=== PATIENT | female | born 1980 | race Caucasian/White ===

== ENCOUNTER 2020-07-15 08:33 | Outpatient (REF) | payer OTHER, SELFPAY ==
[2020-07-15 08:54] LABS: COVID-19 Test Negative (Negative)
== END 2020-07-15 08:34 | disposition home or self-care (01) ==
LOC: HO.LAB 08:33
PROVIDERS: PCP Internal Medicine; Visit Provider Internal Medicine
DX: Z20.828 Contact with and (suspected) exposure to other viral communicable diseases (principal)
CPT/HCPCS: 87635

== ENCOUNTER 2020-08-02 07:24 | Outpatient (REF) | payer OTHER, SELFPAY ==
[2020-08-02 08:54] LABS: Alanine Aminotransferase 13 U/L (0-31); Albumin Level 3.9 g/dL (3.5-5.0); Alkaline Phosphatase 64 U/L (39-117); Anion Gap 10 (12-20); Aspartate Amino Transferase 14 U/L (5-31); Bilirubin Total < 0.2 mg/dL (0.0-1.0); Blood Urea Nitrogen 11 mg/dL (9-16); Carbon Dioxide 24 mmol/L (22-29); Chloride 108 mmol/L (96-108); Cholesterol 146 mg/dL; Estimated Glomerular Filt Rate > 60; Glucose Fasting 109 mg/dL (60-99); HDL Cholesterol 57 mg/dL; LDL Cholesterol Calculated 76 mg/dl; Potassium 4.1 mmol/l (3.3-5.1); Sodium 138 mmol/L (135-145); Total Protein 6.9 g/dL (6.5-8.0); Triglycerides 65 mg/dL
== END 2020-08-02 07:25 | disposition home or self-care (01) ==
LOC: HO.LAB 07:24
PROVIDERS: Visit Provider Internal Medicine
DX: E66.01 Morbid (severe) obesity due to excess calories (principal)
CPT/HCPCS: 80053; 80061

== ENCOUNTER → 2021-01-13 07:50 | Outpatient (BNVA) | payer OTHER, SELFPAY | PROVIDERS: PCP Internal Medicine; Visit Provider Advanced Practice Midwife ==

== ENCOUNTER 2021-01-18 11:05 | Outpatient (REF) | payer OTHER, SELFPAY | END 2021-01-18 11:06 | disposition home or self-care (01) | LOC: HO.LAB 11:05 | PROVIDERS: Visit Provider Nurse Practitioner Family | DX: N39.0 Urinary tract infection, site not specified (principal) | CPT/HCPCS: 87086 ==

== ENCOUNTER 2021-04-01 07:51 | Outpatient (REF) | payer OTHER, SELFPAY ==
[2021-04-01 08:59] LABS: MANUAL DIFF FLAG NO
[2021-04-01 09:09] LABS: Basophils Percent Auto 0.7 % (0-2); Eosinophils Absolute Auto 0.1 X10*3/uL (0.0-0.4); Eosinophils Percent Auto 1.8 % (0-4); Hematocrit 40.9 % (37-47); Hemoglobin 13.6 g/dl (12.0-16.0); Imm Gran Abs Auto 0.03 X10*3/uL (0.00-0.03); Imm Gran Pct Auto 0.6 % (0.0-0.4); Lymphocytes Absolute Auto 1.4 X10*3/uL (1.2-4.9); Lymphocytes Percent Auto 25.7 % (20-40); Mean Corpuscular HGB Conc 33.3 g/dl (31.0-35.0); Mean Corpuscular Hemoglobin 27.5 pg (27.0-33.0); Mean Corpuscular Volume 82.6 fL (80-98); Mean Platelet Volume 9.3 fL (9.4-12.3); Monocytes Absolute Auto 0.5 X10*3/uL (0.1-1.2); Monocytes Percent Auto 9.4 % (2-11); Neutrophils Absolute Auto 3.4 X10*3/uL (2.0-8.3); Neutrophils Percent Auto 61.8 % (45-73); Platelet Count 398 X10*3/uL (160-400); Red Blood Count 4.95 X10*6/uL (4.20-5.50); Red Cell Distribution Width 14.1 % (11.0-16.0); White Blood Count 5.5 X10*3/uL (4.8-10.8)
[2021-04-01 09:27] LABS: Alanine Aminotransferase 20 U/L (0-31); Albumin Level 4.1 g/dL (3.5-5.0); Alkaline Phosphatase 74 U/L (39-117); Anion Gap 14 (12-20); Aspartate Amino Transferase 23 U/L (5-31); Bilirubin Total 0.4 mg/dL (0.0-1.0); Blood Urea Nitrogen 11 mg/dL (9-16); Calcium 9.1 mg/dL (8.4-10.2); Carbon Dioxide 24 mmol/L (22-29); Chloride 107 mmol/L (96-108); Cholesterol 151 mg/dL; Estimated Glomerular Filt Rate > 60; Glucose Fasting 103 mg/dL (60-99); HDL Cholesterol 52 mg/dL; LDL Cholesterol Calculated 85 mg/dl; Potassium 4.6 mmol/L (3.3-5.1); Sodium 140 mmol/L (135-145); Total Protein 7.3 g/dL (6.5-8.0); Triglycerides 71 mg/dL
[2021-04-01 10:11] LABS: Thyroid Stimulating Hormone 0.35 uIU/mL (0.32-4.0)
[2021-04-08 17:16] LABS: Vitamin D 25-OH, D2 <4 ng/mL; Vitamin D 25-OH, D3 13 ng/mL; Vitamin D 25-OH, Total 13 ng/mL (30-100)
== END 2021-04-01 07:52 | disposition home or self-care (01) ==
LOC: HO.LAB 07:51
PROVIDERS: PCP Internal Medicine; Visit Provider Internal Medicine
DX: E55.9 Vitamin D deficiency, unspecified (principal); L65.9 Nonscarring hair loss, unspecified; E78.5 Hyperlipidemia, unspecified; D64.9 Anemia, unspecified
CPT/HCPCS: 36415; 80053; 80061; 82306; 84443; 85025

== ENCOUNTER 2021-06-14 08:18 | Outpatient (REF) | payer OTHER, SELFPAY ==
--- NOTE | ~2021-06-14 | MM_ITS ---
EXAMINATION: MM SCREENING DIGITAL BREAST TOMOSYNTHESIS, BILATERAL CLINICAL INFORMATION: Screening. Asymptomatic. The lifetime risk of breast cancer based on the Tyrer-Cuzick Model is 8.3%. COMPARISON: Mammography: June 08, 2020 and studies dating back to March 30, 2014 TECHNIQUE: Digital breast tomosynthesis is performed in both the craniocaudal and mediolateral oblique views along with computer-aided detection (CAD). Synthesized 2D images are generated from the tomosynthesis. FINDINGS: The breasts are heterogeneously dense, which may obscure small masses (ACR BI-RADS breast composition Category c). There are no significant masses, abnormal calcifications, or other abnormalities. MM/MM tomosynthesis screening BI IMPRESSION: There are no significant changes from prior study. ASSESSMENT: BI-RADS 1: Negative RECOMMENDATION: Routine annual mammography screening. This patient's information was entered into a reminder system with a target due date for their next mammogram.
== END 2021-06-14 08:19 | disposition home or self-care (01) ==
LOC: HO.MAMMO 08:18
PROVIDERS: PCP Internal Medicine; Visit Provider Internal Medicine
DX: Z12.31 Encounter for screening mammogram for malignant neoplasm of breast (principal)
CPT/HCPCS: 77063; 77067

== ENCOUNTER 2021-06-16 11:30 | Outpatient (REF) | payer OTHER, SELFPAY | END 2021-06-16 11:31 | disposition home or self-care (01) | LOC: HO.LNP 11:30 | PROVIDERS: Visit Provider Hospitalist | DX: R30.0 Dysuria (principal) | CPT/HCPCS: 87086; 87088; 87186 ==

== ENCOUNTER → 2021-12-12 15:36 | Outpatient (REF) | payer OTHER, SELFPAY ==
--- NOTE | 2021-12-12 15:40 | ECG_ITS ---
Test Reason : DIZZINESS Blood Pressure : / mmHG Vent. Rate : 054 BPM Atrial Rate : 054 BPM P-R Int : 112 ms QRS Dur : 082 ms QT Int : 412 ms P-R-T Axes : -20 -01 028 degrees QTc Int : 390 ms Sinus bradycardia with sinus arrhythmia Otherwise normal ECG No previous ECGs available Referred By: Kenny Arteaga Electronically Signed By:JULIO C BALDWIN
[2021-12-12 16:30] LABS: Basophils Absolute Auto 0.1 X10*3/uL (0.0-0.2); Hemoglobin 13.5 g/dl (12.0-16.0); PLT CLUMP 1; SCAN SMEAR FLAG 1
[2021-12-12 16:32] LABS: Basophils Percent Auto 0.7 % (0-2); Eosinophils Absolute Auto 0.1 X10*3/uL (0.0-0.4); Eosinophils Percent Auto 1.9 % (0-4); Imm Gran Abs Auto 0.04 X10*3/uL (0.00-0.03); Imm Gran Pct Auto 0.6 % (0.0-0.4); MANUAL DIFF FLAG SCAN; Mean Corpuscular HGB Conc 32.9 g/dl (31.0-35.0); Mean Corpuscular Hemoglobin 27.2 pg (27.0-33.0); Mean Corpuscular Volume 82.7 fL (80.0-98.0); Mean Platelet Volume 10.9 fL (9.4-12.3); Monocytes Absolute Auto 0.6 X10*3/uL (0.1-1.2); Monocytes Percent Auto 8.6 % (2-11); Neutrophils Absolute Auto 4.2 x10*3/uL (2.0-8.3); Neutrophils Percent Auto 59.2 % (45-73); Red Blood Count 4.96 X10*6/uL (4.20-5.50); Red Cell Distribution Width 14.1 % (11.0-16.0)
[2021-12-12 16:43] LABS: Appearance Urine CLEAR; Color Urine STRAW; Glucose Urine UA NEG (NEG); Leukocyte Esterase Urine NEG (NEG); Nitrite Urine NEG (NEG); Specific Gravity - Urine <= 1.005 (1.005-1.025); Urine Blood NEG (NEG); Urine Ketones NEG (NEG); Urine Protein NEG (NEG-TRACE)
[2021-12-12 16:54] LABS: Alanine Aminotransferase 77 U/L (0-31); Alkaline Phosphatase 67 U/L (39-117); Anion Gap 13 (12-20); Aspartate Amino Transferase 27 U/L (5-31); Bilirubin Total 0.2 mg/dL (0.0-1.0); Blood Urea Nitrogen 11 mg/dL (9-16); Calcium 8.8 mg/dL (8.4-10.2); Carbon Dioxide 25 mmol/L (22-29); Chloride 106 mmol/L (96-108); Estimated Glomerular Filt Rate > 60; Glucose Random 85 mg/dL (60-115); Potassium 4.1 mmol/L (3.3-5.1); Sodium 140 mmol/L (135-145); Total Protein 7.3 g/dL (6.5-8.0)
[2021-12-12 16:58] LABS: Platelet Count 262 X10*3/uL (160-400); SLIDE REVIEW VERIFIED; White Blood Count 6.7 X10*3/uL (4.8-10.8)
== END ==
LOC: HO.CARD 15:36
PROVIDERS: PCP Internal Medicine; Visit Provider Nurse Practitioner Family
DX: R42 Dizziness and giddiness (principal); R51.9 Headache, unspecified; I10 Essential (primary) hypertension
CPT/HCPCS: 36415; 80053; 81003; 85025; 93005

== ENCOUNTER 2021-12-22 15:26 | Outpatient (REF) | payer OTHER, SELFPAY ==
--- NOTE | ~2021-12-22 | MR_ITS ---
EXAMINATION: MR BRAIN WITHOUT CONTRAST CLINICAL INFORMATION: Headaches. COMPARISON: None. TECHNIQUE: Multiplanar, multisequence imaging of the brain was performed without contrast. FINDINGS: There are trace bilateral hemispheric subdural collections and probable dural thickening without midline shift. Trace subdural fluid also along the tentorial leaflets. There is either dural thickening versus trace subdural collections along the dorsal clivus and around the cerebellar hemispheres in the posterior fossa, without mass effect. The ventricles are small in size. There is no sagging appearance of the brainstem. The cerebellar tonsils are normal in position. Although incompletely visualized, there is suspected engorgement of the epidural venous plexus at the C1-C2 level. No diffusion abnormalities are identified to suggest an acute infarct. No brain parenchymal signal abnormality is noted. The brainstem and cerebellum are otherwise normal. The gradient refocused acquisition is normal. The craniovertebral junction, marrow signal, and midline structures are normal. The major intracranial flow voids at the level of the igiugig of [place] are preserved. The dural venous sinus flow voids are maintained. There are small retention cysts in the maxillary sinuses. The mastoid air cells are well aerated. MR/MR head/brain wo con IMPRESSION: Trace subdural collections and suspected dural thickening along the cerebral convexities with involvement of the tentorial leaflets and also visible around the cerebellar hemispheres in the posterior fossa. Additional findings along the dorsal clivus in the prepontine cistern. Potential engorgement of the epidural venous plexus in the upper cervical spine. Although there is no sagging of the brainstem or inferior cerebellar tonsillar ectopia, findings may signify idiopathic intracranial hypotension. Query for any history of positional headaches.
== END 2021-12-22 15:27 | disposition home or self-care (01) ==
LOC: HO.MRI 15:26
PROVIDERS: Visit Provider Nurse Practitioner Family
DX: R51.9 Headache, unspecified (principal)
CPT/HCPCS: 70551

== ENCOUNTER → 2022-01-05 08:41 | Outpatient (BNVA) | payer OTHER, SELFPAY | PROVIDERS: PCP Internal Medicine; Visit Provider Nurse Practitioner Family | DX: Z13.89 Encounter for screening for other disorder (principal) ==

== ENCOUNTER 2022-01-24 07:57 | Outpatient (RCR) | payer OTHER, SELFPAY ==
[2022-01-24 08:11] VITALS: BP 135/82; PULSE 71
--- NOTE | 2022-01-24 09:01 | MHC.PT.EP ---
[facility] [place] Office [place] Office [place] Office [address] [phone] F: [phone] F: [phone] F: [phone] F: [phone] Physical Therapy Plan of Care Date of Evaluation: Date of Surgery: NA Diagnosis: Dizziness and giddiness Assessment: Zenia is a 41 year old female who is referred to PT for giddiness and dizziness . She reports of having sudden onset of CHU, dizziness, ear pain, ringing and ears feeling blocked about 1.5 months. Her symptoms have resolved for most part. She currently only has occasional dizziness and ringing in her ear. On PT examination she presented with intact smooth pursuit, saccades, DVA, visual tracking, head thrust, static and dynamic balance. She is negative for VBI and BPPV in ball pikes and B roll test. She has returned to PLOF with ADLS and work activities. She currently has no symptoms of vestibular dysfunction. No PT indicated at this time. Frequency and Duration: The patient will be seen Short Term Goals: Care Home Goals: Treatment Plan: Modalities to reduce pain, spasms and effusion. Manual therapy to restore motion and function. Therapeutic exercise to improve strength and flexibility. Neuromuscular re-education for posture and balance. Therapeutic activities to return to functional activities of daily living. Electronically signed by: Cyndy Carbajal PT DPT Please sign and return to therapist. Thank you for your referral.
--- NOTE | 2022-03-01 14:46 | MHC.PT.DC ---
[facility] [place] [facility] [place] Office [place] Office [address] [facility] [phone] F: [phone] F: [phone] F: [phone] F: [phone] Physical Therapy Discharge Report Diagnosis: Dizziness and giddiness Date of Surgery: NA Date of Evaluation: 01/24/22 Date of Discharge: 03/01/22 Treatments to Date: 1 Cancellations to Date: 0 No Shows to Date: 0 Discharge Status: Discharge Summary: Zenia had no symptoms of vertigo. She is therefore being d/c from PT. Electronically signed by: Cyndy Carbajal PT DPT Please sign and return to therapist. Thank you for your referral.
== END 2022-03-01 14:47 | disposition home or self-care (01) ==
LOC: HO.PT 07:57
PROVIDERS: PCP Internal Medicine; Visit Provider Nurse Practitioner Family
DX: R42 Dizziness and giddiness (principal)
CPT/HCPCS: 97112; 97161

== ENCOUNTER 2022-04-11 14:42 | Outpatient (REF) | payer OTHER, SELFPAY ==
[2022-04-14 10:51] LABS: HPV mRNA E6/E7 rflx Not Detected (Not Detected)
== END 2022-04-11 14:43 | disposition home or self-care (01) ==
LOC: HO.LAB 14:42
PROVIDERS: Visit Provider Advanced Practice Midwife
DX: Z01.419 Encounter for gynecological examination (general) (routine) without abnormal findings (principal); R10.2 Pelvic and perineal pain; E66.01 Morbid (severe) obesity due to excess calories; Z11.51 Encounter for screening for human papillomavirus (HPV)
CPT/HCPCS: 87624; 88142

== ENCOUNTER 2022-05-29 13:54 | Outpatient (REF) | payer OTHER, SELFPAY ==
--- NOTE | ~2022-05-29 | US_ITS ---
EXAMINATION: US PELVIS CLINICAL INFORMATION: Morbid obesity due to excess calories COMPARISON: 11/10/2019 TECHNIQUE: Ultrasound of the pelvis is performed using both transabdominal and transvaginal transducers along with Doppler. Transvaginal imaging is performed due to inadequate visualization transabdominally. FINDINGS: Uterus: The uterus is anteverted and measures 9.6 x 4.3 x 5.7 cm. New 2.2 cm right fundal uterine myoma. Unchanged 1.3 cm myoma in the posterior aspect of the lower uterine segment. Previously seen myoma no longer seen. The double wall endometrial thickness is 0.9 mm. Adnexa: Both ovaries are visualized. There is normal color flow to the adnexa. There is no pelvic ascites or fluid collection. Right ovary measures 2.6 x 1.9 x 1.7 cm. No adnexal mass Left ovary was only seen transabdominally and measures 2.0 x 1.3 x 1.0 cm. No adnexal mass. US/US pelvic and transvaginal IMPRESSION: No adnexal mass. Unchanged small lower uterine segment myoma. New 2.2 cm right fundal leiomyoma.
== END 2022-05-29 13:55 | disposition home or self-care (01) ==
LOC: HO.US 13:54
PROVIDERS: Visit Provider Advanced Practice Midwife
DX: R10.2 Pelvic and perineal pain (principal); E66.01 Morbid (severe) obesity due to excess calories
CPT/HCPCS: 76830; 76856

== ENCOUNTER 2022-06-16 07:47 | Outpatient (REF) | payer OTHER, SELFPAY ==
--- NOTE | ~2022-06-16 | MM_ITS ---
EXAMINATION: MM SCREENING DIGITAL BREAST TOMOSYNTHESIS, BILATERAL CLINICAL INFORMATION: Screening. Asymptomatic. The lifetime risk of breast cancer based on the Tyrer-Cuzick Model is 11%. COMPARISON: Mammography: 06/14/2021, 06/08/2020, 06/03/2019 TECHNIQUE: Digital breast tomosynthesis is performed in both the craniocaudal and mediolateral oblique views along with computer-aided detection (CAD). Synthesized 2D images are generated from the tomosynthesis. Additional bilateral CC and left MLO views are provided. FINDINGS: There are scattered areas of fibroglandular density (ACR BI-RADS breast composition Category b). There are no significant masses, abnormal calcifications, or other abnormalities. Parenchymal pattern is similar to prior studies. There is no developing density or architectural abnormality. There are some fine calcifications posterior outer left breast likely vascular and stable from prior exams. The axilla and skin contours are unremarkable. No significant changes. MM/MM tomosynthesis screening BI IMPRESSION: No mammographic evidence of malignancy. ASSESSMENT: BI-RADS 2: Benign RECOMMENDATION: Routine annual mammography screening. This patient's information was entered into a reminder system with a target due date for their next mammogram.
== END 2022-06-16 07:48 | disposition home or self-care (01) ==
LOC: HO.MAMMO 07:47
PROVIDERS: PCP Internal Medicine; Visit Provider Internal Medicine
DX: Z12.31 Encounter for screening mammogram for malignant neoplasm of breast (principal)
CPT/HCPCS: 77063; 77067

== ENCOUNTER 2022-06-22 07:07 | Outpatient (REF) | payer OTHER, SELFPAY ==
[2022-06-22 08:21] LABS: Alanine Aminotransferase 19 U/L (0-31); Alkaline Phosphatase 74 U/L (39-117); Anion Gap 13 (12-20); Aspartate Amino Transferase 17 U/L (5-31); Bilirubin Total 0.6 mg/dL (0.0-1.0); Blood Urea Nitrogen 14 mg/dL (9-16); Carbon Dioxide 24 mmol/L (22-29); Chloride 107 mmol/L (96-108); Cholesterol 155 mg/dL; Estimated Glomerular Filt Rate > 60; Glucose Fasting 106 mg/dL (60-99); HDL Cholesterol 54 mg/dL; LDL Cholesterol Calculated 87 mg/dl; Potassium 4.4 mmol/L (3.3-5.1); Sodium 140 mmol/L (135-145); Total Protein 7.1 g/dL (6.5-8.0); Triglycerides 72 mg/dL
[2022-06-22 08:42] LABS: Thyroid Stimulating Hormone 0.66 uIU/mL (0.32-4.0)
== END 2022-06-22 07:08 | disposition home or self-care (01) ==
LOC: HO.LAB 07:07
PROVIDERS: PCP Internal Medicine; Visit Provider Internal Medicine
DX: Z00.00 Encounter for general adult medical examination without abnormal findings (principal); E55.9 Vitamin D deficiency, unspecified; E66.01 Morbid (severe) obesity due to excess calories
CPT/HCPCS: 36415; 80053; 80061; 82306; 84443

== ENCOUNTER 2022-08-02 16:13 | Outpatient (REF) | payer OTHER, SELFPAY ==
--- NOTE | ~2022-08-02 | MR_ITS ---
EXAMINATION: MR BRAIN WITHOUT AND WITH CONTRAST CLINICAL INFORMATION: Headache. COMPARISON: Brain MRI 12/22/2021. TECHNIQUE: Multiplanar MR imaging of the brain was performed without and with contrast. A total of 10 mL Gadavist was utilized for this examination. FINDINGS: Postcontrast images reveal no abnormal intracranial mass or enhancement. There is no intracranial mass effect or midline shift. Lateral and third ventricles are normal. No hydrocephalus. Midline structures including the cervicomedullary junction are normal. No acute bone marrow signal changes. There is no acute territorial infarct. No pathological magnetic susceptibility artifact. Intracranial vascular flow voids are maintained. There is no mastoid or middle ear effusion. A few small retention cysts are visualized within the maxillary sinuses. Otherwise no active paranasal sinus disease. Globes and orbits are symmetric. MR/MR head/brain wo/w con IMPRESSION: Normal brain MRI.
== END 2022-08-02 16:14 | disposition home or self-care (01) ==
LOC: HO.MRI 16:13
PROVIDERS: Visit Provider Nurse Practitioner Family
DX: R90.89 Other abnormal findings on diagnostic imaging of central nervous system (principal); R51.0 Headache with orthostatic component, not elsewhere classified
CPT/HCPCS: 70553; A9585

== ENCOUNTER → 2022-10-10 07:56 | Outpatient (BNVA) | payer OTHER, SELFPAY | PROVIDERS: PCP Internal Medicine; Visit Provider Nurse Practitioner Family | DX: Z13.89 Encounter for screening for other disorder (principal) ==

== ENCOUNTER → 2023-02-06 08:23 | Outpatient (BNVA) | payer OTHER, SELFPAY | PROVIDERS: PCP Internal Medicine; Visit Provider Nurse Practitioner Family ==

== ENCOUNTER 2023-05-14 07:19 | Outpatient (AMB) | payer OTHER, SELFPAY ==
[2023-05-14 07:22] VITALS: BP 128/72; PULSE 62; O2SAT 98; BMI 51.2
--- NOTE | 2023-05-14 07:22 | MHC.PC.OV ---
Vital Signs 05/14/23 07:22 Height 5 ft Weight 262 lb BMI 51.2 BP 128/72 Blood Pressure Location Lt brachial Position Sitting Pulse 62 Pulse Source Pulse Oximeter Pulse Oximetry (%) 98 Oxygen Delivery Method Room Air Intake Visit Reasons: annual exam Photoradio Operator Required: No Accompanied by: Self / Same As Patient Allergies gabapentin Allergy (Intermediate, Verified 05/14/23 07:40) pruritus magnesium Allergy (Intermediate, Verified 05/14/23 07:40) rash environmental allergies Allergy (Unknown, Verified 05/14/23 07:40) Unknown metformin Adverse Reaction (Intermediate, Verified 05/14/23 07:40) diarrhea Medication List - Last Reconciled 05/14/23 by Fay Cisneros MD [id number]-mxwoxsptwqifl-izuj 50-325-40 mg 1 - 2 caps PO Q4-6H PRN 30 days levocetirizine (Xyzal) 5 mg PO DAILY Tobacco use date assessed: 05/14/23 Dental Screening Dental Screen Date: 05/14/23 Did you have a dental visit in the last 12 months?: Yes Did you have a dental problem in the last 6 months where you did not have access to dental care?: No Was dental information given to patient?: Patient has dentist HPI HPI Comments History of Present Illness Details This is a 43-year-old female with morbid obesity that comes for her physical exam. She has a BMI of 51.2 and will be referred to weight management. No chest pain. No shortness of breath. Last mammogram was June 2022. Last Pap smear was 2021. Is willing to do Cologuard. Complains of voice hoarseness that has been present for over a month. Also has left heel pain that bothers her for few months. [facility] Medical History (Updated 05/14/23 @ 07:53 by Fay Cisneros MD) Acne Extreme obesity Hair loss Hypovitaminosis D Missed period Morbid obesity Surgical History History of section History of laparoscopic cholecystectomy History of right breast biopsy History of surgery History of tubal ligation Family History (Updated 05/14/23 @ 07:46 by Fay Cisneros MD) Father Hypertension Stroke Mother Hypertension Sister No problems noted. Son No problems noted. Daughter No problems noted. Maternal Aunt Colon cancer, Onset Age: 60 Social History Housing: Apartment Alcohol intake: never Patient Tobacco Use Status: Never used Tobacco e-Cigarette/Vaping Use: Never Used Second Hand Smoke Exposure: No service: No Current occupational status: employed Current occupational exposures/hazards: No Cognitive needs: No Hearing needs: No Vision needs: No Female Reproductive History Menstrual Age of Menarche: 9 Questionnaire PHQ-9 Over the last 2 weeks, how often have you been bothered by any of the following problems? 1. Little interest or pleasure in doing things: not at all 2. Feeling down, depressed, or hopeless: not at all 3. Trouble falling or staying asleep, or sleeping too much: not at all 4. Feeling tired or having little energy: not at all 5. Poor appetite or overeating: not at all 6. Feeling bad about yourself - or that you are a failure or have let yourself or your family down: not at all 7. Trouble concentrating on things, such as reading the newspaper or watching television: not at all 8. Moving or speaking so slowly that other people could have noticed. Or the opposite - being so fidgety or restless that you have been moving around a lot more than usual: not at all 9. Thoughts that you would be better off or of hurting yourself in some way: not at all Total score: 0 Depression Screening Interpretation: Negative 88868 - PHQ-9 Billing: Yes Source: Developed by Drs. German Bell, Trena Mccoy, Elia Zimmerman and colleagues, with an educational haseeb from [employer]. Thrive Questionnaire Date Thrive assessed: 05/14/23 I am a: Patient What is your living situation today?: I have a steady place to live Within the past 12 months, did the food you bought not last and you didn't have the money to get more?: Never true Within the past 12 months, did you worry whether your food would run out before you got money to buy more?: Never true Do you have trouble paying for medicines?: No Do you have trouble getting transportation to medical appointments?: No Do you have trouble paying your heating and electricity bill?: No Do you have trouble taking care of your child, family member or friend?: No Do you have trouble with day-to-day activities such as bathing, preparing meals, shopping, managing finances, etc.?: No Are you currently unemployed and looking for a job?: No Are you interested in more education?: No Currently or been in a relationship where the following occur: no concerns reported AUDIT C Alcohol Use Questionnaire (AUDIT-C) 1. How often do you have a drink containing alcohol?: Never Total Score: 0 Score Reviewed/Action Taken: No GUZMAN-7 AMB Questionnaire GUZMAN-7 Date GUZMAN - 7 assessed: 05/14/23 Feeling nervous, anxious, or on edge: 0 = Not at all Not being able to stop or control worryin = Not at all Worrying too much about different things: 0 = Not at all Trouble relaxin = Not at all Being so restless that it is hard to sit still: 0 = Not at all Becoming easily annoyed or irritable: 0 = Not at all Feeling afraid as if something awful might happen: 0 = Not at all Total GUZMAN-7 score (0-4 normal; 5-9 mild; 10-14 moderate; 15-21 severe): 0 Source: Developed by Drs. German Bell, Trena Mccoy, Elia Zimmerman and colleagues, with an educational haseeb from [employer]. GUZMAN-7 Assessment Billing GUZMAN-7 Assessment Tool: GUZMAN-7 Assessment 41737 Review of Systems Const All systems reviewed & are unremarkable except as noted in HPI and below Eyes Reports no additional complaints, Denies change in vision and Denies other visual disturbances Card Denies chest pain at rest, Denies chest pain with activity, Denies edema, Denies irregular heart rhythm, Denies claudication, Denies dyspnea, Denies dyspnea on exertion, Denies orthopnea, Denies paroxysmal nocturnal dyspnea and Denies slow heart rate Resp Denies cough, Denies dyspnea and Denies dyspnea on exertion GI Denies abdominal pain, Denies change in bowel habits, Denies excessive flatus, Denies nausea and Denies vomiting Denies urinary incontinence, Denies urinary hesitancy and Denies urinary urgency Musc Denies abnormal gait, Denies atrophy, Denies deformity and Denies limited range of motion Skin/Breast Denies bleeding lesions, Denies changing lesions and Denies rash Neuro Denies abnormal gait and Denies lack of coordination Physical exam (Primary Care) Vital Signs: Last Vital Signs Pulse 62 05/14/23 07:22 BP 128/72 05/14/23 07:22 Pulse Ox 98 05/14/23 07:22 Oxygen Delivery Method Room Air 05/14/23 07:22 BMI result Body Mass Index 51.2 Tobacco/Smoking Status: Tobacco use Status Tobacco use date assessed 05/14/23 05/14/23 07:27 Patient Tobacco Use Status Never used Tobacco 05/14/23 07:27 e-Cigarette/Vaping Use Never Used 05/14/23 07:27 PHQ-9: PHQ-9 Score PHQ-9: Total score 0 05/14/23 07:27 Depression Screening Interpretation: Negative Thrive Assessment: Date of Thrive Assessment Date Thrive assessed 05/14/23 05/14/23 07:27 Currently or been in a relationship where the following occur: no concerns reported Const Orientation/consciousness: patient oriented x3 HENMT Head: Yes normal to inspection, Yes normocephalic and Yes atraumatic Ears: external ears normal General nose exam: Normal external nose present and No nasal discharge present Face and sinus: Yes sinuses nontender Mouth: lip normal Eyes General: appearance normal, both eyes and all related structures Eyelids: Yes eyelids normal Conjunctivae: conjunctivae normal Neck Neck: Yes normal visual inspection and Yes supple Resp Effort & Inspection: normal respiratory effort Auscultation: clear to auscultation bilaterally Cardio Jugular venous distension: no JVD Rate: regular rate Rhythm: regular rhythm Heart sounds: S1 normal heart sound present and S2 normal heart sound present GI Inspection: Yes normal to inspection Palpation (GI): Soft to palpation and nontender Auscultation: normal bowel sounds Skin General skin exam: no rashes or lesions noted Neuro General: patient oriented x3 and no focal motor deficits Extrem General: Yes full ROM Psych Appearance: grossly normal Assessment and Plan Assessment & Plan (1) Physical exam: Code(s): Z00.00 - Encounter for general adult medical examination without abnormal findings Plan: Repeat in a year (2) Morbid obesity: Comment: bmi=50.0, 04/11/22 Code(s): E66.01 - Morbid (severe) obesity due to excess calories Plan: Referred to weight management. BMI goal is less than 30. Orders: Orders Comprehensive [place]. Panel Fast Today Z00.00 - Encounter for general adult medical examination without abnormal findings Lipid Panel Today Z00.00 - Encounter for general adult medical examination without abnormal findings Thyroid Stimulating Hormone Today E66.01 - Morbid (severe) obesity due to excess calories Vitamin D 25-OH Total Today E55.9 - Vitamin D deficiency, unspecified, Z00.00 - Encounter for general adult medical examination without abnormal findings Complete Blood Count Auto Diff Today E66.01 - Morbid (severe) obesity due to excess calories XR foot LT 2V Today M79.672 - Pain in left foot Referrals Cologuard Test Z12.11 - Encounter for screening for malignant neoplasm of colon, Z12.12 - Encounter for screening for malignant neoplasm of rectum Ear/Nose/Throat Referral R49.0 - Dysphonia Medical Weight Management Referral E66.01 - Morbid (severe) obesity due to excess calories Coding Level of Care Code Est Pt Prev Care 40-64y(75908) Diagnoses Physical exam Z00.00 Morbid obesity E66.01 Additional Codes GUZMAN-7 Assessment Billing - GUZMAN-7 Assessment Tool: GUZMAN-7 Assessment 13294 ([id number]) Time Spent (min) 35
== END 2023-05-14 07:56 | disposition home or self-care (01) ==
PROVIDERS: PCP Internal Medicine; Visit Provider Internal Medicine
DX: Z00.00 Encounter for general adult medical examination without abnormal findings (principal); E66.01 Morbid (severe) obesity due to excess calories; Z68.43 Body mass index [BMI] 50.0-59.9, adult
CPT/HCPCS: 99396

== ENCOUNTER 2023-06-19 08:03 | Outpatient (REF) | payer OTHER, SELFPAY | END 2023-06-19 08:04 | disposition home or self-care (01) | LOC: HO.MAMMO 08:03 | PROVIDERS: PCP Internal Medicine; Visit Provider Internal Medicine | DX: Z12.31 Encounter for screening mammogram for malignant neoplasm of breast (principal) | CPT/HCPCS: 77063; 77067 ==

== ENCOUNTER → 2023-06-19 08:15 | Outpatient (BNV) | payer OTHER, SELFPAY | PROVIDERS: PCP Internal Medicine; Visit Provider Radiology Diagnostic Radiology | DX: Z12.31 Encounter for screening mammogram for malignant neoplasm of breast (principal) | CPT/HCPCS: 77063; 77067 ==

== ENCOUNTER 2023-08-10 09:33 | Outpatient (AMB) | payer MEDICAID, SELFPAY ==
--- NOTE | 2023-08-10 09:36 | A.OFFVIS_ITS ---
Intake Vital Signs 08/10/23 09:38 Height 5 ft Weight 263 lb BMI 51.4 Intake Visit Reasons: 6m follow up headache/ Confirmed Intake Note: Patient presents for 6 month follow up headache. Patient states I'm feeling good, headaches are more controlled Allergies gabapentin Allergy (Intermediate, Verified 08/10/23 09:39) pruritus magnesium Allergy (Intermediate, Verified 08/10/23 09:39) rash environmental allergies Allergy (Unknown, Verified 08/10/23 09:39) Unknown metformin Adverse Reaction (Intermediate, Verified 08/10/23 09:39) diarrhea Medication List - Last Reconciled 08/10/23 by Raquel Fernández, LEXIS [id number]-skiccesgfzvwq-uahe 50-325-40 mg 1 - 2 caps PO Q4-6H PRN 30 days levocetirizine (Xyzal) 5 mg PO DAILY HPI HPI Comments History of Present Illness Details 43-yr-old presents for f/u visit. Pt denies any significant interval medical changes. Pt reports in Jul, she had 1 day w/ strong positional headache upon standing. She took her Fioricet which did help. Otherwise may have an occasional headache more moderate headache. [facility] Medical History Acne Extreme obesity Hair loss Hypovitaminosis D Missed period Morbid obesity Surgical History History of surgery History of right breast biopsy History of tubal ligation History of section History of laparoscopic cholecystectomy Family History Father Hypertension Stroke Mother Hypertension Sister No problems noted. Son No problems noted. Daughter No problems noted. Maternal Aunt Colon cancer, Onset Age: 60 Social History Housing: Apartment Alcohol intake: never Patient Tobacco Use Status: Never used Tobacco e-Cigarette/Vaping Use: Never Used Second Hand Smoke Exposure: No service: No Current occupational status: employed Current occupational exposures/hazards: No Cognitive needs: No Hearing needs: No Vision needs: No Female Reproductive History Menstrual Age of Menarche: 9 Review of Systems Const All systems reviewed & are unremarkable except as noted in HPI and below Physical Exam Vital Signs: BMI result Body Mass Index 51.4 Const General: cooperative and no acute distress Orientation/consciousness: patient oriented x3 HEENT Head: Yes normocephalic Resp Effort & Inspection: normal respiratory effort and able to speak in complete sentences Neuro General: patient oriented x3, gait normal and CN's II-XI intact bilaterally Cognition (Neuro): normal cognition Motor exam (neuro): 5/5 motor strength present throughout Psych Appearance: grossly normal Mental Status: mental status grossly normal Speech and movement: Normal speech and movement present Affect: normal affect Attitude: cooperative Thought process: Normal thought process present Thought content: Normal thought content present Insight: Good insight present (Psych) Judgement: Good judgement present (Psych) Assessment & Plan Assessment & Plan (1) Positional headache: Code(s): R51.0 - Headache with orthostatic component, not elsewhere classified (2) Abnormal brain MRI: Comment: 12/22/21: Trace subdural collections and suspected dural thickening along the cerebral convexities with involvement of the tentorial leaflets and also visible around the cerebellar hemispheres in the posterior fossa. Additional findings along the dorsal clivus in the prepontine cistern. Potential engorgement of the epidural venous plexus in the upper cervical spine. f/u brain MRI 08/2022- normal. Code(s): R90.89 - Other abnormal findings on diagnostic imaging of central nervous system Plan Continue prn Fioricet or Tylenol, caffeine 200mg prn. Continue Liquid IV, and rest prn positional headache symptoms. Future considerations: CT myelogram, LP blood patch. ? f/u in 6 months or sooner prn new/worsening s/s. Medications: Refilled [id number]-ectwcwhhrappg-ryec 50-325-40 mg max 6 tabs per day 1 - 2 caps PO Q4-6H 30 days PRN 24 caps 2RF positinal headahe Coding Level of Care Code Est Pt Level 4 (14921) Diagnoses Positional headache R51.0 Abnormal brain MRI R90.89
[2023-08-10 09:38] VITALS: BMI 51.4
== END 2023-08-10 09:57 | disposition home or self-care (01) ==
PROVIDERS: Visit Provider Nurse Practitioner Family
DX: R51.0 Headache with orthostatic component, not elsewhere classified (principal); R90.89 Other abnormal findings on diagnostic imaging of central nervous system
CPT/HCPCS: 99214

== ENCOUNTER → 2023-08-10 09:33 | Outpatient (BNVA) | payer MEDICAID, SELFPAY | PROVIDERS: Visit Provider Nurse Practitioner Family | DX: R51.0 Headache with orthostatic component, not elsewhere classified (principal); R90.89 Other abnormal findings on diagnostic imaging of central nervous system | CPT/HCPCS: 99212 ==

== ENCOUNTER 2023-08-28 08:57 | Outpatient (AMB) | payer OTHER, SELFPAY ==
--- NOTE | 2023-08-28 09:25 | A.OFFVIS_ITS ---
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 Language: Sami Information Interpreted: non-clinical & clinical Internal Medicine Doctor: Internal Medicine Doctor Present Allergies gabapentin Allergy (Intermediate, Verified 08/28/23 09:29) pruritus magnesium Allergy (Intermediate, Verified 08/28/23 09:29) rash environmental allergies Allergy (Unknown, Verified 08/28/23 09:29) Unknown metformin Adverse Reaction (Intermediate, Verified 08/28/23 09:29) diarrhea Medication List - Last Reconciled 08/28/23 by Sabrina Motley CNM wurxyqzive-bnlrpfdcgmyue-qtcp 50-325-40 mg 1 - 2 caps PO Q4-6H PRN 30 days levocetirizine (Xyzal) 5 mg PO DAILY Is last menstrual period known: Yes Last menstrual period: 08/13/23 HPI 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 She never feels the pains on her left side she thinks they are related to ovulation and menstrual changes. Her pain was investigated last year with a pelvic ultrasound and small fibroids were seen but that was all. She has been seen by her primary care provider and says she has had fasting blood work and she also had colon cancer screening that she did at home but she has not gotten the results yet. She says she was referred to bariatric surgery and she watched the video and then she called the number but nobody has ever called her back and she has reached out more than once and she is wondering if it is just not the right time. 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 She thinks she was misunderstood and she does not remember ever having an abn ormal Pap smear and she has no worries at all about infection or discharge or anything else either [facility] Medical History Hypovitaminosis D Morbid obesity Missed period Hair loss Extreme obesity Acne Surgical History History of surgery History of right breast biopsy History of tubal ligation History of section History of laparoscopic cholecystectomy Family History Father Hypertension Stroke Mother Hypertension Sister No problems noted. Son No problems noted. Daughter No problems noted. Maternal Aunt Colon cancer, Onset Age: 60 Housing: Apartment Alcohol intake: never Patient Tobacco Use Status: Never used Tobacco e-Cigarette/Vaping Use: Never Used Second Hand Smoke Exposure: No service: No Current occupational status: employed Current occupational exposures/hazards: No Cognitive needs: No Hearing needs: No Vision needs: No Female Reproductive History Menstrual Age of Menarche: 9 Date of last menstrual period: 08/13/23 control method: permanent sterilization Permanent Sterilization: BTL Total pregnancies: 2 Full term: 2 Number of Living Children: 2 Date of last pap smear: 04/12/22 (neg pap and hpv; also negative Pap and negative HPV 2018.) History of abnormal pap smear: Yes (patient stated I couldnt find evidence in medical record) Date of Mammogram: 06/19/23 Physical Exam Vital Signs: Last Vital Signs BP 120/74 08/28/23 09:27 BMI result Body Mass Index 51.0 Const General: healthy appearing, comfortable, no acute distress, well developed and alert Nutritional Appearance: average body habitus and obese Orientation/consciousness: patient oriented x3 Limitations: no limitations HEENT Head: Yes normocephalic Neck Neck: Yes normal visual inspection Chest Chest palpation & inspection: normal inspection of the chest Breast/axilla inspection: normal inspection of the breasts and normal inspection of the axillae Breast/axilla palpation: normal palpation of the breasts and normal palpation of the axillae Resp Effort & Inspection: normal respiratory effort GI Inspection: Yes normal to inspection, No Abdominal wall edema and No distended Palpation (GI): Soft to palpation and nontender Other: External exam completely within normal limits vagina pink moist with very clear almost fertile mucus cervix parous pink clear mobile nontender uterus difficult to feel completely but mobile nontender fair tone with Kegel no adnexal tenderness. General: Yes bladder normal to palpation External Female Exam: normal external appearance and normal appearance of the urethra Speculum Exam - Vagina: normal appearance of the vagina, normal palpation and normal vaginal discharge Speculum Exam - Cervix: normal appearance of the cervix, normal palpation and nontender Bimanual exam- vagina & uterus: normal bimanual exam, normal palpation, uterine size normal, bladder normal to palpation, consistency normal, normal palpation, uterine mobility normal, uterine shape normal, No Cervical tenderness present, non-tender and no cervical motion tenderness Bimanual Exam- Adnexa, other: normal adnexae, no masses, normal and No adnexal tenderness Neuro General: patient oriented x3 Assessment & Plan Assessment & Plan (1) Fibroid uterus: Comment: See ultrasound for details. largest is 2.2 cm. Code(s): D25.9 - Leiomyoma of uterus, unspecified (2) Cervical cancer screening: Comment: 04/11/22 pap= neg w neg hpv. Code(s): Z12.4 - Encounter for screening for malignant neoplasm of cervix (3) Well woman exam with routine gynecological exam: Code(s): Z01.419 - Encounter for gynecological examination (general) (routine) without abnormal findings (4) Pelvic pain: Comment: Episodic right-sided, possibly cyclic, usually the week or so before her period. Code(s): R10.2 - Pelvic and perineal pain (5) Obesity, morbid, BMI 50 or higher: Code(s): E66.01 - Morbid (severe) obesity due to excess calories Plan -----Discussed in this visit the following: healthy balanced diet, regular and consistent exercise, getting recommended health screens, doing the best she can for her particular health concerns, kegel exercises, pap smear screening and followup recommendations, mammography screening and SBE, normal changes in cycles in her life stage--- .Discussed in general terms the challenges of obesity and challenges for her health and efforts she is engaging in to manage this including dietary changes water intake attention to sleep inclusion of a regular exercise have it and dealing with the may need stressors of life that can contribute to obesity in general. Encouraged her to continue in all have her best efforts Suggested that she walk over to the bariatric surgery office and see what happened with her follow-up. Will see her annually . she gets her annual mammograms. Reviewed that most likely the cyclic pain that she is experiencing is related to ovulation or the post ovulatory changes that happen. Coding Level of Care Code Est Pt Prev Care 40-64y(28977) Diagnoses Fibroid uterus D25.9 Cervical cancer screening Z12.4 Well woman exam with routine gynecological exam Z01.419 Pelvic pain R10.2 Obesity, morbid, BMI 50 or higher E66.01
[2023-08-28 09:27] VITALS: BP 120/74; BMI 51.0
== END 2023-08-28 10:18 | disposition home or self-care (01) ==
PROVIDERS: PCP Internal Medicine; Visit Provider Advanced Practice Midwife
DX: Z01.419 Encounter for gynecological examination (general) (routine) without abnormal findings (principal); D25.9 Leiomyoma of uterus, unspecified; R10.2 Pelvic and perineal pain; E66.01 Morbid (severe) obesity due to excess calories
CPT/HCPCS: 99396

== ENCOUNTER → 2023-08-28 08:57 | Outpatient (BNVA) | payer SELFPAY | PROVIDERS: Visit Provider Advanced Practice Midwife ==

== ENCOUNTER 2024-01-28 08:52 | Outpatient (AMB) | payer OTHER, SELFPAY ==
--- NOTE | 2024-01-28 09:15 | AM.OFFVISNUR ---
Intake Visit Reasons: TB test Allergies gabapentin Allergy (Intermediate, Verified 09/11/24 08:40) pruritus magnesium Allergy (Intermediate, Verified 09/11/24 08:40) IV route caused rash, can tolerate PO environmental allergies Allergy (Unknown, Verified 09/11/24 08:40) Unknown metformin Adverse Reaction (Intermediate, Verified 09/11/24 08:40) diarrhea Office Meds tuberculin PPD 5 tub. 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
== END 2024-01-28 09:15 | disposition home or self-care (01) ==
PROVIDERS: PCP Internal Medicine; Visit Provider Internal Medicine
DX: Z11.1 Encounter for screening for respiratory tuberculosis (principal)
CPT/HCPCS: 86580

== ENCOUNTER 2024-02-11 10:56 | Outpatient (AMB) | payer OTHER, SELFPAY ==
--- NOTE | 2024-02-11 10:58 | MHC.OFFVIS ---
Vital Signs 02/11/24 10:59 Height 5 ft Weight 264 lb BMI 51.6 BP 140/90 H Blood Pressure Location Rt brachial Position Sitting Pulse 65 Pulse Source Pulse Oximeter Pulse Oximetry (%) 98 Oxygen Delivery Method Room Air Intake Visit Reasons: 6 mo f/u -Headaches-CONF Intake Note: Patient presents for 6 month follow up headaches. Patient still having headaches no changes Allergies gabapentin Allergy (Intermediate, Verified 02/11/24 11:03) pruritus magnesium Allergy (Intermediate, Verified 02/11/24 11:03) rash environmental allergies Allergy (Unknown, Verified 02/11/24 11:03) Unknown metformin Adverse Reaction (Intermediate, Verified 02/11/24 11:03) diarrhea Medication List - Last Reconciled 02/11/24 by LEXIS Emery fxrfcpxyfg-xsvlwkuygjszf-irwa 50-325-40 mg 1 tab PO Q4H PRN 30 days levocetirizine (Xyzal) 5 mg PO DAILY HPI Comments Details: 43-yr-old female presents for f/u visit. Pt denies any significant interval medical changes. Pt reports she is doing well overall. She has an occasional mild-mod headache, worse when standing. Has had rare severe positional headache. Liquid IV helped. Takes caffeine. Fioricet helps but needs a refill. Baseline headache characteristics: Severe positional headache: pressure headache in the mid-forehead a/w progressive lighthedheadedness, dizziness, nausea, photophobia. Exacerbated by standing. Tension headache- Pressure in the eyes and frontal and temporal regions a/w mild photophobia. [facility] Medical History Hypovitaminosis D Morbid obesity Missed period Hair loss Extreme obesity Acne Surgical History History of surgery History of right breast biopsy History of tubal ligation History of section History of laparoscopic cholecystectomy Family History Father Hypertension Stroke Mother Hypertension Sister No problems noted. Son No problems noted. Daughter No problems noted. Maternal Aunt Colon cancer, Onset Age: 60 Social History Housing: Apartment Alcohol intake: never Patient Tobacco Use Status: Never used Tobacco e-Cigarette/Vaping Use: Never Used Second Hand Smoke Exposure: No service: No Current occupational status: employed Current occupational exposures/hazards: No Cognitive needs: No Hearing needs: No Vision needs: No Female Reproductive History Menstrual Age of Menarche: 9 Physical Exam Vital Signs: Last Vital Signs Pulse 65 02/11/24 10:59 BP 140/90 H 02/11/24 10:59 Pulse Ox 98 02/11/24 10:59 Oxygen Delivery Method Room Air 02/11/24 10:59 BMI result Body Mass Index 51.6 Const General: cooperative and no acute distress Orientation/consciousness: patient oriented x3 Resp Effort & Inspection: normal respiratory effort and able to speak in complete sentences Neuro General: patient oriented x3 Cranial nerves: Yes CN's II-XII intact bilaterally Cognition (Neuro): normal cognition Psych Appearance: grossly normal Mental Status: mental status grossly normal Speech and movement: Normal speech and movement present Affect: normal affect Attitude: cooperative Assessment & Plan Assessment & Plan (1) Positional headache: Code(s): R51.0 - Headache with orthostatic component, not elsewhere classified Category: Medical (2) TTH (tension-type headache): Code(s): G44.209 - Tension-type headache, unspecified, not intractable Category: Medical (3) Abnormal brain MRI: Comment: 12/22/21: Trace subdural collections and suspected dural thickening along the cerebral convexities with involvement of the tentorial leaflets and also visible around the cerebellar hemispheres in the posterior fossa. Additional findings along the dorsal clivus in the prepontine cistern. Potential engorgement of the epidural venous plexus in the upper cervical spine. f/u brain MRI 08/2022- normal. Code(s): R90.89 - Other abnormal findings on diagnostic imaging of central nervous system Category: Medical Plan Continue prn Fioricet or Tylenol, caffeine 200mg prn. Start Riboflavin 400mg qam Start Mag Ox 400mg qhs- pt states Mag allergy is hives only to IV Mag, but tolertaes oral Mag well. Continue Liquid IV, and rest prn positional headache symptoms. Future considerations: CT myelogram, LP blood patch. ? f/u in 6 months or sooner prn new/worsening s/s. Medications: New riboflavin (vitamin B2) 400 mg PO DAILY 30 days 30 tabs 6RF magnesium oxide may hold for loose stools 400 mg PO BEDTIME 30 days 30 tabs 6RF Refilled mxdnvuqige-eblrhpxyqfpfx-xaqi 50-325-40 mg max 2 tabs per day or 4 tabs per week 1 tab PO Q4H 30 days PRN 20 tabs 3RF headache Coding Level of Care Code Est Pt Level 4 (14714) Diagnoses Positional headache R51.0 TTH (tension-type headache) G44.209 Abnormal brain MRI R90.89
[2024-02-11 10:59] VITALS: BP 140/90; PULSE 65; O2SAT 98; BMI 51.6
== END 2024-02-11 11:40 | disposition home or self-care (01) ==
PROVIDERS: PCP Internal Medicine; Visit Provider Nurse Practitioner Family
DX: R51.0 Headache with orthostatic component, not elsewhere classified (principal); G44.209 Tension-type headache, unspecified, not intractable; R90.89 Other abnormal findings on diagnostic imaging of central nervous system
CPT/HCPCS: 99214

== ENCOUNTER → 2024-02-11 10:56 | Outpatient (BNVA) | payer OTHER, SELFPAY | PROVIDERS: PCP Internal Medicine; Visit Provider Nurse Practitioner Family | DX: R51.0 Headache with orthostatic component, not elsewhere classified (principal); G44.209 Tension-type headache, unspecified, not intractable; R90.89 Other abnormal findings on diagnostic imaging of central nervous system | CPT/HCPCS: 99212 ==

== ENCOUNTER 2024-05-09 07:51 | Outpatient (REF) | payer OTHER, SELFPAY ==
--- NOTE | ~2024-05-09 | XR_ITS ---
EXAMINATION: XR FOOT, LEFT CLINICAL INFORMATION: Medial proximal left foot pain. COMPARISON: None available. TECHNIQUE: AP, lateral, and oblique views of the left foot. FINDINGS: No fracture, dislocation, or suspicious focal bony abnormality. There is normal alignment and mineralization. No significant degenerative changes or arthropathy. Moderate sized dorsal and plantar calcaneal spurs. Normal soft tissues. XR/XR foot LT 2V IMPRESSION: No acute bony or soft tissue abnormalities. Electronically signed by: Jaime Munguia MD 07/04/2024 04:30 PM EDT
[2024-05-09 08:06] LABS: MANUAL DIFF FLAG NO
[2024-05-09 08:41] LABS: Basophils Percent Auto 0.8 % (0-2); Eosinophils Absolute Auto 0.1 X10*3/uL (0.0-0.4); Eosinophils Percent Auto 2.1 % (0-4); Hematocrit 38.2 % (37.0-47.0); Imm Gran Abs Auto 0.02 X10*3/uL (0.00-0.03); Imm Gran Pct Auto 0.4 % (0.0-0.4); Lymphocytes Absolute Auto 1.4 X10*3/uL (1.2-4.9); Lymphocytes Percent Auto 28.4 % (20-40); Mean Corpuscular Hemoglobin 27.4 pg (27.0-33.0); Mean Corpuscular Volume 80.4 fL (80.0-98.0); Mean Platelet Volume 9.3 fL (9.4-12.3); Monocytes Absolute Auto 0.4 X10*3/uL (0.1-1.2); Monocytes Percent Auto 8.4 % (2-11); Neutrophils Absolute Auto 2.9 x10*3/uL (2.0-8.3); Neutrophils Percent Auto 59.9 % (45-73); Platelet Count 356 X10*3/uL (160-400); Red Blood Count 4.75 X10*6/uL (4.20-5.50); Red Cell Distribution Width 13.8 % (11.0-16.0); White Blood Count 4.8 X10*3/uL (4.8-10.8)
[2024-05-09 09:24] LABS: Alanine Aminotransferase 15 U/L (0-31); Albumin Level 3.9 g/dL (3.5-5.0); Alkaline Phosphatase 78 U/L (39-117); Anion Gap 11 (12-20); Aspartate Amino Transferase 15 U/L (5-31); Bilirubin Total 0.4 mg/dL (0.0-1.0); Blood Urea Nitrogen 13 mg/dL (9-16); Carbon Dioxide 27 mmol/L (22-29); Chloride 106 mmol/L (96-108); Cholesterol 158 mg/dL (<200); Estimated Glomerular Filt Rate > 60; Glucose Fasting 123 mg/dL (60-99); HDL Cholesterol 54 mg/dL (>40); LDL Cholesterol Calculated 84 mg/dL (<100); Potassium 4.5 mmol/L (3.3-5.1); Sodium 139 mmol/L (135-145); Total Protein 7.4 g/dL (6.5-8.0); Triglycerides 103 mg/dL (<150)
[2024-05-09 09:25] LABS: Thyroid Stimulating Hormone 0.76 uIU/mL (0.32-4.0); Vitamin D 25-OH Total 19.7 ng/mL (>30)
== END 2024-05-09 07:52 | disposition home or self-care (01) ==
LOC: HO.XRAY 07:51
PROVIDERS: PCP Internal Medicine; Visit Provider Internal Medicine
DX: Z00.00 Encounter for general adult medical examination without abnormal findings (principal); E66.01 Morbid (severe) obesity due to excess calories; E55.9 Vitamin D deficiency, unspecified; M79.672 Pain in left foot
CPT/HCPCS: 36415; 73620; 80053; 80061; 82306; 84443; 85025

== ENCOUNTER → 2024-05-09 08:06 | Outpatient (BNV) | payer OTHER, SELFPAY | PROVIDERS: PCP Internal Medicine; Visit Provider Radiology Diagnostic Radiology | DX: M79.672 Pain in left foot (principal) | CPT/HCPCS: 73620 ==

== ENCOUNTER → 2024-05-13 14:19 | Outpatient (BNVA) | payer OTHER, SELFPAY | PROVIDERS: PCP Internal Medicine; Visit Provider Surgery ==

== ENCOUNTER 2024-05-19 07:27 | Outpatient (AMB) | payer OTHER, SELFPAY ==
--- NOTE | 2024-05-19 07:45 | MHC.PC.OV ---
Vital Signs 05/19/24 07:46 Height 5 ft Weight 262 lb BMI 51.2 BP 132/86 Blood Pressure Location Lt brachial Position Sitting Intake Visit Reasons: PE-NEEDS PHQ9 Intake Note: Patient here for a physical exam Director Financial Services Required: No Accompanied by: Self / Same As Patient Allergies gabapentin Allergy (Intermediate, Verified 05/19/24 07:52) pruritus magnesium Allergy (Intermediate, Verified 05/19/24 07:52) rash environmental allergies Allergy (Unknown, Verified 05/19/24 07:52) Unknown metformin Adverse Reaction (Intermediate, Verified 05/19/24 07:52) diarrhea Medication List - Last Reconciled 05/19/24 by Fay Cisneros MD [id number] 50-325-40 mg 1 tab PO Q4H PRN 30 days levocetirizine (Xyzal) 5 mg PO DAILY magnesium oxide 400 mg PO BEDTIME 30 days omeprazole 20 mg PO DAILY riboflavin (vitamin B2) 400 mg PO DAILY 30 days Tobacco use date assessed: 05/19/24 Dental Screening Dental Screen Date: 05/19/24 Did you have a dental visit in the last 12 months?: Yes Did you have a dental problem in the last 6 months where you did not have access to dental care?: No Was dental information given to patient?: Patient has dentist HPI HPI Comments History of Present Illness Details This is a 44-year-old female that comes for her physical exam. She is morbidly obese with a BMI of 51.2 and already has her weight management appointment. Mammogram done last year was normal and already has an appointment for this year. Cologuard done 2022 was normal. And next Cologuard should be 2025. Pap smear done 2021 was normal. She complains of polyuria and has elevated A1c of over 6.5% doing diagnosis of diabetes mellitus and I will start her on Actos due to side effects with metformin in the past. Urinalysis rule out UTI today. [facility] Medical History (Updated 05/19/24 @ 08:15 by Fay Cisneros MD) Hypovitaminosis D Morbid obesity Missed period Hair loss Extreme obesity Acne Surgical History History of surgery History of right breast biopsy History of tubal ligation History of section History of laparoscopic cholecystectomy Family History Father Hypertension Stroke Mother Hypertension Sister No problems noted. Son No problems noted. Daughter No problems noted. Maternal Aunt Colon cancer, Onset Age: 60 Social History Housing: Apartment Alcohol intake: never Patient Tobacco Use Status: Never used Tobacco e-Cigarette/Vaping Use: Never Used Second Hand Smoke Exposure: No service: No Current occupational status: employed Current occupational exposures/hazards: No Cognitive needs: No Hearing needs: No Vision needs: No Female Reproductive History Menstrual Age of Menarche: 9 Questionnaire PHQ-9 Over the last 2 weeks, how often have you been bothered by any of the following problems? 1. Little interest or pleasure in doing things: not at all 2. Feeling down, depressed, or hopeless: not at all 3. Trouble falling or staying asleep, or sleeping too much: not at all 4. Feeling tired or having little energy: not at all 5. Poor appetite or overeating: not at all 6. Feeling bad about yourself - or that you are a failure or have let yourself or your family down: not at all 7. Trouble concentrating on things, such as reading the newspaper or watching television: not at all 8. Moving or speaking so slowly that other people could have noticed. Or the opposite - being so fidgety or restless that you have been moving around a lot more than usual: not at all 9. Thoughts that you would be better off or of hurting yourself in some way: not at all Total score: 0 Depression Screening Interpretation: Negative Depression Screening Done: Yes 52874 - PHQ-9 Billing: Yes Source: Developed by Drs. German Bell, Trena Mccoy, Elia Zimmerman and colleagues, with an educational haseeb from [employer]. Thrive Questionnaire Date Thrive assessed: 05/19/24 I am a: Patient What is your living situation today?: I have a steady place to live Within the past 12 months, did the food you bought not last and you didn't have the money to get more?: Never true Within the past 12 months, did you worry whether your food would run out before you got money to buy more?: Never true Do you have trouble paying for medicines?: No Do you have trouble getting transportation to medical appointments?: No Do you have trouble paying your heating and electricity bill?: No Do you have trouble taking care of your child, family member or friend?: No Do you have trouble with day-to-day activities such as bathing, preparing meals, shopping, managing finances, etc.?: No Are you currently unemployed and looking for a job?: No Are you interested in more education?: No Please select the resources that you would like help with: None Currently or been in a relationship where the following occur: No concerns reported THRIVE Score: 0 AUDIT C Alcohol Use Questionnaire (AUDIT-C) 1. How often do you have a drink containing alcohol?: Never Total Score: 0 Score Reviewed/Action Taken: No GUZMAN-7 AMB Questionnaire GUZMAN-7 Date GUZMAN - 7 assessed: 05/19/24 Feeling nervous, anxious, or on edge: 0 = Not at all Not being able to stop or control worryin = Not at all Worrying too much about different things: 0 = Not at all Trouble relaxin = Not at all Being so restless that it is hard to sit still: 0 = Not at all Becoming easily annoyed or irritable: 0 = Not at all Feeling afraid as if something awful might happen: 0 = Not at all Total GUZMAN-7 score (0-4 normal; 5-9 mild; 10-14 moderate; 15-21 severe): 0 Source: Developed by Drs. German Bell, Trena Mccoy, Elia Zimmerman and colleagues, with an educational haseeb from [employer]. GUZMAN-7 Assessment Billing GUZMAN-7 Assessment Tool: GUZMAN-7 Assessment 71198 Review of Systems Const All systems reviewed & are unremarkable except as noted in HPI and below Card Denies chest pain at rest, Denies chest pain with activity, Denies edema, Denies irregular heart rhythm, Denies claudication, Denies dyspnea, Denies dyspnea on exertion, Denies orthopnea, Denies paroxysmal nocturnal dyspnea and Denies slow heart rate Resp Denies cough, Denies dyspnea and Denies dyspnea on exertion GI Denies abdominal pain, Denies change in bowel habits, Denies excessive flatus, Denies nausea and Denies vomiting Denies urinary incontinence, Denies urinary hesitancy and Denies urinary urgency Musc Denies abnormal gait, Denies atrophy, Denies deformity and Denies limited range of motion Skin/Breast Denies bleeding lesions, Denies changing lesions and Denies rash Neuro Denies abnormal gait, Denies behavioral changes and Denies lack of coordination Psych Denies behavioral changes Physical exam (Primary Care) Vital Signs: Last Vital Signs BP 132/86 05/19/24 07:46 BMI result Body Mass Index 51.2 BMI Assessment/Plan discussion: High BMI High, discussed plan: lifestyle, weight reduction, dietary and physical activity Tobacco/Smoking Status: Tobacco use Status Tobacco use date assessed 05/19/24 05/19/24 07:51 Patient Tobacco Use Status Never used Tobacco 05/19/24 07:51 e-Cigarette/Vaping Use Never Used 05/19/24 07:51 PHQ-9: PHQ-9 Score PHQ-9: Total score 0 05/19/24 08:11 Depression Screening Interpretation: Negative Thrive Assessment: Date of Thrive Assessment Date Thrive assessed 05/19/24 05/19/24 07:51 Currently or been in a relationship where the following occur: No concerns reported [facility] Head: Yes normal to inspection, Yes normocephalic and Yes atraumatic Ears: external ears normal Eyes General: appearance normal, both eyes and all related structures Eyelids: Yes eyelids normal Conjunctivae: conjunctivae normal Neck Neck: Yes normal visual inspection and Yes supple Resp Effort & Inspection: normal respiratory effort Auscultation: clear to auscultation bilaterally Cardio Jugular venous distension: no JVD Rate: regular rate Rhythm: regular rhythm Heart sounds: S1 normal heart sound present and S2 normal heart sound present GI Inspection: Yes normal to inspection Palpation (GI): Soft to palpation and nontender Auscultation: normal bowel sounds Skin General skin exam: no rashes or lesions noted Neuro General: no focal motor deficits Extrem General: Yes full ROM Psych Appearance: grossly normal Results AMB Hemoglobin A1c AMB Hemoglobin A1c 6.9 % Last Edit by FERN Francisco on 05/19/24 08:01 AMB Urinalysis, Automated UA Leukoctes 0 Feroz/uL Last Edit by FERN Francisco on 05/19/24 08:12 UA Nitrite Negative Last Edit by FERN Francisco on 05/19/24 08:12 UA Urobilinogen 0.2 mg/dL Last Edit by Kiko Fraser, RMA on 05/19/24 08:12 UA Protein 0 mg/dL Last Edit by Kiko Fraser, RMA on 05/19/24 08:12 UA pH 6.0 Last Edit by Kiko Fraser, RMA on 05/19/24 08:12 UA Blood 0 William/uL Last Edit by Kiko Fraser, RMA on 05/19/24 08:12 UA Specific [place] 1.015 Last Edit by Kiko Fraser, RMA on 05/19/24 08:12 UA Ketone Positive Last Edit by Kiko Fraser, RMA on 05/19/24 08:12 UA Bilirubin 0 mg/dL Last Edit by Kiko Fraser, RMA on 05/19/24 08:12 UA Glucose 0 mg/dL Last Edit by Kiko Fraser, A on 05/19/24 08:12 Results Reviewed Results Reviewed: Laboratory Last Values Hgb A1c (Clinic) 6.9 % (4.0-6.0) H 05/19/24 07:54 Urine pH (Auto) 6.0 05/19/24 08:10 Specific [place] (Auto) 1.015 05/19/24 08:10 Urine Protein (Auto) 0 mg/dL 05/19/24 08:10 Glucose (UA)(Auto) 0 mg/dL 05/19/24 08:10 Urine Ketones (Auto) Positive 05/19/24 08:10 Urine Blood (Auto) 0 William/uL 05/19/24 08:10 Urine Nitrite (Auto) Negative 05/19/24 08:10 Urine Bilirubin (Auto) 0 mg/dL 05/19/24 08:10 Urine Urobilinogen (Auto) 0.2 mg/dL 05/19/24 08:10 Leukocyte Esterase (Auto) 0 Feroz/uL 05/19/24 08:10 Assessment and Plan Assessment & Plan (1) Physical exam: Code(s): Z00.00 - Encounter for general adult medical examination without abnormal findings Plan: Repeat in a year. (2) Diabetes mellitus: Code(s): E11.9 - Type 2 diabetes mellitus without complications Qualifiers: Diabetes mellitus complication status: without complication Diabetes mellitus terminal block assembler insulin use: without skilled nursing use Diabetes mellitus type: type 2 Qualified Code(s): E11.9 - Type 2 diabetes mellitus without complications Plan: Start Actos. A1c goal is equal or less than 7%. (3) Obesity, morbid, BMI 50 or higher: Code(s): E66.01 - Morbid (severe) obesity due to excess calories Plan: Follow-up with pain management. (4) Dysuria: Code(s): R30.0 - Dysuria Plan: Urinalysis rule out infection. Orders: Orders Vitamin D 25-OH Total 4 Months E55.9 - Vitamin D deficiency, unspecified AMB Hemoglobin A1c Today R73.01 - Impaired fasting glucose Comprehensive [place]. Panel Fast 4 Months E11.9 - Type 2 diabetes mellitus without complications Microalbumin, Random (w Creat) 4 Months E11.9 - Type 2 diabetes mellitus without complications Lipid Panel 4 Months E78.5 - Hyperlipidemia, unspecified AMB Urinalysis Automated Today R30.0 - Dysuria Medications: New cholecalciferol (vitamin D3) 25 mcg PO DAILY 90 caps 2RF 90 days pioglitazone 15 mg PO DAILY 90 tabs 1RF 90 days E11.9 - Type 2 diabetes mellitus without complications blood-glucose meter (FreeStyle Lite Meter kit) As directed 1 ea 0RF E11.9 - Type 2 diabetes mellitus without complications blood sugar diagnostic (FreeStyle Lite Strips) Use 1 test strip once a day 50 ea 11RF E11.9 - Type 2 diabetes mellitus without complications lancets (FreeStyle Lancets) Use 1 lancet once a day 100 ea 3RF E11.9 - Type 2 diabetes mellitus without complications Coding Level of Care Code Est Pt Level 3 (85529) Est Pt Prev Care 40-64y(76541) Diagnoses Physical exam Z00.00 Type 2 diabetes mellitus without complication, without long-term current use of insulin E11.9 Diabetes mellitus complication status: without complication Diabetes mellitus terminal block assembler insulin use: without skilled nursing use Diabetes mellitus type: type 2 Obesity, morbid, BMI 50 or higher E66.01 Dysuria R30.0 Additional Codes GUZMAN-7 Assessment Billing - GUZMAN-7 Assessment Tool: GUZMAN-7 Assessment 22494 ([id number]) Time Spent (min) 32
[2024-05-19 07:46] VITALS: BP 132/86; BMI 51.2
== END 2024-05-19 08:12 | disposition home or self-care (01) ==
PROVIDERS: PCP Internal Medicine; Visit Provider Internal Medicine
DX: Z00.00 Encounter for general adult medical examination without abnormal findings (principal); E11.9 Type 2 diabetes mellitus without complications; E66.01 Morbid (severe) obesity due to excess calories; Z68.43 Body mass index [BMI] 50.0-59.9, adult; R30.0 Dysuria; R73.01 Impaired fasting glucose
CPT/HCPCS: 81003; 83036; 99213; 99396

== ENCOUNTER 2024-06-23 08:09 | Outpatient (AMB) | payer OTHER, SELFPAY ==
--- OUTSIDE RECORDS SUMMARY | 2024-06-23 08:10 | XMS_ITS | Continuity of Care Document ---
Author Organization [facility] Address [address] [place] [address]- Care Team Providers Care Biblical Studies Professor Name Role Phone Casper Cisneros MD, Fay Cabral Primary Care Physician Encounter [facility] [place] ACCT R [id number] Date(s): 06/27/23 - 07/27/23 [facility] [address] [place] [id number] Attending Physician: AdmGeovanna chamorro Admitting Physician: Admtr, Geovanna Referring Physician: Admtr, Ar8 Allergies, Adverse Reactions, Alerts No Known Allergies Immunizations Given and Recorded Vaccine Date Status Refusal Reason influenza virus vaccine, inactivated 12/28/15 Give n tetanus/diphtheria/pertussis, acel(Tdap) 05/27/14 Given Medications gabapentin 100 mg oral capsule 100 mg, 1, capsule, By Mouth, 3 times a day, Days 1-3 1 TID Days 4-6 2 TID Instructions in Eritrean., # 90 capsule, Refills 0, Tot. Refills 0, Maintenance, 12/28/15 13:36:35, Route to Pharmacy Electronically, [id number], [facility]... Start Date: 12/28/15 Status: Ordered gabapentin 300 mg oral capsule 300 mg, 1, capsule, By Mouth, 3 times a day, # 270 capsule, Refills 0, Tot. Refills 0, Maintenance,12/28/15 13:36:51, Route to Pharmacy Electronically, [id number], [facility] Start Date: 12/28/15 Status: Ordered naproxen 500 mg oral tablet 1 tablet = 500 mg, By Mouth, Daily, # 60 tablet, 2 Refills, Maintenance, 12/28/15 13:33:07, Tablet Start Date: 12/28/15 Status: Ordered Problem List Condition Confirmation Course Effective Dates Status H ealth Status Informant Pancreatitis, acute 1 Confirmed Active Breast lump on right side at 11 o'clock position: BiRADS 4 2 Confirmed 03/30/14 Active Benign breast lumps Confirmed Active Prediabetes Confirmed Active Urinary frequency Confirmed Active Radiculopathy of arm Confirmed Active Obesity Confirmed Active Plantar fasciitis of left foot Confirmed Active 1From presumed gal stones 2via mammography March 2014- recommended biopsy Social History Social History Type Response Smoking Status Never smoker entered on: 10/23/14 Sex Patient Care team information Care Team Personnel Name: Casper Cisneros MD , Fay Cabral Position: Reference Physician Member Role: PCP Address: Address: [address] [place] [address]- Care Team Related Persons Name: COURTNEY EDMOND Address: home [address] [address] Name: CASANDRA MCKAY
--- OUTSIDE RECORDS SUMMARY | 2024-06-23 08:10 | XMS_ITS | Continuity of Care Document ---
Author Organization [facility] Address [address] [place] [address]- Care Team Providers Care Ornamental Ironworker Helper Name Role Phone Casper Cisneros MD, Fay Cabral Primary Care Physician [phone] Encounter [facility] Date(s): 11/04/23 - 12/04/23 [facility] [address] [place] [address]- Attending Physician: Geovanna Colón Admitting Physician: AdmGeovanna chamorro Referring Physician: AdmtrGeovanna Allergies, Adverse Reactions, Alerts No Known Allergies Immunizations Given and Recorded Vaccine Date Status Refusal Reason influenza virus vaccine, inactivated 12/28/15 Give n tetanus/diphtheria/pertussis, acel(Tdap) 05/27/14 Given Medications gabapentin 100 mg oral capsule 100 mg, 1, capsule, By Mouth, 3 times a day, Days 1-3 1 TID Days 4-6 2 TID Instructions in Macedonian., # 90 capsule, Refills 0, Tot. Refills 0, Maintenance, 12/28/15 13:36:35, Route to Pharmacy Electronically, [id number], Wal... Start Date: 12/28/15 Status: Ordered gabapentin 300 mg oral capsule 300 mg, 1, capsule, By Mouth, 3 times a day, # 270 capsule, Refills 0, Tot. Refills 0, Maintenance,12/28/15 13:36:51, Route to Pharmacy Electronically, [id number], [facility] [id number] Start Date: 12/28/15 Status: Ordered naproxen 500 [...] Plantar fasciitis of left foot Confirmed Active Severe obesity Confirmed Active 1From presumed gal stones 2via mammography March 2014- recommended biopsy Social History Social History Type Response Smoking Status Never smoker entered on: 10/23/14 Sex Patient Care team information Care Team Personnel Name: Casper Cisneros MD , Fay Cabral Position: Reference Physician Member Role: PCP Address: Address: [address] [place] [address]- Care Team Related Persons Name: COURTNEY EDMOND Address: home [address] [address] Name: CASANDRA MCKAY
--- OUTSIDE RECORDS SUMMARY | 2024-06-23 08:10 | XMS_ITS | Continuity of Care Document ---
Author Organization [facility] Address [address] [place] [address]- Care Team Providers Care Hot Roller Name Role Phone Casper Cisneros MD, Fay Cabral Primary Care Physician Encounter [facility] Date(s): 05/09/24 - 06/08/24 [facility] [address] [place] [address] Attending Physician: Geovanna Colón Admitting Physician: AdmGeovanna [...] TID Days 4-6 2 TID Instructions in Cuban., # 90 capsule, Refills 0, Tot. Refills 0, Maintenance, 12/28/15 13:36:35, Route to Pharmacy Electronically, [id number], Wal... Start Date: 12/28/15 Status: Ordered gabapentin 300 mg oral capsule 300 mg, 1, capsule, By Mouth, 3 times a day, # 270 capsule, Refills 0, Tot. Refills 0, Maintenance,12/28/15 13:36:51, Route to Pharmacy Electronically, [id number], [facility] [id number] Start Date: 12/28/15 Status: Ordered naproxen 500 [...] Physician Member Role: PCP Address: Address: [address] [place] [address]- Care Team Related Persons Name: COURTNEY EDMOND Address: home [address] [address] Name: CASANDRA MCKAY
--- OUTSIDE RECORDS SUMMARY | 2024-06-23 08:10 | XMS_ITS | Continuity of Care Document ---
Author Organization [facility] Address [address] [place] [address]- Care Team Providers Care Leather Polisher Name Role Phone Casper Cisneros MD, Fay Cabral Primary Care Physician Encounter [facility] [place] Date(s): 06/27/23 - 11/04/23 [facility] [address] [place] [address]- Discharge Disposition: A-D/C Home Attending Physician: Noble Carpenter MD Admitting Physician: Noble Carpenter MD Referring Physician: Irais Allan Allergies, Adverse Reactions, Alerts No Known Allergies Immunizations Given and Recorded Vaccine Date Status Refusal Reason influenza virus vaccine, inactivated 12/28/15 Give n tetanus/diphtheria/pertussis, acel(Tdap) 05/27/14 Given Medications gabapentin 100 mg oral capsule 100 mg, 1, capsule, By Mouth, 3 times a day, Days 1-3 1 TID Days 4-6 2 TID Instructions in Ukrainian., # 90 capsule, Refills 0, Tot. Refills 0, Maintenance, 12/28/15 13:36:35, Route to Pharmacy Electronically, [id number], Wal... Start Date: 12/28/15 Status: Ordered gabapentin 300 mg oral capsule 300 mg, 1, capsule, By Mouth, 3 times a day, # 270 capsule, Refills 0, Tot. Refills 0, Maintenance,12/28/15 13:36:51, Route to Pharmacy Electronically, [id number], [facility] [address] Start Date: 12/28/15 Status: Ordered naproxen 500 [...] Physician Member Role: PCP Address: Address: [address] [place] [address]- Care Team Related Persons Name: COURTNEY EDMOND Address: home [address] [place] [address] Name: CASANDRA MCKAY
--- OUTSIDE RECORDS SUMMARY | 2024-06-23 08:10 | XMS_ITS | Continuity of Care Document ---
Author Organization [facility] Address [address] [place] [address]- Care Team Providers Care Design Maintenance Engineer Name Role Phone Casper Cisneros MD, Fay Cabral Primary Care Physician [phone] Encounter [facility] [place] Date(s): 11/04/23 - 01/08/24 [facility] [address] [place] [address]- Discharge Disposition: A-D/C Home Attending Physician: Ankur Levin MD Admitting Physician: Ankur Levin MD Referring Physician: Fay Chan MD Allergies, Adverse Reactions, Alerts No Known Allergies Immunizations Given and Recorded Vaccine Date Status Refusal Reason influenza virus vaccine, inactivated 12/28/15 Give n tetanus/diphtheria/pertussis, acel(Tdap) 05/27/14 Given Medications gabapentin 100 mg oral capsule 100 mg, 1, capsule, By Mouth, 3 times a day, Days 1-3 1 TID Days 4-6 2 TID Instructions in Marshallese., # 90 capsule, Refills 0, Tot. Refills 0, Maintenance, 12/28/15 13:36:35, Route to Pharmacy Electronically, [id number], Wal... Start Date: 12/28/15 Status: Ordered gabapentin 300 mg oral capsule 300 mg, 1, capsule, By Mouth, 3 times a day, # 270 capsule, Refills 0, Tot. Refills 0, Maintenance,12/28/15 13:36:51, Route to Pharmacy Electronically, [id number], [facility] [id number] Start Date: 12/28/15 Status: Ordered naproxen 500 [...] stones 2via mammography March 2014- recommended biopsy Vital Signs Most recent to oldest [Reference Range]: 1 Height 154.0 cm (11/08/23 1:37 PM) Weight 118.1 kg (11/08/23 1:37 PM) Oxygen Saturation [94-100 %] 98 % (11/08/23 1:37 PM) Pulse Rate [55-90 bpm] 73 bpm (11/08/23 1:37 PM) Body Mass Index [18.5-24.99 kg/m2] 49.8 kg/m2 *>HHI* (11/08/23 1:37 PM) Blood Pressure [90-138/55-84 mm Hg] 134/ 66mm Hg (11/08/23 1:37 PM) Temperature [96.8-100.4 DegF] 97.9 DegF (11/08/23 1:37 PM) Mode of Delivery (Oxygen) Room air (11/08/23 1:37 PM) Blood pressure sites Arm, right (11/08/23 1:37 PM) Temperature Route Oral (11/08/23 1:37 PM) Dry Weight 118.1 kg (11/08/23 1:37 PM) Weight Obtained Via Standing scale (11/08/23 1:37 PM) Dry Weight Obtained Via Standing scale (11/08/23 1:37 PM) Social History Social History Type Response Smoking Status Never smoker entered on: 10/23/14 Sex Patient Care team information Care Team Personnel Name: Fay Chan MD Position: Reference Physician Member Role: PCP Address: Address: [address] [place], [place] [address] Name: Ollie MULLEN, Ankur Cabral Position: S Physician - Oncology Med Service: Hematology & Oncology Member Role: Admitting Physician Address: Address: [address] [place] [address] [place] [address]- Care Team Related Persons Name: COURTNEY EDMOND Address: home [address] [place] [id number] Name: CASANDRA MCKAY
--- NOTE | 2024-06-23 13:12 | MHC.OFFVISWM ---
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* Burring Machine Operator Required: Yes Burring Machine Operator Services: Burring Machine Operator Present Burring Machine Operator Name: Outside company Information Interpreted: clinical only Allergies gabapentin Allergy (Intermediate, Verified 06/23/24 13:13) pruritus magnesium Allergy (Intermediate, Verified 06/23/24 13:13) rash environmental allergies Allergy (Unknown, Verified 06/23/24 13:13) Unknown metformin Adverse Reaction (Intermediate, Verified 06/23/24 13:13) diarrhea Medication List - Last Reconciled 06/23/24 by Sohail Bliss MD blood sugar diagnostic (FreeStyle Lite Strips) Use 1 test strip once a day blood-glucose meter (FreeStyle Lite Meter kit) As directed [id number] 50-325-40 mg 1 tab PO Q4H PRN 30 days cholecalciferol (vitamin D3) 25 mcg PO DAILY 90 days lancets (FreeStyle Lancets) Use 1 lancet once a day levocetirizine (Xyzal) 5 mg PO DAILY magnesium oxide 400 mg PO BEDTIME 30 days omeprazole 20 mg PO DAILY pioglitazone 15 mg PO DAILY 90 days riboflavin (vitamin B2) 400 mg PO DAILY 30 days HPI HPI 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*: Details: Start time: 1pm, End time: 1.53pm ?I spent 48 minutes speaking with the patient on the phone plus an additional 5 minutes reviewing and updating records for a total of 53 minutes HPI Comments Details: Previous weight loss efforts: Protein shakes, self diets Wakes up: 7am, Sleeps: 10pm Breakfast: 8am (cheese, eggs, pancake) Lunch: 12pm (rice, salad, chicken) Dinner: 5pm (as lunch) Snacks: 10am (pork skin, fruits), 3-4pm (same) Exercise: Has home treadmill Fluids: Coffee 1 cup/day (black), tea: none, soda: none, juice: none, ETOH: none PFSH Medical History (Updated 06/23/24 @ 13:17 by Sohail Bliss MD) GERD (gastroesophageal reflux disease) Migraines Hypovitaminosis D Morbid obesity Missed period Hair loss Extreme obesity Acne Surgical History History of surgery History of right breast biopsy History of tubal ligation History of section History of laparoscopic cholecystectomy Family History Father Hypertension Stroke Mother Hypertension Sister No problems noted. Son No problems noted. Daughter No problems noted. Maternal Aunt Colon cancer, Onset Age: 60 Social History Housing: Apartment Alcohol intake: never Patient Tobacco Use Status: Never used Tobacco e-Cigarette/Vaping Use: Never Used Second Hand Smoke Exposure: No service: No Current occupational status: employed Current occupational exposures/hazards: No Cognitive needs: No Hearing needs: No Vision needs: No Female Reproductive History Menstrual Age of Menarche: 9 Telehealth Telehealth Telehealth Platform: Telephone Location of provider rendering services: practice address Location of patient: address on file Patient Identification confirmed using: Name, : Yes Telehealth method: voice only Patient verbally consented to treatment: Yes Patient verbally consented to billing insurance company: Yes Patient informed of any privacy concerns related to visit: Yes Minutes spent on Phone/Video with Pt.: 53 Assessment & Plan Assessment & Plan (1) Morbid obesity: Comment: bmi=50.0, 04/11/22 Code(s): E66.01 - Morbid (severe) obesity due to excess calories Category: Medical Plan: 1.? Plan for lap sleeve gastrectomy. If diaphragmatic or ventral hernias are present at time of surgery, these will be repaired laparoscopically as well. Risks and complications include possible conversion to an open procedure, anastomotic leak, bleeding requiring transfusion, small bowel obstruction, , DVT and pulmonary embolism, cardiac, or pulmonary complications, as superintendent marine oil terminal complications such as anastomotic ulcer, insufficient weight loss and vitamin deficiencies. I emphasized the importance of close follow-up, adherence to instructions and good communication. 2. You will receive a link of our software shanice to generate an individualized nutritional and exercise plan specific for you. Please send me a screenshot of the plans you will generate Meal to include lean meat (beef, fish, pork, turkey, chicken), or croatian yogurt, or egg whites, or beans with a salad with olive oil and fruits (berries, pears, apples, kiwi). Avoid salt, breads, potatoes, rice, pasta, desserts. ?3. If you choose shakes, each shake would be drunk slowly, like coffee in a period of 2 hours. ?4. If you choose bars, cut each bar in 4 pieces and eat each piece in 30min ?to make each bar last 2 hours. ?5. I emphasized the importance of measuring accurately the food portion and measure it when serving the food in plate ?6. The meal portions include a specific number of forks of meat and salad. You always eat the meat portion but you can replace up to half of salad/vegetables portion with rice, potatoes or pasta, or a fruit ?if you like. The less you do it the better weight loss will be. ?7. One full-size fork is what it can be scooped on the fork without falling aside and not what can be bit with the fork. Use regular forks like those you find in a typical restaurant. ?8.? Please send me weight measurements as soon as possible and then once a week. Always include your diet and exercise plan. 9. The best choice would be to use the treadmill you have at home. You can use the shanice to create an exercise plan ?10.?It is important of avoiding and for at least 18 months postoperatively and has been discussed at the infosession. ?11. Goal is to lose at least 1.5-2lbs per week ?12. Goal to lose 10% of your weight before surgery, which is about 25lbs. Ultimate weight goal: 233lbs before surgery 13. Please follow the diet plan exactly without any change. If you don't like something about the plan or you feel hungry you need to communicate with me so I can help you revise the plan. You should not change the plan yourself. 14. To be scheduled for EGD due to history of GERD. The possibility of biopsies was discussed. Patient needs to avoid use of NSAIDs and aspirin for 1 week prior to EGD. Risks of perforation and bleeding was discussed with the patient. This will be an outpatient procedure with IV sedation. Orders: Orders Insulin Today E11.9 - Type 2 diabetes mellitus without complications, E66.01 - Morbid (severe) obesity due to excess calories, K21.9 - Gastro-esophageal reflux disease without esophagitis Zinc Today E11.9 - Type 2 diabetes mellitus without complications, E66.01 - Morbid (severe) obesity due to excess calories, K21.9 - Gastro-esophageal reflux disease without esophagitis C Reactive Protein Today E11.9 - Type 2 diabetes mellitus without complications, E66.01 - Morbid (severe) obesity due to excess calories, K21.9 - Gastro-esophageal reflux disease without esophagitis Vitamin B1 Today E11.9 - Type 2 diabetes mellitus without complications, E66.01 - Morbid (severe) obesity due to excess calories, K21.9 - Gastro-esophageal reflux disease without esophagitis Vitamin A Today E11.9 - Type 2 diabetes mellitus without complications, E66.01 - Morbid (severe) obesity due to excess calories, K21.9 - Gastro-esophageal reflux disease without esophagitis FL upper GI w air Today E11.9 - Type 2 diabetes mellitus without complications, E66.01 - Morbid (severe) obesity due to excess calories, K21.9 - Gastro-esophageal reflux disease without esophagitis Hemoglobin A1c Today E11.9 - Type 2 diabetes mellitus without complications, E66.01 - Morbid (severe) obesity due to excess calories, K21.9 - Gastro-esophageal reflux disease without esophagitis H Pylori Breath Test Today E11.9 - Type 2 diabetes mellitus without complications, E66.01 - Morbid (severe) obesity due to excess calories, K21.9 - Gastro-esophageal reflux disease without esophagitis Complete Blood Count Auto Diff Today E11.9 - Type 2 diabetes mellitus without complications, E66.01 - Morbid (severe) obesity due to excess calories, K21.9 - Gastro-esophageal reflux disease without esophagitis Lipid Panel Today E11.9 - Type 2 diabetes mellitus without complications, E66.01 - Morbid (severe) obesity due to excess calories, K21.9 - Gastro-esophageal reflux disease without esophagitis IRON PROFILE Today E11.9 - Type 2 diabetes mellitus without complications, E66.01 - Morbid (severe) obesity due to excess calories, K21.9 - Gastro-esophageal reflux disease without esophagitis Comprehensive Met. Panel Today E11.9 - Type 2 diabetes mellitus without complications, E66.01 - Morbid (severe) obesity due to excess calories, K21.9 - Gastro-esophageal reflux disease without esophagitis Vitamin B12 and Folate Today E11.9 - Type 2 diabetes mellitus without complications, E66.01 - Morbid (severe) obesity due to excess calories, K21.9 - Gastro-esophageal reflux disease without esophagitis TSH reflex Free T4 Today E11.9 - Type 2 diabetes mellitus without complications, E66.01 - Morbid (severe) obesity due to excess calories, K21.9 - Gastro-esophageal reflux disease without esophagitis Ferritin Today E11.9 - Type 2 diabetes mellitus without complications, E66.01 - Morbid (severe) obesity due to excess calories, K21.9 - Gastro-esophageal reflux disease without esophagitis Vitamin D 25-OH Total Today E11.9 - Type 2 diabetes mellitus without complications, E66.01 - Morbid (severe) obesity due to excess calories, K21.9 - Gastro-esophageal reflux disease without esophagitis US abdomen comp w elastography Today E11.9 - Type 2 diabetes mellitus without complications, E66.01 - Morbid (severe) obesity due to excess calories, K21.9 - Gastro-esophageal reflux disease without esophagitis XR chest 2V Today E11.9 - Type 2 diabetes mellitus without complications, E66.01 - Morbid (severe) obesity due to excess calories, K21.9 - Gastro-esophageal reflux disease without esophagitis ECG 12 lead EKG Today E11.9 - Type 2 diabetes mellitus without complications, E66.01 - Morbid (severe) obesity due to excess calories, K21.9 - Gastro-esophageal reflux disease without esophagitis Referrals Behavioral Health Referral E11.9 - Type 2 diabetes mellitus without complications, E66.01 - Morbid (severe) obesity due to excess calories, K21.9 - Gastro-esophageal reflux disease without esophagitis Nutrition/Dietitian Referral E11.9 - Type 2 diabetes mellitus without complications, E66.01 - Morbid (severe) obesity due to excess calories, K21.9 - Gastro-esophageal reflux disease without esophagitis
[2024-06-23 13:31] VITALS: BMI 50.1
== END 2024-06-23 13:54 | disposition home or self-care (01) ==
LOC: HO.HBS 08:09
PROVIDERS: PCP Internal Medicine; Visit Provider Surgery
DX: E66.01 Morbid (severe) obesity due to excess calories (principal)
CPT/HCPCS: 99204

== ENCOUNTER → 2024-06-23 08:09 | Outpatient (BNVA) | payer OTHER, SELFPAY | PROVIDERS: PCP Internal Medicine; Visit Provider Surgery ==

== ENCOUNTER 2024-06-24 07:56 | Outpatient (REF) | payer OTHER, SELFPAY ==
--- NOTE | ~2024-06-24 | MM_ITS ---
EXAMINATION: MM SCREENING DIGITAL BREAST TOMOSYNTHESIS, BILATERAL CLINICAL INFORMATION: Screening. Asymptomatic. COMPARISON: Mammography: Comparison is made with available priors TECHNIQUE: Digital breast mammography with tomosynthesis is performed in both the craniocaudal and mediolateral oblique views along with computer-aided detection (CAD). FINDINGS: The breasts are heterogeneously dense, which may obscure small masses (ACR BI-RADS breast composition Category c). Bilateral focal asymmetries are stable for more than two years. There are no significant masses, abnormal calcifications, or other abnormalities. MM/MM tomosynthesis screening BI IMPRESSION: No mammographic evidence of malignancy. ASSESSMENT: BI-RADS BI-RADS 2 - Benign Findings RECOMMENDATION: Routine annual mammography screening. 1 year F/U This examination should not preclude the clinical evaluation of a suspicious palpable abnormality. This patient's information was entered into a reminder system with a target due date for their next mammogram. Electronically signed by: Chiqui Hammonds DO 07/04/2024 12:35 PM EDT
== END 2024-06-24 07:57 | disposition home or self-care (01) ==
LOC: HO.MAMMO 07:56
PROVIDERS: PCP Internal Medicine; Visit Provider Internal Medicine
DX: Z12.31 Encounter for screening mammogram for malignant neoplasm of breast (principal)
CPT/HCPCS: 77063; 77067

== ENCOUNTER → 2024-06-24 08:00 | Outpatient (BNV) | payer OTHER, SELFPAY | PROVIDERS: PCP Internal Medicine; Visit Provider Internal Medicine | DX: Z12.31 Encounter for screening mammogram for malignant neoplasm of breast (principal) | CPT/HCPCS: 77063; 77067 ==

== ENCOUNTER 2024-07-25 07:16 | Outpatient (REF) | payer OTHER, SELFPAY ==
[2024-07-25 07:51] LABS: MANUAL DIFF FLAG NO
[2024-07-25 07:54] LABS: Basophils Percent Auto 0.7 % (0-2); Eosinophils Absolute Auto 0.1 X10*3/uL (0.0-0.4); Eosinophils Percent Auto 1.7 % (0-4); Hematocrit 36.9 % (37.0-47.0); Hemoglobin 12.3 g/dl (12.0-16.0); Imm Gran Abs Auto 0.01 X10*3/uL (0.00-0.03); Imm Gran Pct Auto 0.2 % (0.0-0.4); Lymphocytes Percent Auto 23.7 % (20-40); Mean Corpuscular HGB Conc 33.3 g/dl (31.0-35.0); Mean Corpuscular Hemoglobin 26.7 pg (27.0-33.0); Mean Platelet Volume 9.3 fL (9.4-12.3); Monocytes Absolute Auto 0.4 X10*3/uL (0.1-1.2); Monocytes Percent Auto 8.4 % (2-11); Neutrophils Absolute Auto 2.7 x10*3/uL (2.0-8.3); Neutrophils Percent Auto 65.3 % (45-73); Platelet Count 305 X10*3/uL (160-400); Red Blood Count 4.61 X10*6/uL (4.20-5.50); Red Cell Distribution Width 14.8 % (11.0-16.0); White Blood Count 4.2 X10*3/uL (4.8-10.8)
[2024-07-25 08:09] LABS: Estimated Average Glucose 117 mg/dL; Hemoglobin A1C 125.1512 umol/L; Hemoglobin A1c % 5.7 % (<6.0); Total Hemoglobin (HGBA1C) 3196.8889 umol/L
[2024-07-25 08:32] LABS: Alanine Aminotransferase 19 U/L (0-31); Albumin Level 3.8 g/dL (3.5-5.0); Alkaline Phosphatase 58 U/L (39-117); Anion Gap 9 (12-20); Aspartate Amino Transferase 21 U/L (5-31); Bilirubin Total 0.3 mg/dL (0.0-1.0); Blood Urea Nitrogen 15 mg/dL (9-16); C Reactive Protein 0.22 mg/dL (< or = 0.50); Carbon Dioxide 26 mmol/L (22-29); Chloride 109 mmol/L (96-108); Cholesterol 137 mg/dL (<200); Estimated Glomerular Filt Rate > 60; Glucose Random 107 mg/dL (60-115); HDL Cholesterol 52 mg/dL (>40); Iron 43 mcg/dL (30-160); LDL Cholesterol Calculated 73 mg/dL (<100); Percent Iron Saturation 13 % (15-50); Potassium 4.2 mmol/L (3.3-5.1); Sodium 140 mmol/L (135-145); Total Iron Binding Capacity 337 mcg/dL (228-428); Total Protein 6.8 g/dL (6.5-8.0); Triglycerides 64 mg/dL (<150); Unsaturated Iron Binding 294 ug/dL
--- NOTE | 2024-07-25 08:43 | ECG_ITS ---
Test Reason : morbid obesity Blood Pressure : / mmHG Vent. Rate : 051 BPM Atrial Rate : 051 BPM P-R Int : 134 ms QRS Dur : 082 ms QT Int : 444 ms P-R-T Axes : 037 002 028 degrees QTc Int : 409 ms Sinus bradycardia Otherwise normal ECG When compared with ECG of 12-DEC-2021 16:01, No significant change was found Referred By: Sohail Bliss Electronically Signed By:Johny Locke
[2024-07-25 08:48] LABS: Ferritin 23 ng/mL (10-250); Insulin 7 uU/mL (2-29); TSH reflex Free T4 0.72 uIU/mL (0.32-4.0); Vitamin D 25-OH Total 26.5 ng/mL (>30)
[2024-07-25 09:00] LABS: Folate 7.3 ng/mL (> or = 4.0); Vitamin B12 367 pg/mL (200-900)
[2024-07-29 17:33] LABS: Zinc 83 mcg/dL (60-130)
[2024-07-30 16:29] LABS: Vitamin B1 7 nmol/L (8-30)
[2024-08-03 17:19] LABS: Vitamin A 42 mcg/dL (38-98)
== END 2024-07-25 07:17 | disposition home or self-care (01) ==
LOC: HO.US 07:16
PROVIDERS: PCP Internal Medicine; Visit Provider Surgery
DX: E66.01 Morbid (severe) obesity due to excess calories (principal); K21.9 Gastro-esophageal reflux disease without esophagitis; E11.9 Type 2 diabetes mellitus without complications
CPT/HCPCS: 36415; 76700; 76981; 80053; 80061; 82306; 82607; 82728; 82746; 83036; 83525; 83540; 84425; 84443; 84590; 84630; 85025; 86140; 93005

== ENCOUNTER → 2024-07-25 08:43 | Outpatient (BNV) | payer OTHER, SELFPAY | PROVIDERS: PCP Internal Medicine; Visit Provider Internal Medicine Cardiovascular Disease | DX: R00.1 Bradycardia, unspecified (principal) | CPT/HCPCS: 93010 ==

== ENCOUNTER 2024-07-30 09:15 | Day surgery (SDC) | payer OTHER, SELFPAY ==
[2024-07-28 14:03] VITALS: BMI 50.1
--- NOTE | 2024-07-29 09:25 | HO.ANESPROP2 ---
Documented by User: Shruthi Elliott NP 07/29/24 09:25 HPI - Anesthesia Eval Consult details Narrative: 44yo F for Upper Endoscopy PMFSH Active Problems Active Problems: All Active Problems Vitamin B12 deficiency (Acute) Vitamin D deficiency (Acute) Dysuria (Acute) Diabetes mellitus (Acute) MGUS (monoclonal gammopathy of unknown significance) (Acute) TTH (tension-type headache) (Acute) Obesity, morbid, BMI 50 or higher (Acute) Left foot pain (Acute) Voice hoarseness (Acute) Itching (Acute) Abnormal brain MRI (Acute) Fibroid uterus (Acute) Physical exam (Acute) Cervical cancer screening (Acute) Well woman exam with routine gynecological exam (Acute) Pelvic pain (Acute) Positional headache (Acute) Bradycardia (Acute) Vertigo (Acute) Dizziness (Acute) Persistent headaches (Acute) Neck pain (Acute) Headache (Acute) Dysuria (Acute) Rhinitis (Acute) UTI (urinary tract infection) (Acute) Encounter for annual routine gynecological examination (Acute) GERD (gastroesophageal reflux disease) (Acute) Migraines (Acute) Hypovitaminosis D (Acute) Morbid obesity (Acute) Missed period (Acute) Hair loss (Acute) Acne (Acute) Past Medical History Medical History Environmental allergies GERD (gastroesophageal reflux disease) Migraines Hypovitaminosis D Morbid obesity Missed period Hair loss Extreme obesity Acne Family History Family History Father Hypertension Stroke Mother Hypertension Sister No problems noted. Son No problems noted. Daughter No problems noted. Maternal Aunt Colon cancer, Onset Age: 60 Surgical History Surgical History History of surgery History of right breast biopsy History of tubal ligation History of section History of laparoscopic cholecystectomy Social History Social History Housing: Apartment Are you a primary emergency care attendant to a significant other at home: No Do you presently have visiting nurse or other home services: No Alcohol intake: never Patient Tobacco Use Status: Never used Tobacco e-Cigarette/Vaping Use: Never Used Second Hand Smoke Exposure: No Use of substances other than those prescribed or required for medical reasons: No Have you been hit, kicked, punched, or otherwise hurt by someone within the past year? If so, by whom?: No Are you DNR?: No Advance Directives: No Advance Directives Information Provided: Yes Recently lost weight without trying: No Nutrition Risks: No Nutritional Risk Patient : No (Hx of TL) service: No Current occupational status: employed Current occupational exposures/hazards: No Cognitive needs: No Hearing needs: No Vision needs: No Meds Allergies Allergy/AdvReac Type Severity Reaction Status Date / Time gabapentin Allergy Intermediate pruritus Verified 06/23/24 13:13 magnesium Allergy Intermediate rash Verified 06/23/24 13:13 environmental allergies Allergy Unknown Unknown Verified 06/23/24 13:13 metformin AdvReac Intermediate diarrhea Verified 06/23/24 13:13 Home Medications ?Medication ?Instructions ?Recorded ?Confirmed ?Last Taken ?Type levocetirizine 5 mg tablet (Xyzal) 5 mg PO DAILY 02/06/23 06/23/24 Unknown History omeprazole 20 mg capsule,delayed 20 mg PO DAILY 05/13/24 06/23/24 Unknown History release Exam Height,Weight and Vital Signs: Height 5 ft Weight 116.346 kg Assessment and Plan Assessment Anesthesia Assessment: Chart Reviewed Documented by User: Karis Bryant MD 07/30/24 11:10 [facility] Past Medical History Medical History Environmental allergies GERD (gastroesophageal reflux disease) Migraines Hypovitaminosis D Morbid obesity Missed period Hair loss Extreme obesity Acne Family History Family History Father Hypertension Stroke Mother Hypertension Sister No problems noted. Son No problems noted. Daughter No problems noted. Maternal Aunt Colon cancer, Onset Age: 60 Surgical History Surgical History History of surgery History of right breast biopsy History of tubal ligation History of section History of laparoscopic cholecystectomy History of Problems with Anesthesia: No Social History Social History Housing: Apartment Are you a primary emergency care attendant to a significant other at home: No Do you presently have visiting nurse or other home services: No Alcohol intake: never Patient Tobacco Use Status: Never used Tobacco e-Cigarette/Vaping Use: Never Used Second Hand Smoke Exposure: No Use of substances other than those prescribed or required for medical reasons: No Have you been hit, kicked, punched, or otherwise hurt by someone within the past year? If so, by whom?: No Are you DNR?: No Advance Directives: No Advance Directives Information Provided: Yes Recently lost weight without trying: No Nutrition Risks: No Nutritional Risk Patient : No (Hx of TL) service: No Current occupational status: employed Current occupational exposures/hazards: No Cognitive needs: No Hearing needs: No Vision needs: No Meds Allergies Allergy/AdvReac Type Severity Reaction Status Date / Time gabapentin Allergy Intermediate pruritus Verified 06/23/24 13:13 magnesium Allergy Intermediate rash Verified 06/23/24 13:13 environmental allergies Allergy Unknown Unknown Verified 06/23/24 13:13 metformin AdvReac Intermediate diarrhea Verified 06/23/24 13:13 Home Medications ?Medication ?Instructions ?Recorded ?Confirmed ?Last Taken ?Type levocetirizine 5 mg tablet (Xyzal) 5 mg PO DAILY 02/06/23 06/23/24 Unknown History omeprazole 20 mg capsule,delayed 20 mg PO DAILY 05/13/24 06/23/24 Unknown History release Exam Airway Mallampati Class: II TM Dist: >3cm Neck ROM: Full Loose/Missing/Broken Teeth: No Heart: RRR Lungs: CTA Assessment and Plan Assessment Anesthesia Assessment: Anesthesia Plan Discussed Final Anesthetic Review History of Problems with Anesthesia: No NPO: Yes ASA Class: III Final Preanesthetic Review: Meds/Allgs Chart Reviewed, Consent Obtained/Reviewed and Anes Risks/Benef Reviewed Patient Risk: Intermediate Procedure Risk: Intermediate Anesthetic Plan Anesthetic Plan: MAC: Disposition: Standard PACU
--- OUTSIDE RECORDS SUMMARY | 2024-07-30 09:18 | XMS_ITS | Continuity of Care Document ---
Author Organization [facility] Address [address] [place] [id number]- Care Team Providers Care Beam Warper Name Role Phone Casper Cisneros MD, Fay Cabral Primary Care Physician Encounter [facility] [place] Date(s): 06/06/24 - 07/06/24 [facility] [address] [place] [id number]- [place] Allergies, Adverse Reactions, Alerts No Known Allergies Immunizations Given and Recorded Vaccine Date Status Refusal Reason influenza virus vaccine, inactivated 12/28/15 Give n tetanus/diphtheria/pertussis, acel(Tdap) 05/27/14 Given Medications gabapentin 100 mg oral capsule 100 mg, 1, capsule, By Mouth, 3 times a day, Days 1-3 1 TID Days 4-6 2 TID Instructions in [place]ese., # 90 capsule, Refills 0, Tot. Refills 0, Maintenance, 12/28/15 13:36:35, Route to Pharmacy Electronically, [id number], [facility] Start Date: 12/28/15 Status: Ordered gabapentin 300 mg oral capsule 300 mg, 1, capsule, By Mouth, 3 times a day, # 270 capsule, Refills 0, Tot. Refills 0, Maintenance,12/28/15 13:36:51, Route to Pharmacy Electronically, [id number], [id number] Start Date: 12/28/15 Status: Ordered naproxen 500 [...] Address: Address: [address] [place] [address]- Care Team Related Persons Name: COURTNEY EDMOND Address: home [address] [address] Name: CASANDRA MCKAY
--- OUTSIDE RECORDS SUMMARY | 2024-07-30 09:18 | XMS_ITS | Continuity of Care Document ---
Author Organization [facility] Address [address] [place] [address]- Care Team Providers Care Slot Machine Floor Person Name Role Phone Casper Cisneros MD, Fay Cabral Primary Care Physician [phone] [id number] Date(s): 05/09/24 - 07/12/24 [facility] [address] [place] [address]- Discharge Disposition: A-D/C Home Attending Physician: Ankur [...] TID Days 4-6 2 TID Instructions in Serbian., # 90 capsule, Refills 0, Tot. Refills 0, Maintenance, 12/28/15 13:36:35, Route to Pharmacy Electronically, [id number], [facility]... Start Date: 12/28/15 Status: Ordered gabapentin 300 mg oral capsule 300 mg, 1, capsule, By Mouth, 3 times a day, # 270 capsule, Refills 0, Tot. Refills 0, Maintenance,12/28/15 13:36:51, Route to Pharmacy Electronically, [id number], [facility] [id number] Start Date: 12/28/15 Status: Ordered naproxen 500 [...] oldest [Reference Range]: 1 Height 154.0 cm (05/12/24 9:07 AM) Weight 116.9 kg (05/12/24 9:07 AM) Oxygen Saturation [94-100 %] 98 % (05/12/24 9:07 AM) Pulse Rate [55-90 bpm] 70 bpm (05/12/24 9:07 AM) Body Mass Index [18.5-24.99 kg/m2] 49.29 kg/m2 *>HHI* (05/12/24 9:07 AM) Blood Pressure [90-138/55-84 mm Hg] 124/ 65mm Hg (05/12/24 9:07 AM) Temperature [96.8-100.4 DegF] 98.2 DegF (05/12/24 9:07 AM) Mode of Delivery (Oxygen) Room air (05/12/24 9:07 AM) Blood pressure sites Arm, left (05/12/24 9:07 AM) Temperature Route Oral (05/12/24 9:07 AM) Dry Weight 116.9 kg (05/12/24 9:07 AM) Weight Obtained Via Standing scale (05/12/24 9:07 AM) Dry Weight Obtained Via Standing scale (05/12/24 9:07 AM) Social History Social History Type Response Smoking Status Never smoker entered on: 10/23/14 Sex Patient Care team information Care Team Personnel Name: Fay Chan MD Position: Reference Physician Member Role: PCP Address: Address: [address] [place], [place] [address] Name: Ollie MULLEN, Ankur Cabral Position: S Physician - Oncology Med Service: Hematology & Oncology Member Role: Admitting Physician Address: Address: [address] [place] [address] [place] [address]- Care Team Related Persons Name: COURTNEY EDMOND Address: home [address] [place] [id number] Name: CASANDRA MCKAY
[2024-07-30 09:37] VITALS: BMI 47.6
[2024-07-30 09:40] VITALS: BP 141/80; PULSE 67; RESP 12; TEMP 36.4; O2SAT 97
[2024-07-30] MEDS: Lactated Ringers 1,000 ML 100 ML IVCONT (09:42)
[2024-07-30 09:51] LABS: Glucose, Whole Blood 93 mg/dL (60-115)
--- NOTE | 2024-07-30 11:04 | P.HPSUR_ITS ---
Pre-Procedural Eval Section A - 24 Hr Update-Section A only Date of Service: 07/30/24 The patient is an INPATIENT: No The patient has been examined within 24 hours of the surgical procedure. The History & Physical has been completed within 30 days and I have reviewed it.: Yes Section B - Complete if H&P > 30 days Chief Complaint: Morbid (severe) obesity due to excess calories Details of Present Illness: GERD Relevant Family History (Specify if Yes): No Relevant Social History: None Present Medications: None Medical History: No relevant PMH History of Previous Operations: No relevant previous surgery Allergies: Allergies Allergy/AdvReac Type Severity Reaction Status Date / Time gabapentin Allergy Intermediate pruritus Verified 06/23/24 13:13 magnesium Allergy Intermediate rash Verified 06/23/24 13:13 environmental allergies Allergy Unknown Unknown Verified 06/23/24 13:13 metformin AdvReac Intermediate diarrhea Verified 06/23/24 13:13 Review of Systems Sugical H&P ROS: Negative: Constitution, Cardiovascular, Respiratory, Neurological, Psychiatric, Hem-Onc, Allergic/Immunologic, Gastrointestinal, Genitourinary, Musculoskeletal, Integumentary, Endocrine and Eyes/Ears/N ose/Throat Exam Surgical H&P Exam: Normal: HEENT, Normal: Heart, Normal: Lungs, Normal: Extremities, Normal: Abdomen, Normal: Skin and Normal: Neurological Plan Diagnosis/Plan: Unchanged (EGD to assess etiology of GERD. Risks of bleeding and perforation were discussed with the patient and she is in agreement with the plan.) I have reviewed the history and physical and performed a pertinent physical examination on my patient. No changes have occurred unless specified. Time Spent With Patient Time: Total time managing care of this patient today ____ minutes.
--- NOTE | 2024-07-30 11:08 | P.BOP_ITS ---
Brief Operative Note Date of Service: 07/30/24 Pre-op diagnosis: GERD Post-op diagnosis: same (small diaphragmatic hernia repair) Procedure: PROCEDURE DATE: 07/30/2024 PREOPERATIVE DIAGNOSIS: GERD POSTOPERATIVE DIAGNOSIS: ?Same as above. 1) small hiatal hernia, 2) gastric polyps PROCEDURE: Drthujib-lrekxt-pcwdfpzrwepv with biopsies Surgeon: ?Jj Bliss M.D.. Ph.D. Software Engineering Analyst: None ? Anesthesia: IV sedation Estimated blood loss: ?Minimal FINDINGS AND PROCEDURE: ? OPERATIVE INDICATIONS: ?The patient is a 44 year old female known to me who is interested in bariatric surgery. The patient has GERD. Based on this information I recommended an upper endoscopy to evaluate the patient's symptoms. Risks and complications of the surgery were discussed with the patient in advance particularly the possibility of perforation or bleeding that may require surgical intervention. The patient understood the risks and was in agreement with the plan. ? PROCEDURE: After informed consent was obtained by the patient, the patient was ?transferred to the Operating Room and was placed in the supine position.? After successful induction of IV sedation, a mouth block was inserted and the patient was placed in the left lateral decubitus position. An upper endoscopy was performed next, the oropharynx and esophagus appeared within the normal limits. There was a small 2cm hiatal hernia. The z-line was smooth. Two biopsies were obtained from the distal esophagus 2-3 cm proximal to the GE junction and two additional biopsies from the GE junction. The stomach was entered and it appeared to be of normal size. There was no gastritis. There was no stricture or ulcer. A biopsy was obtained from the gastric fundus and antrum. At the gastric fundus there was a small benign-appearing polyp that was biopsied. No significant bleeding was noted from any of the biopsy sites. Retroflexion of the scope confirmed the presence of a small diaphragmatic hernia. The scope was then advanced into the duodenum which appeared to be normal as well. At that point the duodenum ?and the stomach were decompressed and the scope was withdrawn from the patient's mouth. The patient extubated and was transferred in stable condition to the Recovery Room for further care. I was present and performed all steps of the procedure. There were no residents to assist with this case. Jj Bliss M.D., Ph.D. Surgeon: Sohail Bliss MD Anesthesia: MAC Was an Software Engineering Analyst used for this Procedure?: No Estimated blood loss (mL): 10 IV fluids (mL): 400 Urine output (mL): 0 (No [facility] to record output) Pathology: other (1) antrum x1, 2) fundus x1, 3) GE junction x2, 4) distal esophagus x2) Condition: stable Disposition: PACU
[2024-07-30 11:35] VITALS: BP 97/53; PULSE 63; RESP 18; TEMP 36.5; O2SAT 100
[2024-07-30 11:50] VITALS: BP 114/69; PULSE 56; RESP 18; TEMP 36.5; O2SAT 98
[2024-07-30 11:55] VITALS: BP 116/65; PULSE 54; RESP 16; TEMP 36.4; O2SAT 98
== END 2024-07-30 12:21 | disposition home or self-care (01) ==
PROVIDERS: PCP Internal Medicine; Visit Provider Surgery
PROC: 0DJ08ZZ Inspection of Upper Intestinal Tract, Via Natural or Artificial Opening Endoscopic (ICD-10-PCS; CPT 43235; principal; 2024-07-30 10:20)
DX: K21.9 Gastro-esophageal reflux disease without esophagitis (principal); E66.01 Morbid (severe) obesity due to excess calories; Z68.43 Body mass index [BMI] 50.0-59.9, adult; K44.9 Diaphragmatic hernia without obstruction or gangrene; K31.7 Polyp of stomach and duodenum; Z79.899 Other long term (current) drug therapy; Z88.8 Allergy status to other drugs, medicaments and biological substances; Z98.890 Other specified postprocedural states
CPT/HCPCS: 43239; 82947; 88305; 88313; 88342; J2003; J2704

== ENCOUNTER → 2024-07-30 09:15 | Outpatient (BNV) | payer OTHER, SELFPAY | PROVIDERS: PCP Internal Medicine; Visit Provider Surgery | DX: K44.9 Diaphragmatic hernia without obstruction or gangrene (principal) | CPT/HCPCS: 43239 ==

== ENCOUNTER 2024-08-21 08:39 | Outpatient (REF) | payer OTHER, SELFPAY | END 2024-08-21 08:40 | disposition home or self-care (01) | LOC: HO.XRAY 08:39 | PROVIDERS: PCP Internal Medicine; Visit Provider Surgery | DX: E66.01 Morbid (severe) obesity due to excess calories (principal); K21.9 Gastro-esophageal reflux disease without esophagitis; E11.9 Type 2 diabetes mellitus without complications | CPT/HCPCS: 71046 ==

== ENCOUNTER → 2024-08-22 13:59 | Outpatient (AMB) | payer OTHER, SELFPAY ==
--- NOTE | 2024-08-22 14:15 | MHC.WMTHER ---
Intake Intake Visit Reasons: OV BH Intake Allergies gabapentin Allergy (Intermediate, Verified 06/23/24 13:13) pruritus magnesium Allergy (Intermediate, Verified 06/23/24 13:13) rash environmental allergies Allergy (Unknown, Verified 06/23/24 13:13) Unknown metformin Adverse Reaction (Intermediate, Verified 06/23/24 13:13) diarrhea PFSH Medical History Environmental allergies GERD (gastroesophageal reflux disease) Migraines Hypovitaminosis D Morbid obesity Missed period Hair loss Extreme obesity Acne Surgical History History of surgery History of right breast biopsy History of tubal ligation History of section History of laparoscopic cholecystectomy Family History Father Hypertension Stroke Mother Hypertension Sister No problems noted. Son No problems noted. Daughter No problems noted. Maternal Aunt Colon cancer, Onset Age: 60 Social History Housing: Apartment Are you a primary career development engineer to a significant other at home: No Do you presently have visiting nurse or other home services: No Alcohol intake: never Patient Tobacco Use Status: Never used Tobacco e-Cigarette/Vaping Use: Never Used Second Hand Smoke Exposure: No service: No Current occupational status: employed Current occupational exposures/hazards: No Cognitive needs: No Hearing needs: No Vision needs: No Female Reproductive History Menstrual Age of Menarche: 9 Behavioral Health Assessment Weight Management Therapy Therapy Notes Details PT is a 44 years old female, who presents for initial visit to complete BH assessment as part of surgical weight loss program. Presenting Concerns Referral Source WMP Provider. Reason for referral Completion of behavioral health assessment as part of process for weight-loss surgery. Precipitating Event Obesity. Living Situation Current Living Situation Rent At risk of losing current housing? No Satisfied with current living situation? Yes Comments PT lives with her . Food/Weight/Diet Expectations of change Initial goal to lose 10% of her weight before surgery, which is about 25lbs. Ultimate weight goal: 233lbs before surgery Patient wants to become a healthier person, not been in need to use insulin or check her sugar anymore and be more active. PT is implementing the following: Current meal plan:2 shakes, 2 bars and 1 meal (7F/7F). Exercise plan: 4-5 days at week. Uses the treadmill 2 ties at day. History/Relationship with food Example of meals before starting the program: Breakfast: Lunch: Dinner: Snacks: Drinks/Liquids: History/Relationship with weight In the last 10 years, the patient's Lowest weight was and highest Social History Family history and relationship Pt is . She has 2 adult children and 2 grandkids. 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 Community support Orthodox community Cultural/Ethnic information PT born and raised in [place]. Legal Involvement and History Current or historical involvement with the legal system? None reported Education Highest grade completed Masters degree Currently enrolled in educational program? No Interested in further educational program? 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 No Medical and Physical Health Summary Additional Medical History not covered in history None reported Sexual History concerns None reported Physical exam in the last year? Yes Pain Screening Current pain? No Pain in the last few months? No Medications Is the patient compliant with medications? Yes Does the patient have Knapp Guardian in place? Not applicable Does the patient use complimentary health approaches? No Trauma/Abuse History History of trauma? Yes Questionnaires PHQ-9 Over the last 2 weeks, how often have you been bothered by any of the following problems? 1. Little interest or pleasure in doing things: several days 2. Feeling down, depressed, or hopeless: several days 3. Trouble falling or staying asleep, or sleeping too much: several days 4. Feeling tired or having little energy: several days 5. Poor appetite or overeating: several days 6. Feeling bad about yourself - or that you are a failure or have let yourself or your family down: not at all 7. Trouble concentrating on things, such as reading the newspaper or watching television: not at all 8. Moving or speaking so slowly that other people could have noticed. Or the opposite - being so fidgety or restless that you have been moving around a lot more than usual: not at all 9. Thoughts that you would be better off or of hurting yourself in some way: not at all Total score: 5 Depression Screening Interpretation: Positive (From new PT pack scanned on 06/23/2024) Depression Screening Done: Yes Source: Developed by Drs. German Bell, Trena Mccoy, Elia Zimmerman and colleagues, with an educational haseeb from [employer]. Binge Eating Scale Group 1 A. I don't feel self-conscious about my wt. or body size when I'm with others. B. I feel concerned about how I look to others, but it normally does not make me fell disappointed with myself C. I do get self-conscious about my appearance and wt. which makes me feel disappointed in myself. D. I feel very self-conscious about my wt. and frequently I feel intense shame and disgust for myself. I try to avoid social contacts because of my self-consciousness. Response Group 1: B Group 2 A. I don't have any difficulty eating slowly in the proper manner. B. Although I seem to gobble down foods, I don't end up feeling stuffed because of eating to much. C. At times, I tend to eat quickly and then, I feel uncomfortably full afterwards. D. I have the habit of bolting down my food, without really chewing it. When this happens I usually feel uncomfortably stuffed because I've eaten to much. Response Group 2: C Group 3 A. I feel capable to control my eating urges when I want to. B. I feel like I have failed to control my eating more than the average person. C. I feel utterly helpless when it comes to feeling in control of my eating urges. D. Because I feel so helpless about controlling my eating I have become very desperate about trying to get control. Response Group 3: C Group 4 A. I don't have the habit of eating when I'm bored. B. I sometimes eat when I'm bored, but often I'm able to get busy and get my mind off food. C. I have a regular habit of eating when I'm bored, but occasionally, I can use some other activity to get my mind off eating. D. I have a strong habit of eating when I'm bored. Nothing seems to help me breath the habit. Response Group 4: C Group 5 A. I'm usually physically hungry when I eat something. B. Occasionally, I eat something on impulse even though I really am not hungry. C. I have the regular habit of eating foods, that I might not really enjoy, to satisfy a hungry feeling even though physically, I don't need the food. D. Although I'm not physically hungry, I get a hungry feeling in my mouth that only seems to be satisfied when I eat a food, like sandwich, that fills my mouth. Sometimes, when I eat the food to satisfy my mouth hunger, I then spit the food out so I won't gain weight. Response Group 5: B Group 6 A. I don't feel any guilt or self-hate after I overeat. B. After I overeat, occasionally I feel guilt or self-hate. C. Almost all the time I experience strong guilt or self-hate after I overeat. Response Group 6: A Group 7 A. I don't lose total control of my eating when dieting even after periods when I overeat. B. Sometimes when I eat a forbidden food on a diet, I feel like I blew it and eat even more. C. Frequently, I have the habit of saying to myself, I've blown it now, why not go all the way, when I overeat on a diet. When that happens I eat more. D. I have a regular habit of starting a strict diets for myself but I break the diets by going on an eating binge. My life seems to be either a feast or famine. Response Group 7: B Group 8 A. I rarely eat so much food that I feel uncomfortably stuffed afterwards. B. Usually about once a month, I each such a quantity of food, I end up feeling very stuffed. C. I have regular periods during the month when I eat large amounts of food, either at mealtime or at snacks. D. I eat so much food that I regularly feel quite uncomfortable after eating and sometimes a bit nauseous. Response Group 8: C Group 9 A. My level of calorie intake does not go up very high or go down very low on a regular basis. B. Sometimes after I overeat, I will try to reduce my caloric intake to almost nothing to compensate for the excess calories I've eaten. C. I have a regular habit of overeating during the night. It seems that my routine is not to be hungry in the morning but overeat in the evening. D. In my adult years, I have had week-long periods where I practically starve myself. This follows periods when I overeat. It seems I live a life of either feast or famine. Response Group 9: C Group 10 A. I usually am able to stop eating when I want to. I know when enough is enough. B. Every so often, I experience a compulsion to eat which I can't seem to control. C. Frequently, I experience strong urges to eat which I seem unable to control, but at other times I can control my eating urges. D. I feel incapable of controlling urges to eat. I have a fear of not being able to stop eating voluntarily. Response Group 10: C Group 11 A. I don't have any problem stopping eating when I feel full. B. I usually can stop eating when I feel full but occasionally overeat leaving me feeling uncomfortably stuffed. C. I have a problem stopping eating once I start and usually I feel uncomfortably stuffed after I eat a meal. D. Because I have a problem not being able to stop eating when I want, I sometimes have to induce vomiting to relieve my stuffed feeling. Response Group 11: A Group 14 A. I don't think much about trying to control unwanted eating urges. B. At least some of the time, I feel my thoughts are pre-occupied with trying to control my eating urges. C. I feel that frequently I spend much time thinking about how much I ate or about trying not to eat anymore. D. It seems to me that most of my waking hours are pre-occupied by thoughts about eating or not eating. I feel like I'm constantly struggling not to eat. Response Group 14: A Group 15 A. I don't think about food a great deal. B. I have strong craving for food but they last only for brief periods of time. C. I have days when I can't seem to think about anything else but food. D. Most of my days seem to be pre-occupied with thoughts about food. I feel like I live to eat. Response Group 15: B Group 16 A. I usually know whether or not I'm physically hungry. I take the right portion of food to satisfy me. B. Occasionally, I feel uncertain about knowing whether or not I'm physically hungry. A these times it's hard to know how much food I should take to satisfy me. C. Even though I might know how many calories I should eat, I don't have any idea what is a normal amount of food for me. Response Group 16: A Binge Eating Score: 16 (Missed Item #12) Score less than 17 Minimal Risk Score between 18-26 Moderate Risk Score between 27-46 High Risk Assessment & Plan Assessment & Plan (1) Adjustment disorder: Code(s): F43.20 - Adjustment disorder, unspecified Qualifiers: Adjustment disorder type: unspecified type Qualified Code(s): F43.20 - Adjustment disorder, unspecified Plan Assessment was not finished today. PT will return in 2-3 weeks to finish. PHQ-9 will be administered again and BES reviewed at next visit. Next shanice: 09/12/2024 Coding Level of Care Code New Pt Tele Psy Diag Claudia ([id number]) Patient Type New Diagnoses Adjustment disorder, unspecified type F43.20 Adjustment disorder type: unspecified type Time Spent (min) 50
== END ==
PROVIDERS: PCP Internal Medicine; Visit Provider Counselor Mental Health
DX: F43.20 Adjustment disorder, unspecified (principal)
CPT/HCPCS: 90791

== ENCOUNTER → 2024-08-22 13:59 | Outpatient (BNVA) | payer OTHER, SELFPAY | PROVIDERS: PCP Internal Medicine; Visit Provider Counselor Mental Health ==

== ENCOUNTER 2024-08-27 15:15 | Outpatient (AMB) | payer MEDICAID, SELFPAY ==
--- NOTE | 2024-08-27 15:19 | MHC.OFFVIS ---
Vital Signs 08/27/24 15:22 Height 5 ft Weight 238 lb BMI 46.5 BP 110/70 Blood Pressure Location Rt brachial Position Sitting Pulse 65 Pulse Source Pulse Oximeter Pulse Oximetry (%) 96 Oxygen Delivery Method Room Air Intake Visit Reasons: 6 Month F/U Radio Communication Coordinator Required: Yes Radio Communication Coordinator Language: Residency Coordinator Services: Radio Communication Coordinator Offered & Declined [place] [place] [facility] [place] Radio Communication Coordinator services refused) Accompanied by: Self / Same As Patient Allergies gabapentin Allergy (Intermediate, Verified 06/23/24 13:13) pruritus magnesium Allergy (Intermediate, Verified 06/23/24 13:13) rash environmental allergies Allergy (Unknown, Verified 06/23/24 13:13) Unknown metformin Adverse Reaction (Intermediate, Verified 06/23/24 13:13) diarrhea Medication List - Last Reconciled 08/27/24 by LEXIS Emery blood sugar diagnostic (FreeStyle Lite Strips) Use 1 test strip once a day blood-glucose meter (FreeStyle Lite Meter kit) As directed kotliisegv-djclmoaipqsfm-tiia 50-325-40 mg 1 tab PO Q4H PRN 30 days cholecalciferol (vitamin D3) 125 mcg PO DAILY lancets (FreeStyle Lancets) Use 1 lancet once a day levocetirizine (Xyzal) 5 mg PO DAILY magnesium oxide 400 mg PO BEDTIME 30 days mecobalamin (vitamin B12) 1,000 mcg sublingual DAILY omeprazole 20 mg PO DAILY 90 days pioglitazone 15 mg PO DAILY 90 days riboflavin (vitamin B2) 400 mg PO DAILY 30 days thiamine HCl (vitamin B1) 100 mg PO DAILY HPI Comments Details: 43-yr-old female presents for f/u visit. Pt denies any significant interval medical changes, w/ exception of she is now working with weight management, in hopes of having gastric sleeve surgery. Pt reports she is doing well overall. She has not had any bothersome headaches since her last visit here 6 months ago Denies any interval positional headache. Now trying to drink water frequently. Not taking Liquid IV regularly, in the past it was helped. Takes caffeine. Compliant w/ B2 and Mag, which are helpful. Has not needed to use Fioricet sine the last visit here.. Baseline headache characteristics: Severe positional headache: pressure headache in the mid-forehead a/w progressive lighthedheadedness, dizziness, nausea, photophobia. Exacerbated by standing. Tension headache- Pressure in the eyes and frontal and temporal regions a/w mild photophobia. Previous work-up: 08/02/2022: MR/MR head/brain wo/w con IMPRESSION: Normal brain MRI. Brain MRI wo (12/22/21): IMPRESSION: Trace subdural collections and suspected dural thickening along the cerebral convexities with involvement of the tentorial leaflets and also visible around the cerebellar hemispheres in the posterior fossa. Additional findings along the dorsal clivus in the prepontine cistern. Potential engorgement of the epidural venous plexus in the upper cervical spine. Although there is no sagging of the brainstem or inferior cerebellar tonsillar ectopia, findings may signify idiopathic intracranial hypotension. Query for any history of positional headaches. [facility] Medical History Environmental allergies GERD (gastroesophageal reflux disease) Migraines Hypovitaminosis D Morbid obesity Missed period Hair loss Extreme obesity Acne Surgical History History of surgery History of right breast biopsy History of tubal ligation History of section History of laparoscopic cholecystectomy Family History Father Hypertension Stroke Mother Hypertension Sister No problems noted. Son No problems noted. Daughter No problems noted. Maternal Aunt Colon cancer, Onset Age: 60 Social History Housing: Apartment Are you a primary direct care specialist to a significant other at home: No Do you presently have visiting nurse or other home services: No Alcohol intake: never Patient Tobacco Use Status: Never used Tobacco e-Cigarette/Vaping Use: Never Used Second Hand Smoke Exposure: No service: No Current occupational status: employed Current occupational exposures/hazards: No Cognitive needs: No Hearing needs: No Vision needs: No Female Reproductive History Menstrual Age of Menarche: 9 Physical Exam Vital Signs: Last Vital Signs Pulse 65 08/27/24 15:22 BP 110/70 08/27/24 15:22 Pulse Ox 96 08/27/24 15:22 Oxygen Delivery Method Room Air 08/27/24 15:22 BMI result Body Mass Index 46.5 Const General: cooperative and no acute distress Orientation/consciousness: patient oriented x3 Resp Effort & Inspection: normal respiratory effort and able to speak in complete sentences Neuro General: patient oriented x3 Cranial nerves: Yes CN's II-XII intact bilaterally Cognition (Neuro): normal cognition Psych Appearance: grossly normal Mental Status: mental status grossly normal Speech and movement: Normal speech and movement present Affect: normal affect Attitude: cooperative Assessment & Plan Assessment & Plan (1) Positional headache: Code(s): R51.0 - Headache with orthostatic component, not elsewhere classified Category: Medical (2) TTH (tension-type headache): Code(s): G44.209 - Tension-type headache, unspecified, not intractable Category: Medical (3) Abnormal brain MRI: Comment: 12/22/21: Trace subdural collections and suspected dural thickening along the cerebral convexities with involvement of the tentorial leaflets and also visible around the cerebellar hemispheres in the posterior fossa. Additional findings along the dorsal clivus in the prepontine cistern. Potential engorgement of the epidural venous plexus in the upper cervical spine. f/u brain MRI 08/2022- normal. Code(s): R90.89 - Other abnormal findings on diagnostic imaging of central nervous system Category: Medical Plan Continue Riboflavin 400mg qam Continue Mag Ox 400mg qhs- pt states Mag allergy is hives only to IV Mag, but tolerates oral Mag well. Continue increased fluids. Continue prn Fioricet 1 tab q 4 hrs prn or Tylenol 650-1000mg q 4-6hrs w/ caffeine 200mg prn. Continue Liquid IV and rest prn positional headache symptoms. Future considerations: CT myelogram, LP blood patch. ? f/u in 12 months or sooner prn new/worsening s/s. Medications: Changed From fvwthmovck-ukauzhjfocxjy-dxvn 50-325-40 mg max 2 tabs per day or 4 tabs per week 1 tab PO Q4H 30 days PRN 20 tabs 3RF headache To iputrqmzzg-kkpumgprnftnu-pxly 50-325-40 mg max 4 tabs per day or 8 tabs per week 1 tab PO Q4H 30 days PRN 20 tabs 3RF positional headache Refilled magnesium oxide may hold for loose stools 400 mg PO BEDTIME 30 days 30 tabs 11RF mcayawmewn-muxattyumaann-egnx 50-325-40 mg max 2 tabs per day or 4 tabs per week 1 tab PO Q4H 30 days PRN 20 tabs 3RF headache riboflavin (vitamin B2) 400 mg PO DAILY 30 days 30 tabs 11RF Coding Level of Care Code Est Pt Level 4 (62405) Diagnoses Positional headache R51.0 TTH (tension-type headache) G44.209 Abnormal brain MRI R90.89
[2024-08-27 15:22] VITALS: BP 110/70; PULSE 65; O2SAT 96; BMI 46.5
== END 2024-08-27 16:06 | disposition home or self-care (01) ==
PROVIDERS: PCP Internal Medicine; Visit Provider Nurse Practitioner Family
DX: R51.0 Headache with orthostatic component, not elsewhere classified (principal); G44.209 Tension-type headache, unspecified, not intractable; R90.89 Other abnormal findings on diagnostic imaging of central nervous system
CPT/HCPCS: 99214

== ENCOUNTER → 2024-08-27 15:15 | Outpatient (BNVA) | payer MEDICAID, SELFPAY | PROVIDERS: PCP Internal Medicine; Visit Provider Nurse Practitioner Family | DX: G44.209 Tension-type headache, unspecified, not intractable (principal); R51.0 Headache with orthostatic component, not elsewhere classified; R90.89 Other abnormal findings on diagnostic imaging of central nervous system | CPT/HCPCS: 99212 ==

== ENCOUNTER → 2024-09-03 13:13 | Outpatient (AMB) | payer OTHER, SELFPAY ==
--- NOTE | 2024-09-03 13:10 | A.OFFWM_ITS ---
Intake Intake Visit Reasons: (TV) BH F/U Allergies gabapentin Allergy (Intermediate, Verified 06/23/24 13:13) pruritus magnesium Allergy (Intermediate, Verified 06/23/24 13:13) rash environmental allergies Allergy (Unknown, Verified 06/23/24 13:13) Unknown metformin Adverse Reaction (Intermediate, Verified 06/23/24 13:13) diarrhea PFSH Medical History Environmental allergies GERD (gastroesophageal reflux disease) Migraines Hypovitaminosis D Morbid obesity Missed period Hair loss Extreme obesity Acne Surgical History History of surgery History of right breast biopsy History of tubal ligation History of section History of laparoscopic cholecystectomy Family History Father Hypertension Stroke Mother Hypertension Sister No problems noted. Son No problems noted. Daughter No problems noted. Maternal Aunt Colon cancer, Onset Age: 60 Social History Housing: Apartment Are you a primary healthcare corporate account director to a significant other at home: No Do you presently have visiting nurse or other home services: No Alcohol intake: never Patient Tobacco Use Status: Never used Tobacco e-Cigarette/Vaping Use: Never Used Second Hand Smoke Exposure: No service: No Current occupational status: employed Current occupational exposures/hazards: No Cognitive needs: No Hearing needs: No Vision needs: No Female Reproductive History Menstrual Age of Menarche: 9 Behavioral Health Assessment Weight Management Therapy Therapy Notes Details PT is a 44 years old female, who presents for initial visit to complete BH assessment as part of surgical weight loss program. PT is not currently in counseling, but has been in the past due to trauma within family. PT denied any history of formal mental health diagnosis and or past hospitalization/crisis for behavioral health. Also, denies any history or recent safety concerns around SI/SA and/or self-harm/other-harm, also there is no history of substance use reported. Although, the patient reported history and challenges with stress eating, her scores from BES suggest low risk for binge eating behavior. PHQ- scores also showed no active symptoms/concerns with depression. On the other hand, mental status exam is within normal limits, suggesting person's functioning is not impaired. At this time patient is cleared from the behavioral health standpoint but will continue meeting with this provider to manage concerns around history of stress eating, habit building and receiving the right support for a successful weight- loss. Presenting Concerns Referral Source P Provider. Reason for referral Completion of behavioral health assessment as part of process for weight-loss surgery. Precipitating Event Obesity. Living Situation Current Living Situation Rent At risk of losing current housing? No Satisfied with current living situation? Yes Comments PT lives with her . Food/Weight/Diet Expectations of change Initial goal to lose 10% of her weight before surgery, which is about 25lbs. Ultimate weight goal: 233lbs before surgery Patient wants to become a healthier person, not been in need to use insulin or check her sugar anymore and be more active. Initial weight: 256 lb 8 oz Most recent weight: 233Lbs PT is implementing the following: Current meal plan: 2 shakes, 2 bars and 1 meal (7F/7F). Exercise plan: 4-5 days at week. Uses the treadmill 2 ties at day. History/Relationship with food PT reports she has a strong emotional relationship with food, she tends to eat more when have stressful days and have skipped meals. When gets upset or feels sad, wants to eat to cheep her mood. Example of meals before starting the program: Breakfast: bread , eggs, Lunch: leftovers from dinner (rice, beans, meat) Dinner: style home made meals. Snacks: chips, Doritos, cheese's, ice cream for dinner. Drinks/Liquids: Coffee (1 cup in the morning), water (4-6 8oz bottles at [facility]) History/Relationship with weight PT reports she was very skinny and at a healthy weight until became a mom 24 years ago. Before 's she was around 140Lbs. In the last 10 years, the patient's Lowest weight was 240Lbs and highest 270Lbs. 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 Binge Eating Do you frequently eat large amounts of food in short periods of time, not feeling physically hungry? No Do you feel out of control when you eat a large amount of food in a short period of time? No Do you eat large amounts of food rapidly and typically alone? No Night Eating Do you wake up at least once during the night to eat? No If you wake up in the night, do you find that it is necessary to eat something in order to fall back asleep? No Do you have little or no appetite in the morning and feel very hungry in the evening, often overeating between dinner and when you go to bed? Yes Social History Family history and relationship Pt is 9 years ago. She has 2 adult children and 2 grandkids. She has 1 sisters, parents alive, they're but live . PT reports she has good family relationships. Parental/Familial union contract representative obligations None Developmental history and status None Social support , children, mother and sister. Community support Confucianism community Methodist/Spirituality Anglican. Attends adventist 3 days at [facility], and is very active in adventist activities. Cultural/Ethnic information PT born and raised in [place]. Moved to [place] in 2012. Legal Involvement and History Current or historical involvement with the legal system? None reported Education Highest grade completed Bachelors degree. 1 year of a master. Preferred learning style Visual Currently enrolled in educational program? Yes (4th year of biblical studies. ) Interested in further educational program? 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 ) Wants help to find employment? No Meaningful activities Reading, listen to music, [place] based activities, adventist events, travel. Financial Situation Describe current financial situation Comfortable and Occasional struggle Financial assistance? None Service Service? No Mental Health and Addiction Treatment Current/Past substance abuse? No Comments Alcohol: None Cigarettes/Tobacco: None Cannabis/Edibles: None Current/Past addictive behavior concerns? No Psychiatric history PT attended therapy in childhood, and later around 2013 due to family and traumatic events for couple months. She's not aware of any diagnosis given. PT denies ever been in crisis or inpatient for mental health. There is no history and/or current concern about SI/SA and self-harm or other harm. Medical and Physical Health Summary Additional Medical History not covered in history None reported Sexual History concerns None reported Physical exam in the last year? Yes Pain Screening Current pain? No Pain in the last few months? No Medications Is the patient compliant with medications? Yes Does the patient have Knapp Guardian in place? Not applicable Does the patient use complimentary health approaches? No Trauma/Abuse History History of trauma? Yes Questionnaires PHQ-9 Over the last 2 weeks, how often have you been bothered by any of the following problems? 1. Little interest or pleasure in doing things: not at all 2. Feeling down, depressed, or hopeless: not at all 3. Trouble falling or staying asleep, or sleeping too much: not at all 4. Feeling tired or having little energy: several days 5. Poor appetite or overeating: several days (variable. ) 6. Feeling bad about yourself - or that you are a failure or have let yourself or your family down: not at all 7. Trouble concentrating on things, such as reading the newspaper or watching television: not at all 8. Moving or speaking so slowly that other people could have noticed. Or the opposite - being so fidgety or restless that you have been moving around a lot more than usual: not at all 9. Thoughts that you would be better off or of hurting yourself in some way: not at all Total score: 2 Depression Screening Interpretation: Negative Depression Screening Done: Yes 09902 - PHQ-9 Billing: Yes Source: Developed by Drs. German Bell, Trena Mccoy, Elia Zimmerman and colleagues, with an educational haseeb from [email or web address]. Binge Eating Scale Group 1 A. I don't feel self-conscious about my wt. or body size when I'm with others. B. I feel concerned about how I look to others, but it normally does not make me fell disappointed with myself C. I do get self-conscious about my appearance and wt. which makes me feel disappointed in myself. D. I feel very self-conscious about my wt. and frequently I feel intense shame and disgust for myself. I try to avoid social contacts because of my self- consciousness. Response Group 1: B Group 2 A. I don't have any difficulty eating slowly in the proper manner. B. Although I seem to gobble down foods, I don't end up feeling stuffed because of eating to much. C. At times, I tend to eat quickly and then, I feel uncomfortably full afterwards. D. I have the habit of bolting down my food, without really chewing it. When this happens I usually feel uncomfortably stuffed because I've eaten to much. Response Group 2: C Group 3 A. I feel capable to control my eating urges when I want to. B. I feel like I have failed to control my eating more than the average person. C. I feel utterly helpless when it comes to feeling in control of my eating urges. D. Because I feel so helpless about controlling my eating I have become very desperate about trying to get control. Response Group 3: C Group 4 A. I don't have the habit of eating when I'm bored. B. I sometimes eat when I'm bored, but often I'm able to get busy and get my mind off food. C. I have a regular habit of eating when I'm bored, but occasionally, I can use some other activity to get my mind off eating. D. I have a strong habit of eating when I'm bored. Nothing seems to help me breath the habit. Response Group 4: C Group 5 A. I'm usually physically hungry when I eat something. B. Occasionally, I eat something on impulse even though I really am not hungry. C. I have the regular habit of eating foods, that I might not really enjoy, to satisfy a hungry feeling even though physically, I don't need the food. D. Although I'm not physically hungry, I get a hungry feeling in my mouth that only seems to be satisfied when I eat a food, like sandwich, that fills my mouth. Sometimes, when I eat the food to satisfy my mouth hunger, I then spit the food out so I won't gain weight. Response Group 5: B Group 6 A. I don't feel any guilt or self-hate after I overeat. B. After I overeat, occasionally I feel guilt or self-hate. C. Almost all the time I experience strong guilt or self-hate after I overeat. Response Group 6: A Group 7 A. I don't lose total control of my eating when dieting even after periods when I overeat. B. Sometimes when I eat a forbidden food on a diet, I feel like I blew it and eat even more. C. Frequently, I have the habit of saying to myself, I've blown it now, why not go all the way, when I overeat on a diet. When that happens I eat more. D. I have a regular habit of starting a strict diets for myself but I break the diets by going on an eating binge. My life seems to be either a feast or famine. Response Group 7: B Group 8 A. I rarely eat so much food that I feel uncomfortably stuffed afterwards. B. Usually about once a month, I each such a quantity of food, I end up feeling very stuffed. C. I have regular periods during the month when I eat large amounts of food, either at mealtime or at snacks. D. I eat so much food that I regularly feel quite uncomfortable after eating and sometimes a bit nauseous. Response Group 8: C Group 9 A. My level of calorie intake does not go up very high or go down very low on a regular basis. B. Sometimes after I overeat, I will try to reduce my caloric intake to almost nothing to compensate for the excess calories I've eaten. C. I have a regular habit of overeating during the night. It seems that my routine is not to be hungry in the morning but overeat in the evening. D. In my adult years, I have had week-long periods where I practically starve myself. This follows periods when I overeat. It seems I live a life of either feast or famine. Response Group 9: C Group 10 A. I usually am able to stop eating when I want to. I know when enough is enoug h. B. Every so often, I experience a compulsion to eat which I can't seem to control. C. Frequently, I experience strong urges to eat which I seem unable to control, but at other times I can control my eating urges. D. I feel incapable of controlling urges to eat. I have a fear of not being able to stop eating voluntarily. Response Group 10: C Group 11 A. I don't have any problem stopping eating when I feel full. B. I usually can stop eating when I feel full but occasionally overeat leaving me feeling uncomfortably stuffed. C. I have a problem stopping eating once I start and usually I feel unc omfortably stuffed after I eat a meal. D. Because I have a problem not being able to stop eating when I want, I sometimes have to induce vomiting to relieve my stuffed feeling. Response Group 11: A Group 12 A. I seem to eat just as much when I'm with others, Family social gatherings as when I'm by myself. B. Sometimes, when I'm with other persons, I don't eat as much as I want to eat because I'm self-conscious about my eating. C. Frequently, I eat only a small amount of food when others are present, because I'm very embarrassed about my eating. D. I feel so ashamed about overeating that I pick times to overeat when I know no one will see me. I feel like a closet eater. Response Group 12: A Group 13 A. I eat three meals a day with only an occasional between meal snack. B. I eat 3 meals a day, but I also normally snack between meals. C. When I am snacking heavily, I get in the habit of skipping regular meals. D. There are regular periods when I seem to be continually eating, with no planned meals. Response Group 13: B Group 14 A. I don't think much about trying to control unwanted eating urges. B. At least some of the time, I feel my thoughts are pre-occupied with trying to control my eating urges. C. I feel that frequently I spend much time thinking about how much I ate or about trying not to eat anymore. D. It seems to me that most of my waking hours are pre-occupied by thoughts about eating or not eating. I feel like I'm constantly struggling not to eat. Response Group 14: A Group 15 A. I don't think about food a great deal. B. I have strong craving for food but they last only for brief periods of time. C. I have days when I can't seem to think about anything else but food. D. Most of my days seem to be pre-occupied with thoughts about food. I feel like I live to eat. Response Group 15: B Group 16 A. I usually know whether or not I'm physically hungry. I take the right portion of food to satisfy me. B. Occasionally, I feel uncertain about knowing whether or not I'm physically hungry. A these times it's hard to know how much food I should take to satisfy me. C. Even though I might know how many calories I should eat, I don't have any idea what is a normal amount of food for me. Response Group 16: A Binge Eating Score: 17 (Missed Item #12) Score less than 17 Minimal Risk Score between 18-26 Moderate Risk Score between 27-46 High Risk Assessment & Plan Assessment & Plan (1) Adjustment disorder: Code(s): F43.20 - Adjustment disorder, unspecified Plan PT has been cleared from BH standpoint. She will continue meeting with this provider for support pre and post op. Next louie: 2-4 wks. Telehealth Telehealth Telehealth Platform: [employer] Location of provider rendering services: other Location of patient: address on file Patient Identification confirmed using: Name, : Yes Telehealth method: video Patient verbally consented to treatment: Yes Patient verbally consented to billing insurance company: Yes Patient informed of any privacy concerns related to visit: Yes Minutes spent on Phone/Video with Pt.: 60 Coding Level of Care Code Established Pt Tele Psytx >53 mins ([id number]) Patient Type Established Diagnoses Adjustment disorder F43.20 Additional Codes PHQ-9 - 54605 - PHQ-9 Billing: Yes ([id number]) Time Spent (min) 60
--- OUTSIDE RECORDS SUMMARY | 2024-09-09 19:24 | XMS_ITS | Data Portability ---
Author Organization [place] - [facility], Allergy Address [address] [place] [phone] Care Team Providers Care Extension Associate Name Role Phone MARY CRAVEN Primary Care Provider Assessment Encounter Date Assessment Date Assessment LastModified by Organization Details LastModified Time 03/17/2024 03/17/2024 44-year-old kate tello presents for re-evaluation. Her hoarseness improved with use of omeprazole. She may continue using this. I have recommended referral to gastroenterology for further evaluation and treatment. She should also continue with her extrusion manager as this is likely exacerbating symptoms. May follow-up here as needed. [email or web address] Not available 03/17/2024 14:17:36 Plan of Treatment Reminders Order Date Submit Date Provider Last Modified By Organization Details Last Modified Time Details Appointments None recorde d. Lab None recorde d. Referral gastroe nterolo gist referra l - Referra l for reflux. Thank you. 2023 024 [email or web address] 2 [facility] Gastroenterology Scheduling Department, [address] [place] [address], [id number], 4 12:19:05 Procedures None recorde d. Surgeries None recorde d. Imaging None recorde d. Medication Orders None recorde d. Patient TargetsNo targets recorded. Patient InstructionsNo instructions recorded. 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 Thank you. Referring Physician: Sandi Sidhu, Otolaryngology, Encounter Date: 03/17/2024 Problems Name Problem SNOMED Code Status Onset Date Resolution Date Notes Provider Name and Address Organization Details Recorded Time Gastroesop hageal reflux disease without esophagiti s 663945364 Active 2023 SANDI SIDHU PA-C [address] [place],[address], [place], [phone] , [facility] - [facility] [place] 4 13:57:35 Allergic rhinitis 29736807 Active 2023 SANDI SIDHU PA-C [address] [facility] [place],[address], [place], [address] , [facility] - [facility] [place] 4 13:57:51 Dysphagia 21894970 Active 2023 SANDI SIDHU PA-C [address], [place], [phone] , [facility] - [facility] [place] 4 13:58:06 Hoarse 12698679 Active 2023 BARBARA SARGENT MD [address] [facility],[address], [place], [phone] , [facility] - [facility] [place] 4 14:17:42 Dysphonia 58028429 Active 2023 Hoarsenes s; Note: Date Diagnosed : 11/21/2023 12:28 PM (R49.0) Not Available Pending sale to [facility] 4 03:25:13 Allergic rhinitis caused by pollen 27641817 Active 2023 Allergic rhinitis due to pollen; Note: Date Diagnosed : 11/21/2023 12:28 PM (J30.1) Not Available Pending sale to [facility] 4 03:25:13 Problem Notes None recorded. Medical Equipment None Reported. Allergies Allergen ID Allergen Name Allergen Category Reaction Reaction Severity Criticality Documentation Date Start Date Code Code System Note Provider Name and Address Organization Details Recorded Time 697801 Product containin g magnesium and/or magnesium compound (product) medicatio n hives Not available Not available 05/02/2024 91255 5005 SNOMED React ion: Hives ; Not Available Pending sale to [facility] 4 00:23:57 170685 metformin medicatio n diarrhea Not available Not available 05/02/2024 6809 RxNorm React ion: Diarr hea; Not Available [facility] 00:24:01 Medications Name Sig Start Date Stop Date Status Note LastModified by Organization Details LastModified Time omeprazole 20 mg capsule,de layed release TAKE 1 CAPSULE EVERY MORNING ONE HOUR BEFORE MEALS NEED INS 2023 active Not Available Not Available Not Avai lable Xyzal 5 mg tablet active Medication ID: [id number] Bra nd Name: Xyzal Send Method: E-Prescrib ed Subs Allowed: subs OK Medicat ionGeneric Name: Xyzal Not Available Not Available Not Available butalbital 50 mg-acetami nophen 300 mg capsule active Medication ID: [id number] Bra nd Name: butalbital -acetamino phen Send Method: E-Prescrib ed Subs Allowed: subs OK Medicat ionGeneric Name: butalbital -acetamino phen Not Available Not Available Not Available Vitals Date Recorded Body height Body mass index (BMI) Body weight Provider Name and Address Organization Details Last Updated DateTime 03/17/2024 152.4 cm 50.6 kg/m2 809952.42 g Sarita Mo [place] - [facility] 03/17/2024 13:03:46 Social History None recorded. Functional Status None recorded. Mental Status None recorded. Family History Nothing Reported. Medical History No medical history recorded. Gynecological HistoryNo gynecological history recorded. Obstetrics History GPAL:G 0 P 0 0 0 0 Past Encounters Encounter ID Performer Location Encounter Start Date Encounter Closed Date Diagnosis/Indication Diagnosis SNOMED-CT Code Diagnosis ICD10 Code [id number] BARBARA SARGENT MD [facility] [address] [address] 03/17/2024 12:18:22 03/17/2024 13:37:11 Gastroesophageal reflux disease without esophagitis 858443125 K21.9 Allergic rhinitis 237897 04 J30.9 Hoarse 86096628 R49.0 Health Concerns Section Related Observation LastModified by Organization Detai ls LastModified Time None Recorded Concern Status LastModified by Organization Details LastModified Time None Recorded Advance Directives Directive None Recorded Payers Encounter Date Sequence Insurance Name Policy Number Policy Greene Covered Member ID Greene Member ID Guarantor Name 03/17/2024 1 [employer] - HEALTH NET PLAN (MEDICAID HMO) SOCO Beckman [id number] Zenia Beckman Notes Date Note Type Note Provider Name and Address Organization Details Recorded Time 03/17/2024 text/html 44-year-old female presents for reevaluation. Previously evaluated for hoarseness and thought to have GERD and postnasal drip from seasonal allergy. She sees an extrusion manager and takes Flonase and Xyzal daily. Omeprazole was added to her daily regimen and she feels her hoarseness has improved. Plans to see her extrusion manager in March. BARBARA JAMES MD [address] [place] [address], [phone], [facility] - [facility] 03/17/2024 14:17:57 OBGyn Episode No OBEpisode recorded.
== END ==
PROVIDERS: PCP Internal Medicine; Visit Provider Counselor Mental Health
DX: F43.20 Adjustment disorder, unspecified (principal)
CPT/HCPCS: 90837

== ENCOUNTER → 2024-09-03 13:13 | Outpatient (BNVA) | payer OTHER, SELFPAY | PROVIDERS: PCP Internal Medicine; Visit Provider Counselor Mental Health ==

== ENCOUNTER 2024-09-05 16:06 | Outpatient (AMB) | payer OTHER, SELFPAY ==
--- NOTE | 2024-09-09 14:48 | MHC.OFFVISWM ---
VS Expanded 09/09/24 14:49 Height 5 ft Weight 233 lb 6 oz BMI 45.6 Body Fat % 61.3 Body Fat Mass 143.1 Fat Free Mass 90.4 Visceral Fat Rating 27 Body Water % 26.5 Body Water Mass 61.9 Basal Metabolic Rate/Score 1,248 Intake Visit Reasons: TV Pre Op LSG Patient Transporter Required: Yes Patient Transporter Services: Patient Transporter Present Information Interpreted: clinical only Allergies gabapentin Allergy (Intermediate, Verified 09/09/24 14:54) pruritus magnesium Allergy (Intermediate, Verified 09/09/24 14:54) IV route caused rash, can tolerate PO environmental allergies Allergy (Unknown, Verified 09/09/24 14:54) Unknown metformin Adverse Reaction (Intermediate, Verified 09/09/24 14:54) diarrhea Medication List - Last Reconciled 09/09/24 by Sohail Bliss MD blood sugar diagnostic (FreeStyle Lite Strips) Use 1 test strip once a day blood-glucose meter (FreeStyle Lite Meter kit) As directed acsxghdadj-pgbbqytunraxz-ctel 50-325-40 mg 1 tab PO Q4H PRN 30 days cholecalciferol (vitamin D3) 125 mcg PO DAILY lancets (FreeStyle Lancets) Use 1 lancet once a day levocetirizine (Xyzal) 5 mg PO DAILY magnesium oxide 400 mg PO BEDTIME 30 days mecobalamin (vitamin B12) 1,000 mcg sublingual DAILY omeprazole 20 mg PO DAILY 90 days ondansetron 4 mg PO Q12H pantoprazole 40 mg PO DAILY pioglitazone 15 mg PO DAILY 90 days polyethylene glycol 3350 17 grams PO DAILY riboflavin (vitamin B2) 400 mg PO DAILY 30 days sucralfate 10 mL PO BID thiamine HCl (vitamin B1) 100 mg PO DAILY HPI HPI TV Pre Op LSG: Details: Start time: 3.30pm, End time: 4pm I spent 25 minutes speaking with the patient on the phone plus an additional 5 minutes reviewing and updating records for a total of 30 minutes HPI Comments Details: Overall weight loss: 23.2lbs or 9% TBWL Is doing 2 Celebrate Rebuild protein shakes with 1.5 scoops each in 8oz almond milk, 2 Celebrate protein bars and one meal (8 forks of protein and 8 forks of salad or vegetables) Exercise: treadmill x4/week for 1 hours per workout PFSH Medical History (Updated 08/04/24 @ 17:49 by Sohail Bliss MD) Environmental allergies GERD (gastroesophageal reflux disease) Migraines Hypovitaminosis D Morbid obesity Missed period Hair loss Extreme obesity Acne Surgical History (Updated 09/09/24 @ 10:44 by Isabella Amaro RN) History of esophagogastroduodenoscopy (EGD) (07/30/24) History of surgery History of right breast biopsy History of tubal ligation History of section History of laparoscopic cholecystectomy Family History Father Hypertension Stroke Mother Hypertension Sister No problems noted. Son No problems noted. Daughter No problems noted. Maternal Aunt Colon cancer, Onset Age: 60 Social History Housing: Apartment Are you a primary ambulatory care to a significant other at home: No Do you presently have visiting nurse or other home services: No Alcohol intake: never Patient Tobacco Use Status: Never used Tobacco e-Cigarette/Vaping Use: Never Used Second Hand Smoke Exposure: No Use of substances other than those prescribed or required for medical reasons: No Have you been hit, kicked, punched, or otherwise hurt by someone within the past year? If so, by whom?: No Are you DNR?: No Advance Directives: No () Advance Directives Information Provided: No Advance Directives on File: No Recently lost weight without trying: No Nutrition Risks: No Nutritional Risk Patient : No FDLMP: 08/21/2024 : No Poor oral hygiene: No service: No Current occupational status: employed Current occupational exposures/hazards: No Cognitive needs: No Hearing needs: No Vision needs: No Female Reproductive History Menstrual Age of Menarche: 9 Telehealth Telehealth Telehealth Platform: Telephone Location of provider rendering services: practice address Location of patient: address on file Patient Identification confirmed using: Name, : Yes Telehealth method: voice only Patient verbally consented to treatment: Yes Patient verbally consented to billing insurance company: Yes Patient informed of any privacy concerns related to visit: Yes Minutes spent on Phone/Video with Pt.: 30 Assessment & Plan Assessment & Plan (1) Morbid obesity: Comment: bmi=50.0, 04/11/22 Code(s): E66.01 - Morbid (severe) obesity due to excess calories Category: Medical Plan: 1. Plan for lap sleeve gastrectomy including upper GI endoscopy. All tests has been completed and reviewed and the patient is cleared for the surgery. If diaphragmatic or ventral hernias are present at time of surgery, these will be repaired laparoscopically as well. Risks and complications were discussed in detail including possible conversion to an open procedure, anastomotic leak, bleeding requiring transfusion, small bowel obstruction, , DVT and pulmonary embolism, cardiac, or pulmonary complications, as residential complications such as anastomotic ulcer, insufficient weight loss and vitamin deficiencies. I emphasized the importance of close follow-up, adherence to instructions and good communication. So far she has proven to be an excellent communicator and very compliant with all our directions accomplishing a great weight loss. I believe that she is an excellent candidate and she is ready. 2. Preop prescriptions were provided and explained the purpose of each one. Need to be purchased preop. Start Pantoprazole now as you get it from the pharmacy, 1 pill per day. Sucralfate and Zofran are for after surgery as needed. 3. Bowel prep: please do 7 packets of Miralax mixing each one with a an 8oz glass of water, crystal light, gatorade zero, or propel TWO DAYS before surgery and the same amount on THE DAY before surgery. The Miralax you begin with one packet at a time in 8oz water or crystal light, gatorade zero, or propel as early in the day as you can and you do them back to back until you finish them. Continue the protein shakes during the bowel prep. 4. Needs to purchase 1oz medicine cups . 5. Needs to purchase Children's liquid Tylenol for postop pain control. 6. Stop the Actos (Pioglitazone) on Sunday09/08/24. Continue all other medications until the day before surgery. Avoid aspirin, motrin, Advil, Aleve, Ibuprofen, Naproxyn. Tylenol is OK. 7. You need to purchase the Celebrate REBUILD protein shakes and Celebrate multivitamins from the hospital's gift shop. 8. Will do basic preop blood work-up TOMORROW 09/06/24 fasting for 12 hours and is scheduled to see the Anesthesiologist prior to the day of surgery. 9. Importance of adherence to postop folllow-up and recommendations was underscored and she understands that. 10. Stop food and bars as of tomorrow 09/06/24 and continue with 3 Celebrate REBUILD shakes (ONE scoop EACH in 8oz almond milk) at 9am-10am, 11am-1pm and 2pm-4pm and TWO more Celebrate REBUILD protein shake with TWO scoops in 8oz of almond milk at 5pm-7pm and 8pm-10pm 11. No soups, broths or V8 12. The patient's medical history has been reviewed and they are considered low risk for post op DVT and therefore DVT prophylaxis is not considered necessary. Travel after surgery was reviewed. The patient has not disclosed any travel plans during the first 30 days after surgery and they have been advised that within the first 30 days after surgery any bus, plane, train or car travel over 2 hours in duration is contraindicated due to the possibility of developing blood clots from immobility. Any travel, needs to include periods of ambulation of 10 minutes in duration every 2 hours. Patient was instructed to discuss any plans for travel during this period with their bariatric surgeon. 13. Please take at the day of surgery the following medications: NONE 14. Absolutely no smoking or vaping, or marijuana until the surgery and for at least the first 4 weeks. Only nicotine patches are allowed. 15. Stop any control pills and don't use them for one month after surgery 16. Send me weight measurements Sunday09/09/24 and and then on the day of surgery before you go to the hospital. 17. Avoid any steroids by mouth for any reason. Let me know if someone prescribes them to you 18. These instructions supersede anything else you read in the handbook, anything you watched in videos or classes or you were told by any other provider. If there is any conflict, you follow the above instructions and nothing else.
[2024-09-09 14:49] VITALS: BMI 45.6
== END 2024-09-09 14:58 | disposition home or self-care (01) ==
LOC: HO.HBS 16:06
PROVIDERS: PCP Internal Medicine; Visit Provider Surgery
DX: E66.01 Morbid (severe) obesity due to excess calories (principal)
CPT/HCPCS: 99214

== ENCOUNTER → 2024-09-05 16:06 | Outpatient (BNVA) | payer OTHER, SELFPAY | PROVIDERS: PCP Internal Medicine; Visit Provider Surgery ==

== ENCOUNTER 2024-09-06 07:57 | Outpatient (REF) | payer OTHER, SELFPAY ==
[2024-09-06 08:57] LABS: MANUAL DIFF FLAG NO
[2024-09-06 10:22] LABS: Basophils Percent Auto 0.5 % (0-2); Eosinophils Absolute Auto 0.1 X10*3/uL (0.0-0.4); Eosinophils Percent Auto 1.5 % (0-4); Hematocrit 36.7 % (37.0-47.0); Hemoglobin 12.2 g/dl (12.0-16.0); Imm Gran Abs Auto 0.01 X10*3/uL (0.00-0.03); Imm Gran Pct Auto 0.2 % (0.0-0.4); Lymphocytes Absolute Auto 1.1 X10*3/uL (1.2-4.9); Lymphocytes Percent Auto 27.1 % (20-40); Mean Corpuscular HGB Conc 33.2 g/dl (31.0-35.0); Mean Corpuscular Hemoglobin 26.5 pg (27.0-33.0); Mean Corpuscular Volume 79.8 fL (80.0-98.0); Mean Platelet Volume 9.9 fL (9.4-12.3); Monocytes Absolute Auto 0.4 X10*3/uL (0.1-1.2); Neutrophils Absolute Auto 2.5 x10*3/uL (2.0-8.3); Neutrophils Percent Auto 60.7 % (45-73); Platelet Count 342 X10*3/uL (160-400); Red Cell Distribution Width 15.2 % (11.0-16.0); White Blood Count 4.1 X10*3/uL (4.8-10.8)
[2024-09-06 10:27] LABS: Estimated Average Glucose 114 mg/dL; Hemoglobin A1C 118.8847 umol/L; Hemoglobin A1c % 5.6 % (<6.0); Total Hemoglobin (HGBA1C) 3137.8979 umol/L
[2024-09-06 10:29] LABS: Partial Thromboplastin Time 34.1 SEC (26.0-36.8)
[2024-09-06 11:02] LABS: Alanine Aminotransferase 10 U/L (0-31); Albumin Level 3.9 g/dL (3.5-5.0); Alkaline Phosphatase 47 U/L (39-117); Anion Gap 12 (12-20); Aspartate Amino Transferase 19 U/L (5-31); Bilirubin Total 0.4 mg/dL (0.0-1.0); Blood Urea Nitrogen 13 mg/dL (9-16); C Reactive Protein 0.23 mg/dL (< or = 0.50); Carbon Dioxide 24 mmol/L (22-29); Chloride 109 mmol/L (96-108); Cholesterol 134 mg/dL (<200); Estimated Glomerular Filt Rate > 60; Glucose Random 82 mg/dL (60-115); HDL Cholesterol 59 mg/dL (>40); LDL Cholesterol Calculated 65 mg/dL (<100); Potassium 4.5 mmol/L (3.3-5.1); Sodium 140 mmol/L (135-145); Triglycerides 50 mg/dL (<150)
[2024-09-06 11:17] LABS: Insulin 4 uU/mL (2-29); TSH reflex Free T4 0.57 uIU/mL (0.32-4.0)
== END 2024-09-06 07:58 | disposition home or self-care (01) ==
LOC: HO.LAB 07:57
PROVIDERS: PCP Internal Medicine; Visit Provider Surgery
DX: E66.01 Morbid (severe) obesity due to excess calories (principal)
CPT/HCPCS: 36415; 80053; 80061; 83036; 83525; 84443; 85025; 85610; 85730; 86140; 86850; 86900; 86901

== ENCOUNTER → 2024-09-08 09:16 | Outpatient (BNVA) | payer OTHER, SELFPAY | PROVIDERS: PCP Internal Medicine; Visit Provider Physician Assistant Surgical ==

== ENCOUNTER 2024-09-11 08:40 | Inpatient (IN) | payer OTHER, SELFPAY ==
[2024-09-09 11:17] VITALS: BMI 44.5
[2024-09-11] VITALS (15 sets, daily range): BP systolic 115–153; BP diastolic 60–77; PULSE 53–66; RESP 12–20; TEMP 36.1–37.1; O2SAT 93–100; BMI 46.5
--- OUTSIDE RECORDS SUMMARY | 2024-09-11 08:55 | XMS_ITS | Data Portability ---
Author Organization [place] - [facility], Allergy Address [address] [place] [phone] Care Team Providers Care Feed Blender Name Role Phone MARY CRAVEN Primary Care Provider [phone] Assessment Encounter Date Assessment Date Assessment LastModified by Organization Details LastModified Time 03/17/2024 03/17/2024 44-year-old kate tello presents for re-evaluation. Her hoarseness improved with use of omeprazole. She may continue using this. I have recommended referral to gastroenterology for further evaluation and treatment. She should also continue with her agent as this is likely exacerbating symptoms. May follow-up here as needed. [email or web address] Not available 03/17/2024 14:17:36 Plan of Treatment Reminders Order Date Submit Date Provider Last Modified By Organization Details Last Modified Time Details Appointments None recorde d. Lab None recorde d. Referral gastroe nterolo gist referra l - Referra l for reflux. Thank you. 2023 024 [id number] 2 [facility] Gastroenterology Scheduling Department, [address] [place] [address], [address], 4 12:19:05 Procedures None recorde d. Surgeries None recorde d. Imaging None recorde d. Medication Orders None recorde d. Patient TargetsNo targets recorded. Patient InstructionsNo instructions recorded. 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 Thank you. Referring Physician: Sandi Sidhu, Otolaryngology, Encounter Date: 03/17/2024 Problems Name Problem SNOMED Code Status Onset Date Resolution Date Notes Provider Name and Address Organization Details Recorded Time Gastroesop hageal reflux disease without esophagiti s 163001732 Active 2023 SANDI SIDHU PA-C [address] [place],[address], [place], [address] , [facility] - [facility] [place] 4 13:57:35 Allergic rhinitis 55340836 Active 2023 SANDI SIDHU PA-C [address] [facility] [place],[address], [place], [address] , [facility] - [facility] [place] 4 13:57:51 Dysphagia 91707038 Active 2023 SANDI SIDHU PA-C [address] [facility] [address], [place], [address] , [facility] - [facility] [place] 4 13:58:06 Hoarse 57997352 Active 2023 BARBARA SARGENT MD [address] [facility],[address], [place], [address] , [facility] - [facility] [place] 4 14:17:42 Dysphonia 06724329 Active 2023 Hoarsenes s; Note: Date Diagnosed : 11/21/2023 12:28 PM (R49.0) Not Available [facility] 4 03:25:13 Allergic rhinitis caused by pollen 28314524 Active 2023 Allergic rhinitis due to pollen; Note: Date Diagnosed : 11/21/2023 12:28 PM (J30.1) Not Available [facility] 4 03:25:13 Problem Notes None recorded. Medical Equipment None Reported. Allergies Allergen ID Allergen Name Allergen Category Reaction Reaction Severity Criticality Documentation Date Start Date Code Code System Note Provider Name and Address Organization Details Recorded Time 945466 Product containin g magnesium and/or magnesium compound (product) medicatio n hives Not available Not available 05/02/2024 53484 5005 SNOMED React ion: Hives ; Not Available [facility] 4 00:23:57 864328 metformin medicatio n diarrhea Not available Not available 05/02/2024 6809 RxNorm React ion: Diarr hea; Not Available [facility] 00:24:01 Medications Name Sig Start Date Stop Date Status Note LastModified by Organization Details LastModified Time omeprazole 20 mg capsule,de layed release TAKE 1 CAPSULE EVERY MORNING ONE HOUR BEFORE MEALS NEED INS 2023 active Not Available Not Available Not Avai lable Xyzal 5 mg tablet active Medication ID: [id number] Bra nd Name: Xyzal Send Method: E-Prescrib ed Subs Allowed: subs OK Medicat ionGeneric Name: Xyzal Not Available Not Available Not Available butalbital 50 mg-acetami nophen 300 mg capsule active Medication ID: [id number] Bra nd Name: butalbital -acetamino phen Send Method: E-Prescrib ed Subs Allowed: subs OK Medicat ionGeneric Name: butalbital -acetamino phen Not Available Not Available Not Available Vitals Date Recorded Body height Body mass index (BMI) Body weight Provider Name and Address Organization Details Last Updated DateTime 03/17/2024 152.4 cm 50.6 kg/m2 529802.42 g Sarita Mo [place] - [facility] 03/17/2024 13:03:46 Social History None recorded. Functional Status None recorded. Mental Status None recorded. Family History Nothing Reported. Medical History No medical history recorded. Gynecological HistoryNo gynecological history recorded. Obstetrics History GPAL:G 0 P 0 0 0 0 Past Encounters Encounter ID Performer Location Encounter Start Date Encounter Closed Date Diagnosis/Indication Diagnosis SNOMED-CT Code Diagnosis ICD10 Code [id number] BARBARA SARGENT MD [facility] [address] [address] 03/17/2024 12:18:22 03/17/2024 13:37:11 Gastroesophageal reflux disease without esophagitis 913956103 K21.9 Allergic rhinitis 891610 04 J30.9 Hoarse 59145854 R49.0 Health Concerns Section Related Observation LastModified by Organization Detai ls LastModified Time None Recorded Concern Status LastModified by Organization Details LastModified Time None Recorded Advance Directives Directive None Recorded Payers Encounter Date Sequence Insurance Name Policy Number Policy Greene Covered Member ID Greene Member ID Guarantor Name 03/17/2024 1 [employer] - HEALTH NET PLAN (MEDICAID HMO) SOCO Beckman [id number] Zenia Beckman Notes Date Note Type Note Provider Name and Address Organization Details Recorded Time 03/17/2024 text/html 44-year-old female presents for reevaluation. Previously evaluated for hoarseness and thought to have GERD and postnasal drip from seasonal allergy. She sees an agent and takes Flonase and Xyzal daily. Omeprazole was added to her daily regimen and she feels her hoarseness has improved. Plans to see her agent in March. BARBARA JAMES MD [address] [place] [address], [phone], [facility] - [facility] 03/17/2024 14:17:57 OBGyn Episode No OBEpisode recorded.
[2024-09-11] MEDS: Lactated Ringers 1,000 ML 999 ML IV (09:00)
[2024-09-11] MEDS: Aprepitant 32 MG/4.4 ML VIAL IVPUSH (09:08)
--- NOTE | 2024-09-11 10:04 | P.CONAN_ITS ---
Documented by User: Srhuthi Elliott NP 09/09/24 13:17 HPI - Anesthesia Eval Consult details Narrative: 44yo F for Gastrectomy Sleeve- EGD, possible diaphragmatic hernia, possible ventral hernia, possible open PMFSH Active Problems Active Problems: All Active Problems Vitamin B1 deficiency (Acute) Vitamin B12 deficiency (Acute) Vitamin D deficiency (Acute) Dysuria (Acute) Diabetes mellitus (Acute) MGUS (monoclonal gammopathy of unknown significance) (Acute) TTH (tension-type headache) (Acute) Obesity, morbid, BMI 50 or higher (Acute) Left foot pain (Acute) Voice hoarseness (Acute) Itching (Acute) Abnormal brain MRI (Acute) Fibroid uterus (Acute) Physical exam (Acute) Cervical cancer screening (Acute) Well woman exam with routine gynecological exam (Acute) Pelvic pain (Acute) Positional headache (Acute) Bradycardia (Acute) Vertigo (Acute) Dizziness (Acute) Persistent headaches (Acute) Neck pain (Acute) Headache (Acute) Dysuria (Acute) Rhinitis (Acute) UTI (urinary tract infection) (Acute) Encounter for annual routine gynecological examination (Acute) GERD (gastroesophageal reflux disease) (Acute) Migraines (Acute) Hypovitaminosis D (Acute) Morbid obesity (Acute) Missed period (Acute) Hair loss (Acute) Acne (Acute) Past Medical History Medical History Diabetes Environmental allergies GERD (gastroesophageal reflux disease) Migraines Hypovitaminosis D Morbid obesity Missed period Hair loss Extreme obesity Acne Family History Family History Father Hypertension Stroke Mother Hypertension Sister No problems noted. Son No problems noted. Daughter No problems noted. Maternal Aunt Colon cancer, Onset Age: 60 Surgical History Surgical History History of esophagogastroduodenoscopy (EGD) (07/30/24) History of surgery History of right breast biopsy History of tubal ligation History of section History of laparoscopic cholecystectomy History of Problems with Anesthesia: No Social History Social History Housing: Apartment Are you a primary progressive care unit registered nurse to a significant other at home: No Do you presently have visiting nurse or other home services: No Alcohol intake: never Patient Tobacco Use Status: Never used Tobacco e-Cigarette/Vaping Use: Never Used Second Hand Smoke Exposure: No Use of substances other than those prescribed or required for medical reasons: No Have you been hit, kicked, punched, or otherwise hurt by someone within the past year? If so, by whom?: No Are you DNR?: No Advance Directives: No Advance Directives Information Provided: Yes Advance Directives on File: No Recently lost weight without trying: No Nutrition Risks: No Nutritional Risk Patient : No FDLMP: 08/21/2024 : No Poor oral hygiene: No service: No Current occupational status: employed Current occupational exposures/hazards: No Cognitive needs: No Hearing needs: No Vision needs: No Meds Allergies Allergy/AdvReac Type Severity Reaction Status Date / Time gabapentin Allergy Intermediate pruritus Verified 09/11/24 08:40 magnesium Allergy Intermediate IV route Verified 09/11/24 08:40 caused rash, can tolerate PO environmental allergies Allergy Unknown Unknown Verified 09/11/24 08:40 metformin AdvReac Intermediate diarrhea Verified 09/11/24 08:40 Home Medications ?Medication ?Instructions ?Recorded ?Confirmed ?Last Taken ?Type levocetirizine 5 mg tablet (Xyzal) 5 mg PO DAILY 02/06/23 09/09/24 Unknown History Exam Height,Weight and Vital Signs: Height 5 ft Weight 103.419 kg Pertinent Lab Results Pertinent Lab Results: Laboratory Tests 09/06/24 08:50 Blood Type A Positive Antibody Screen NEGATIVE Laboratory Tests 09/06/24 08:55 WBC 4.1 L Hgb 12.2 Plt Count 342 Sodium 140 Potassium 4.5 Chloride 109 H Carbon Dioxide 24 BUN 13 Creatinine 0.68 Narrative Narrative: EKG 07/2024 Vent. Rate : 051 BPM Atrial Rate : 051 BPM P-R Int : 134 ms QRS Dur : 082 ms QT Int : 444 ms P-R-T Axes : 037 002 028 degrees QTc Int : 409 ms Sinus bradycardia Otherwise normal ECG When compared with ECG of 12-DEC-2021 16:01, No significant change was found Assessment and Plan Assessment Anesthesia Assessment: Chart Reviewed Final Anesthetic Review History of Problems with Anesthesia: No Documented by User: Love Osullivan DO 09/11/24 10:06 [facility] Past Medical History Medical History Diabetes Environmental allergies GERD (gastroesophageal reflux disease) Migraines Hypovitaminosis D Morbid obesity Missed period Hair loss Extreme obesity Acne Family History Family History Father Hypertension Stroke Mother Hypertension Sister No problems noted. Son No problems noted. Daughter No problems noted. Maternal Aunt Colon cancer, Onset Age: 60 Family history of problems with anesthesia: No Surgical History Surgical History History of esophagogastroduodenoscopy (EGD) (07/30/24) History of surgery History of right breast biopsy History of tubal ligation History of section History of laparoscopic cholecystectomy History of Problems with Anesthesia: No Social History Social History Housing: Apartment Are you a primary progressive care unit registered nurse to a significant other at home: No Do you presently have visiting nurse or other home services: No Alcohol intake: never Patient Tobacco Use Status: Never used Tobacco e-Cigarette/Vaping Use: Never Used Second Hand Smoke Exposure: No Use of substances other than those prescribed or required for medical reasons: No Have you been hit, kicked, punched, or otherwise hurt by someone within the past year? If so, by whom?: No Are you DNR?: No Advance Directives: No Advance Directives Information Provided: Yes Advance Directives on File: No Recently lost weight without trying: No Nutrition Risks: No Nutritional Risk Patient : No FDLMP: 08/21/2024 : No Poor oral hygiene: No service: No Current occupational status: employed Current occupational exposures/hazards: No Cognitive needs: No Hearing needs: No Vision needs: No Meds Allergies Allergy/AdvReac Type Severity Reaction Status Date / Time gabapentin Allergy Intermediate pruritus Verified 09/11/24 08:40 magnesium Allergy Intermediate IV route Verified 09/11/24 08:40 caused rash, can tolerate PO environmental allergies Allergy Unknown Unknown Verified 09/11/24 08:40 metformin AdvReac Intermediate diarrhea Verified 09/11/24 08:40 Home Medications ?Medication ?Instructions ?Recorded ?Confirmed ?Last Taken ?Type levocetirizine 5 mg tablet (Xyzal) 5 mg PO DAILY 02/06/23 09/09/24 Unknown History Exam Exam Date and Time: 09/11/24 1004 Height,Weight and Vital Signs: Height 5 ft Weight 103.419 kg Vital Signs Temperature 97.0 F 09/11/24 08:30 Pulse Rate 66 09/11/24 08:30 Respiratory Rate 18 09/11/24 08:30 Blood Pressure 115/67 09/11/24 08:30 Pulse Oximetry 99 09/11/24 08:30 Oxygen Delivery Method Room Air 09/11/24 08:30 Temperature 97.0 F 09/11/24 08:30 Pulse Rate 66 09/11/24 08:30 Respiratory Rate 18 09/11/24 08:30 Blood Pressure 115/67 09/11/24 08:30 Pulse Oximetry 99 09/11/24 08:30 Oxygen Delivery Method Room Air 09/11/24 08:30 Airway Mallampati Class: I TM Dist: >3cm Neck ROM: Full Loose/Missing/Broken Teeth: No (patient denies any loose or broken teeth) Heart: S1S2 Lungs: CTAB Assessment and Plan Assessment Anesthesia Assessment: Anesthesia Plan Discussed and Chart Reviewed Final Anesthetic Review Family History of Problems with Anesthesia: No History of Problems with Anesthesia: No NPO: Yes ASA Class: III Final Preanesthetic Review: No Changes in Pt Med Stat, Meds/Allgs Chart Reviewed, Consent Obtained/Reviewed and Anes Risks/Benef Reviewed Patient Risk: Intermediate Procedure Risk: Intermediate Anesthetic Plan Anesthetic Plan: GA and Agree w/ Assess. and Plan Disposition: Standard PACU
--- NOTE | 2024-09-11 10:11 | PHA.MEDREC ---
Pharmacy Consult ? Medication Reconciliation Pharmacy has REVIEWED the medication reconciliation COMPLETED by nursing.
--- NOTE | 2024-09-11 10:20 | MHC.SHP ---
Pre-Procedural Eval Section A - 24 Hr Update-Section A only Date of Service: 09/11/24 The patient is an INPATIENT: Yes The patient has been examined within 24 hours of the surgical procedure. The History & Physical has been completed within 30 days and I have reviewed it.: Yes Section B - Complete if H&P > 30 days Chief Complaint: Morbid obesity Relevant Family History (Specify if Yes): No Relevant Social History: None Present Medications: None Medical History: No relevant PMH History of Previous Operations: No relevant previous surgery Allergies: Allergies Allergy/AdvReac Type Severity Reaction Status Date / Time gabapentin Allergy Intermediate pruritus Verified 09/11/24 08:40 magnesium Allergy Intermediate IV route Verified 09/11/24 08:40 caused rash, can tolerate PO environmental allergies Allergy Unknown Unknown Verified 09/11/24 08:40 metformin AdvReac Intermediate diarrhea Verified 09/11/24 08:40 Review of Systems Sugical H&P ROS: Negative: Constitution, Cardiovascular, Respiratory, Neurological, Psychiatric, Hem-Onc, Allergic/Immunologic, Gastrointestinal, Genitourinary, Musculoskeletal, Integumentary, Endocrine and Eyes/Ears/Nose/Throat Exam Surgical H&P Exam: Normal: HEENT, Normal: Heart, Normal: Lungs, Normal: Extremities, Normal: Abdomen, Normal: Skin and Normal: Neurological Plan Diagnosis/Plan: Unchanged I have reviewed the history and physical and performed a pertinent physical examination on my patient. No changes have occurred unless specified. Time Spent With Patient Time: Total time managing care of this patient today ____ minutes.
--- NOTE | 2024-09-11 10:28 | P.BOP_ITS ---
Brief Operative Note Date of Service: 09/11/24 Pre-op diagnosis: Morbid obesity, non-insulin dependent diabetes, GERD, migraines Post-op diagnosis: same Procedure: INITIAL PATIENT BMI ON PRESENTATION AT OUR OFFICE: 50.1 kg/m2 LAST BMI BEFORE SURGERY: 45.6 kg/m2 COMORBIDITIES: Non-insulin dependent diabetes, GERD, migraines ?The patient presented to the Weight Management Program with significant obesity that was negatively impacting the patient's comorbidities as listed above.? The program is a phased program with a special focus on preoperative medical weight management to promote substantial weight loss and prepare the patients for the second phase of the program: bariatric surgery. The patient participated in an intensive weekly lifestyle ?intervention and exercise program during which the patient ?has lost between the initial office visit and the last preoperative visit 23.2lbs, or 9% of initial actual body weight. It was deemed appropriate for the patient to now have bariatric surgery. In light of the current Covid-19 pandemic and the well documented strong association of obesity and increased risk of worse outcomes if infected with Covid-19 (REFERENCES: https://pubmed.ncbi.nlm.nih.gov/82623259/ ,? https://pubmed.ncbi.nlm.nih.gov/90779981/ ), any delay in undergoing bariatric surgery may lead to the patient's worsening health condition and increased?risk of more severe Covid-19 disease if infected. In addition a recent?study from [facility] published in [facility] on 09/26/2021 ([email or web address]) found that, among patients with obesity, substantial weight loss achieved with surgery was associated with improved outcomes of COVID-19 infection. The findings suggest that obesity can be a modifiable risk factor for the severity of COVID-19 infection. In addition, the patient met the BMI-criteria for bariatric surgery based on the BMI on initial presentation. The patient should not be penalized for achieving such weight loss because ?it is not sustainable long-term without surgical intervention and it was achieved in preparation for bariatric surgery ?under my direction and based on my published research ([email or web address]).[email or web address] and? https://www.soard.org/article/D9359-0627(72)62430-X/pdf ) ?that a 10% preoperative weight loss improves long-term weight loss after surgery and reduces perioperative complications.? Insurance carriers such as [facility] have endorsed my recommendations ?and have included in their policies criteria to include a 10% preoperative weight loss requirement. PROCEDURE: Esophago-gastroscopy, laparoscopic lysis of adhesions, laparoscopic sleeve gastrectomy and laparoscopic gastropexy INDICATIONS: This is a 44 year-old female who was electively scheduled for laparoscopic, possibly open sleeve gastrectomy. The risks and complications of the procedure were discussed with the patient in advance, particularly the possibility of ; pulmonary embolism; staple line leak; bleeding; GERD; cardiac, pulmonary, or renal complications; as well as long-term problems such as insufficient weight loss, vitamin deficiency, strictures, or ulcers. The patient understood all the risks, and was in agreement to proceed with surgery. DESCRIPTION OF PROCEDURE: After informed consent was obtained from the patient, the patient was given preoperative antibiotics, and was transferred to the operating room. After successful induction of general anesthesia, pneumatic compression devices were placed on both lower extremities. An upper endoscopy was performed next. The oropharynx and esophagus appeared to be within normal limits. There was no diaphragmatic hernia present. Then after all fluid and air were suctioned and the stomach was fully decompressed, the scope was withdrawn and secured in the mid esophagus. The patient was then prepped and draped in the usual sterile manner, and abdominal access was established at the right upper quadrant with the Anita technique. A 12 mm blunt port was inserted, and the abdomen was insufflated with CO2 to a pressure of 15 mmHg. Under direct visualization, additional ports were placed, specifically two 5 mm Versi-step ports to the left upper quadrant, and a 5 mm Versi-Step port to the right upper quadrant. 1% lidocaine plain was used to infiltrate all port sites as well as all fascia defects. There were adhesions in the abdomen from previous laparoscopic cholecystectomy involving the omentum and the right lateral abdominal wall. Those were lysed completely with the ultrasonic device. Following that, the patient was placed in a steep reverse Trendelenburg position. An additional 5 mm port was placed to the right flank for the Mediflex retractor that was used to retract the left lobe of the liver. The gastro-esophageal fat pad was opened with the ultrasonic device (Thunderbeat, Olympus) and the anterior esophagus and hiatus were exposed. The angle of His was opened with the ultrasonic device the fundus of the stomach from any diaphragmatic and splenic attachments. I then opened the gastrocolic ligament between the transverse colon and the greater curvature of the stomach with the ultrasonic device to enter the lesser sac and facilitate the ligation of the short gastric vessels. I started at a mid-point along the greater curvature and using the Thunderbeat, all short gastric vessels were divided all the way to the angle of His until the left gil was completely dissected at its entirety. I then divided the gastro-colic ligament distally to a distance of about 3-4 cm proximal to the pylorus. The stomach was then divided transversely with one Endo TOMI-45 purple and four TOMI-60 articulating purple loads using the ECOtalityIA stapler and loads. Every effort was made that the gastric sleeve had a tubular shape and an even caliber throughout. Once the sleeve resection was completed, the staple line of the gastric sleeve was reinforced with Hemoclips. The resected stomach was retrieved without difficulty from the Anita port. A gastropexy was then performed in order to prevent postoperative GERD and partial gastric volvulus. Several interrupted 2.0 Surgidac sutures were placed between the sleeve's staple line and the previously divided greater omentum and gastro-colic ligament using the Endo-Stitch device. ?An upper endoscopy was performed. There was no narrowing at the GE junction. The scope was easily advanced all the way to the pylorus which was clearly visualized. There was no narrowing anywhere and the sleeve's caliber was even throughout. The sleeve's staple line was inspected and there was no evidence of ischemia, bleeding or dehiscence. At that point the gastroscope was withdrawn from the patient?s mouth while we were decompressing the bowel and the stomach from any remaining air. I looked into the lesser sac to see how the sleeve was situating and it was situating well. There was no bleeding from the staple line, spleen, or short gastric vessels. The Mediflex retractor was removed, and the undersurface of the liver was inspected and there was no bleeding. The patient was placed in supine position. I closed the fascial defect of the 12 mm port site with a figure of eight #1 Polysorb suture. Then 30cc Ropivacaine plain with 10 mg of Dexamethasone were used to infiltrate the fascial closure as well as all skin incisions. A total of 5ml Zynrelef was applied in the Anita wound. At this point, the abdomen was deflated, all ports were removed under direct vision, and no bleeding was noted from any of the port sites. The skin incisions were irrigated with saline and were closed with 4-0 absorbable monofilament sutures. Steri-Strips and OpSites were used to cover all incisions. The patient was extubated and was transferred in stable condition to the recovery room for further care. I was present and performed all khoury parts of the procedure. Ms. Coughlin was the anesthetic assistant. There were no residents to assist with this case. Jj Bliss MD, PhD, FACS Surgeon: Sohail Bliss MD Anesthesia: GETA, local and other (TAP block) Was an Test Driller used for this Procedure?: No Test Driller: Darling Coughlin Estimated blood loss (mL): 10 IV fluids (mL): 2,500 Urine output (mL): 0 (No [place] to record output) Pathology: other (1) Stomach, 2) gastroesophageal fat pad) Condition: stable Disposition: PACU
--- NOTE | 2024-09-11 10:32 | PM.PNGS ---
Subjective Subjective Date of Service: 09/12/24 Interval history: Feels well. Mild incisional pain. She is tolerating phase 1 bariatric diet Physical Exam Vital Signs: Vital Signs: Last Vital Signs Temp 97.0 F 09/11/24 08:30 Pulse 66 09/11/24 08:30 Resp 18 09/11/24 08:30 BP 115/67 09/11/24 08:30 Pulse Ox 99 09/11/24 08:30 O2 Del Method Room Air 09/11/24 08:30 BMI result Body Mass Index 44.5 GI: Inspection: Yes normal to inspection, Yes incision (clean, dry and intact) and Yes obesity Palpation (GI): Soft to palpation Extrem: Right lower extremity: normal to inspection (no calf tenderness) Left lower extremity: normal to inspection (no calf tenderness) Objective Data Active Medications Haloperidol Lactate (Haloperidol Lactate 5 Mg/Ml Vial) 1 mg IVPUSH ONCE PRN PRN Reason: intractable nausea Stop: 09/11/24 16:07 Hydromorphone HCl (Hydromorphone Hcl 0.5 Mg/0.5 Ml Syringe) 0.5 mg IVPUSH Q5M PRN PRN Reason: Pain, Moderate to Severe (Pain Scale 4-10) Stop: 09/11/24 16:07 Lactated Ringer's (Lr) 1,000 mls @ 100 mls/hr IVCONT .Q10H [facility] Lactated Ringer's (Lr) 1,000 mls @ 999 mls/hr IV .Q1H1M [facility] Stop: 09/11/24 10:45 Last Admin: 09/11/24 09:00 Dose: 999 mls/hr Documented By: PACO Naloxone HCl (Naloxone Hcl 0.4 Mg/Ml Vial) 0.04 mg IVPUSH Q5M PRN PRN Reason: Excessive sedation or RR < 8 Labs 09/12/24 05:46 09/12/24 05:45 Procedures Date of Service Date of Service: 09/12/24 Progress Note: A&P Assessment and plan (1) Morbid obesity: Status: Acute Assessment and Plan: s/p laparoscopic sleeve gastrectomy, lysis of adhesions and gastropexy Doing well Will check am labs and if OK the patient will be discharged home (2) GERD (gastroesophageal reflux disease): Status: Acute (3) Non-insulin dependent type 2 diabetes mellitus: Status: Acute (4) Migraines: Status: Acute (5) Intra-abdominal adhesions: Status: Acute (6) S/P laparoscopic sleeve gastrectomy: Status: Acute Time Spent With Patient Time: Total time managing care of this patient today ____ minutes. Quality Stroke Does the patient have a stroke diagnosis?: No VTE Prior VTE?: No VTE Risk Level:: Surgical - moderate VTE Device Contraindication: N/A - Device Ordered VTE Drug Contraindication: Treatment Not Indicated
[2024-09-11] MEDS: Lactated Ringers 1,000 ML 100 ML IVCONT ×2 (10:51→16:46)
[2024-09-11] MEDS: HYDROmorphone HCl 0.5 MG/0.5 ML SYRINGE IVPUSH ×2 (13:22→13:47)
--- NOTE | 2024-09-11 13:24 | P.DS_ITS ---
DS: Providers Provider Date of Service: 09/12/24 Date of admission: 09/11/24 08:40 Primary care physician: Fay Cisneros MD DS: Diagnosis Discharge Diagnosis (1) Morbid obesity: Status: Acute (2) GERD (gastroesophageal reflux disease): Status: Acute (3) Non-insulin dependent type 2 diabetes mellitus: Status: Acute (4) Migraines: Status: Acute DS: Summary Hospital Course Hospital Course: ADMITTING DIAGNOSIS: morbid obesity,?NIDDM, vitamin deficiencies, MGUS, headaches, vertigo, GERD ? DISCHARGE DIAGNOSIS: same, s/p laparoscopic sleeve gastrectomy and gastropexy ? PAST SURGICAL HISTORY:? History of surgery History of right breast biopsy History of tubal ligation History of section History of laparoscopic cholecystectomy ? PROCEDURE: upper endoscopy, laparoscopic sleeve gastrectomy and gastropexy ? DISCHARGE SUMMARY: ? History of Present Illness: ? The patient is a? 44? year-old woman with a BMI of? 44.5? kg/m2 and associated co-morbidities as described above. The patient had extensive work-up, lost? 28.5? ? lbs preoperatively and was electively scheduled for laparoscopic, possible open sleeve gastrectomy and gastropexy. Risks and complications of the surgery were discussed with the patient in advance, particularly the possibility of , pulmonary embolism, anastomotic leak, bleeding, bowel injury, GERD, cardiac, renal or pulmonary complications. The patient understood all the risks and was in agreement with the surgical plan. ? Hospital Course: ? The patient underwent an uneventful laparoscopic sleeve gastrectomy with gastropexy on the day of admission. Postoperatively, the patient was transferred to the surgical floor. The patient received IV Acetaminophen and IV dilaudid for pain control. Patient was started on bariatric phase 1 diet POD #0. On postoperative day one, the patient was feeling well without nausea, vomiting, fevers, or tachycardia. The patient had some mild incisional pain and the abdomen was soft.? ? On the morning of postoperative day one, the patient was continued on 1 ounce of water or ice every half hour. During the day, the patient did fairly well, having some incisional pain, but able to ambulate adequately and to tolerate liquids well. ? Since the patient is doing well, we decided that the patient was ready to be discharged. The patient was given instructions to follow-up with me next week and to call my office for any fever over 101, persistent abdominal pain, nausea, vomiting, GERD, symptoms of DVT such as calf tenderness, or leg swelling, or pulmonary embolism such as chest pain or shortness of breath.? The patient was also instructed to drink 40-60 ounces of liquids per day using the 1-ounce cups. The patient had been given prescriptions for Tylenol for pain, Zofran prn for nausea, and pantoprazole and carafate previously. The patient was encouraged to ambulate and use the incentive spirometer. The patient was allowed to shower, but no baths, and encouraged to stay active at home. All of these instructions were given to the patient personally. All questions were answered and the patient understood all instructions, the instructions were also given to the patient in print. Time Attestation Discharge Coordination Time (in mins): 30 Quality: Safe Use of Opioids Does Pt have an Active Cancer Diagnosis on the Problem List?: No Quality: Stroke Does the patient have a stroke diagnosis?: No Physical Exam Vital Signs: Vital Signs: Last Vital Signs Temp 98 F 09/11/24 13:12 Pulse 62 09/11/24 13:17 Resp 18 09/11/24 13:17 BP 122/61 09/11/24 13:17 Pulse Ox 100 09/11/24 13:17 O2 Del Method Nasal Cannula wit h Capnography, Kevin turi Mask 09/11/24 13:17 O2 Flow Rate 2 09/11/24 13:17 BMI result Body Mass Index 44.5 DS: Data Data Completed and Pending Pending studies at discharge: Pending at discharge 09/11/24 12:32 Surgical [PTH] Routine Discharge Plan Discharge Anticipated Discharge Date/Time: 09/12/24 10:00 Patient Disposition: Home, Self-Care Discharge Diagnosis: morbid obesity s/p laparoscopic sleeve gastrectomy with gastropexy Referrals: Fay Chan MD [Primary Care Provider] - 1 Week Discharge Medications: Continued pantoprazole 40 mg tablet,delayed release (DR/EC) 40 mg PO DAILY Qty: 90 0RF sucralfate 100 mg/mL suspension 10 ml PO BID Qty: 600 2RF ondansetron 4 mg tablet,disintegrating 4 mg PO Q12H Qty: 20 0RF Rx Instructions: Only take one every 12 hours as needed if you have nausea (DME) blood-glucose meter [FreeStyle Lite Meter] Kit See Rx Instructions .Route Qty: 1 0RF Rx Instructions: As directed (DME) FreeStyle Lite Strips Strip See Rx Instructions .Route Qty: 50 11RF Rx Instructions: Use 1 test strip once a day (DME) lancets [FreeStyle Lancets] 28 gauge misc See Rx Instructions .Route Qty: 100 3RF Rx Instructions: Use 1 lancet once a day levocetirizine [Xyzal] 5 mg tablet 5 mg PO DAILY Discontinued cholecalciferol (vitamin D3) 125 mcg (5,000 unit) capsule 125 mcg PO DAILY Qty: 90 0RF mecobalamin (vitamin B12) 1,000 mcg tablet,disintegrating 1,000 mcg sublingual DAILY Qty: 90 0RF Rx Instructions: place tablet under tongue and allow to dissolve for at least30 secs before swallowing thiamine HCl (vitamin B1) 100 mg tablet 100 mg PO DAILY Qty: 90 0RF omeprazole 20 mg capsule,delayed release(DR/EC) 20 mg PO DAILY 90 Days Qty: 90 1RF polyethylene glycol 3350 17 gram/dose powder 17 g PO DAILY Qty: 238 0RF Rx Instructions: please do 7 packets of Miralax mixing each one with a an 8oz glass of water, crystal light, gatorade zero, or propel TWO DAYS before surgery and the same amount on THE DAY before surgery. pioglitazone 15 mg tablet 15 mg PO DAILY 90 Days Qty: 90 1RF magnesium oxide 400 mg (241.3 mg magnesium) tablet 400 mg PO BEDTIME 30 Days Qty: 30 11RF Rx Instructions: may hold for loose stools riboflavin (vitamin B2) 400 mg tablet 400 mg PO DAILY 30 Days Qty: 30 11RF mmagjefkid-osvqpehospfci-dvyx 50-325-40 mg tablet 1 tab PO Q4H PRN (Reason: positional headache) 30 Days Qty: 20 3RF Rx Instructions: max 4 tabs per day or 8 tabs per week Discharge Orders: Discharge Order (Routine); Ordered 09/12/24 Ordered By: Sohail Bliss Activity on Discharge: No heavy lifting Stand Alone Forms: Patient Portal Discharge page Print Language: Polish Care Plan Goals: weight loss Health Concerns: morbid obesity Plan of Treatment: No tub baths, sex or returning to work until discussed at first post op appointment. No alcohol, tobacco or illegal drug use. Continue to use incentive spirometer hourly while awake. Walk in home for 5- 10 minutes every 2 hours during the first week. Wear abdominal binder with activity. Follow all meal plan instructions from your bariatric surgeon. Review bariatric handbook and call with any questions. Discharge Instructions 1. Please call your doctor or come back to the emergency room should any new symptoms arise. 2. Activity: abstain from alcohol,? limited stair climbing, no bending, no driving, no exercise, no illicit substances, no lifting, no sex, no tub bath, no work. 4. Diet: follow your bariatric surgeons recommendations for advancing diet. 5. Dressing Change/Wound Care: Your incisions are covered with waterproof dressings. You can shower with these and pat dry. Do not rub over dressings or incisions. If the area is tender, you may apply an ice pack for short intervals (no more than 20 minutes on, followed by at least 20 minutes off). Do not apply heat. Do not use creams, lotions, or topical antibiotics unless instructed to do so by your surgeon. 6. Call your doctor if: - Your temperature exceeds 101.5 F - You experience excessive pain or swelling - You have an unexpected reaction to medication - You have excessive bleeding - You experience continued vomiting/nausea - Your incision begins to separate - Your incision shows signs of infection such as increased redness, swelling, excessive pain, heat, or drainage (light blood or clear fluid is normal) General instructions: No lifting greater than 10 lbs for the next 6 weeks[address] within 24 hours of taking narcotic pain medications. If you do not move your bowels in the next 2 days, please take milk of magnesia over the counter. Please follow the post op diet and do not advance your diet until you are seen in the office in about 2 weeks. Please walk around your home every hour or two to prevent blood clots from forming in your legs. You do not need to wake from sleeping to walk. Please sleep in a bed or couch to prevent kinking at the hips and knees. Please take your incentive spirometer (your lung quarantine inspector) home with you and use it for the next few days to prevent pneumonias. You may shower, no hot tubs, baths or swimming pools. Please call the office with any questions or concerns such as increasing abdominal pain, fever, chills, shortness of breath, chest pain, leg pain or swelling, or redness or drainage from your incisions. Please make sure you are consuming 40-60 ounces of total fluids per day. Avoid all carbonation. Do not hesitate to contact the office with any questions at . The patient's medical history has been reviewed and they are considered low risk for post op DVT and therefore DVT prophylaxis is not considered necessary. Travel after surgery was reviewed. The patient has not disclosed any travel plans during the first 30 days after surgery and they have been advised that within the first 30 days after surgery any bus, plane, train or car travel over 2 hours in duration is contraindicated due to the possibility of developing blood clots from immobility. Any travel, needs to include periods of ambulation of 10 minutes in duration every 2 hours.? The patient was instructed to discuss any plans for travel during this period with their bariatric surgeon. Assessment: s/p laparoscopic sleeve gastrectomy with gastropexy Discharge Date/Time: 09/12/24 09:04
[2024-09-11 14:21] LABS: Hematocrit 36.1 % (37.0-47.0); Hemoglobin 12.3 g/dl (12.0-16.0)
[2024-09-11 14:34] LABS: Anion Gap 15 (12-20); Blood Urea Nitrogen 10 mg/dL (9-16); Calcium 8.7 mg/dL (8.4-10.2); Carbon Dioxide 19 mmol/L (22-29); Chloride 109 mmol/L (96-108); Creatinine Clr Calc Pharmacy 104.4; Estimated Glomerular Filt Rate > 60; Glucose Random 153 mg/dL (60-115); Sodium 139 mmol/L (135-145)
[2024-09-11 15:13] LABS: Glucose, Whole Blood 148 mg/dL (60-115)
[2024-09-11 16:36] LABS: Glucose, Whole Blood 146 mg/dL (60-115)
[2024-09-11] MEDS: 0.9 % Sodium Chloride Flush 3 ML SYRINGE IVFLUSH ×2 (16:47→20:18)
[2024-09-11] MEDS: Acetaminophen 1,000 MG/100 ML PIGGYBACK 16.7 MG IV ×2 (16:48→22:39)
[2024-09-11] MEDS: ceFAZolin Sodium/Dextrose,Iso 2 GM/50 ML PIGGYBACK IV (17:02)
[2024-09-11 18:10] LABS: Glucose, Whole Blood 163 mg/dL (60-115)
--- NOTE | 2024-09-11 18:27 | PC.NURSE ---
patient refusing sliding scale insulin, POC 163 @1800 requiring 2 units per SS, WALLCAE Johnson notified
[2024-09-11] MEDS: Famotidine/PF 20 MG/2 ML VIAL IVPUSH (20:19)
[2024-09-12] VITALS: BP 146/73; PULSE 62; RESP 16; TEMP 36.8; O2SAT 96
[2024-09-12 00:43] LABS: Glucose, Whole Blood 148 mg/dL (60-115)
[2024-09-12] MEDS: Lactated Ringers 1,000 ML 100 ML IVCONT (03:15)
[2024-09-12 03:47] VITALS: BP 158/79; PULSE 62; RESP 16; TEMP 36.8; O2SAT 97
[2024-09-12] MEDS: Acetaminophen 1,000 MG/100 ML PIGGYBACK 16.7 MG IV (05:05)
[2024-09-12 05:47] LABS: Glucose, Whole Blood 115 mg/dL (60-115)
[2024-09-12 06:00] LABS: MANUAL DIFF FLAG NO
[2024-09-12 06:18] LABS: Basophils Percent Auto 0.1 % (0-2); Hematocrit 36.1 % (37.0-47.0); Hemoglobin 12.3 g/dl (12.0-16.0); Imm Gran Abs Auto 0.07 X10*3/uL (0.00-0.03); Imm Gran Pct Auto 0.8 % (0.0-0.4); Lymphocytes Absolute Auto 0.6 X10*3/uL (1.2-4.9); Lymphocytes Percent Auto 6.5 % (20-40); Mean Corpuscular HGB Conc 34.1 g/dl (31.0-35.0); Mean Corpuscular Hemoglobin 26.8 pg (27.0-33.0); Mean Corpuscular Volume 78.6 fL (80.0-98.0); Mean Platelet Volume 9.8 fL (9.4-12.3); Monocytes Absolute Auto 0.4 X10*3/uL (0.1-1.2); Monocytes Percent Auto 4.6 % (2-11); Neutrophils Absolute Auto 7.8 x10*3/uL (2.0-8.3); Platelet Count 356 X10*3/uL (160-400); Red Blood Count 4.59 X10*6/uL (4.20-5.50); Red Cell Distribution Width 15.2 % (11.0-16.0); White Blood Count 8.9 X10*3/uL (4.8-10.8)
[2024-09-12 06:22] LABS: Anion Gap 13 (12-20); Blood Urea Nitrogen 8 mg/dL (9-16); Calcium 8.6 mg/dL (8.4-10.2); Carbon Dioxide 18 mmol/L (22-29); Chloride 109 mmol/L (96-108); Creatinine Clr Calc Pharmacy 105.7; Estimated Glomerular Filt Rate > 60; Glucose Random 121 mg/dL (60-115); Potassium 4.1 mmol/L (3.3-5.1); Sodium 136 mmol/L (135-145)
[2024-09-12 07:40] VITALS: BP 138/67; PULSE 64; RESP 16; TEMP 36.8; O2SAT 99
[2024-09-12] MEDS: Famotidine/PF 20 MG/2 ML VIAL IVPUSH (07:43)
[2024-09-12 07:48] LABS: Glucose, Whole Blood 104 mg/dL (60-115)
--- NOTE | 2024-09-12 08:51 | MHC.CM.PN ---
pt dcd prior to being seen by cm pt camilo self care
== END 2024-09-12 09:04 | disposition home or self-care (01) | DRG 403 ==
LOC: HO.SSSA 13:22 → HO.S3 15:14
PROVIDERS: Physician Assistant Surgical; Admitting Provider Surgery; PCP Internal Medicine; Visit Provider Surgery
PROC: 0DB64Z3 Excision of Stomach, Percutaneous Endoscopic Approach, Vertical (ICD-10-PCS; CPT 43845; principal; 2024-09-11 10:20)
DX: E66.01 Morbid (severe) obesity due to excess calories (principal); E11.9 Type 2 diabetes mellitus without complications; K21.9 Gastro-esophageal reflux disease without esophagitis; G43.909 Migraine, unspecified, not intractable, without status migrainosus; Z68.42 Body mass index [BMI] 45.0-49.9, adult; Z79.899 Other long term (current) drug therapy
CPT/HCPCS: 36415; 80048; 82947; 85014; 85018; 85025; 86850; 86900; 86901; 88304; 88305; 88307; 88342; A4649; C9088; C9145; J0131; J0690; J1100; J1171; J2003; J2250; J2405; J2704; J2795; J3010; J7120

== ENCOUNTER → 2024-09-11 08:40 | Outpatient (BNV) | payer OTHER, SELFPAY | PROVIDERS: Admitting Provider Surgery; PCP Internal Medicine; Visit Provider Surgery | DX: E66.01 Morbid (severe) obesity due to excess calories (principal); Z68.42 Body mass index [BMI] 45.0-49.9, adult; K66.0 Peritoneal adhesions (postprocedural) (postinfection); Z98.84 Bariatric surgery status | CPT/HCPCS: 43659; 43775; 99024 ==

== ENCOUNTER 2024-09-17 12:25 | Outpatient (AMB) | payer OTHER, SELFPAY ==
--- NOTE | 2024-09-17 12:10 | A.OFFWM_ITS ---
Intake Intake Visit Reasons: VIDEO BH F/U Allergies gabapentin Allergy (Intermediate, Verified 09/11/24 08:40) pruritus magnesium Allergy (Intermediate, Verified 09/11/24 08:40) IV route caused rash, can tolerate PO environmental allergies Allergy (Unknown, Verified 09/11/24 08:40) Unknown metformin Adverse Reaction (Intermediate, Verified 09/11/24 08:40) diarrhea PFSH Medical History (Updated 09/14/24 @ 00:02 by Victor Hugo Jones) Obesity, morbid, BMI 50 or higher Physical exam Cervical cancer screening Well woman exam with routine gynecological exam Non-insulin dependent type 2 diabetes mellitus Diabetes Environmental allergies GERD (gastroesophageal reflux disease) Migraines Hypovitaminosis D Morbid obesity Missed period Hair loss Extreme obesity Acne Surgical History (Updated 09/11/24 @ 15:09 by Sohail Bliss MD) History of esophagogastroduodenoscopy (EGD) (07/30/24) History of surgery History of right breast biopsy History of tubal ligation History of section History of laparoscopic cholecystectomy Family History Father Hypertension Stroke Mother Hypertension Sister No problems noted. Son No problems noted. Daughter No problems noted. Maternal Aunt Colon cancer, Onset Age: 60 Social History Household Members: Spouse Housing: Apartment Are you a primary home care attendant to a significant other at home: No Do you presently have visiting nurse or other home services: No Alcohol intake: never Comment: Gas pain Patient Tobacco Use Status: Never used Tobacco e-Cigarette/Vaping Use: Never Used Second Hand Smoke Exposure: No service: No Current occupational status: employed Current occupational exposures/hazards: No Cognitive needs: No Hearing needs: No Vision needs: No Female Reproductive History Menstrual Age of Menarche: 9 Behavioral Health Assessment Weight Management Therapy Therapy Notes Details Subjective: PT reports she had bariatric surgery last week and her recovery is going great. she has more energy this week and already started getting back on her daily routine. She's out of work for now and so far is tolerating meal plan -advised by Dr Antoine lamb. Denied any discomfort or struggle. PT denies any hunger, food thoughts/cravings or desperation /anxiety or stress around food. Objective: PT presents for a post-op follow up visit. PT had bariatric surgery last week (09/11/24) . Discussed fucntioning and routine Supportive and reflective listening about her functioning, recovery process and adjustment to Post-op life . PT provided with techniques and tips to stay on track of shakes and to manage with people comments or possible social triggers for upcoming holidays. Supported with Behavioral activation plan to maintain routine and structure better her days. Assessment/Response: * Mental status: WNL * Risk reported/identified: None Food/Weight/Diet Expectations of change The initial goal to lose 10% of her weight before surgery, which is about 25 lbs. Ultimate weight goal: 233lbs before surgery Patient wants to become a healthier person, not need to use insulin or check her sugar anymore, and be more active. Initial weight: 256 lb 8 oz Most recent weight: 233Lbs Had bariatric surgery on 09/11/2024. Pre-surgery weight: 226Lbs Current weight: will do tomorrow. PT is implementing the following: Current meal plan: 3 shakes a day. Water. Exercise plan: None yet. Assessment & Plan Assessment & Plan (1) Adjustment disorder: Code(s): F43.20 - Adjustment disorder, unspecified Plan Follow up in 2 weeks for support per client's request. Next shanice: 09/30/2024 at 9am, Telehealth Telehealth Telehealth Telehealth Platform: [facility] Location of provider rendering services: other Location of patient: address on file Patient Identification confirmed using: Name, : Yes Telehealth method: video Patient verbally consented to treatment: Yes Patient verbally consented to billing insurance company: Yes Patient informed of any privacy concerns related to visit: Yes Minutes spent on Phone/Video with Pt.: 50 Coding Level of Care Code Established Pt Tele Psytx 45 mins (32776) Patient Type Established Diagnoses Adjustment disorder F43.20 Time Spent (min) 50
--- OUTSIDE RECORDS SUMMARY | 2024-09-17 12:27 | XMS_ITS | Data Portability ---
Author Organization [place] - [facility], Allergy Address [address] [place] [phone] Care Team Providers Care Scutcher Tender Name Role Phone MARY CRAVEN Primary Care Provider [phone] Assessment Encounter Date Assessment Date Assessment LastModified by Organization Details LastModified Time 03/17/2024 03/17/2024 44-year-old kate tello presents for re-evaluation. Her hoarseness improved with use of omeprazole. She may continue using this. I have recommended referral to gastroenterology for further evaluation and treatment. She should also continue with her leather sprayer as this is likely exacerbating symptoms. May follow-up here as needed. [email or web address] Not available 03/17/2024 14:17:36 Plan of Treatment Reminders Order Date Submit Date Provider Last Modified By Organization Details Last Modified Time Details Appointments None recorde d. Lab None recorde d. Referral gastroe nterolo gist referra l - Referra l for reflux. Thank you. 2023 024 [id number] 2 [facility] Gastroenterology Scheduling Department, [address] [place] [address], [id number], 4 12:19:05 Procedures None recorde d. Surgeries None recorde d. Imaging None recorde d. Medication Orders None recorde d. Patient TargetsNo targets recorded. Patient InstructionsNo instructions recorded. 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 Thank you. Referring Physician: Sandi Sidhu, Otolaryngology, Encounter Date: 03/17/2024 Problems Name Problem SNOMED Code Status Onset Date Resolution Date Notes Provider Name and Address Organization Details Recorded Time Gastroesop hageal reflux disease without esophagiti s 954124548 Active 2023 SANDI SIDHU PA-C [address] [place],[address], [place], [phone] , [facility] - [facility] [place] 4 13:57:35 Allergic rhinitis 73396770 Active 2023 SANDI SIDHU PA-C [address] [facility] [place], [place], [phone] , [facility] - [facility] [place] 4 13:57:51 Dysphagia 99631283 Active 2023 SANDI SIDHU PA-C [address], [place], [phone] , [facility] - [facility] [place] 4 13:58:06 Hoarse 53432419 Active 2023 BARBARA SARGENT MD [address] [facility],[address], [place], [phone] , [facility] - [facility] [place] 4 14:17:42 Dysphonia 95552836 Active 2023 Hoarsenes s; Note: Date Diagnosed : 11/21/2023 12:28 PM (R49.0) Not Available [facility] 4 03:25:13 Allergic rhinitis caused by pollen 98046440 Active 2023 Allergic rhinitis due to pollen; Note: Date Diagnosed : 11/21/2023 12:28 PM (J30.1) Not Available [facility] 4 03:25:13 Problem Notes None recorded. Medical Equipment None Reported. Allergies Allergen ID Allergen Name Allergen Category Reaction Reaction Severity Criticality Documentation Date Start Date Code Code System Note Provider Name and Address Organization Details Recorded Time 127963 Product containin g magnesium and/or magnesium compound (product) medicatio n hives Not available Not available 05/02/2024 02226 5005 SNOMED React ion: Hives ; Not Available [facility] 4 00:23:57 392119 metformin medicatio n diarrhea Not available Not available 05/02/2024 6809 RxNorm React ion: Diarr hea; Not Available [facility] 00:24:01 Medications Name Sig Start Date Stop Date Status Note LastModified by Organization Details LastModified Time omeprazole 20 mg capsule,de layed release TAKE 1 CAPSULE EVERY MORNING ONE HOUR BEFORE MEALS NEED INS 2023 active Not Available Not Available Not Avai lable Xyzal 5 mg tablet active Medication ID: [id number] Bra nd Name: Xyzal Send Method: E-Prescrib ed Subs Allowed: subs OK Medicat ionGeneric Name: Xyzal Not Available Not Available Not Available butalbital 50 mg-acetami nophen 300 mg capsule active Medication ID: [id number] Bra nd Name: butalbital -acetamino phen Send Method: E-Prescrib ed Subs Allowed: subs OK Medicat ionGeneric Name: butalbital -acetamino phen Not Available Not Available Not Available Vitals Date Recorded Body height Body mass index (BMI) Body weight Provider Name and Address Organization Details Last Updated DateTime 03/17/2024 152.4 cm 50.6 kg/m2 004239.42 g Sarita Mo [place] - [facility] 03/17/2024 13:03:46 Social History None recorded. Functional Status None recorded. Mental Status None recorded. Family History Nothing Reported. Medical History No medical history recorded. Gynecological HistoryNo gynecological history recorded. Obstetrics History GPAL:G 0 P 0 0 0 0 Past Encounters Encounter ID Performer Location Encounter Start Date Encounter Closed Date Diagnosis/Indication Diagnosis SNOMED-CT Code Diagnosis ICD10 Code [id number] BARBARA SARGENT MD [facility] [address] [phone] 03/17/2024 12:18:22 03/17/2024 13:37:11 Gastroesophageal reflux disease without esophagitis 936842389 K21.9 Allergic rhinitis 846456 04 J30.9 Hoarse 45496520 R49.0 Health Concerns Section Related Observation LastModified by Organization Detai ls LastModified Time None Recorded Concern Status LastModified by Organization Details LastModified Time None Recorded Advance Directives Directive None Recorded Payers Encounter Date Sequence Insurance Name Policy Number Policy Greene Covered Member ID Greene Member ID Guarantor Name 03/17/2024 1 [employer] - HEALTH NET PLAN (MEDICAID HMO) SOCO Beckman [id number] Zenia Beckman Notes Date Note Type Note Provider Name and Address Organization Details Recorded Time 03/17/2024 text/html 44-year-old female presents for reevaluation. Previously evaluated for hoarseness and thought to have GERD and postnasal drip from seasonal allergy. She sees an leather sprayer and takes Flonase and Xyzal daily. Omeprazole was added to her daily regimen and she feels her hoarseness has improved. Plans to see her leather sprayer in March. BARBARA JAMES MD [address] [place] [address], [phone], [facility] - [facility] 03/17/2024 14:17:57 OBGyn Episode No OBEpisode recorded.
== END 2024-09-17 14:57 | disposition home or self-care (01) ==
LOC: HO.HBST 12:25
PROVIDERS: PCP Internal Medicine; Visit Provider Counselor Mental Health
DX: F43.20 Adjustment disorder, unspecified (principal)
CPT/HCPCS: 90834

== ENCOUNTER → 2024-09-17 12:25 | Outpatient (BNVA) | payer OTHER, SELFPAY | PROVIDERS: PCP Internal Medicine; Visit Provider Counselor Mental Health ==

== ENCOUNTER 2024-09-18 13:15 | Outpatient (AMB) | payer OTHER, SELFPAY ==
--- OUTSIDE RECORDS SUMMARY | 2024-09-18 13:17 | XMS_ITS | Data Portability ---
Author Organization [place] - [facility], Allergy Address [address] [place] [phone] Care Team Providers Care Personal Development Mentor Name Role Phone MARY CRAVEN Primary Care Provider Assessment Encounter Date Assessment Date Assessment LastModified by Organization Details LastModified Time 03/17/2024 03/17/2024 44-year-old kate tello presents for re-evaluation. Her hoarseness improved with use of omeprazole. She may continue using this. I have recommended referral to gastroenterology for further evaluation and treatment. She should also continue with her curriculum counselor as this is likely exacerbating symptoms. May follow-up here as needed. [email or web address] Not available 03/17/2024 14:17:36 Plan of Treatment Reminders Order Date Submit Date Provider Last Modified By Organization Details Last Modified Time Details Appointments None recorde d. Lab None recorde d. Referral gastroe nterolo gist referra l - Referra l for reflux. Thank you. 2023 024 [id number] 2 [facility] Gastroenterology Scheduling Department, [address] [place] [address], [id number], 4 12:19:05 Procedures None recorde d. Surgeries None recorde d. Imaging None recorde d. Medication Orders None recorde d. Patient TargetsNo targets recorded. Patient InstructionsNo instructions recorded. Reason for Referral Internal Grinder Tender Referral for Gastroesophageal reflux disease without esophagitis Referral for reflux. Thank you. Referring Physician: Sandi Sidhu, Otolaryngology, Encounter Date: 03/17/2024 Problems Name Problem SNOMED Code Status Onset Date Resolution Date Notes Provider Name and Address Organization Details Recorded Time Gastroesop hageal reflux disease without esophagiti s 461731978 Active 2023 SANDI SIDHU PA-C [address] [place],[address], [place], [phone] , [facility] - [facility] [place] 4 13:57:35 Allergic rhinitis 02576649 Active 2023 SANDI SIDHU PA-C [address] [facility] [place], [place], [phone] , [facility] - [facility] [place] 4 13:57:51 Dysphagia 49730761 Active 2023 SANDI SIDHU PA-C [address], [place], [address] , [facility] - [facility] [place] 4 13:58:06 Hoarse 08529050 Active 2023 BARBARA SARGENT MD [address] [facility],[address], [place], [phone] , [facility] - [facility] [place] 4 14:17:42 Dysphonia 91497120 Active 2023 Hoarsenes s; Note: Date Diagnosed : 11/21/2023 12:28 PM (R49.0) Not Available [facility] 4 03:25:13 Allergic rhinitis caused by pollen 02867113 Active 2023 Allergic rhinitis due to pollen; Note: Date Diagnosed : 11/21/2023 12:28 PM (J30.1) Not Available [facility] 4 03:25:13 Problem Notes None recorded. Medical Equipment None Reported. Allergies Allergen ID Allergen Name Allergen Category Reaction Reaction Severity Criticality Documentation Date Start Date Code Code System Note Provider Name and Address Organization Details Recorded Time 702996 Product containin g magnesium and/or magnesium compound (product) medicatio n hives Not available Not available 05/02/2024 64297 5005 SNOMED React ion: Hives ; Not Available [facility] 4 00:23:57 303187 metformin medicatio n diarrhea Not available Not available 05/02/2024 6809 RxNorm React ion: Diarr hea; Not Available [facility] 00:24:01 Medications Name Sig Start Date Stop Date Status Note LastModified by Organization Details LastModified Time omeprazole 20 mg capsule,de layed release TAKE 1 CAPSULE EVERY MORNING ONE HOUR BEFORE MEALS NEED INS 2023 active Not Available Not Available Not Avai lable Xyzal 5 mg tablet active Medication ID: [id number] Bra nd Name: Xyzal Send Method: E-Prescrib ed Subs Allowed: subs OK Medicat ionGeneric Name: Xyzal Not Available Not Available Not Available butalbital 50 mg-acetami nophen 300 mg capsule active Medication ID: [id number] Bra nd Name: butalbital -acetamino phen Send Method: E-Prescrib ed Subs Allowed: subs OK Medicat ionGeneric Name: butalbital -acetamino phen Not Available Not Available Not Available Vitals Date Recorded Body height Body mass index (BMI) Body weight Provider Name and Address Organization Details Last Updated DateTime 03/17/2024 152.4 cm 50.6 kg/m2 156097.42 g Sarita Mo [place] - [facility] 03/17/2024 13:03:46 Social History None recorded. Functional Status None recorded. Mental Status None recorded. Family History Nothing Reported. Medical History No medical history recorded. Gynecological HistoryNo gynecological history recorded. Obstetrics History GPAL:G 0 P 0 0 0 0 Past Encounters Encounter ID Performer Location Encounter Start Date Encounter Closed Date Diagnosis/Indication Diagnosis SNOMED-CT Code Diagnosis ICD10 Code [id number] BARBARA SARGENT MD [facility] [address] [address] 03/17/2024 12:18:22 03/17/2024 13:37:11 Gastroesophageal reflux disease without esophagitis 725239841 K21.9 Allergic rhinitis 846616 04 J30.9 Hoarse 30302799 R49.0 Health Concerns Section Related Observation LastModified by Organization Detai ls LastModified Time None Recorded Concern Status LastModified by Organization Details LastModified Time None Recorded Advance Directives Directive None Recorded Payers Encounter Date Sequence Insurance Name Policy Number Policy Greene Covered Member ID Greene Member ID Guarantor Name 03/17/2024 1 [employer] - HEALTH NET PLAN (MEDICAID HMO) SOCO Beckman [id number] Zenia Beckman Notes Date Note Type Note Provider Name and Address Organization Details Recorded Time 03/17/2024 text/html 44-year-old female presents for reevaluation. Previously evaluated for hoarseness and thought to have GERD and postnasal drip from seasonal allergy. She sees an curriculum counselor and takes Flonase and Xyzal daily. Omeprazole was added to her daily regimen and she feels her hoarseness has improved. Plans to see her curriculum counselor in March. BARBARA JAMES MD [address] [place] [address], [phone], [facility] - [facility] 03/17/2024 14:17:57 OBGyn Episode No OBEpisode recorded.
--- NOTE | 2024-09-18 13:20 | A.OFFVIS_ITS ---
VS Expanded 09/18/24 13:53 BP 145/5 H Blood Pressure Location Rt brachial Blood Pressure Position Sitting Pulse 82 Pulse Source Pulse Oximeter Temp 98.6 F Temperature Source Temporal Artery Scan Pulse Oximetry 98 Oxygen Delivery Method Room Air Height 5 ft Weight 217 lb 6.4 oz BMI 42.5 Body Fat % 50.3 Body Fat Mass 109.4 Fat Free Mass 108.0 Visceral Fat Rating 15.0 Body Water % 35.5 Body Water Mass 77.2 Muscle Mass/Score 102.6 Basal Metabolic Rate/Score 1,559 Intake Visit Reasons: (OV) PO LSG 09/11/24 Allergies gabapentin Allergy (Intermediate, Verified 09/18/24 13:55) pruritus magnesium Allergy (Intermediate, Verified 09/18/24 13:55) IV route caused rash, can tolerate PO environmental allergies Allergy (Unknown, Verified 09/18/24 13:55) Unknown metformin Adverse Reaction (Intermediate, Verified 09/18/24 13:55) diarrhea HPI Comments Details: 44-year-old female returns to the office today in follow-up. She is 7 days post sleeve gastrectomy performed on 09/11/2024. Tolerating 3 celebrate rebuild shakes with 1 scoop each and approximately 40 oz of fluids. She has moved her bowels. Offers no complaints of pain. [facility] Medical History (Updated 09/14/24 @ 00:02 by Victor Hugo Jones) Obesity, morbid, BMI 50 or higher Physical exam Cervical cancer screening Well woman exam with routine gynecological exam Non-insulin dependent type 2 diabetes mellitus Diabetes Environmental allergies GERD (gastroesophageal reflux disease) Migraines Hypovitaminosis D Morbid obesity Missed period Hair loss Extreme obesity Acne Surgical History (Updated 09/18/24 @ 13:56 by Karla Orozco CMA) S/P laparoscopic sleeve gastrectomy History of esophagogastroduodenoscopy (EGD) (07/30/24) History of surgery History of right breast biopsy History of tubal ligation History of section History of laparoscopic cholecystectomy Family History Father Hypertension Stroke Mother Hypertension Sister No problems noted. Son No problems noted. Daughter No problems noted. Maternal Aunt Colon cancer, Onset Age: 60 Social History Household Members: Spouse Housing: Apartment Are you a primary daycare director to a significant other at home: No Do you presently have visiting nurse or other home services: No Alcohol intake: never Comment: Gas pain Patient Tobacco Use Status: Never used Tobacco e-Cigarette/Vaping Use: Never Used Second Hand Smoke Exposure: No service: No Current occupational status: employed Current occupational exposures/hazards: No Cognitive needs: No Hearing needs: No Vision needs: No Female Reproductive History Menstrual Age of Menarche: 9 Physical Exam GI Inspection: Yes incision (Clean, dry, intact.) Assessment & Plan Assessment & Plan (1) S/P laparoscopic sleeve gastrectomy: Code(s): Z98.84 - Bariatric surgery status Category: Surgical Plan: POD 7 s/p LSG on 09/11/[address] Bliss Weight loss prior to surgery was 29.4 pounds or 11.4 % TBWL. Original weight on 06/23/2024 was 256.8 pounds and op weight was 227.4 pounds. Be sure to text Dr Bliss exactly 1 week after surgery your weight from your home scale so he can adjust your meal plan. Continue meal plan until f/u w Darling in 2 weeks May shower, no submersion in bath for another week Continue abdominal binder with activity and exercise for the next 2 weeks. Exercise prior to surgery was treadmill and may resume No abdominal exercises for 6 weeks post operatively Will be emailed link to post op video for review Reminded of the pace of drinking, 2 mL per minute, 1 oz/15 min.
[2024-09-18 13:53] VITALS: BP 145/5; PULSE 82; TEMP 37; O2SAT 98; BMI 42.5
== END 2024-09-18 13:59 | disposition home or self-care (01) ==
PROVIDERS: PCP Internal Medicine; Visit Provider Physician Assistant Surgical
DX: Z98.84 Bariatric surgery status (principal)
CPT/HCPCS: 99024

== ENCOUNTER → 2024-09-18 13:15 | Outpatient (BNVA) | payer OTHER, SELFPAY | PROVIDERS: PCP Internal Medicine; Visit Provider Physician Assistant Surgical | DX: E66.01 Morbid (severe) obesity due to excess calories (principal); Z71.3 Dietary counseling and surveillance; Z98.84 Bariatric surgery status; Z68.41 Body mass index [BMI] 40.0-44.9, adult | CPT/HCPCS: 99212 ==

== ENCOUNTER 2024-09-22 14:18 | Outpatient (AMB) | payer OTHER, SELFPAY ==
--- NOTE | 2024-09-22 14:20 | A.OFFPC_ITS ---
Vital Signs 09/22/24 14:23 Height 5 ft Weight 217 lb 8 oz BMI 42.5 BP 130/64 Blood Pressure Location Lt brachial Position Sitting Pulse 72 Pulse Source Pulse Oximeter Pulse Oximetry (%) 98 Oxygen Delivery Method Room Air Intake Visit Reasons: [facility] [place] obesity Intake Note: Patient is here for hospital discharge follow up and TCM. Patient was discharged from [facility] on 09/12/24. Pt decline flu shot today. Trial Manager Required: Yes Trial Manager Language: Government Affairs Fellow Name: Kourtney ([id number]) Information Interpreted: non-clinical & clinical Application Spec: Not Required per policy Accompanied by: Self / Same As Patient Allergies gabapentin Allergy (Intermediate, Verified 09/22/24 14:58) pruritus magnesium Allergy (Intermediate, Verified 09/22/24 14:58) IV route caused rash, can tolerate PO environmental allergies Allergy (Unknown, Verified 09/22/24 14:58) Unknown metformin Adverse Reaction (Intermediate, Verified 09/22/24 14:58) diarrhea Medication List - Last Reconciled 09/22/24 by Naty Adams PA-C blood sugar diagnostic (FreeStyle Lite Strips) Use 1 test strip once a day blood-glucose meter (FreeStyle Lite Meter kit) As directed lancets (FreeStyle Lancets) Use 1 lancet once a day levocetirizine (Xyzal) 5 mg PO DAILY ondansetron 4 mg PO Q12H pantoprazole 40 mg PO DAILY sucralfate 10 mL PO BID Tobacco use date assessed: 09/22/24 Dental Screening Dental Screen Date: 05/19/24 HPI TCM TCM Information Date of Discharge 09/12/24 Discharged From [facility] Interactive Contact Date (Reference documentation from this date) 09/15/24 [facility] Medical History Obesity, morbid, BMI 50 or higher Physical exam Cervical cancer screening Well woman exam with routine gynecological exam Non-insulin dependent type 2 diabetes mellitus Diabetes Environmental allergies GERD (gastroesophageal reflux disease) Migraines Hypovitaminosis D Morbid obesity Missed period Hair loss Extreme obesity Acne Surgical History S/P laparoscopic sleeve gastrectomy History of esophagogastroduodenoscopy (EGD) (07/30/24) History of surgery History of right breast biopsy History of tubal ligation History of section History of laparoscopic cholecystectomy Family History Father Hypertension Stroke Mother Hypertension Sister No problems noted. Son No problems noted. Daughter No problems noted. Maternal Aunt Colon cancer, Onset Age: 60 Social History Household Members: Spouse Housing: Apartment Are you a primary child care aide to a significant other at home: No Do you presently have visiting nurse or other home services: No Alcohol intake: never Comment: Gas pain Patient Tobacco Use Status: Never used Tobacco e-Cigarette/Vaping Use: Never Used Second Hand Smoke Exposure: No service: No Current occupational status: employed Current occupational exposures/hazards: No Cognitive needs: No Hearing needs: No Vision needs: No Female Reproductive History Menstrual Age of Menarche: 9 Questionnaire Thrive Questionnaire Date Thrive assessed: 05/19/24 GUZMAN-7 AMB Questionnaire GUZMAN-7 Date GUZMAN - 7 assessed: 05/19/24 Source: Developed by Drs. German Bell, Trena Mccoy, Elia Zimmerman and colleagues, with an educational haseeb from [employer]. Physical exam (Primary Care) Vital Signs: Last Vital Signs Pulse 72 09/22/24 14:23 BP 130/64 09/22/24 14:23 Pulse Ox 98 09/22/24 14:23 Oxygen Delivery Method Room Air 09/22/24 14:23 BMI result Body Mass Index 42.5 Tobacco/Smoking Status: Tobacco use Status Tobacco use date assessed 09/22/24 09/22/24 14:31 Patient Tobacco Use Status Never used Tobacco 09/22/24 14:21 e-Cigarette/Vaping Use Never Used 09/22/24 14:21 Thrive Assessment: Date of Thrive Assessment Date Thrive assessed 05/19/24 09/22/24 14:21 Coding Level of Care Code TCM Mod MDM <= 14 Days Complex EM visit Add On G2211 Diagnoses Obesity E66.9 S/P laparoscopic sleeve gastrectomy Z98.84 Non-insulin dependent type 2 diabetes mellitus E11.9 Assessment & Plan Assessment & Plan (1) Obesity: Code(s): E66.9 - Obesity, unspecified Category: Medical (2) S/P laparoscopic sleeve gastrectomy: Code(s): Z98.84 - Bariatric surgery status Category: Surgical (3) Non-insulin dependent type 2 diabetes mellitus: Code(s): E11.9 - Type 2 diabetes mellitus without complications Category: Medical Plan Plan - Continue PPI and sulcrate therapy for gastric acid control, adhere to the three-month post-operative plan. - Follow up for ongoing assessment of dietary compliance and weight management post-gastric sleeve surgery Scribe Plan - Not visible on output: Patient presents to the office for a TCM visit. Date of admission: 09/11/2024 Date of discharge: 09/12/2024 This is a Follow-up from admission at [facility] after status post laparoscopic sleeve gastrectomy with gastropexy HPI: The patient is a 44-year-old female presenting with a need for post-operative follow-up after undergoing a laparoscopic sleeve gastrectomy with gastropexy performed by Dr. Bliss on September 11. The surgery was conducted laparoscopically with no notable complications reported during the procedure. Post-operatively, the patient reports successful weight loss, having lost 10 pounds within the first week post-surgery. She initially weighed 226 pounds at the time of surgery and reported a weight of 216 pounds during her latest self- weighing session. She was prescribed PPI 40 mg and sulcrate. Concurrently, she is managing essential hypertension. The patient reports maintaining a liquid-based diet consisting of nutritional shakes, which has been well-tolerated. There have been no issues with nausea, vomiting, diarrhea, or constipation. The patient indicates regular and comfortable bowel movements. The patient denies experiencing any abdominal pain. No adjustments to her current medication regimen were required during this visit. Hospital Course/Discharge Summary: The patient underwent an uneventful laparoscopic sleeve gastrectomy with gastropexy on the day of admission. Postoperatively, the patient was transferred to the surgical floor. The patient received IV Acetaminophen and IV dilaudid for pain control. Patient was started on bariatric phase 1 diet POD #0. On postoperative day one, the patient was feeling well without nausea, vomiting, fevers, or tachycardia. The patient had some mild incisional pain and the abdomen was soft.? On the morning of postoperative day one, the patient was continued on 1 ounce of water or ice every half hour. During the day, the patient did fairly well, having some incisional pain, but able to ambulate adequately and to tolerate liquids well. Since the patient is doing well, we decided that the patient was ready to be discharged. The patient was given instructions to follow-up with Darling Coughlin APRN next week and to call bariatric surgeon's office for any fever over 101, persistent abdominal pain, nausea, vomiting, GERD, symptoms of DVT such as calf tenderness, or leg swelling, or pulmonary embolism such as chest pain or shortness of breath.? The patient was also instructed to drink 40-60 ounces of liquids per day using the 1-ounce cups. The patient had been given prescriptions for Tylenol for pain, Zofran prn for nausea, and pantoprazole and carafate previously. The patient was encouraged to ambulate and use the incentive spirometer. The patient was allowed to shower, but no baths, and encouraged to stay active at home. Discharged to/Current Location: Home Lives with: Spouse Diagnosis: Morbid Obesity Procedures performed: Laparoscopic sleeve gastrectomy with gastropexy New medications: Tylenol for pain, Zofran prn for nausea, and pantoprazole and carafate previously given Discontinued medications: Fioricet, vitamin-D, magnesium oxide, vitamin B12, omeprazole, pioglitazone, polyethylene glycol, vitamin B2, vitamin B1 Change medications/dosing: No changes in her Xyzal, zofran, pantoprazole or sucralfate dosing at this time Pending labs: None Pending diagnostic test: None Any Follow-up Labs required? None Any Follow-up Diagnostic test required? None How are you feeling? Patient reports she feels great. She has lost 10 lb. Are you in any pain or discomfort? She denies being in any discomfort. Do you have any questions about your condition or discharge instructions? She feels like all her questions were answered about her condition upon discharge from the hospital. Were you able to get your medications filled? She has been able to fill all her medications. Do you have any questions about your medications? She does not have any medication questions and does not need any refills at this time. Any referrals required? She does not require any referrals. Were you able to schedule your follow-up appointment? She has a follow-up appointment scheduled with Darling Coughlin APRN If home health was ordered, have they contact you? None ordered or indicated Any outpatient services, if so, are you scheduled? None at this time Are there any additional resources like transportation you might need during her recovery? - VNA? No - BRIDAL CONSULTANT? No - Meals on wheels? No Educational need/resources: What support system do you have? Yes Social History - The patient maintains a liquid diet primarily consisting of nutritional shakes due to recent gastric sleeve surgery. - Recent significant weight loss has been observed post-surgery, consistent with dietary adjustments and surgical intervention. - No additional social determinants of health were discussed. Review of Systems - Gastrointestinal: Denies nausea, vomiting, diarrhea, constipation, or abdominal pain. - Urinary: Reports regular urination. Physical Exam General: Cooperative and healthy appearing Nutritional Appearance: Well nourished Orientation/consciousness: Patient oriented x3 Limitations: No limitations Head: Normal to inspection General: Appearance normal, both eyes and all related structures Neck: Normal visual inspection Chest: Normal palpation of entire chest wall Abdomen: Abdomen has surgical wounds with Steri-Strips in place. No dehiscence, swelling, erythema, drainage to the wounds. Abdomen is soft and nontender. Normal bowel sounds in all 4 quadrants. Patient is wearing her abdominal binder. Respiratory: Normal respiratory effort Neurology: Patient oriented x3 Plan - Continue PPI and sulcrate therapy for gastric acid control, adhere to the three-month post-operative plan. - Follow up for ongoing assessment of dietary compliance and weight management post-gastric sleeve surgery. Patient was informed and verbally consented to the use of an ambient scribe for clinic note documentation during this visit. Discussion Notes During the visit, I discussed the patient's current status following her gastric sleeve surgery. We reviewed her progress, noting the successful initial weight loss and absence of gastrointestinal complications. We discussed the continuation of her PPI medication for three months to aid in gastric acid control. Management of her essential hypertension with propranolol was also reviewed. I emphasized the importance of adherence to her liquid diet and nutritional intake for optimal recovery and weight maintenance. We agreed upon a follow-up plan to monitor her progress post-operatively to ensure continued success. Patient Instructions - Continue liquid diet as advised by the surgical team. - Adhere to the prescribed PPI regimen for the recommended duration. - Monitor weight and report any concerns with diet, gastrointestinal issues, or medication side effects. - Follow up as scheduled for ongoing care and monitoring progress post-surgery.
--- OUTSIDE RECORDS SUMMARY | 2024-09-22 14:20 | XMS_ITS | Data Portability ---
Author Organization [place] - [facility], Allergy Address [address] [place] [phone] Care Team Providers Care Grassroots Organizer Name Role Phone MARY CRAVEN Primary Care Provider [phone] Assessment Encounter Date Assessment Date Assessment LastModified by Organization Details LastModified Time 03/17/2024 03/17/2024 44-year-old kate tello presents for re-evaluation. Her hoarseness improved with use of omeprazole. She may continue using this. I have recommended referral to gastroenterology for further evaluation and treatment. She should also continue with her hot tamale worker as this is likely exacerbating symptoms. May follow-up here as needed. [email or web address] Not available 03/17/2024 14:17:36 Plan of Treatment Reminders Order Date Submit Date Provider Last Modified By Organization Details Last Modified Time Details Appointments None recorde d. Lab None recorde d. Referral gastroe nterolo gist referra l - Referra l for reflux. Thank you. 2023 024 2 [facility] Gastroenterology Scheduling Department, [address] [place] [address], [id number], 4 12:19:05 Procedures None recorde d. Surgeries None recorde d. Imaging None recorde d. Medication Orders None recorde d. Patient TargetsNo targets recorded. Patient InstructionsNo instructions recorded. Reason for Referral Material Control Specialist Referral for Gastroesophageal reflux disease without esophagitis Referral for reflux. Thank you. Referring Physician: Sandi Sidhu, Otolaryngology, Encounter Date: 03/17/2024 Problems Name Problem SNOMED Code Status Onset Date Resolution Date Notes Provider Name and Address Organization Details Recorded Time Gastroesop hageal reflux disease without esophagiti s 873757323 Active 2023 SANDI SIDHU PA-C [address] [place],[address], [place], [address] , [facility] - [facility] [place] 4 13:57:35 Allergic rhinitis 98537374 Active 2023 SANDI SIDHU PA-C [address] [facility] [place],[address], [place], [address] , [facility] - [facility] [place] 4 13:57:51 Dysphagia 02982579 Active 2023 SANDI SIDHU PA-C [address], [place], [phone] , [facility] - [facility] [place] 4 13:58:06 Hoarse 72858006 Active 2023 BARBARA SARGENT MD [address] [facility],[address], [place], [address] , [facility] - [facility] [place] 4 14:17:42 Dysphonia 08719983 Active 2023 Hoarsenes s; Note: Date Diagnosed : 11/21/2023 12:28 PM (R49.0) Not Available [facility] 4 03:25:13 Allergic rhinitis caused by pollen 73419860 Active 2023 Allergic rhinitis due to pollen; Note: Date Diagnosed : 11/21/2023 12:28 PM (J30.1) Not Available [facility] 4 03:25:13 Problem Notes None recorded. Medical Equipment None Reported. Allergies Allergen ID Allergen Name Allergen Category Reaction Reaction Severity Criticality Documentation Date Start Date Code Code System Note Provider Name and Address Organization Details Recorded Time 492760 Product containin g magnesium and/or magnesium compound (product) medicatio n hives Not available Not available 05/02/2024 57844 5005 SNOMED React ion: Hives ; Not Available [facility] 4 00:23:57 683669 metformin medicatio n diarrhea Not available Not available 05/02/2024 6809 RxNorm React ion: Diarr hea; Not Available [facility] 00:24:01 Medications Name Sig Start Date Stop Date Status Note LastModified by Organization Details LastModified Time omeprazole 20 mg capsule,de layed release TAKE 1 CAPSULE EVERY MORNING ONE HOUR BEFORE MEALS NEED INS 2023 active Not Available Not Available Not Avai lable Xyzal 5 mg tablet active Medication ID: [id number] Bra nd Name: Xyzal Send Method: E-Prescrib ed Subs Allowed: subs OK Medicat ionGeneric Name: Xyzal Not Available Not Available Not Available butalbital 50 mg-acetami nophen 300 mg capsule active Medication ID: [id number] Bra nd Name: butalbital -acetamino phen Send Method: E-Prescrib ed Subs Allowed: subs OK Medicat ionGeneric Name: butalbital -acetamino phen Not Available Not Available Not Available Vitals Date Recorded Body height Body mass index (BMI) Body weight Provider Name and Address Organization Details Last Updated DateTime 03/17/2024 152.4 cm 50.6 kg/m2 633523.42 g Sarita Mo [place] - [facility] 03/17/2024 13:03:46 Social History None recorded. Functional Status None recorded. Mental Status None recorded. Family History Nothing Reported. Medical History No medical history recorded. Gynecological HistoryNo gynecological history recorded. Obstetrics History GPAL:G 0 P 0 0 0 0 Past Encounters Encounter ID Performer Location Encounter Start Date Encounter Closed Date Diagnosis/Indication Diagnosis SNOMED-CT Code Diagnosis ICD10 Code [id number] BARBARA SARGENT MD [facility] [address] [address] 03/17/2024 12:18:22 03/17/2024 13:37:11 Gastroesophageal reflux disease without esophagitis 608576091 K21.9 Allergic rhinitis 427821 04 J30.9 Hoarse 73664302 R49.0 Health Concerns Section Related Observation LastModified by Organization Detai ls LastModified Time None Recorded Concern Status LastModified by Organization Details LastModified Time None Recorded Advance Directives Directive None Recorded Payers Encounter Date Sequence Insurance Name Policy Number Policy Greene Covered Member ID Greene Member ID Guarantor Name 03/17/2024 1 [employer] - HEALTH NET PLAN (MEDICAID HMO) SOCO Beckman [id number] Zenia Beckman Notes Date Note Type Note Provider Name and Address Organization Details Recorded Time 03/17/2024 text/html 44-year-old female presents for reevaluation. Previously evaluated for hoarseness and thought to have GERD and postnasal drip from seasonal allergy. She sees an hot tamale worker and takes Flonase and Xyzal daily. Omeprazole was added to her daily regimen and she feels her hoarseness has improved. Plans to see her hot tamale worker in March. BARBARA JAMES MD [address] [place] [address], [phone], [facility] - [facility] 03/17/2024 14:17:57 OBGyn Episode No OBEpisode recorded.
[2024-09-22 14:23] VITALS: BP 130/64; PULSE 72; O2SAT 98; BMI 42.5
== END 2024-09-22 16:52 | disposition home or self-care (01) ==
PROVIDERS: PCP Internal Medicine; Visit Provider Internal Medicine
DX: E11.9 Type 2 diabetes mellitus without complications (principal); Z98.84 Bariatric surgery status; Z68.32 Body mass index [BMI] 32.0-32.9, adult; E66.9 Obesity, unspecified

== ENCOUNTER → 2024-09-22 14:18 | Outpatient (BNVA) | payer OTHER, SELFPAY | PROVIDERS: PCP Internal Medicine; Visit Provider Internal Medicine | DX: E66.9 Obesity, unspecified (principal); E11.9 Type 2 diabetes mellitus without complications; Z98.84 Bariatric surgery status | CPT/HCPCS: 99495 ==

== ENCOUNTER 2024-09-30 09:37 | Outpatient (AMB) | payer OTHER, SELFPAY ==
--- NOTE | 2024-09-30 09:15 | A.OFFWM_ITS ---
Intake Intake Visit Reasons: VIDEO BH F/U Allergies gabapentin Allergy (Intermediate, Verified 10/15/24 11:01) pruritus magnesium Allergy (Intermediate, Verified 10/15/24 11:01) IV route caused rash, can tolerate PO environmental allergies Allergy (Unknown, Verified 10/15/24 11:01) Unknown metformin Adverse Reaction (Intermediate, Verified 10/15/24 11:01) diarrhea PFSH Medical History (Updated 10/15/24 @ 11:30 by Sabrina Motley CNM) Cervical cancer screening Obesity, morbid, BMI 50 or higher Physical exam Well woman exam with routine gynecological exam Non-insulin dependent type 2 diabetes mellitus Diabetes Environmental allergies GERD (gastroesophageal reflux disease) Migraines Hypovitaminosis D Morbid obesity Missed period Hair loss Extreme obesity Acne Surgical History (Updated 10/15/24 @ 11:19 by Sabrina Motley CNM) S/P laparoscopic sleeve gastrectomy History of esophagogastroduodenoscopy (EGD) (07/30/24) History of surgery History of right breast biopsy History of tubal ligation History of section History of laparoscopic cholecystectomy Family History Father Hypertension Stroke Mother Hypertension Sister No problems noted. Son No problems noted. Daughter No problems noted. Maternal Aunt Colon cancer, Onset Age: 60 Social History Household Members: Spouse Housing: Apartment Are you a primary critical care nurse specialist to a significant other at home: No Do you presently have visiting nurse or other home services: No Alcohol intake: never Comment: Gas pain Patient Tobacco Use Status: Never used Tobacco e-Cigarette/Vaping Use: Never Used Second Hand Smoke Exposure: No service: No Current occupational status: employed Current occupational exposures/hazards: No Cognitive needs: No Hearing needs: No Vision needs: Yes Female Reproductive History Menstrual Age of Menarche: 9 Behavioral Health Assessment Weight Management Therapy Therapy Notes Details Subjective: PT reports doing well and maintaining a positive attitude as she adjusts to the post-op meal plan. She has been using various piero-based strategies to stay compliant with the plan and maintain a positive mindset throughout the process. Objective: PT presents for a post-op follow-up visit via Telehealth, following bariatric surgery on 09/11/2024. During the session, we engaged in supportive and reflective listening, discussed her overall functioning, and identified some challenges she is facing. Together, we developed a coping plan to address these challenges and reinforced her commitment to her weight-loss goals. Assessment/Response: * Mental Status: More tired than usual but functioning well. Denies any symptoms of depression or emotional distress. Alert, oriented x3, and euthymic. * Risk: No risks identified or reported. The PHQ-9 was administered to assess her current emotional state, with results indicating no significant concerns. Food/Weight/Diet Expectations of change The initial goal is to lose 10% of her weight before surgery, which is about 25 lbs. Ultimate weight goal: 233lbs before surgery The patient wants to become healthier, not need to use insulin or check her sugar anymore, and be more active. Initial weight: 256 lb 8 oz Most recent weight: 233Lbs Had bariatric surgery on 09/11/2024. Pre-surgery weight: 226Lbs Current weight - 09/25/2024: 212Lbs . PT is implementing the following: Current meal plan: 3 shakes a day and 1 bar. Water and Gatorade. Exercise plan: Walking in a treadmill. 30 min 3-4 x at week. She is starting slow. Questionnaires PHQ-9 Over the last 2 weeks, how often have you been bothered by any of the following problems? 1. Little interest or pleasure in doing things: not at all 2. Feeling down, depressed, or hopeless: not at all 3. Trouble falling or staying asleep, or sleeping too much: several days (In need to take some naps as she's easily tired. ) 4. Feeling tired or having little energy: more than half the days 5. Poor appetite or overeating: several days (Poor appetite ) 6. Feeling bad about yourself - or that you are a failure or have let yourself or your family down: not at all 7. Trouble concentrating on things, such as reading the newspaper or watching television: not at all 8. Moving or speaking so slowly that other people could have noticed. Or the opposite - being so fidgety or restless that you have been moving around a lot more than usual: several days (More tired due to post-op) 9. Thoughts that you would be better off or of hurting yourself in some way: not at all Total score: 5 Depression Screening Interpretation: Negative (Sx related to recovery from surgery. ) Depression Screening Done: Yes [id number] - PHQ-9 Billing: Yes Source: Developed by Drs. German Bell, Trena Mccoy, Elia Zimmerman and colleagues, with an educational haseeb from [employer]. Assessment & Plan Assessment & Plan (1) Adjustment disorder: Code(s): F43.20 - Adjustment disorder, unspecified Plan PT will return for follow-up in 4 weeks to continue support for adjusting to post-op life. Additional CBT interventions will focus on: * Cognitive Restructuring: Identifying and challenging any negative thoughts that may arise during challenging moments and replacing them with more balanced, positive thoughts. * Behavioral Activation: Encouraging PT to engage in activities that bring her prachi and enhance her mood, helping her remain motivated during this period of adjustment. * Mindfulness and Stress Management: Introducing mindfulness techniques to reduce stress and improve focus on the present moment, helping PT stay grounded during any difficulties. * Relapse Prevention Planning: Developing strategies for managing potential setbacks and reinforcing her commitment to her weight-loss and health goals. Next shanice: 10/28/2024 at 9am, via Telehealth. Telehealth Telehealth Telehealth Platform: [facility] Location of provider rendering services: other Location of patient: address on file Patient Identification confirmed using: Name, : Yes Telehealth method: video Patient verbally consented to treatment: Yes Patient verbally consented to billing insurance company: Yes Patient informed of any privacy concerns related to visit: Yes Minutes spent on Phone/Video with Pt.: 45 Coding Level of Care Code Established Pt Tele Psytx 45 mins ([id number]) Patient Type Established Diagnoses Adjustment disorder F43.20 Additional Codes PHQ-9 - 65577 - PHQ-9 Billing: Yes ([id number]) Time Spent (min) 45 Comment Start time: 9:15 am, End time: 10 am.
== END 2024-09-30 10:00 | disposition home or self-care (01) ==
LOC: HO.HBST 09:37
PROVIDERS: PCP Internal Medicine; Visit Provider Counselor Mental Health
DX: F43.20 Adjustment disorder, unspecified (principal)
CPT/HCPCS: 90834

== ENCOUNTER → 2024-09-30 09:37 | Outpatient (BNVA) | payer OTHER, SELFPAY | PROVIDERS: PCP Internal Medicine; Visit Provider Counselor Mental Health ==

== ENCOUNTER 2024-10-02 13:41 | Outpatient (AMB) | payer OTHER, SELFPAY ==
--- NOTE | 2024-10-02 13:31 | A.OFFVIS_ITS ---
VS Expanded 10/02/24 13:40 Height 5 ft Weight 212 lb 14 oz BMI 41.6 Intake Visit Reasons: (TV) PO LSG 09/11/24 [employer] System Administrator Required: Yes [employer] System Administrator Name: [id number] Information Interpreted: clinical only Allergies gabapentin Allergy (Intermediate, Verified 09/22/24 14:58) pruritus magnesium Allergy (Intermediate, Verified 09/22/24 14:58) IV route caused rash, can tolerate PO environmental allergies Allergy (Unknown, Verified 09/22/24 14:58) Unknown metformin Adverse Reaction (Intermediate, Verified 09/22/24 14:58) diarrhea Medication List - Last Reconciled 10/02/24 by WALLACE Saunders blood sugar diagnostic (FreeStyle Lite Strips) Use 1 test strip once a day blood-glucose meter (FreeStyle Lite Meter kit) As directed docusate sodium (Colace) 100 mg PO DAILY lancets (FreeStyle Lancets) Use 1 lancet once a day levocetirizine (Xyzal) 5 mg PO DAILY ondansetron 4 mg PO Q12H pantoprazole 40 mg PO DAILY sucralfate 10 mL PO BID HPI Comments Details: This?is a?44?yo female who is s/p LSG 09/11/2024. Presents for 3 week post op visit. Weight loss of 5lb since last OV 2w ago.? No complaints of nausea, emesis, abdominal pain or reflux. Taking Colace for constipation. Blood sugars- remains off pioglitazone. Present meal plan includes: 3 Celebrate Rebuild shakes 1 bar Exercise routine includes: started last week- only went 1 day due to fatigue, tried again this week 2x has a goal of 4x week- has a machine at home [facility] Medical History Obesity, morbid, BMI 50 or higher Physical exam Cervical cancer screening Well woman exam with routine gynecological exam Non-insulin dependent type 2 diabetes mellitus Diabetes Environmental allergies GERD (gastroesophageal reflux disease) Migraines Hypovitaminosis D Morbid obesity Missed period Hair loss Extreme obesity Acne Surgical History S/P laparoscopic sleeve gastrectomy History of esophagogastroduodenoscopy (EGD) (07/30/24) History of surgery History of right breast biopsy History of tubal ligation History of section History of laparoscopic cholecystectomy Family History Father Hypertension Stroke Mother Hypertension Sister No problems noted. Son No problems noted. Daughter No problems noted. Maternal Aunt Colon cancer, Onset Age: 60 Social History Household Members: Spouse Housing: Apartment Are you a primary care transport nurse to a significant other at home: No Do you presently have visiting nurse or other home services: No Alcohol intake: never Comment: Gas pain Patient Tobacco Use Status: Never used Tobacco e-Cigarette/Vaping Use: Never Used Second Hand Smoke Exposure: No service: No Current occupational status: employed Current occupational exposures/hazards: No Cognitive needs: No Hearing needs: No Vision needs: No Female Reproductive History Menstrual Age of Menarche: 9 Telehealth Telehealth Telehealth Platform: Telephone Location of provider rendering services: other Location of patient: address on file Patient Identification confirmed using: Name, : Yes Telehealth method: voice only Patient verbally consented to treatment: Yes Patient verbally consented to billing insurance company: Yes Patient informed of any privacy concerns related to visit: Yes Minutes spent on Phone/Video with Pt.: 21 Assessment & Plan Assessment & Plan (1) S/P laparoscopic sleeve gastrectomy: Code(s): Z98.84 - Bariatric surgery status Category: Surgical (2) Morbid obesity: Code(s): E66.01 - Morbid (severe) obesity due to excess calories Category: Medical Plan Pt to continue to send weights to Dr Schultz and adjust meal plan per his directions. Continue increasing exercise with goal 2000 akiko/week. Continue to check blood sugars. Discussed activity restriction until 6w postop. RTC 2-3 weeks for televisit. I spent a total of 30 minutes reviewing/updating records, examining the patient and counseling the patient on weight management as detailed above.
[2024-10-02 13:40] VITALS: BMI 41.6
== END 2024-10-02 13:54 | disposition home or self-care (01) ==
LOC: HO.HBS 13:41
PROVIDERS: PCP Internal Medicine; Visit Provider Physician Assistant Surgical
DX: E66.01 Morbid (severe) obesity due to excess calories (principal); Z68.41 Body mass index [BMI] 40.0-44.9, adult; Z98.84 Bariatric surgery status
CPT/HCPCS: 99024

== ENCOUNTER 2024-10-14 07:56 | Outpatient (AMB) | payer OTHER, SELFPAY ==
--- NOTE | 2024-10-14 08:03 | MHC.PC.OV ---
Vital Signs 10/14/24 08:06 Height 5 ft Weight 210 lb BMI 41.0 BP 118/70 Blood Pressure Location Lt brachial Position Sitting Intake Visit Reasons: 4mth f/u Intake Note: Patient here for a 4 month follow up Quantitative Associate Required: Yes Quantitative Associate Language: Staff Development Coordinator Name: Fay Cisneros MD Information Interpreted: non-clinical & clinical Accompanied by: Self / Same As Patient Allergies gabapentin Allergy (Intermediate, Verified 10/14/24 08:12) pruritus magnesium Allergy (Intermediate, Verified 10/14/24 08:12) IV route caused rash, can tolerate PO environmental allergies Allergy (Unknown, Verified 10/14/24 08:12) Unknown metformin Adverse Reaction (Intermediate, Verified 10/14/24 08:12) diarrhea Medication List - Last Reconciled 10/14/24 by Fay Cisneros MD blood sugar diagnostic (FreeStyle Lite Strips) Use 1 test strip once a day blood-glucose meter (FreeStyle Lite Meter kit) As directed docusate sodium (Colace) 100 mg PO DAILY lancets (FreeStyle Lancets) Use 1 lancet once a day levocetirizine (Xyzal) 5 mg PO DAILY pantoprazole 40 mg PO DAILY sucralfate 10 mL PO BID Tobacco use date assessed: 10/14/24 Dental Screening Dental Screen Date: 10/14/24 Did you have a dental visit in the last 12 months?: Yes Did you have a dental problem in the last 6 months where you did not have access to dental care?: No Was dental information given to patient?: Patient has dentist HPI HPI Comments History of Present Illness Details The patient is a 44-year-old female presenting for follow-up on weight management and diabetes control. She has a history of type 2 diabetes which is currently managed through dietary measures. She is still morbidly obese with a BMI of 41 and is follow by weight management after having bariatric surgery. The patient reports being diligent with her dietary regimen and states that she has not been on any diabetes medications since September 08. Her blood glucose readings at home have remained stable, ranging from 76 to a maximum of 82 mg/dL. The last glycated hemoglobin (HbA1c) test result, reported to be 5.3, suggests good glycemic control. The patient also has a history of obesity but has experienced significant weight reduction since her last visit. She mentions brief periods of fatigue and tiredness earlier, but these symptoms have since resolved. She also has GERD that has been stable with PPIs and constipation well controlled with medications. No chest pain or shortness on breath. [facility] Medical History Obesity, morbid, BMI 50 or higher Physical exam Cervical cancer screening Well woman exam with routine gynecological exam Non-insulin dependent type 2 diabetes mellitus Diabetes Environmental allergies GERD (gastroesophageal reflux disease) Migraines Hypovitaminosis D Morbid obesity Missed period Hair loss Extreme obesity Acne Surgical History S/P laparoscopic sleeve gastrectomy History of esophagogastroduodenoscopy (EGD) (07/30/24) History of surgery History of right breast biopsy History of tubal ligation History of section History of laparoscopic cholecystectomy Family History Father Hypertension Stroke Mother Hypertension Sister No problems noted. Son No problems noted. Daughter No problems noted. Maternal Aunt Colon cancer, Onset Age: 60 Social History Household Members: Spouse Housing: Apartment Are you a primary property caretaker to a significant other at home: No Do you presently have visiting nurse or other home services: No Alcohol intake: never Comment: Gas pain Patient Tobacco Use Status: Never used Tobacco e-Cigarette/Vaping Use: Never Used Second Hand Smoke Exposure: No service: No Current occupational status: employed Current occupational exposures/hazards: No Cognitive needs: No Hearing needs: No Vision needs: Yes Female Reproductive History Menstrual Age of Menarche: 9 Questionnaire PHQ-9 Over the last 2 weeks, how often have you been bothered by any of the following problems? 1. Little interest or pleasure in doing things: not at all 2. Feeling down, depressed, or hopeless: not at all 3. Trouble falling or staying asleep, or sleeping too much: not at all 4. Feeling tired or having little energy: not at all 5. Poor appetite or overeating: not at all 6. Feeling bad about yourself - or that you are a failure or have let yourself or your family down: not at all 7. Trouble concentrating on things, such as reading the newspaper or watching television: not at all 8. Moving or speaking so slowly that other people could have noticed. Or the opposite - being so fidgety or restless that you have been moving around a lot more than usual: not at all 9. Thoughts that you would be better off or of hurting yourself in some way: not at all Total score: 0 Depression Screening Interpretation: Negative Depression Screening Done: Yes 22047 - PHQ-9 Billing: Yes Source: Developed by Drs. German Bell, Trena Mccoy, Elia Zimmemran and colleagues, with an educational haseeb from [employer]. Thrive Questionnaire Date Thrive assessed: 10/14/24 I am a: Patient What is your living situation today?: I have a steady place to live Within the past 12 months, did the food you bought not last and you didn't have the money to get more?: Never true Within the past 12 months, did you worry whether your food would run out before you got money to buy more?: Never true Do you have trouble paying for medicines?: No Do you have trouble getting transportation to medical appointments?: No Do you have trouble paying your heating and electricity bill?: No Do you have trouble taking care of your child, family member or friend?: No Do you have trouble with day-to-day activities such as bathing, preparing meals, shopping, managing finances, etc.?: No Are you currently unemployed and looking for a job?: No Are you interested in more education?: No Please select the resources that you would like help with: None Currently or been in a relationship where the following occur: No concerns reported THRIVE Score: 0 AUDIT C Alcohol Use Questionnaire (AUDIT-C) 1. How often do you have a drink containing alcohol?: Never Total Score: 0 Score Reviewed/Action Taken: No GUZMAN-7 AMB Questionnaire GUZMAN-7 Date GUZMAN - 7 assessed: 10/14/24 Feeling nervous, anxious, or on edge: 0 = Not at all Not being able to stop or control worryin = Not at all Worrying too much about different things: 0 = Not at all Trouble relaxin = Not at all Being so restless that it is hard to sit still: 0 = Not at all Becoming easily annoyed or irritable: 0 = Not at all Feeling afraid as if something awful might happen: 0 = Not at all Total GUZMAN-7 score (0-4 normal; 5-9 mild; 10-14 moderate; 15-21 severe): 0 Source: Developed by Drs. German Bell, Trena Mccoy, Elia Zimmerman and colleagues, with an educational haseeb from [employer]. GUZMAN-7 Assessment Billing GUZMAN-7 Assessment Tool: GUZMAN-7 Assessment 31325 Review of Systems Const All systems reviewed & are unremarkable except as noted in HPI and below Card Denies chest pain at rest, Denies chest pain with activity, Denies edema, Denies irregular heart rhythm, Denies claudication, Denies dyspnea, Denies dyspnea on exertion, Denies orthopnea, Denies paroxysmal nocturnal dyspnea and Denies slow heart rate Resp Denies cough, Denies dyspnea and Denies dyspnea on exertion GI Denies abdominal pain, Denies change in bowel habits, Denies excessive flatus, Denies nausea and Denies vomiting Denies urinary incontinence, Denies urinary hesitancy and Denies urinary urgency Physical exam (Primary Care) Vital Signs: Last Vital Signs BP 118/70 10/14/24 08:06 BMI result Body Mass Index 41.0 Tobacco/Smoking Status: Tobacco use Status Tobacco use date assessed 10/14/24 10/14/24 08:10 Patient Tobacco Use Status Never used Tobacco 10/14/24 08:04 e-Cigarette/Vaping Use Never Used 10/14/24 08:04 PHQ-9: PHQ-9 Score PHQ-9: Total score 0 10/14/24 08:10 Depression Screening Interpretation: Negative Thrive Assessment: Date of Thrive Assessment Date Thrive assessed 10/14/24 10/14/24 08:10 Currently or been in a relationship where the following occur: No concerns reported Resp Effort & Inspection: normal respiratory effort Auscultation: clear to auscultation bilaterally Cardio Jugular venous distension: no JVD Rate: regular rate Rhythm: regular rhythm Heart sounds: S1 normal heart sound present and S2 normal heart sound present Extrem General: Yes full ROM Office Procedures Flu Questionnaire Does the patient have a severe egg allergy?: No Results AMB Hemoglobin A1c AMB Hemoglobin A1c 5.3 % Last Edit by FERN Francisco on 10/14/24 08:14 Immunizations Fluarix Triv [id number] (PF) 45 mcg (15 mcg x 3)/0.5 mL IM syringe Performing Provider: Fay Cisneros MD [facility] [place] [facility] Documented (not given) by: Kiko ChavezFERN goode on 10/14/24 08:13 Reason Not Given: Patient Refused Coding Level of Care Code Est Pt Level 4 (24921) Complex EM visit Add On G2211 Diagnoses Constipation K59.00 Type 2 diabetes mellitus without complication, without long-term current use of insulin E11.9 Diabetes mellitus type: type 2 Diabetes mellitus rodent exterminator insulin use: without rodent exterminator use Diabetes mellitus complication status: without complication GERD (gastroesophageal reflux disease) K21.9 Morbid obesity E66.01 Additional Codes PHQ-9 - 06745 - PHQ-9 Billing: Yes ([id number]) GUZMAN-7 Assessment Billing - GUZMAN-7 Assessment Tool: GUZMAN-7 Assessment 95370 ([id number]) Time Spent (min) 22 Assessment & Plan Assessment & Plan (1) Constipation: Code(s): K59.00 - Constipation, unspecified Category: Medical (2) Diabetes mellitus: Code(s): E11.9 - Type 2 diabetes mellitus without complications Category: Medical Qualifiers: Diabetes mellitus type: type 2 Diabetes mellitus rodent exterminator insulin use: without rodent exterminator use Diabetes mellitus complication status: without complication Qualified Code(s): E11.9 - Type 2 diabetes mellitus without complications (3) GERD (gastroesophageal reflux disease): Code(s): K21.9 - Gastro-esophageal reflux disease without esophagitis Category: Medical (4) Morbid obesity: Code(s): E66.01 - Morbid (severe) obesity due to excess calories Category: Medical Plan - Continue with current dietary management for weight loss and diabetes control. - Arrange laboratory evaluations in November to monitor cholesterol, glucose levels, renal, and liver function. - Review current medications given patient's allergies to gabapentin, magnesium, and metformin. Patient was informed and verbally consented to the use of an ambient scribe for clinic note documentation during this visit. During the visit, I discussed with the patient the success of her current management strategy in controlling her diabetes with diet alone, evidenced by her home glucose readings and last HbA1c result. We agreed to continue this regimen and reviewed her upcoming laboratory tests scheduled for November. We acknowledged her diligence in maintaining a stable weight and good blood glucose control. I explained the importance of periodic monitoring of her glucose levels and other health parameters. The patient expressed understanding and agreement with this approach. Orders: Orders Influenza [id number] Immunization Today Z23 - Encounter for immunization Lipid Panel Today E78.5 - Hyperlipidemia, unspecified Microalbumin, Random (w Creat) Today R80.9 - Proteinuria, unspecified Comprehensive [place]. Panel Fast Today E11.9 - Type 2 diabetes mellitus without complications Vitamin D 25-OH Total Today E55.9 - Vitamin D deficiency, unspecified AMB Hemoglobin A1c Today E11.9 - Type 2 diabetes mellitus without complications Patient Instructions: - Continue current dietary regimen focused on diabetes management. - Monitor blood glucose levels regularly and record them. - Follow up for laboratory evaluations in November. - Monitor for any adverse reactions given known allergies. - Report any return of fatigue, changes in glucose readings, or gastrointestinal symptoms.
[2024-10-14 08:06] VITALS: BP 118/70; BMI 41.0
--- OUTSIDE RECORDS SUMMARY | 2024-10-14 08:07 | XMS_ITS | Data Portability ---
Author Organization [place] - [facility], Allergy Address [address] [place] [phone] Care Team Providers Care Statistical Methods Professor Name Role Phone MARY CRAVEN Primary Care Provider Assessment Encounter Date Assessment Date Assessment LastModified by Organization Details LastModified Time 03/17/2024 03/17/2024 44-year-old kate tello presents for re-evaluation. Her hoarseness improved with use of omeprazole. She may continue using this. I have recommended referral to gastroenterology for further evaluation and treatment. She should also continue with her cigar tobacco rehandler as this is likely exacerbating symptoms. May follow-up here as needed. [email or web address] Not available 03/17/2024 14:17:36 Plan of Treatment Reminders Order Date Submit Date Provider Last Modified By Organization Details Last Modified Time Details Appointments None recorde d. Lab None recorde d. Referral gastroe nterolo gist referra l - Referra l for reflux. Thank you. 2023 024 [id number] 2 [facility] Gastroenterology Scheduling Department, [address] [place] [address], [id number], 4 12:19:05 Procedures None recorde d. Surgeries None recorde d. Imaging None recorde d. Medication Orders None recorde d. Patient TargetsNo targets recorded. Patient InstructionsNo instructions recorded. 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 Thank you. Referring Physician: Sandi Sidhu, Otolaryngology, Encounter Date: 03/17/2024 Problems Name Problem SNOMED Code Status Onset Date Resolution Date Notes Provider Name and Address Organization Details Recorded Time Gastroesop hageal reflux disease without esophagiti s 645772262 Active 2023 SANDI SIDHU PA-C [address], [place], [address] , [facility] - [facility] 4 13:57:35 Allergic rhinitis 91798150 Active 2023 SANDI SIDHU PA-C [address] [facility] [address], [place], [address] , [facility] - [facility] 4 13:57:51 Dysphagia 64628576 Active 2023 SANDI SIDHU PA-C [address], [place], [phone] , [facility] - [facility] 4 13:58:06 Hoarse 29038426 Active 2023 BARBARA SARGENT MD [address] [facility],[address], [place], [address] , [facility] - [facility] 4 14:17:42 Dysphonia 50187238 Active 2023 Hoarsenes s; Note: Date Diagnosed : 11/21/2023 12:28 PM (R49.0) Not Available [facility] 4 03:25:13 Allergic rhinitis caused by pollen 57389192 Active 2023 Allergic rhinitis due to pollen; Note: Date Diagnosed : 11/21/2023 12:28 PM (J30.1) Not Available [facility] 4 03:25:13 Problem Notes None recorded. Medical Equipment None Reported. Allergies Allergen ID Allergen Name Allergen Category Reaction Reaction Severity Criticality Documentation Date Start Date Code Code System Note Provider Name and Address Organization Details Recorded Time 209048 Product containin g magnesium and/or magnesium compound (product) medicatio n hives Not available Not available 05/02/2024 83667 5005 SNOMED React ion: Hives ; Not Available [facility] 4 00:23:57 258630 metformin medicatio n diarrhea Not available Not available 05/02/2024 6809 RxNorm React ion: Diarr hea; Not Available [facility] 00:24:01 Medications Name Sig Start Date Stop Date Status Note LastModified by Organization Details LastModified Time omeprazole 20 mg capsule,de layed release TAKE 1 CAPSULE EVERY MORNING ONE HOUR BEFORE MEALS NEED INS 2023 active Not Available Not Available Not Avai lable Xyzal 5 mg tablet active Medication ID: [id number] Bra nd Name: Xyzal Send Method: E-Prescrib ed Subs Allowed: subs OK Medicat ionGeneric Name: Xyzal Not Available Not Available Not Available butalbital 50 mg-acetami nophen 300 mg capsule active Medication ID: [id number] Bra nd Name: butalbital -acetamino phen Send Method: E-Prescrib ed Subs Allowed: subs OK Medicat ionGeneric Name: butalbital -acetamino phen Not Available Not Available Not Available Vitals Date Recorded Body height Body mass index (BMI) Body weight Provider Name and Address Organization Details Last Updated DateTime 03/17/2024 152.4 cm 50.6 kg/m2 966196.42 g Sarita Mo [place] - [facility] 03/17/2024 13:03:46 Social History None recorded. Functional Status None recorded. Mental Status None recorded. Family History Nothing Reported. Medical History No medical history recorded. Gynecological HistoryNo gynecological history recorded. Obstetrics History GPAL:G 0 P 0 0 0 0 Past Encounters Encounter ID Performer Location Encounter Start Date Encounter Closed Date Diagnosis/Indication Diagnosis SNOMED-CT Code Diagnosis ICD10 Code Diagnosis Note [id number] BARBARA SARGENT MD [facility] [address] [phone] 03/17/2024 12:18:22 03/17/2024 13:37:11 Gastroesophageal reflux disease without esophagitis 887212375 K21.9 Allergic rhinitis 425997 04 J30.9 Hoarse 57342099 R49.0 improved Health Concerns Section Related Observation LastModified by Organization Detai ls LastModified Time None Recorded Concern Status LastModified by Organization Details LastModified Time None Recorded Advance Directives Directive None Recorded Payers Encounter Date Sequence Insurance Name Policy Number Policy Greene Covered Member ID Greene Member ID Guarantor Name 03/17/2024 1 [employer] - HEALTH NET PLAN (MEDICAID HMO) SOCO Beckman [id number] Zenia Beckman Notes Date Note Type Note Provider Name and Address Organization Details Recorded Time 03/17/2024 text/html 44-year-old female presents for reevaluation. Previously evaluated for hoarseness and thought to have GERD and postnasal drip from seasonal allergy. She sees an cigar tobacco rehandler and takes Flonase and Xyzal daily. Omeprazole was added to her daily regimen and she feels her hoarseness has improved. Plans to see her cigar tobacco rehandler in March. BARBARA JAMES MD [address] [place] [address], [phone], [facility] - [facility] 03/17/2024 14:17:57 OBGyn Episode No OBEpisode recorded.
== END 2024-10-14 08:22 | disposition home or self-care (01) ==
PROVIDERS: PCP Internal Medicine; Visit Provider Internal Medicine
DX: E11.9 Type 2 diabetes mellitus without complications (principal); E66.01 Morbid (severe) obesity due to excess calories; Z68.41 Body mass index [BMI] 40.0-44.9, adult; K59.00 Constipation, unspecified; K21.9 Gastro-esophageal reflux disease without esophagitis

== ENCOUNTER 2024-10-14 07:56 | Outpatient (REF) | payer OTHER, SELFPAY ==
[2024-10-14 10:48] LABS: Albumin Level 3.9 g/dL (3.5-5.0); Alkaline Phosphatase 76 U/L (39-117); Anion Gap 10 (12-20); Aspartate Amino Transferase 65 U/L (5-31); Bilirubin Total 0.6 mg/dL (0.0-1.0); Blood Urea Nitrogen 7 mg/dL (9-16); Carbon Dioxide 25 mmol/L (22-29); Chloride 110 mmol/L (96-108); Cholesterol 135 mg/dL (<200); Estimated Glomerular Filt Rate > 60; Glucose Fasting 83 mg/dL (60-99); HDL Cholesterol 45 mg/dL (>40); LDL Cholesterol Calculated 76 mg/dL (<100); Potassium 3.9 mmol/L (3.3-5.1); Sodium 141 mmol/L (135-145); Triglycerides 71 mg/dL (<150)
[2024-10-14 10:50] LABS: Microalbum/Creatinine Ratio Ur 6.3 ug/mg cr (<30)
[2024-10-14 11:09] LABS: Alanine Aminotransferase 91 U/L (0-31)
[2024-10-14 11:22] LABS: Vitamin D 25-OH Total 35.1 ng/mL (>30)
== END 2024-10-14 07:57 | disposition home or self-care (01) ==
LOC: HO.LAB 07:56
PROVIDERS: PCP Internal Medicine; Visit Provider Internal Medicine
DX: E11.9 Type 2 diabetes mellitus without complications (principal); K21.9 Gastro-esophageal reflux disease without esophagitis; E66.01 Morbid (severe) obesity due to excess calories; Z68.41 Body mass index [BMI] 40.0-44.9, adult; K59.00 Constipation, unspecified; E78.5 Hyperlipidemia, unspecified; E55.9 Vitamin D deficiency, unspecified; R80.9 Proteinuria, unspecified; Z98.84 Bariatric surgery status
CPT/HCPCS: 36415; 80053; 80061; 82043; 82306; 82570; 83036; 96127; 99212

== ENCOUNTER 2024-10-15 10:52 | Outpatient (AMB) | payer OTHER, SELFPAY ==
--- NOTE | 2024-10-15 10:53 | A.OFFVIS_ITS ---
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 Intake Note: c/o of vaginal dryness Prestressed Concrete Laborer Required: Yes Prestressed Concrete Laborer Language: Irish Information Interpreted: non-clinical & clinical Telesales Manager: Telesales Manager Present (Violetta SHIRLEY) Accompanied by: Self / Same As Patient Allergies gabapentin Allergy (Intermediate, Verified 10/15/24 11:01) pruritus magnesium Allergy (Intermediate, Verified 10/15/24 11:01) IV route caused rash, can tolerate PO environmental allergies Allergy (Unknown, Verified 10/15/24 11:01) Unknown metformin Adverse Reaction (Intermediate, Verified 10/15/24 11:01) diarrhea Medication List - Last Reconciled 10/15/24 by Sabrina Motley CNM blood sugar diagnostic (FreeStyle Lite Strips) Use 1 test strip once a day blood-glucose meter (FreeStyle Lite Meter kit) As directed docusate sodium (Colace) 100 mg PO DAILY lancets (FreeStyle Lancets) Use 1 lancet once a day levocetirizine (Xyzal) 5 mg PO DAILY pantoprazole 40 mg PO DAILY sucralfate 10 mL PO BID Is last menstrual period known: Yes Last menstrual period: 09/17/24 HPI HPI 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 And she had a conversation with her doctor and her doctor referred her for bariatric surgery weight management. She had the surgery on September 11 and has lost weight that she lost before hand and since and she is feeling very good and very happy sometimes she has gas pains but that is all and her blood sugar is under much better control. She saw her primary care doctor yesterday and she just did some blood work that caused a bruise in her left arm.. She has an appointment coming up for follow-up and we will be continuing with her good progress she has a treadmill at home that she uses.. She had normal Pap smear in 2021 she has no worries about STIs as she is sexually active with her .. [facility] Medical History (Updated 10/15/24 @ 11:30 by Sabrina Motley CNM) Cervical cancer screening Obesity, morbid, BMI 50 or higher Physical exam Well woman exam with routine gynecological exam Non-insulin dependent type 2 diabetes mellitus Diabetes Environmental allergies GERD (gastroesophageal reflux disease) Migraines Hypovitaminosis D Morbid obesity Missed period Hair loss Extreme obesity Acne Surgical History (Updated 10/15/24 @ 11:19 by Sabrina Motley CNM) S/P laparoscopic sleeve gastrectomy History of esophagogastroduodenoscopy (EGD) (07/30/24) History of surgery History of right breast biopsy History of tubal ligation History of section History of laparoscopic cholecystectomy Family History Father Hypertension Stroke Mother Hypertension Sister No problems noted. Son No problems noted. Daughter No problems noted. Maternal Aunt Colon cancer, Onset Age: 60 Social History Household Members: Spouse Housing: Apartment Are you a primary resident care associate to a significant other at home: No Do you presently have visiting nurse or other home services: No Alcohol intake: never Comment: Gas pain Patient Tobacco Use Status: Never used Tobacco e-Cigarette/Vaping Use: Never Used Second Hand Smoke Exposure: No service: No Current occupational status: employed Current occupational exposures/hazards: No Cognitive needs: No Hearing needs: No Vision needs: Yes Female Reproductive History Menstrual Age of Menarche: 9 Duration of menses: 6-7 days Date of last menstrual period: 09/17/24 control method: permanent sterilization Permanent Sterilization: BTL Total pregnancies: 2 Full term: 2 Number of Living Children: 2 Date of last pap smear: 04/12/22 History of abnormal pap smear: No Date of Mammogram: 06/24/24 History of abnormal mammogram: No Physical Exam Vital Signs: Last Vital Signs BP 106/66 10/15/24 10:54 BMI result Body Mass Index 41.0 Const General: healthy appearing, comfortable, no acute distress, well developed and alert Nutritional Appearance: average body habitus Orientation/consciousness: patient oriented x3 Limitations: no limitations HEENT Head: Yes normocephalic Neck Neck: Yes normal visual inspection Chest Chest palpation & inspection: normal inspection of the chest Breast/axilla inspection: normal inspection of the breasts and normal inspection of the axillae Breast/axilla palpation: normal palpation of the breasts and normal palpation of the axillae Resp Effort & Inspection: normal respiratory effort GI Inspection: Yes normal to inspection, No Abdominal wall edema and No distended Palpation (GI): Soft to palpation and nontender Other: Normal external exam vagina is pink and moist but showing some atrophic changes menses is starting and light cervix tightly closed nulliparous with nabothian cyst at 04:00 o'clock mobile nontender uterus small anteverted mobile nontender adnexa nontender not enlarged good tone with Kegel. General: Yes bladder normal to palpation External Female Exam: normal external appearance and normal appearance of the urethra Speculum Exam - Vagina: normal appearance of the vagina, normal palpation and normal vaginal discharge Speculum Exam - Cervix: normal appearance of the cervix, normal palpation and nontender Bimanual exam- vagina & uterus: normal bimanual exam, normal palpation, uterine size normal, bladder normal to palpation, consistency normal, normal palpation, uterine mobility normal, uterine shape normal, No Cervical tenderness present, non-tender and no cervical motion tenderness Bimanual Exam- Adnexa, other: normal adnexae, no masses, normal and No adnexal tenderness Neuro General: patient oriented x3 Results Reviewed Results Reviewed: Name: Zenia Beckman Age/Sex: 42/F Attending: Sabrina Motley CNM : 1980 Submitted by: Sabrina Motley CNM Copies to: MR #: [id number] Status: DEP REF Collected: 04/11/22 Location: .LAB Received: 04/12/22 Interpretation Satisfactory for evaluation. Negative for intraepithelial lesion or malignancy. HPV mRNA E6/E7: NOT DETECTED This assay detects E6/E7 viral messenger RNA (mRNA) from 14 high-risk HPV types (16, 18, 31, 33, 35, 39, 45, 51, 52, 56, 58, 59, 66, 68) HPV testing performed by [facility] [place], [place]. See reference laboratory portion of the EMR for entire report. Clinical Information LMP:03/20/22 Previous PAP test: 04/29/18, WNL Material Received ThinPrep-Cervical Electronically Signed By: Erlinda Lorenzo 04/24/22 1406 The Pap Test is a screening procedure with the inherent possibility of both false negative and false positive results. Results should be interpreted in the context of historic and current clinical findings. Reliability of the Pap Test is enhanced by performing the test on a regular repetitive basis. 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 Code(s): Z12.4 - Encounter for screening for malignant neoplasm of cervix Category: Medical (4) History of tubal ligation: Code(s): Z98.51 - Tubal ligation status Category: Surgical (5) S/P laparoscopic sleeve gastrectomy: Code(s): Z98.84 - Bariatric surgery status Category: Surgical (6) Morbid obesity: Comment: Is losing weight and feeling good and her diabetes is under better control status post gastric surgery Code(s): E66.01 - Morbid (severe) obesity due to excess calories Category: Medical Plan -----Discussed in this visit the following: healthy balanced diet, regular and consistent exercise, getting recommended health screens, doing the best she can for her particular health concerns, kegel exercises, pap smear screening and followup recommendations, mammography screening and SBE, normal changes in cycles in her life stage--- . She is up-to-date on her mammograms. She is feeling very good about her improved health with the weight loss and her diabetes. She is following up with her doctors as appropriate she is doing her exercise and following along with recommendations. She would not be due for another Pap smear, Until 2026 she did not need any testing for STIs today. We will see her in 1 year. Congratulated on her efforts and success. 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
[2024-10-15 10:54] VITALS: BP 106/66; BMI 41.0
--- OUTSIDE RECORDS SUMMARY | 2024-10-15 12:47 | XMS_ITS | Data Portability ---
Author Organization [place] - [facility], Allergy Address [address] [place] [id number] Care Team Providers Care Pit Inspector Name Role Phone MARY CRAVEN Primary Care Provider [phone] Assessment Encounter Date Assessment Date Assessment LastModified by Organization Details LastModified Time 03/17/2024 03/17/2024 44-year-old kate tello presents for re-evaluation. Her hoarseness improved with use of omeprazole. She may continue using this. I have recommended referral to gastroenterology for further evaluation and treatment. She should also continue with her editing clerk as this is likely exacerbating symptoms. May follow-up here as needed. [email or web address] Not available 03/17/2024 14:17:36 Plan of Treatment Reminders Order Date Submit Date Provider Last Modified By Organization Details Last Modified Time Details Appointments None recorde d. Lab None recorde d. Referral gastroe nterolo gist referra l - Referra l for reflux. Thank you. 2023 024 [email or web address] 2 [facility] Gastroenterology Scheduling Department, [address] [place] [address], [id number], 4 12:19:05 Procedures None recorde d. Surgeries None recorde d. Imaging None recorde d. Medication Orders None recorde d. Patient TargetsNo targets recorded. Patient InstructionsNo instructions recorded. Reason for Referral News Librarian Referral for Gastroesophageal reflux disease without esophagitis Referral for reflux. Thank you. Referring Physician: Sandi Sidhu, Otolaryngology, Encounter Date: 03/17/2024 Problems Name Problem SNOMED Code Status Onset Date Resolution Date Notes Provider Name and Address Organization Details Recorded Time Gastroesop hageal reflux disease without esophagiti s 619041784 Active 2023 SANDI SIDHU PA-C [address] [place],[address], [place], [address] , [facility] - [facility] [place] 4 13:57:35 Allergic rhinitis 41882241 Active 2023 SANDI SIDHU PA-C [address] [facility] [place], [place], [phone] , [facility] - [facility] [place] 4 13:57:51 Dysphagia 45322725 Active 2023 SANDI SIDHU PA-C [address] [facility] [address], [place], [address] , [facility] - [facility] [place] 4 13:58:06 Hoarse 90756610 Active 2023 BARBARA SARGENT MD [address] [facility],[address], [place], [address] , [facility] - [facility] [place] 4 14:17:42 Dysphonia 13954844 Active 2023 Hoarsenes s; Note: Date Diagnosed : 11/21/2023 12:28 PM (R49.0) Not Available [facility], [facility] 4 03:25:13 Allergic rhinitis caused by pollen 41743663 Active 2023 Allergic rhinitis due to pollen; Note: Date Diagnosed : 11/21/2023 12:28 PM (J30.1) Not Available [facility] 4 03:25:13 Problem Notes None recorded. Medical Equipment None Reported. Allergies Allergen ID Allergen Name Allergen Category Reaction Reaction Severity Criticality Documentation Date Start Date Code Code System Note Provider Name and Address Organization Details Recorded Time 907053 Product containin g magnesium and/or magnesium compound (product) medicatio n hives Not available Not available 05/02/2024 10532 5005 SNOMED React ion: Hives ; Not Available [facility] 4 00:23:57 891180 metformin medicatio n diarrhea Not available Not [...] Xyzal 5 mg tablet active Medication ID: [id number] Bra nd Name: Xyzal Send Method: E-Prescrib ed Subs Allowed: subs OK Medicat ionGeneric Name: Xyzal Not Available Not Available Not Available butalbital 50 mg-acetami nophen 300 mg capsule active Medication ID: [id number] Bra nd Name: butalbital -acetamino phen Send Method: E-Prescrib ed Subs Allowed: subs OK Medicat ionGeneric Name: butalbital -acetamino phen Not Available Not Available Not Available Vitals Date Recorded Body height Body mass index (BMI) Body weight Provider Name and Address Organization Details Last Updated DateTime 03/17/2024 152.4 cm 50.6 kg/m2 351751.42 g Sarita Mo [place] - [facility] 03/17/2024 13:03:46 Social History None recorded. [...] Diagnosis Note [id number] BARBARA SARGENT MD [facility] [address] [phone] 03/17/2024 12:18:22 03/17/2024 13:37:11 Gastroesophageal reflux disease without esophagitis 818560835 K21.9 Allergic rhinitis 724148 04 J30.9 Hoarse 76451542 R49.0 improved Health Concerns Section Related Observation LastModified by Organization Detai ls LastModified Time None Recorded Concern Status LastModified by Organization Details LastModified Time None Recorded Advance Directives Directive None Recorded Payers Encounter Date Sequence Insurance Name Policy Number Policy Greene Covered Member ID Greene Member ID Guarantor Name 03/17/2024 1 [employer] [employer] - HEALTH NET PLAN (MEDICAID HMO) SOCO Beckman [id number] Zenia Beckman Notes Date Note Type Note Provider Name and Address Organization Details Recorded Time 03/17/2024 text/html 44-year-old female presents for reevaluation. Previously evaluated for hoarseness and thought to have GERD and postnasal drip from seasonal allergy. She sees an editing clerk and takes Flonase and Xyzal daily. Omeprazole was added to her daily regimen and she feels her hoarseness has improved. Plans to see her editing clerk in March. BARBARA JAMES MD [address] [place] [address], [phone], [facility] - [facility] 03/17/2024 14:17:57 OBGyn Episode No OBEpisode recorded.
== END 2024-10-15 12:00 | disposition home or self-care (01) ==
LOC: HO.HWSM 10:52
PROVIDERS: PCP Internal Medicine; Visit Provider Advanced Practice Midwife
DX: Z01.419 Encounter for gynecological examination (general) (routine) without abnormal findings (principal); E11.9 Type 2 diabetes mellitus without complications; E66.01 Morbid (severe) obesity due to excess calories
CPT/HCPCS: 99396; 99459

== ENCOUNTER → 2024-10-15 10:52 | Outpatient (BNVA) | payer OTHER, SELFPAY | PROVIDERS: PCP Internal Medicine; Visit Provider Advanced Practice Midwife | DX: Z01.419 Encounter for gynecological examination (general) (routine) without abnormal findings (principal); E11.9 Type 2 diabetes mellitus without complications; E66.01 Morbid (severe) obesity due to excess calories; Z98.51 Tubal ligation status; Z98.84 Bariatric surgery status; Z68.41 Body mass index [BMI] 40.0-44.9, adult | CPT/HCPCS: 99396; 99459 ==

== ENCOUNTER → 2024-10-28 09:32 | Outpatient (BNVA) | payer OTHER, SELFPAY | PROVIDERS: PCP Internal Medicine; Visit Provider Counselor Mental Health ==

== ENCOUNTER 2024-11-03 09:18 | Outpatient (AMB) | payer OTHER, SELFPAY ==
--- NOTE | 2024-11-03 09:01 | A.OFFVIS_ITS ---
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 Required: Yes Dinkey Engine Firer Name: Harpal [id number] Information Interpreted: clinical only Allergies gabapentin Allergy (Intermediate, Verified 10/15/24 11:01) pruritus magnesium Allergy (Intermediate, Verified 10/15/24 11:01) IV route caused rash, can tolerate PO environmental allergies Allergy (Unknown, Verified 10/15/24 11:01) Unknown metformin Adverse Reaction (Intermediate, Verified 10/15/24 11:01) diarrhea Medication List - Last Reconciled 11/03/24 by WALLACE Saunders blood sugar diagnostic (FreeStyle Lite Strips) Use 1 test strip once a day blood-glucose meter (FreeStyle Lite Meter kit) As directed docusate sodium (Colace) 100 mg PO DAILY lancets (FreeStyle Lancets) Use 1 lancet once a day levocetirizine (Xyzal) 5 mg PO DAILY pantoprazole 40 mg PO DAILY sucralfate 10 mL PO BID HPI Comments Details: This?is a?44?yo female who is s/p LSG 09/11/2024. Presents for 8 week post op visit. Weight loss of lb since last OV on 10/02/2024.? No complaints of emesis, abdominal pain or reflux. Taking Colace for constipation. Blood sugars- remains off pioglitazone. Well controlled. Pt reports some nausea with vitamins. Takes them in the morning. Present meal plan includes: 3 Celebrate Rebuild shakes 1 bar MVI Exercise routine includes: has a goal of 4x week- has a machine at home, doing 50 min per session [facility] Medical History (Updated 10/15/24 @ 11:30 by Sabrina Motley CNM) Cervical cancer screening Obesity, morbid, BMI 50 or higher Physical exam Well woman exam with routine gynecological exam Non-insulin dependent type 2 diabetes mellitus Diabetes Environmental allergies GERD (gastroesophageal reflux disease) Migraines Hypovitaminosis D Morbid obesity Missed period Hair loss Extreme obesity Acne Surgical History (Updated 10/15/24 @ 11:19 by Sabrina Motley CNM) S/P laparoscopic sleeve gastrectomy History of esophagogastroduodenoscopy (EGD) (10/30/24) History of surgery History of right breast biopsy History of tubal ligation History of section History of laparoscopic cholecystectomy Family History Father Hypertension Stroke Mother Hypertension Sister No problems noted. Son No problems noted. Daughter No problems noted. Maternal Aunt Colon cancer, Onset Age: 60 Social History Household Members: Spouse Housing: Apartment Are you a primary post acute care nurse to a significant other at home: No Do you presently have visiting nurse or other home services: No Alcohol intake: never Comment: Gas pain Patient Tobacco Use Status: Never used Tobacco e-Cigarette/Vaping Use: Never Used Second Hand Smoke Exposure: No service: No Current occupational status: employed Current occupational exposures/hazards: No Cognitive needs: No Hearing needs: No Vision needs: Yes Female Reproductive History Menstrual Age of Menarche: 9 Telehealth Telehealth Telehealth Platform: Telephone Location of provider rendering services: other Location of patient: address on file Patient Identification confirmed using: Name, : Yes Telehealth method: voice only Patient verbally consented to treatment: Yes Patient verbally consented to billing insurance company: Yes Patient informed of any privacy concerns related to visit: Yes Assessment & Plan Assessment & Plan (1) Obesity: Code(s): E66.9 - Obesity, unspecified Category: Medical (2) S/P laparoscopic sleeve gastrectomy: Code(s): Z98.84 - Bariatric surgery status Category: Medical Plan Recommended taking vitamins in evening rather than morning to minimize chance of nausea. Will continue to text weekly with Dr. Schultz with weight measurements for any meal plan adjustments. Exercise goal /week. Continue to monitor blood sugars off pioglitazone. RTC 5-6 weeks for 3mo visit. I spent a total of 30 minutes reviewing/updating records, examining the patient and counseling the patient on weight management as detailed above.
[2024-11-03 09:11] VITALS: BMI 39.4
== END 2024-11-03 09:32 | disposition home or self-care (01) ==
LOC: HO.HBS 09:18
PROVIDERS: PCP Internal Medicine; Visit Provider Physician Assistant Surgical
DX: E66.9 Obesity, unspecified (principal); Z68.39 Body mass index [BMI] 39.0-39.9, adult; Z90.3 Acquired absence of stomach [part of]; Z98.84 Bariatric surgery status
CPT/HCPCS: 99024

== ENCOUNTER 2024-11-20 07:49 | Outpatient (AMB) | payer OTHER, SELFPAY ==
[2024-11-20 07:51] VITALS: BP 104/72; PULSE 49; O2SAT 98; BMI 39.4
--- NOTE | 2024-11-20 07:51 | A.OFFPC_ITS ---
Vital Signs 11/20/24 07:51 Height 5 ft Weight 202 lb BMI 39.4 BP 104/72 Blood Pressure Location Lt brachial Position Sitting Pulse 49 L Pulse Source Pulse Oximeter Pulse Oximetry (%) 98 Oxygen Delivery Method Room Air Intake Visit Reasons: 6 mo follow up Muffle Operator Required: Yes Muffle Operator Language: Staff Physical Therapy Assistant Name: Fay Cisneros MD Information Interpreted: non-clinical & clinical Accompanied by: Self / Same As Patient Allergies gabapentin Allergy (Intermediate, Verified 11/20/24 08:10) pruritus magnesium Allergy (Intermediate, Verified 11/20/24 08:10) IV route caused rash, can tolerate PO environmental allergies Allergy (Unknown, Verified 11/20/24 08:10) Unknown metformin Adverse Reaction (Intermediate, Verified 11/20/24 08:10) diarrhea Medication List - Last Reconciled 11/20/24 by Fay Cisneros MD blood sugar diagnostic (FreeStyle Lite Strips) Use 1 test strip once a day blood-glucose meter (FreeStyle Lite Meter kit) As directed docusate sodium (Colace) 100 mg PO DAILY lancets (FreeStyle Lancets) Use 1 lancet once a day levocetirizine (Xyzal) 5 mg PO DAILY pantoprazole 40 mg PO DAILY sucralfate 10 mL PO BID Tobacco use date assessed: 11/20/24 Dental Screening Dental Screen Date: 10/14/24 HPI HPI Comments History of Present Illness Details The patient is a 44-year-old female presenting with concerns regarding elevated liver enzyme levels and follow-up on weight management post-bariatric surgery. The patient underwent bariatric surgery on September 11, 2024. She reports a Body Mass Index (BMI) of 39.5, indicating obesity, although she notes improvement as she no longer meets the threshold for morbid obesity. The patient has a diagnosis of diabetes, with blood glucose currently well-controlled at 83 mg/dL. She reports changes in bowel habits, describing bowel movements every 3 to 4 days, which she attributes to her current diet consisting predominantly of protein intake post-surgery. She does not currently require medication for diabetes management. The patient has a known allergy to Gabapentin, Magnesium, a nd Metformin, with Metformin previously causing diarrhea. The patient mentioned elevated liver enzyme levels during a laboratory test conducted in October, with a plan to reassess. She recalled an ultrasound performed in July by Raftopoulos that yielded results consistent with fatty liver, for which a repeat screening was recommended. [facility] Medical History (Updated 11/20/24 @ 10:08 by Fay Cisneros MD) Cervical cancer screening Obesity, morbid, BMI 50 or higher Physical exam Well woman exam with routine gynecological exam Non-insulin dependent type 2 diabetes mellitus Diabetes Environmental allergies GERD (gastroesophageal reflux disease) Migraines Hypovitaminosis D Morbid obesity Missed period Hair loss Extreme obesity Acne Surgical History S/P laparoscopic sleeve gastrectomy History of esophagogastroduodenoscopy (EGD) (07/30/24) History of surgery History of right breast biopsy History of tubal ligation History of section History of laparoscopic cholecystectomy Family History Father Hypertension Stroke Mother Hypertension Sister No problems noted. Son No problems noted. Daughter No problems noted. Maternal Aunt Colon cancer, Onset Age: 60 Social History Household Members: Spouse Housing: Apartment Are you a primary youth career specialist to a significant other at home: No Do you presently have visiting nurse or other home services: No Alcohol intake: never Comment: Gas pain Patient Tobacco Use Status: Never used Tobacco Tobacco use type: Cigarette e-Cigarette/Vaping Use: Never Used Second Hand Smoke Exposure: No service: No Current occupational status: employed Current occupational exposures/hazards: No Cognitive needs: No Hearing needs: No Vision needs: Yes Female Reproductive History Menstrual Age of Menarche: 9 Questionnaire PHQ-9 Over the last 2 weeks, how often have you been bothered by any of the following problems? 1. Little interest or pleasure in doing things: not at all 2. Feeling down, depressed, or hopeless: not at all 3. Trouble falling or staying asleep, or sleeping too much: not at all 4. Feeling tired or having little energy: not at all 5. Poor appetite or overeating: not at all 6. Feeling bad about yourself - or that you are a failure or have let yourself or your family down: not at all 7. Trouble concentrating on things, such as reading the newspaper or watching television: not at all 8. Moving or speaking so slowly that other people could have noticed. Or the opposite - being so fidgety or restless that you have been moving around a lot more than usual: not at all 9. Thoughts that you would be better off or of hurting yourself in some way: not at all Total score: 0 Depression Screening Interpretation: Negative Depression Screening Done: Yes 06503 - PHQ-9 Billing: Yes Source: Developed by Drs. German Bell, Trena Mccoy, Elia Zimmerman and colleagues, with an educational haseeb from [employer] Thrive Questionnaire Date Thrive assessed: 10/14/24 AUDIT C Alcohol Use Questionnaire (AUDIT-C) 3. How often do you have six or more drinks on one occasion?: Never Total Score: 0 GUZMAN-7 AMB Questionnaire GUZMAN-7 Date GUZMAN - 7 assessed: 10/14/24 Source: Developed by Drs. German Bell, Trena Mccoy, Elia Zimmerman and colleagues, with an educational haseeb from [employer] Review of Systems Const All systems reviewed & are unremarkable except as noted in HPI and below Card Denies chest pain at rest, Denies chest pain with activity, Denies edema, Denies irregular heart rhythm, Denies claudication, Denies dyspnea, Denies dyspnea on exertion, Denies orthopnea, Denies paroxysmal nocturnal dyspnea and Denies slow heart rate Resp Denies cough, Denies dyspnea and Denies dyspnea on exertion GI Denies abdominal pain, Denies change in bowel habits, Denies excessive flatus, Denies nausea and Denies vomiting Physical exam (Primary Care) Vital Signs: Last Vital Signs Pulse 49 L 11/20/24 07:51 BP 104/72 11/20/24 07:51 Pulse Ox 98 11/20/24 07:51 Oxygen Delivery Method Room Air 11/20/24 07:51 BMI result Body Mass Index 39.4 BMI Assessment/Plan discussion: High BMI High, discussed plan: lifestyle, weight reduction, dietary and physical activity Tobacco/Smoking Status: Tobacco use Status Tobacco use date assessed 11/20/24 11/20/24 07:55 Patient Tobacco Use Status Never used Tobacco 11/20/24 07:55 Tobacco use type Cigarette 11/20/24 07:55 e-Cigarette/Vaping Use Never Used 11/20/24 07:55 PHQ-9: PHQ-9 Score PHQ-9: Total score 0 11/20/24 08:14 Depression Screening Interpretation: Negative Thrive Assessment: Date of Thrive Assessment Date Thrive assessed 10/14/24 11/20/24 07:55 Resp Effort & Inspection: normal respiratory effort Auscultation: clear to auscultation bilaterally Cardio Jugular venous distension: no JVD Rate: regular rate Rhythm: regular rhythm Heart sounds: S1 normal heart sound present and S2 normal heart sound present Extrem General: Yes full ROM Coding Level of Care Code Est Pt Level 4 (83319) Complex EM visit Add On G2211 Diagnoses Transaminitis R74.01 Type 2 diabetes mellitus without complication, without long-term current use of insulin E11.9 Diabetes mellitus type: type 2 Diabetes mellitus equipment operator intermodal yard insulin use: without equipment operator intermodal yard use Diabetes mellitus complication status: without complication Migraines G43.909 GERD (gastroesophageal reflux disease) K21.9 Hypovitaminosis D E55.9 Additional Codes PHQ-9 - 60296 - PHQ-9 Billing: Yes ([id number]) Time Spent (min) 23 Assessment & Plan Assessment & Plan (1) Transaminitis: Code(s): R74.01 - Elevation of levels of liver transaminase levels Category: Medical (2) Diabetes mellitus: Code(s): E11.9 - Type 2 diabetes mellitus without complications Category: Medical Qualifiers: Diabetes mellitus type: type 2 Diabetes mellitus usp insulin use: without usp use Diabetes mellitus complication status: without complication Qualified Code(s): E11.9 - Type 2 diabetes mellitus without complications (3) Migraines: Code(s): G43.909 - Migraine, unspecified, not intractable, without status migrainosus Category: Medical (4) GERD (gastroesophageal reflux disease): Code(s): K21.9 - Gastro-esophageal reflux disease without esophagitis Category: Medical (5) Hypovitaminosis D: Code(s): E55.9 - Vitamin D deficiency, unspecified Category: Medical Plan - Monitor liver enzyme levels, with plans to review and repeat testing due to previous elevations. - Continue dietary modifications post-bariatric surgery, focusing on protein intake and addressing constipation as needed. - Maintain current diabetes management, with further A1c testing postponed due to stable glucose levels. - Patient to follow up in May for reassessment and potential further diagnostic imaging for liver health. Patient was informed and verbally consented to the use of an ambient scribe for clinic note documentation during this visit. I discussed with the patient the importance of ongoing monitoring of liver enzyme levels and the potential need for further imaging if levels remain elevated. We reviewed her current progress post-bariatric surgery, noting improvements in BMI. I advised her to maintain her high protein diet while managing constipation with medications as needed. We concluded that her current diabetes management plan is effective, and no adjustments are necessary at this time. I emphasized the importance of scheduled follow-ups, with plans to reassess liver enzyme levels and overall health in May. Orders: Orders Liver Panel Today R74.01 - Elevation of levels of liver transaminase levels Patient Instructions: - Continue current dietary regimen focusing on high protein intake. - Use constipation medication as needed based on dietary changes. - No need to start new diabetes medications; monitor blood sugar at current levels. - Schedule lab tests today if possible to check liver enzyme trends. - Attend follow-up appointment in May to review liver health and overall progress. - Report any new symptoms or persistent concerns before the next scheduled visit.
--- OUTSIDE RECORDS SUMMARY | 2024-11-20 07:52 | XMS_ITS | Clinical Summary ---
Author Organization [facility] ity Address [address] [place] [address] Care Team Providers Care Coding Consultant Name Role Phone Unavailable Primary Care Provider Unavailabl e Social History Tobacco Use Types Packs/Day Years Used Date Smoking Tobacco: Never Assessed Comments Unknown Sex and Gender Information Value Date Recorded Sex Assigned at Not on file Legal Sex Female 10:46 PM EST Gender Identity Not on file Sexual Orientation Not on file Plan of Treatment Health Maintenance Due Date Last Done Comments Breast Cancer Screening 1978 DTaP,Tdap,and Td Vaccines (1 - Tdap) 1997 Hepatitis B Vaccines (1 of 3 - 19+ 3-dose series) 1997 Cervical Cancer Screening: P ap Smear 1999 Colorectal Cancer Screening: Colonoscopy 09/03/2022 Depression Screening 09/03/2022 HIV Screening 09/03/2022 Hepatitis C Screening 09/03/2022 Social Influencers of Health Screening 09/03/2022 COVID-19 Vaccine ( - 2023-2 5 season) 2024 Influenza Vaccine (#1) 2024 HIB Vaccines Aged Out No longer eligi ble based on patient's age to complete this topic HPV Vaccines Aged Out No longer eligi ble based on patient's age to complete this topic Hepatitis A Vaccines Aged Out No long er eligible based on patient's age to complete this topic IPV Vaccines Aged Out No longer eligi ble based on patient's age to complete this topic MMR Vaccines Aged Out No longer eligi ble based on patient's age to complete this topic Meningococcal ACWY Vaccine Aged Out N o longer eligible based on patient's age to complete this topic Meningococcal B Vacine Aged Out No lo nger eligible based on patient's age to complete this topic Pneumococcal Vaccine: Pediat rics (0 to 5 Years) and At-Risk Patients (6 to 64 Years) Aged Out No longer eligible b ased on patient's age to complete this topic RSV Immunization Patients Un andrew 20 months Aged Out No longer eligible b ased on patient's age to complete this topic Varicella Vaccines Aged Out No longer eligible based on patient's age to complete this topic Advance Directives Documents on File Type Date Recorded Patient Electrochemist Expl anation Health Care Decision (hx) 03/08/2014 AD FOUNTAIN DIRECTIVE Health Care Decision (hx) 03/08/2014 AD FOUNTAIN DIRECTIVE Health Care Decision (hx) 03/08/2014 AD FOUNTAIN DIRECTIVE
--- OUTSIDE RECORDS SUMMARY | 2024-11-20 07:52 | XMS_ITS | Data Portability ---
Author Organization [place] - [facility], Allergy Address [address] [place] [address] Care Team Providers Care Green Chain Off Bearer Name Role Phone MARY CRAVEN Primary Care Provider Assessment Encounter Date Assessment Date Assessment LastModified by Organization Details LastModified Time 03/17/2024 03/17/2024 44-year-old kate tello presents for re-evaluation. Her hoarseness improved with use of omeprazole. She may continue using this. I have recommended referral to gastroenterology for further evaluation and treatment. She should also continue with her truck washer as this is likely exacerbating symptoms. May follow-up here as needed. [email or web address] Not available 03/17/2024 14:17:36 Plan of Treatment Reminders Order Date Submit Date Provider Last Modified By Organization Details Last Modified Time Details Appointments None recorde d. Lab None recorde d. Referral gastroe nterolo gist referra l - Referra l for reflux. Thank you. 2023 024 [id number] [facility] Gastroenterology Scheduling Department, [address] [place] [address], [id number], 4 12:19:05 Procedures None recorde d. Surgeries None recorde d. Imaging None recorde d. Medication Orders None recorde d. Patient TargetsNo targets recorded. Patient InstructionsNo instructions recorded. Reason for Referral Pressure Supervisor Referral for Gastroesophageal reflux disease without esophagitis Referral for reflux. Thank you. Referring Physician: Sandi Sidhu, Otolaryngology, Encounter Date: 03/17/2024 Problems Name Problem SNOMED Code Status Onset Date Resolution Date Notes Provider Name and Address Organization Details Recorded Time Gastroesop hageal reflux disease without esophagiti s 559600172 Active 2023 SANDI SIDHU PA-C [address], [place], [address] , [facility] - [facility] 4 13:57:35 Allergic rhinitis 51255896 Active 2023 SANDI SIDHU PA-C [address] [facility], [place], [address] , [facility] - [facility] 4 13:57:51 Dysphagia 73790790 Active 2023 SANDI SIDHU PA-C [address], [place], [address] , [facility] - [facility] 4 13:58:06 Hoarse 21118744 Active 2023 BARBARA SARGENT MD [address] [facility],[address], [place], [address] , [facility] - [facility] 4 14:17:42 Dysphonia 31050339 Active 2023 Hoarsenes s; Note: Date Diagnosed : 11/21/2023 12:28 PM (R49.0) Not Available [facility] 4 03:25:13 Allergic rhinitis caused by pollen 72749214 Active 2023 Allergic rhinitis due to pollen; Note: Date Diagnosed : 11/21/2023 12:28 PM (J30.1) Not Available [facility] 4 03:25:13 Problem Notes None recorded. Medical Equipment None Reported. Allergies Allergen ID Allergen Name Allergen Category Reaction Reaction Severity Criticality Documentation Date Start Date Code Code System Note Provider Name and Address Organization Details Recorded Time 751152 Product containin g magnesium and/or magnesium compound (product) medicatio n hives Not available Not available 05/02/2024 15810 5005 SNOMED React ion: Hives ; Not Available [facility] 4 00:23:57 909075 metformin medicatio n diarrhea Not available Not [...] Xyzal 5 mg tablet active Medication ID: [id number] Bra nd Name: Xyzal Send Method: E-Prescrib ed Subs Allowed: subs OK Medicat ionGeneric Name: Xyzal Not Available Not Available Not Available butalbital 50 mg-acetami nophen 300 mg capsule active Medication ID: [id number] Bra nd Name: butalbital -acetamino phen Send Method: E-Prescrib ed Subs Allowed: subs OK Medicat ionGeneric Name: butalbital -acetamino phen Not Available Not Available Not Available Vitals Date Recorded Body height Body mass index (BMI) Body weight Provider Name and Address Organization Details Last Updated DateTime 03/17/2024 152.4 cm 50.6 kg/m2 764685.42 g Sarita Mo [place] - [facility] 03/17/2024 13:03:46 Social History None recorded. [...] Diagnosis Note [id number] BARBARA SARGENT MD [facility] [address] [address] 03/17/2024 12:18:22 03/17/2024 13:37:11 Gastroesophageal reflux disease without esophagitis 053576164 K21.9 Allergic rhinitis 689089 04 J30.9 Hoarse 62650308 R49.0 improved Health Concerns Section Related Observation LastModified by Organization Detai ls LastModified Time None Recorded Concern Status LastModified by Organization Details LastModified Time None Recorded Advance Directives Directive None Recorded Payers Encounter Date Sequence Insurance Name Policy Number Policy Greene Covered Member ID Greene Member ID Guarantor Name 03/17/2024 1 [employer] [employer] - HEALTH NET PLAN (MEDICAID HMO) SOCO Beckman [id number] Zenia Beckman Notes Date Note Type Note Provider Name and Address Organization Details Recorded Time 03/17/2024 text/html 44-year-old female presents for reevaluation. Previously evaluated for hoarseness and thought to have GERD and postnasal drip from seasonal allergy. She sees an truck washer and takes Flonase and Xyzal daily. Omeprazole was added to her daily regimen and she feels her hoarseness has improved. Plans to see her truck washer in March. BARBARA JAMES MD [address] [place] [address], [phone], [facility] - [facility] 03/17/2024 14:17:57 OBGyn Episode No OBEpisode recorded.
--- OUTSIDE RECORDS SUMMARY | 2024-11-20 07:52 | XMS_ITS | Clinical Summary ---
Author Organization [facility] Address [address] [place] [address] Care Team Providers Care Trencher Driver Name Role Phone Unavailable Primary Care Provider Unavailabl e Source Comments PLEASE NOTE, if this patient is a minor, it may be UNLAWFUL to discuss sensitive information that is contained in these records (such as FAMILY PLANNING, MENTAL HEALTH or SUBSTANCE ABUSE) with the minor patient's parent or other person without the patient's specific authorization.[facility] Medications ibuprofen (ADVIL,MOTRIN) 800 mg tabletIndication s:Tooth infection Take 1 Tab by mouth 3 (three) times daily as needed for pain 30 Tab 03/13/2019 Active Social History Tobacco Use Types Packs/Day Years Used Date Smoking Tobacco: Never Assessed Comments Unknown Sex and Gender Information Value Date Recorded Sex Assigned at Not on file Legal Sex Female 4:56 AM PDT Gender Identity Not on file Sexual Orientation Not on file Plan of Treatment Not on file Insurance [place] D[place] [facility] SAFETY [place] [address] [address] [place] [address] DENTAL
== END 2024-11-20 08:19 | disposition home or self-care (01) ==
PROVIDERS: PCP Internal Medicine; Visit Provider Internal Medicine
DX: R74.01 Elevation of levels of liver transaminase levels (principal); E11.9 Type 2 diabetes mellitus without complications; G43.909 Migraine, unspecified, not intractable, without status migrainosus; K21.9 Gastro-esophageal reflux disease without esophagitis; E55.9 Vitamin D deficiency, unspecified

== ENCOUNTER 2024-11-20 07:49 | Outpatient (REF) | payer OTHER, SELFPAY ==
--- OUTSIDE RECORDS SUMMARY | 2024-11-20 08:52 | XMS_ITS | Clinical Summary ---
Author Organization [facility] Address [address] [place] [address] Care Team Providers Care Applications Engineer Name Role Phone Unavailable Primary Care Provider [...] Not on file [place] [facility] SAFETY NET DENTAL [place] [address] DENTAL
--- OUTSIDE RECORDS SUMMARY | 2024-11-20 08:52 | XMS_ITS | Clinical Summary ---
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
[2024-11-20 10:31] LABS: Alanine Aminotransferase 47 U/L (0-31); Albumin Level 3.7 g/dL (3.5-5.0); Alkaline Phosphatase 73 U/L (39-117); Aspartate Amino Transferase 38 U/L (5-31); Bilirubin Direct 0.2 mg/dL (0.0-0.5); Bilirubin Total 0.5 mg/dL (0.0-1.0); Total Protein 6.9 g/dL (6.5-8.0)
== END 2024-11-20 07:50 | disposition home or self-care (01) ==
LOC: HO.LAB 07:49
PROVIDERS: PCP Internal Medicine; Visit Provider Internal Medicine
DX: R74.01 Elevation of levels of liver transaminase levels (principal); E11.9 Type 2 diabetes mellitus without complications; G43.909 Migraine, unspecified, not intractable, without status migrainosus; K21.9 Gastro-esophageal reflux disease without esophagitis; E55.9 Vitamin D deficiency, unspecified
CPT/HCPCS: 36415; 80076; 96127; 99212

== ENCOUNTER → 2024-11-25 09:20 | Outpatient (AMB) | payer OTHER, SELFPAY ==
--- NOTE | 2024-11-25 09:00 | MHC.WMTHER ---
Intake Intake Visit Reasons: VIDEO PO LSG 09/11/24 Allergies gabapentin Allergy (Intermediate, Verified 11/20/24 08:10) pruritus magnesium Allergy (Intermediate, Verified 11/20/24 08:10) IV route caused rash, can tolerate PO environmental allergies Allergy (Unknown, Verified 11/20/24 08:10) Unknown metformin Adverse Reaction (Intermediate, Verified 11/20/24 08:10) diarrhea PFSH Medical History (Updated 11/20/24 @ 10:08 by Fay Cisneros MD) Cervical cancer screening Obesity, morbid, BMI 50 or higher Physical exam Well woman exam with routine gynecological exam Non-insulin dependent type 2 diabetes mellitus Diabetes Environmental allergies GERD (gastroesophageal reflux disease) Migraines Hypovitaminosis D Morbid obesity Missed period Hair loss Extreme obesity Acne Surgical History S/P laparoscopic sleeve gastrectomy History of esophagogastroduodenoscopy (EGD) (07/30/24) History of surgery History of right breast biopsy History of tubal ligation History of section History of laparoscopic cholecystectomy Family History Father Hypertension Stroke Mother Hypertension Sister No problems noted. Son No problems noted. Daughter No problems noted. Maternal Aunt Colon cancer, Onset Age: 60 Social History Household Members: Spouse Housing: Apartment Are you a primary healthcare administrative assistant to a significant other at home: No Do you presently have visiting nurse or other home services: No Alcohol intake: never Comment: Gas pain Patient Tobacco Use Status: Never used Tobacco Tobacco use type: Cigarette e-Cigarette/Vaping Use: Never Used Second Hand Smoke Exposure: No service: No Current occupational status: employed Current occupational exposures/hazards: No Cognitive needs: No Hearing needs: No Vision needs: Yes Female Reproductive History Menstrual Age of Menarche: 9 Behavioral Health Assessment Weight Management Therapy Therapy Notes Details Subjective: PT presents feeling with mixed feelings. Happy about her progress but feeling little desperate to add some solids on her meal plan. Also stressed about issues with a neighbor. Non-scale victories: Wearing size XL. Doing better when using the stairs to go to her apartment, able to cross her legs when seated. Objective: PT presents for a F/up visit via Telehealth. . Discussed routine and challenges with meal plan and meeting target exercise goal. Worked in behavioral activation Identified non-scale victories. Processed other sources of stress involving her living situation and current conflict with lower floor neighbors when she uses the treadmill. Worked in conflict resolution and problem solving. Brainstorned alternatives considering her rights and needs. Assessment/Response: Mental status: stressed, mildly sad. Risk reported/identified: None. PT was open, engaged and responded well to interventions. Food/Weight/Diet Expectations of change The initial goal is to lose 10% of her weight before surgery, about 25 lbs. Ultimate weight goal: 233lbs before surgery The patient wants to become healthier, not need to use insulin or check her sugar anymore, and be more active. Initial weight: 256 lb 8 oz Most recent weight: 233Lbs Had bariatric surgery on 09/11/2024. Pre-surgery weight: 226Lbs Current weight - 09/25/2024: 212Lbs Weight as of 10/23/2024: 204Lbs Weight as of 11/21/2024: 194Lbs . PT is implementing the following: Current meal plan: 3 shakes a day and 1 bar. Water and Gatorade. Exercise plan: Walking in a treadmill. 30 min 3-4 x at week. She is starting slow. Assessment & Plan Assessment & Plan (1) Adjustment disorder: Code(s): F43.20 - Adjustment disorder, unspecified Plan F/up in 3 weeks. Next shanice: 12/16/2024 at 8am, Telehealth/Video Telehealth Telehealth Telehealth Platform: PandaBed Location of provider rendering services: practice address Location of patient: address on file Patient Identification confirmed using: Name, : Yes Telehealth method: video Patient verbally consented to treatment: Yes Patient verbally consented to billing insurance company: Yes Patient informed of any privacy concerns related to visit: Yes Minutes spent on Phone/Video with Pt.: 55 Coding Level of Care Code Established Pt Tele Psytx >53 mins (06855) Patient Type Established Diagnoses Adjustment disorder F43.20 Time Spent (min) 55
--- OUTSIDE RECORDS SUMMARY | 2024-11-25 10:17 | XMS_ITS | Clinical Summary ---
Author Organization [facility] ity Address [address] [place] [address] Care Team Providers Care Roto Gravure Press Operator Name Role Phone Unavailable Primary Care Provider [...] Documents on File Type Date Recorded Patient Merchandise Deliverer Expl anation Health Care Decision (hx) 03/08/2014 AD FOUNTAIN DIRECTIVE Health Care Decision (hx) 03/08/2014 AD FOUNTAIN DIRECTIVE Health Care Decision (hx) 03/08/2014 AD FOUNTAIN DIRECTIVE
--- OUTSIDE RECORDS SUMMARY | 2024-11-25 10:17 | XMS_ITS | Data Portability ---
Author Organization [place] - [facility], Allergy Address [address] [place] [phone] Care Team Providers Care Supplier Development Manager Name Role Phone MARY CRAVEN Primary Care Provider Assessment Encounter Date Assessment Date Assessment LastModified by Organization Details LastModified Time 03/17/2024 03/17/2024 44-year-old kate tello presents for re-evaluation. Her hoarseness improved with use of omeprazole. She may continue using this. I have recommended referral to gastroenterology for further evaluation and treatment. She should also continue with her resource analyst as this is likely exacerbating symptoms. May follow-up here as needed. [email or web address] Not available 03/17/2024 14:17:36 Plan of Treatment Reminders Order Date Submit Date Provider Last Modified By Organization Details Last Modified Time Details Appointments None recorde d. Lab None recorde d. Referral gastroe nterolo gist referra l - Referra l for reflux. Thank you. 2023 024 [email or web address] [id number] [facility] Gastroenterology Scheduling Department, [address] [place] [address], [address], 4 12:19:05 Procedures None recorde d. Surgeries None recorde d. Imaging None recorde d. Medication Orders None recorde d. Patient TargetsNo targets recorded. Patient InstructionsNo instructions recorded. Reason for Referral Geophysical Data Technician Referral for Gastroesophageal reflux disease without esophagitis Referral for reflux. Thank you. Referring Physician: Sandi Sidhu, Otolaryngology, Encounter Date: 03/17/2024 Problems Name Problem SNOMED Code Status Onset Date Resolution Date Notes Provider Name and Address Organization Details Recorded Time Gastroesop hageal reflux disease without esophagiti s 975900987 Active 2023 SANDI SIDHU PA-C [address], [place], [phone] , [facility] - [facility] [place] 4 13:57:35 Allergic rhinitis 26826215 Active 2023 SANDI SIDHU PA-C [address] [facility] [address] [address], [place], [address] , [facility] - [facility] [place] 4 13:57:51 Dysphagia 16544005 Active 2023 SANDI SIDHU PA-C [address], [place], [address] , [facility] - [facility] [place] [facility] 4 13:58:06 Hoarse 08910658 Active 2023 BARBARA SARGENT MD [address] [facility],[address], [place], [address] , [facility] - [facility] [place] 4 14:17:42 Dysphonia 38377932 Active 2023 Hoarsenes s; Note: Date Diagnosed : 11/21/2023 12:28 PM (R49.0) Not Available [facility] 4 03:25:13 Allergic rhinitis caused by pollen 86432035 Active 2023 Allergic rhinitis due to pollen; Note: Date Diagnosed : 11/21/2023 12:28 PM (J30.1) Not Available [facility] 4 03:25:13 Problem Notes None recorded. Medical Equipment None Reported. Allergies Allergen ID Allergen Name Allergen Category Reaction Reaction Severity Criticality Documentation Date Start Date Code Code System Note Provider Name and Address Organization Details Recorded Time 086303 Product containin g magnesium and/or magnesium compound (product) medicatio n hives Not available Not available 05/02/2024 86075 5005 SNOMED React ion: Hives ; Not Available [facility] 4 00:23:57 010000 metformin medicatio n diarrhea Not available Not [...] Xyzal 5 mg tablet active Medication ID: [id number] Bra nd Name: Xyzal Send Method: E-Prescrib ed Subs Allowed: subs OK Medicat ionGeneric Name: Xyzal Not Available Not Available Not Available butalbital 50 mg-acetami nophen 300 mg capsule active Medication ID: [id number] Bra nd Name: butalbital -acetamino phen Send Method: E-Prescrib ed Subs Allowed: subs OK Medicat ionGeneric Name: butalbital -acetamino phen Not Available Not Available Not Available Vitals Date Recorded Body height Body mass index (BMI) Body weight Provider Name and Address Organization Details Last Updated DateTime 03/17/2024 152.4 cm 50.6 kg/m2 116717.42 g Sarita Mo [place] - [facility] 03/17/2024 13:03:46 Social History None recorded. [...] Diagnosis Note [id number] BARBARA SARGENT MD [facility] [address] [phone] 03/17/2024 12:18:22 03/17/2024 13:37:11 Gastroesophageal reflux disease without esophagitis 398426846 K21.9 Allergic rhinitis 062044 04 J30.9 Hoarse 90961271 R49.0 improved Health Concerns Section Related Observation LastModified by Organization Detai ls LastModified Time None Recorded Concern Status LastModified by Organization Details LastModified Time None Recorded Advance Directives Directive None Recorded Payers Encounter Date Sequence Insurance Name Policy Number Policy Greene Covered Member ID Greene Member ID Guarantor Name 03/17/2024 1 [facility] [employer] - HEALTH NET PLAN (MEDICAID HMO) SOCO Beckman [id number] Zenia Beckman Notes Date Note Type Note Provider Name and Address Organization Details Recorded Time 03/17/2024 text/html 44-year-old female presents for reevaluation. Previously evaluated for hoarseness and thought to have GERD and postnasal drip from seasonal allergy. She sees an resource analyst and takes Flonase and Xyzal daily. Omeprazole was added to her daily regimen and she feels her hoarseness has improved. Plans to see her resource analyst in March. BARBARA JAMES MD [address] [place] [address], [phone], [facility] - [facility] 03/17/2024 14:17:57 OBGyn Episode No OBEpisode recorded.
--- OUTSIDE RECORDS SUMMARY | 2024-11-25 10:17 | XMS_ITS | Clinical Summary ---
Author Organization [facility] Address [address] [place] [address] Care Team Providers Care Manager Leasing Name Role Phone Unavailable Primary Care Provider [...] Not on file [place] [facility] SAFETY NET DENTAL [address] [address] DENTAL
== END ==
PROVIDERS: PCP Internal Medicine; Visit Provider Counselor Mental Health
DX: F43.20 Adjustment disorder, unspecified (principal)
CPT/HCPCS: 90837

== ENCOUNTER → 2024-11-25 09:20 | Outpatient (BNVA) | payer OTHER, SELFPAY | PROVIDERS: PCP Internal Medicine; Visit Provider Counselor Mental Health ==

== ENCOUNTER 2024-12-08 10:20 | Outpatient (AMB) | payer OTHER, SELFPAY ==
--- NOTE | 2024-12-08 10:10 | A.OFFVIS_ITS ---
VS Expanded 12/08/24 10:16 Height 5 ft Weight 188 lb BMI 36.7 Intake Visit Reasons: (TELEPHONE) PO LSG 09/11/24 - see note Armature Straightener Required: Yes Armature Straightener Name: Harpal [id number] Allergies gabapentin Allergy (Intermediate, Verified 11/20/24 08:10) pruritus magnesium Allergy (Intermediate, Verified 11/20/24 08:10) IV route caused rash, can tolerate PO environmental allergies Allergy (Unknown, Verified 11/20/24 08:10) Unknown metformin Adverse Reaction (Intermediate, Verified 11/20/24 08:10) diarrhea Medication List - Last Reconciled 12/08/24 by WALLACE Saunders blood sugar diagnostic (FreeStyle Lite Strips) Use 1 test strip once a day blood-glucose meter (FreeStyle Lite Meter kit) As directed docusate sodium (Colace) 100 mg PO DAILY lancets (FreeStyle Lancets) Use 1 lancet once a day levocetirizine (Xyzal) 5 mg PO DAILY HPI Comments Details: This?is a?44?yo female who is s/p LSG 09/11/2024. Presents for 3mo post op visit. Weight loss of lb since last OV on 11/03/2024.? No complaints of emesis, abdominal pain. Taking Colace for constipation. Off PPI and carafate- no reflux. Blood sugars- remains off pioglitazone. Well controlled. Pt reports some nausea with vitamins. Takes them in the morning. Present meal plan includes: 3 Celebrate Rebuild shakes- but getting very tired of these 1 bar MVI Exercise routine includes: has a machine at home was sent some exercises by keeley Cardona 6 days a week [facility] Medical History (Updated 11/20/24 @ 10:08 by Fay Cisneros MD) Cervical cancer screening Obesity, morbid, BMI 50 or higher Physical exam Well woman exam with routine gynecological exam Non-insulin dependent type 2 diabetes mellitus Diabetes Environmental allergies GERD (gastroesophageal reflux disease) Migraines Hypovitaminosis D Morbid obesity Missed period Hair loss Extreme obesity Acne Surgical History S/P laparoscopic sleeve gastrectomy History of esophagogastroduodenoscopy (EGD) (07/30/24) History of surgery History of right breast biopsy History of tubal ligation History of section History of laparoscopic cholecystectomy Family History Father Hypertension Stroke Mother Hypertension Sister No problems noted. Son No problems noted. Daughter No problems noted. Maternal Aunt Colon cancer, Onset Age: 60 Social History Household Members: Spouse Housing: Apartment Are you a primary before and after school daycare worker to a significant other at home: No Do you presently have visiting nurse or other home services: No Alcohol intake: never Comment: Gas pain Patient Tobacco Use Status: Never used Tobacco Tobacco use type: Cigarette e-Cigarette/Vaping Use: Never Used Second Hand Smoke Exposure: No service: No Current occupational status: employed Current occupational exposures/hazards: No Cognitive needs: No Hearing needs: No Vision needs: Yes Female Reproductive History Menstrual Age of Menarche: 9 Physical Exam Vital Signs: BMI result Body Mass Index 36.7 Telehealth Telehealth Telehealth Platform: Telephone Location of provider rendering services: other Location of patient: address on file Patient Identification confirmed using: Name, : Yes Telehealth method: voice only Patient verbally consented to treatment: Yes Patient verbally consented to billing insurance company: Yes Patient informed of any privacy concerns related to visit: Yes Minutes spent on Phone/Video with Pt.: 16 Assessment & Plan Assessment & Plan (1) Obesity: Code(s): E66.9 - Obesity, unspecified Category: Medical (2) S/P laparoscopic sleeve gastrectomy: Code(s): Z98.84 - Bariatric surgery status Category: Medical Plan Completed PPI and carafate. Will continue to text weekly with Dr. Schultz with weight measurements for any meal plan adjustments. Continue to monitor blood sugars off pioglitazone. Still having some nausea with MVI, recommended opening capsule into a drink. Sent options for non-sweet powders- Isopure unflavored, Unjury savory options which she could exchange for a shake. RTC 6 weeks.
[2024-12-08 10:16] VITALS: BMI 36.7
--- OUTSIDE RECORDS SUMMARY | 2024-12-08 11:39 | XMS_ITS | Clinical Summary ---
Author Organization [facility] Address [address] [place] [address] Care Team Providers Care Energy Crop Farmer Name Role Phone Unavailable Primary Care Provider [...] Not on file Insurance [place] D[place] [facility] SAFETY [place] [address] [place] [address] DENTAL
--- OUTSIDE RECORDS SUMMARY | 2024-12-08 11:39 | XMS_ITS | Clinical Summary ---
Author Organization [facility] ity Address [address] [place] [address] Care Team Providers Care Hospice Case Manager Name Role Phone Unavailable Primary Care Provider [...] Documents on File Type Date Recorded Patient Drone Pilot Expl anation Health Care Decision (hx) 03/08/2014 AD FOUNTAIN DIRECTIVE Health Care Decision (hx) 03/08/2014 AD FOUNTAIN DIRECTIVE Health Care Decision (hx) 03/08/2014 AD FOUNTAIN DIRECTIVE
--- OUTSIDE RECORDS SUMMARY | 2024-12-08 11:39 | XMS_ITS | Continuity of Care Document ---
Author Organization [facility] Address [address] [place] [phone] Care Team Providers Care Contact Lens Flashing Puncher Name Role Phone Casper Cisneros MD, Fay Cabral Primary Care Physician Encounter [facility] R [id number] Date(s): 11/06/24 - 12/06/24 [facility] [address] [place] [id number] Attending Physician: [id number] Admitting Physician: AdmtrGeovanna Referring Physician: Admtr, Ar8 Encounter Type: Triage Allergies, Adverse Reactions, Alerts No Known Allergies Immunizations Given and Recorded Vaccine Date Status Refusal Reason influenza virus vaccine, inactivated 12/28/15 Give n tetanus/diphtheria/pertussis, acel(Tdap) 05/27/14 Given Medications gabapentin 100 mg oral capsule 100 mg, 1, capsule, By Mouth, 3 times a day, Days 1-3 1 TID Days 4-6 2 TID Instructions in Grenadian., # 90 capsule, Refills 0, Tot. Refills 0, Maintenance, 12/28/15 1:36:35 PM EDT, Route to Pharmacy Electronically, [id number] Start Date: 12/28/15 Status: Ordered Quantity: 90.0 Unit: capsule Repeat number: 1 gabapentin 300 mg oral capsule 300 mg, 1, capsule, By Mouth, 3 times a day, # 270 capsule, Refills 0, Tot. Refills 0, Maintenance,12/28/15 1:36:51 PM EDT, Route to Pharmacy Electronically, [facility] [id number] Start Date: 3/29/16 Status: Ordered Quantity: 270.0 Unit: capsule Repeat number: 1 naproxen 500 mg oral tablet 1 tablet = 500 mg, By Mouth, Daily, # 60 tablet, 2 Refills, Maintenance, 12/28/15 1:33:07 PM EDT, Tablet, [id number] Start Date: 12/28/15 Status: Ordered Quantity: 60.0 Unit: tablet Repeat number: 3 Problem List Condition Confirmation Course Effective Dates Status H ealth Status Informant Pancreatitis, acute 1 Confirmed Active Breast lump on right side at 11 o'clock position: BiRADS 4 2 Confirmed 03/30/14 Active Benign breast lumps Confirmed Active Prediabetes Confirmed Active Urinary frequency Confirmed Active Radiculopathy of arm Confirmed Active Obese class II Confirmed Active Obesity Confirmed Active Plantar fasciitis of left foot Confirmed Active 1From presumed gal stones 2via mammography March 2014- recommended biopsy Social History Social History Type Response Smoking Status Never smoker entered on: 10/23/14 Sex Sex Representation Female (finding) Patient Care team information Care Team Personnel Name: Casper Cisneros MD , Fay Cabral Position: Reference Physician Member Role: PCP Address: [address] [place] [address] [address] [place] [address]- Telecom: Care Team Related Persons Name: COURTNEY EDMOND Name: CASANDRA MCKAY Insurance Providers Guarantor name: KEMAL EDMOND Health Plan Information #: 1 Payer: [employer] Member Number: NA Policy Number: NA Group Number: NA
--- OUTSIDE RECORDS SUMMARY | 2024-12-08 11:39 | XMS_ITS | Data Portability ---
Author Organization [place] - [facility], Allergy Address [address] [place] [phone] Care Team Providers Care Waste Machine Tender Name Role Phone MARY CRAVEN Primary Care Provider Assessment Encounter Date Assessment Date Assessment LastModified by Organization Details LastModified Time 03/17/2024 03/17/2024 44-year-old kate tello presents for re-evaluation. Her hoarseness improved with use of omeprazole. She may continue using this. I have recommended referral to gastroenterology for further evaluation and treatment. She should also continue with her forestry fire aid as this is likely exacerbating symptoms. May follow-up here as needed. [email or web address] Not available 03/17/2024 14:17:36 Plan of Treatment Reminders Order Date Submit Date Provider Last Modified By Organization Details Last Modified Time Details Appointments None recorde d. Lab None recorde d. Referral gastroe nterolo gist referra l - Referra l for reflux. Thank you. 2023 024 2 [facility] Gastroenterology Scheduling Department, [address] [place] [address], [id number], 4 12:19:05 Procedures None recorde d. Surgeries None recorde d. Imaging None recorde d. Medication Orders None recorde d. Patient TargetsNo targets recorded. Patient InstructionsNo instructions recorded. Reason for Referral Scow Derrick Operator Referral for Gastroesophageal reflux disease without esophagitis Referral for reflux. Thank you. Referring Physician: Sandi Sidhu, Otolaryngology, Encounter Date: 03/17/2024 Problems Name Problem SNOMED Code Status Onset Date Resolution Date Notes Provider Name and Address Organization Details Recorded Time Gastroesop hageal reflux disease without esophagiti s 536062605 Active 2023 SANDI SIDHU PA-C [address] [place],[address], [place], [address] , [facility] - [facility] [place] 4 13:57:35 Allergic rhinitis 00076228 Active 2023 SANDI SIDHU PA-C [address] [facility] [place], [place], [address] , [facility] - [facility] [place] 4 13:57:51 Dysphagia 05574225 Active 2023 SANDI SIDHU PA-C [address], [place], [address] , [facility] - [facility] [place] 4 13:58:06 Hoarse 82988929 Active 2023 BARBARA SARGENT MD 100 [facility],[address], [place], [address] , [facility] - [facility] [place] 4 14:17:42 Dysphonia 69595408 Active 2023 Hoarsenes s; Note: Date Diagnosed : 11/21/2023 12:28 PM (R49.0) Not Available [facility] 4 03:25:13 Allergic rhinitis caused by pollen 92927685 Active 2023 Allergic rhinitis due to pollen; Note: Date Diagnosed : 11/21/2023 12:28 PM (J30.1) Not Available [facility] 4 03:25:13 Problem Notes None recorded. Medical Equipment None Reported. Allergies Allergen ID Allergen Name Allergen Category Reaction Reaction Severity Criticality Documentation Date Start Date Code Code System Note Provider Name and Address Organization Details Recorded Time 735702 Product containin g magnesium and/or magnesium compound (product) medicatio n hives Not available Not available 05/02/2024 61368 5005 SNOMED React ion: Hives ; Not Available [facility] 4 00:23:57 356953 metformin medicatio n diarrhea Not available Not [...] Xyzal 5 mg tablet active Medication ID: [id number] Bra nd Name: Xyzal Send Method: E-Prescrib ed Subs Allowed: subs OK Medicat ionGeneric Name: Xyzal Not Available Not Available Not Available butalbital 50 mg-acetami nophen 300 mg capsule active Medication ID: [id number] Bra nd Name: butalbital -acetamino phen Send Method: E-Prescrib ed Subs Allowed: subs OK Medicat ionGeneric Name: butalbital -acetamino phen Not Available Not Available Not Available Vitals Date Recorded Body height Body mass index (BMI) Body weight Provider Name and Address Organization Details Last Updated DateTime 03/17/2024 152.4 cm 50.6 kg/m2 521315.42 g Sarita Mo [place] - [facility] 03/17/2024 13:03:46 Social History None recorded. Functional [...] Diagnosis Note [id number] BARBARA SARGENT MD [facility] [address] [phone] 03/17/2024 12:18:22 03/17/2024 13:37:11 Gastroesophageal reflux disease without esophagitis 708349560 K21.9 Allergic rhinitis 415626 04 J30.9 Hoarse 77215927 R49.0 improved Health Concerns Section Related Observation LastModified by Organization Detai ls LastModified Time None Recorded Concern Status LastModified by Organization Details LastModified Time None Recorded Advance Directives Directive None Recorded Payers Encounter Date Sequence Insurance Name Policy Number Policy Greene Covered Member ID Greene Member ID Guarantor Name 03/17/2024 1 [facility] [employer] - HEALTH NET PLAN (MEDICAID HMO) SOCO Knutson Rk [id number] Zenia Beckman Notes Date Note Type Note Provider Name and Address Organization Details Recorded Time 03/17/2024 text/html 44-year-old female presents for reevaluation. Previously evaluated for hoarseness and thought to have GERD and postnasal drip from seasonal allergy. She sees an forestry fire aid and takes Flonase and Xyzal daily. Omeprazole was added to her daily regimen and she feels her hoarseness has improved. Plans to see her forestry fire aid in March. BARBARA JAMES MD [address] [place] [address], [phone], [facility] - [facility] 03/17/2024 14:17:57 OBGyn Episode No OBEpisode recorded.
== END 2024-12-08 10:28 | disposition home or self-care (01) ==
LOC: HO.HBS 10:20
PROVIDERS: PCP Internal Medicine; Visit Provider Physician Assistant Surgical
DX: E66.812 Obesity, class 2 (principal); Z68.36 Body mass index [BMI] 36.0-36.9, adult; Z90.3 Acquired absence of stomach [part of]; Z98.84 Bariatric surgery status
CPT/HCPCS: 99024

== ENCOUNTER → 2024-12-08 10:20 | Outpatient (BNVA) | payer OTHER, SELFPAY | PROVIDERS: PCP Internal Medicine; Visit Provider Physician Assistant Surgical ==

== ENCOUNTER → 2024-12-10 15:00 | Outpatient (BNV) | payer OTHER, SELFPAY | PROVIDERS: Visit Provider Internal Medicine | DX: D47.2 Monoclonal gammopathy (principal) | CPT/HCPCS: 99203; G2211 ==

== ENCOUNTER 2024-12-16 08:33 | Outpatient (AMB) | payer OTHER, SELFPAY ==
--- NOTE | 2024-12-16 08:05 | MHC.WMTHER ---
Intake Intake Visit Reasons: VIDEO BH F/U Allergies gabapentin Allergy (Intermediate, Verified 12/29/24 09:13) pruritus magnesium Allergy (Intermediate, Verified 12/29/24 09:13) IV route caused rash, can tolerate PO environmental allergies Allergy (Unknown, Verified 12/29/24 09:13) Unknown metformin Adverse Reaction (Intermediate, Verified 12/29/24 09:13) diarrhea PFSH Medical History Cervical cancer screening Obesity, morbid, BMI 50 or higher Physical exam Well woman exam with routine gynecological exam Non-insulin dependent type 2 diabetes mellitus Diabetes Environmental allergies GERD (gastroesophageal reflux disease) Migraines Hypovitaminosis D Morbid obesity Missed period Hair loss Extreme obesity Acne Surgical History S/P laparoscopic sleeve gastrectomy History of esophagogastroduodenoscopy (EGD) (07/30/24) History of surgery History of right breast biopsy History of tubal ligation History of section History of laparoscopic cholecystectomy Family History Father Hypertension Stroke Mother Hypertension Sister No problems noted. Son No problems noted. Daughter No problems noted. Maternal Aunt Colon cancer, Onset Age: 60 Social History Household Members: Spouse Housing: Apartment Are you a primary early breastfeeding care specialist to a significant other at home: No Do you presently have visiting nurse or other home services: No Alcohol intake: never Comment: Gas pain Patient Tobacco Use Status: Never used Tobacco Tobacco use type: Cigarette e-Cigarette/Vaping Use: Never Used Second Hand Smoke Exposure: No service: No Current occupational status: employed Current occupational exposures/hazards: No Cognitive needs: No Hearing needs: No Vision needs: Yes Female Reproductive History Menstrual Age of Menarche: 9 Behavioral Health Assessment Weight Management Therapy Therapy Notes Details Subjective: PT reports she has been ding well, but is feeling she wants to change her meal plan and add at least 1 meal. She said she is only doing 2 shakes and 1 bar and is missing the 3rd shake as is feeling nauseous with the 3rd shake. On the other hand, she has been dealing with ups and downs on her motivation and at times overwhelmed Objective: PT presents for a f/up telehealth visit. Reflected on functioning, needs/challenges and progress. Client participated in cognitive restructuring and mindfulness exercises with minimal prompting. Practiced 5-4-3-2-1 grounding technique to manage feelings of overwhelm. Completed a Decisional Balance chart to explore current ambivalence around behavior change. Used ?Why I Started? motivation exercise to use as anchor throughout the week. Assessment/Response: Mental status: Client appeared slightly withdrawn but engaged in the session. Affect was congruent with reported emotional state (mildly depressed, overwhelmed). Risk reported/identified: None. Food/Weight/Diet Expectations of change The initial goal is to lose 10% of her weight before surgery, about 25 lbs. Ultimate weight goal: 233lbs before surgery The patient wants to become healthier, not need to use insulin or check her sugar anymore, and be more active. Initial weight: 256 lb 8 oz Most recent weight: 233Lbs Had bariatric surgery on 09/11/2024. Pre-surgery weight: 226Lbs Current weight - 09/25/2024: 212Lbs Weight as of 10/23/2024: 204Lbs Weight as of 11/21/2024: 194Lbs Weight as of 12/12/2024: 186Lbs . PT is implementing the following: Current meal plan: 3 shakes a day and 1 bar. Water and Gatorade. Exercise plan: Walking in a treadmill. 30 min 3-4 x at week. She is starting slow. Assessment & Plan Assessment & Plan (1) Adjustment disorder: Code(s): F43.20 - Adjustment disorder, unspecified Plan Continue visits every 2-3 weeks. Next shanice: 01/07/2025 at 8am, Telehealth. Telehealth Telehealth Telehealth [facility] Location of provider rendering services: other Location of patient: address on file Patient Identification confirmed using: Name, : Yes Telehealth method: video Patient verbally consented to treatment: Yes Patient verbally consented to billing insurance company: Yes Patient informed of any privacy concerns related to visit: Yes Minutes spent on Phone/Video with Pt.: 55 Coding Level of Care Code Established Pt Tele Psytx >53 mins (77187) Patient Type Established Diagnoses Adjustment disorder F43.20 Time Spent (min) 55
== END 2024-12-16 09:23 | disposition home or self-care (01) ==
LOC: HO.HBST 08:33
PROVIDERS: Visit Provider Counselor Mental Health
DX: F43.20 Adjustment disorder, unspecified (principal)
CPT/HCPCS: 90837

== ENCOUNTER → 2024-12-16 08:33 | Outpatient (BNVA) | payer OTHER, SELFPAY | PROVIDERS: Visit Provider Counselor Mental Health ==

== ENCOUNTER 2024-12-18 07:53 | Outpatient (AMB) | payer OTHER, SELFPAY ==
--- OUTSIDE RECORDS SUMMARY | 2024-12-18 07:56 | XMS_ITS | Clinical Summary ---
Author Organization [facility] ity Address [address] [place] [address] Care Team Providers Care Freight Associate Name Role Phone Unavailable Primary Care Provider [...] Documents on File Type Date Recorded Patient Scene And Lighting Design Lecturer Expl anation Health Care Decision (hx) 03/08/2014 AD FOUNTAIN DIRECTIVE Health Care Decision (hx) 03/08/2014 AD FOUNTAIN DIRECTIVE Health Care Decision (hx) 03/08/2014 AD FOUNTAIN DIRECTIVE
--- OUTSIDE RECORDS SUMMARY | 2024-12-18 07:56 | XMS_ITS | Clinical Summary ---
Author Organization [facility] Address [address] [place] [address] Care Team Providers Care Clinical Marketing Manager Name Role Phone Unavailable Primary Care [...] Not on file [place] DENT[place] [facility] SAFETY NET [place] [address] [place] [address] DENTAL
--- OUTSIDE RECORDS SUMMARY | 2024-12-18 07:56 | XMS_ITS | Data Portability ---
Author Organization [place] - [facility], Allergy Address [address] [place] [address] Care Team Providers Care Optical Brightener Maker Helper Name Role Phone MARY CRAVEN Primary Care Provider Assessment Encounter Date Assessment Date Assessment LastModified by Organization Details LastModified Time 03/17/2024 03/17/2024 44-year-old kate tello presents for re-evaluation. Her hoarseness improved with use of omeprazole. She may continue using this. I have recommended referral to gastroenterology for further evaluation and treatment. She should also continue with her one piece expansion maker hand as this is likely exacerbating symptoms. May follow-up here as needed. [email or web address] Not available 03/17/2024 14:17:36 Plan of Treatment Reminders Order Date Submit Date Provider Last Modified By Organization Details Last Modified Time Details Appointments None recorde d. Lab None recorde d. Referral gastroe nterolo gist referra l - Referra l for reflux. Thank you. 2023 024 2 [facility] Gastroenterology Scheduling Department, [address] [place] [address], [id number], 4 12:19:05 Procedures None recorde d. Surgeries None recorde d. Imaging None recorde d. Medication Orders None recorde d. Patient TargetsNo targets recorded. Patient InstructionsNo instructions recorded. Reason for Referral Commercial Property Administrator Referral for Gastroesophageal reflux disease without esophagitis Referral for reflux. Thank you. Referring Physician: Sandi Sidhu, Otolaryngology, Encounter Date: 03/17/2024 Problems Name Problem SNOMED Code Status Onset Date Resolution Date Notes Provider Name and Address Organization Details Recorded Time Gastroesop hageal reflux disease without esophagiti s 555082728 Active 2023 SANDI SIDHU PA-C [address] [place],[address], [place], [address] , [facility] - [facility] [place] 4 13:57:35 Allergic rhinitis 28425657 Active 2023 SANDI SIDHU PA-C [address] [facility] [place],[address], [place], [address] , [facility] - [facility] [place] 4 13:57:51 Dysphagia 14750060 Active 2023 SAND[address] SIDHU PA-C [address], [place], [address] , [facility] - [facility] [place] 4 13:58:06 Hoarse 76526127 Active 2023 BARBARA SARGENT MD [address] [facility],[address], [place], [address] , [facility] - [facility] [place] 4 14:17:42 Dysphonia 24237452 Active 2023 Hoarsenes s; Note: Date Diagnosed : 11/21/2023 12:28 PM (R49.0) Not Available [facility] 4 03:25:13 Allergic rhinitis caused by pollen 40780847 Active 2023 Allergic rhinitis due to pollen; Note: Date Diagnosed : 11/21/2023 12:28 PM (J30.1) Not Available [facility] 4 03:25:13 Problem Notes None recorded. Medical Equipment None Reported. Allergies Allergen ID Allergen Name Allergen Category Reaction Reaction Severity Criticality Documentation Date Start Date Code Code System Note Provider Name and Address Organization Details Recorded Time 904396 Product containin g magnesium and/or magnesium compound (product) medicatio n hives Not available Not available 05/02/2024 86386 5005 SNOMED React ion: Hives ; Not Available [facility] 4 00:23:57 896947 metformin medicatio n diarrhea Not available Not [...] Xyzal 5 mg tablet active Medication ID: [id number] Bra nd Name: Xyzal Send Method: E-Prescrib ed Subs Allowed: subs OK Medicat ionGeneric Name: Xyzal Not Available Not Available Not Available butalbital 50 mg-acetami nophen 300 mg capsule active Medication ID: [id number] Bra nd Name: butalbital -acetamino phen Send Method: E-Prescrib ed Subs Allowed: subs OK Medicat ionGeneric Name: butalbital -acetamino phen Not Available Not Available Not Available Vitals Date Recorded Body height Body mass index (BMI) Body weight Provider Name and Address Organization Details Last Updated DateTime 03/17/2024 152.4 cm 50.6 kg/m2 906468.42 g Sarita Mo [place] - [facility] 03/17/2024 13:03:46 Social History None recorded. [...] Diagnosis Note [id number] BARBARA SARGENT MD ENT[facility] [address] [address] 03/17/2024 12:18:22 03/17/2024 13:37:11 Gastroesophageal reflux disease without esophagitis 915380899 K21.9 Allergic rhinitis 748257 04 J30.9 Hoarse 01621906 R49.0 improved Health Concerns Section Related Observation LastModified by Organization Detai ls LastModified Time None Recorded Concern Status LastModified by Organization Details LastModified Time None Recorded Advance Directives Directive None Recorded Payers Encounter Date Sequence Insurance Name Policy Number Policy Greene Covered Member ID Greene Member ID Guarantor Name 03/17/2024 1 [facility] [employer] - HEALTH NET PLAN (MEDICAID HMO) SOCO Knutson Rk [id number] Zenia Beckman Notes Date Note Type Note Provider Name and Address Organization Details Recorded Time 03/17/2024 text/html 44-year-old female presents for reevaluation. Previously evaluated for hoarseness and thought to have GERD and postnasal drip from seasonal allergy. She sees an one piece expansion maker hand and takes Flonase and Xyzal daily. Omeprazole was added to her daily regimen and she feels her hoarseness has improved. Plans to see her one piece expansion maker hand in March. BARBARA JAMES MD [address] [place] [address], [phone], [facility] - [facility] 03/17/2024 14:17:57 OBGyn Episode No OBEpisode recorded.
--- NOTE | 2024-12-18 08:01 | MHC.PC.OV ---
Vital Signs 12/18/24 08:03 Height 5 ft Weight 185 lb 8 oz BMI 36.2 BP 112/70 Blood Pressure Location Lt brachial Position Sitting Pulse 49 L Pulse Source Pulse Oximeter Temp 96.9 F Temp Source Temporal Artery Scan Pulse Oximetry (%) 98 Oxygen Delivery Method Room Air Intake Visit Reasons: Right breast pain Intake Note: Patient is here to follow up on Right breast pain. Production Laborer Required: Yes Production Laborer Language: Plastic Parts Fabricator Trimmer Name: Gio ([id number]) Information Interpreted: non-clinical & clinical Drapery Sewer Hand: Not Required per policy Accompanied by: Self / Same As Patient Allergies gabapentin Allergy (Intermediate, Verified 12/18/24 08:10) pruritus magnesium Allergy (Intermediate, Verified 12/18/24 08:10) IV route caused rash, can tolerate PO environmental allergies Allergy (Unknown, Verified 12/18/24 08:10) Unknown metformin Adverse Reaction (Intermediate, Verified 12/18/24 08:10) diarrhea Medication List - Last Reconciled 12/18/24 by Allyn Raza PA-C docusate sodium (Colace) 100 mg PO DAILY levocetirizine (Xyzal) 5 mg PO DAILY Tobacco use date assessed: 12/18/24 Dental Screening Dental Screen Date: 10/14/24 HPI Right breast pain HPI Details 44-year-old female with past medical history of MGUS, migraines, GERD, diabetes mellitus last seen 11/2024 coming in for acute problem. Last mammogram 06/2024 normal exam with 1 year follow up. alarm investigator Gio ([id number]) was used for the duration of this visit. Presenting with breast pain. The onset of pain was five days ago, localized to the breast area. The pain is only present when not wearing a bra and described as strong with a pulling sensation. There is no radiation of pain, and it is consistently located in the same region. No prior history of similar breast pain. Absence of nipple discharge, tenderness, or rash. Pain is unilateral. FORMERLY [facility], [facility]–1983 Medical History Cervical cancer screening Obesity, morbid, BMI 50 or higher Physical exam Well woman exam with routine gynecological exam Non-insulin dependent type 2 diabetes mellitus Diabetes Environmental allergies GERD (gastroesophageal reflux disease) Migraines Hypovitaminosis D Morbid obesity Missed period Hair loss Extreme obesity Acne Surgical History S/P laparoscopic sleeve gastrectomy History of esophagogastroduodenoscopy (EGD) (07/30/24) History of surgery History of right breast biopsy History of tubal ligation History of section History of laparoscopic cholecystectomy Family History Father Hypertension Stroke Mother Hypertension Sister No problems noted. Son No problems noted. Daughter No problems noted. Maternal Aunt Colon cancer, Onset Age: 60 Social History Household Members: Spouse Housing: Apartment Are you a primary progressive care unit registered nurse to a significant other at home: No Do you presently have visiting nurse or other home services: No Alcohol intake: never Comment: Gas pain Patient Tobacco Use Status: Never used Tobacco Tobacco use type: Cigarette e-Cigarette/Vaping Use: Never Used Second Hand Smoke Exposure: No service: No Current occupational status: employed Current occupational exposures/hazards: No Cognitive needs: No Hearing needs: No Vision needs: Yes Female Reproductive History Menstrual Age of Menarche: 9 Questionnaire Thrive Questionnaire Date Thrive assessed: 10/14/24 GUZMAN-7 AMB Questionnaire GUZMAN-7 Date GUZMAN - 7 assessed: 10/14/24 Source: Developed by Drs. German Bell, Trena Mccoy, Elia Zimmerman and colleagues, with an educational haseeb from [employer]. Review of Systems Const Denies body aches, Denies chills, Denies fever(s), Denies headache(s) and Denies poor appetite Eyes Reports no additional complaints ENT Denies dizziness and Denies headache(s) Card Denies chest pain, Denies lightheadedness and Denies dyspnea Resp Denies dyspnea GI Reports no additional complaints Reports no additional complaints Musc Reports no additional complaints and Denies abnormal gait Skin/Breast Reports system reviewed and no additional complaints, except as documented Neuro Denies abnormal gait, Denies dizziness and Denies headache(s) Psych Reports no additional complaints Physical exam (Primary Care) Vital Signs: Last Vital Signs Temp 96.9 F 12/18/24 08:03 Pulse 49 L 12/18/24 08:03 BP 112/70 12/18/24 08:03 Pulse Ox 98 12/18/24 08:03 Oxygen Delivery Method Room Air 12/18/24 08:03 BMI result Body Mass Index 36.2 Tobacco/Smoking Status: Tobacco use Status Tobacco use date assessed 12/18/24 12/18/24 08:08 Patient Tobacco Use Status Never used Tobacco 12/18/24 08:08 Tobacco use type Cigarette 12/18/24 08:08 e-Cigarette/Vaping Use Never Used 12/18/24 08:08 Thrive Assessment: Date of Thrive Assessment Date Thrive assessed 10/14/24 12/18/24 08:08 Const General: cooperative, healthy appearing, comfortable and no acute distress Orientation/consciousness: patient oriented x3 HENMT Head: Yes normocephalic Ears: hearing grossly normal bilaterally General nose exam: Normal external nose present Eyes General: appearance normal, both eyes and all related structures Conjunctivae: conjunctivae normal Neck Neck: Yes full ROM and Yes no lymphadenopathy Chest Other: no rashes noted on bilateral breasts no nipple discharge Chest palpation & inspection: normal inspection of the chest Breast/axilla inspection: normal inspection of the breasts Breast/axilla palpation: normal palpation of the breasts, normal palpation of the axillae and no axillary lymphadenopathy Resp Effort & Inspection: normal respiratory effort Auscultation: clear to auscultation bilaterally, no crackles, no rales, no rhonchi and no wheezes Cardio Rate: regular rate Rhythm: regular rhythm Skin General skin exam: no rashes or lesions noted Neuro General: patient oriented x3 Gait exam (Neuro): Normal gait present Extrem General: Yes normal to inspection, Yes full ROM and No edema Psych Affect: normal affect Attitude: cooperative Insight: Good insight present (Psych) Judgement: Good judgement present (Psych) Coding Level of Care Code Est Pt Level 4 (02650) Diagnoses Breast pain, right N64.4 Assessment & Plan Assessment & Plan (1) Breast pain, right: Code(s): N64.4 - Mastodynia Category: Medical Plan: Patient complaining of right breast pain began suddenly 5 days ago no inciting injury trauma to the area. Not associated with any rashes. I ordered an ultrasound and a mammogram for the right breast to further investigate the primary complaint of breast pain. These imaging studies aim to thoroughly evaluate for any possible underlying conditions that might have been missed during the physical examination. In the meantime, the patient can continue with supportive measures for comfort, like wearing a bra and using Tylenol or ibuprofen for pain management. Additionally, I advised the patient to apply heat to the affected area, which may help if the cause is muscular. The patient will be contacted with the results of the imaging, and further steps in management will be discussed at that point. Plan This note was constructed using voice recognition software. While every effort has been made to ensure accuracy and state farm agent team member, still areas may have been included sometimes these areas may affect the content or meeting of the given symptoms. Total time spent caring for the patient today was 20 minutes. This includes time spent before the visit reviewing the chart, time spent during the visit, and time spent after the visit and documentation. Patient was informed and verbally consented to the use of an ambient scribe for clinic note documentation during this visit. Orders: Orders US breast RT complete Today N64.4 - Mastodynia MM tomosynthesis diagnostic RT Today N64.4 - Mastodynia
[2024-12-18 08:03] VITALS: BP 112/70; PULSE 49; TEMP 36.1; O2SAT 98; BMI 36.2
== END 2024-12-18 08:29 | disposition home or self-care (01) ==
LOC: HO.HMCH 07:54
DX: N64.4 Mastodynia (principal)

== ENCOUNTER → 2024-12-18 07:53 | Outpatient (BNVA) | payer OTHER, SELFPAY | DX: N64.4 Mastodynia (principal) | CPT/HCPCS: 99212 ==

== ENCOUNTER 2024-12-29 08:54 | Outpatient (AMB) | payer OTHER, SELFPAY ==
[2024-12-29 09:01] VITALS: BP 126/82; BMI 36.1
--- NOTE | 2024-12-29 09:01 | MHC.PC.OV ---
Vital Signs 12/29/24 09:01 Height 5 ft Weight 185 lb BMI 36.1 BP 126/82 Blood Pressure Location Lt brachial Position Sitting Intake Visit Reasons: Rt. Breast pain Supervisor Roller Printing Required: Yes Supervisor Roller Printing Language: Electrical And Radio Aircraft Mechanic Name: Fay Cisneros MD Information Interpreted: non-clinical & clinical Accompanied by: Self / Same As Patient Allergies gabapentin Allergy (Intermediate, Verified 12/29/24 09:13) pruritus magnesium Allergy (Intermediate, Verified 12/29/24 09:13) IV route caused rash, can tolerate PO environmental allergies Allergy (Unknown, Verified 12/29/24 09:13) Unknown metformin Adverse Reaction (Intermediate, Verified 12/29/24 09:13) diarrhea Medication List - Last Reviewed 12/29/24 by FERN Francisco docusate sodium (Colace) 100 mg PO DAILY levocetirizine (Xyzal) 5 mg PO DAILY Tobacco use date assessed: 12/18/24 Dental Screening Dental Screen Date: 10/14/24 HPI HPI Comments History of Present Illness Details The patient is a 44-year-old female presenting with right breast pain. She describes a sensation on the right side of the breast, which occasionally feels like stinging. The discomfort is noted especially when not wearing a brassiere and is localized around the 9 o'clock position. Past mammography in June was normal. There is a family history significant for an aunt who was recently treated for breast cancer. No nipple discharge or retraction. No skin changes in the breast. No mass palpated. She has constipation, diabetes mellitus type 2 and allergic rhinitis also. Constipation stable with medications. On antihistamines as needed for allergic rhinitis. Last A1c was within goal and diabetes well controlled with diet. She is obese with a BMI of 36.1 and has been intentionally losing weight after weight loss surgery and follows with weight management. [facility] Medical History (Updated 12/29/24 @ 09:38 by Fay Cisneros MD) Cervical cancer screening Obesity, morbid, BMI 50 or higher Physical exam Well woman exam with routine gynecological exam Non-insulin dependent type 2 diabetes mellitus Diabetes Environmental allergies GERD (gastroesophageal reflux disease) Migraines Hypovitaminosis D Morbid obesity Missed period Hair loss Extreme obesity Acne Surgical History S/P laparoscopic sleeve gastrectomy History of esophagogastroduodenoscopy (EGD) (07/30/24) History of surgery History of right breast biopsy History of tubal ligation History of section History of laparoscopic cholecystectomy Family History Father Hypertension Stroke Mother Hypertension Sister No problems noted. Son No problems noted. Daughter No problems noted. Maternal Aunt Colon cancer, Onset Age: 60 Social History Household Members: Spouse Housing: Apartment Are you a primary medicare coordinator to a significant other at home: No Do you presently have visiting nurse or other home services: No Alcohol intake: never Comment: Gas pain Patient Tobacco Use Status: Never used Tobacco Tobacco use type: Cigarette e-Cigarette/Vaping Use: Never Used Second Hand Smoke Exposure: No service: No Current occupational status: employed Current occupational exposures/hazards: No Cognitive needs: No Hearing needs: No Vision needs: Yes Female Reproductive History Menstrual Age of Menarche: 9 Questionnaire PHQ-9 Over the last 2 weeks, how often have you been bothered by any of the following problems? 1. Little interest or pleasure in doing things: not at all 2. Feeling down, depressed, or hopeless: not at all 3. Trouble falling or staying asleep, or sleeping too much: not at all 4. Feeling tired or having little energy: not at all 5. Poor appetite or overeating: not at all 6. Feeling bad about yourself - or that you are a failure or have let yourself or your family down: not at all 7. Trouble concentrating on things, such as reading the newspaper or watching television: not at all 8. Moving or speaking so slowly that other people could have noticed. Or the opposite - being so fidgety or restless that you have been moving around a lot more than usual: not at all 9. Thoughts that you would be better off or of hurting yourself in some way: not at all Total score: 0 Depression Screening Interpretation: Negative Depression Screening Done: Yes 78771 - PHQ-9 Billing: Yes Source: Developed by Drs. German Bell, Trena Mccoy, Elia Zimmerman and colleagues, with an educational haseeb from [employer]. Thrive Questionnaire Date Thrive assessed: 12/27/24 I am a: Patient What is your living situation today?: I have a steady place to live Within the past 12 months, did the food you bought not last and you didn't have the money to get more?: Never true Within the past 12 months, did you worry whether your food would run out before you got money to buy more?: Never true Do you have trouble paying for medicines?: No Do you have trouble getting transportation to medical appointments?: No Do you have trouble paying your heating and electricity bill?: No Do you have trouble taking care of your child, family member or friend?: No Do you have trouble with day-to-day activities such as bathing, preparing meals, shopping, managing finances, etc.?: No Are you currently unemployed and looking for a job?: No Are you interested in more education?: No Please select the resources that you would like help with: None Currently or been in a relationship where the following occur: No concerns reported THRIVE Score: 0 AUDIT C Alcohol Use Questionnaire (AUDIT-C) 1. How often do you have a drink containing alcohol?: Never Total Score: 0 Score Reviewed/Action Taken: No GUZMAN-7 AMB Questionnaire GUZMAN-7 Date GUZMAN - 7 assessed: 10/14/24 Feeling nervous, anxious, or on edge: 0 = Not at all Not being able to stop or control worryin = Not at all Worrying too much about different things: 0 = Not at all Trouble relaxin = Not at all Being so restless that it is hard to sit still: 0 = Not at all Becoming easily annoyed or irritable: 0 = Not at all Feeling afraid as if something awful might happen: 0 = Not at all Total GUZMAN-7 score (0-4 normal; 5-9 mild; 10-14 moderate; 15-21 severe): 0 Source: Developed by Drs. German Bell, Trena Mccoy, Elia Zimmerman and colleagues, with an educational haseeb from [employer]. GUZMAN-7 Assessment Billing GUZMAN-7 Assessment Tool: GUZMAN-7 Assessment 49698 Review of Systems Const All systems reviewed & are unremarkable except as noted in HPI and below Card Denies chest pain at rest, Denies chest pain with activity, Denies edema, Denies irregular heart rhythm, Denies claudication, Denies dyspnea, Denies dyspnea on exertion, Denies orthopnea, Denies paroxysmal nocturnal dyspnea and Denies slow heart rate Resp Denies cough, Denies dyspnea and Denies dyspnea on exertion Skin/Breast Reports breast pain Neuro Denies lack of coordination Physical exam (Primary Care) Vital Signs: Last Vital Signs BP 126/82 12/29/24 09:01 BMI result Body Mass Index 36.1 BMI Assessment/Plan discussion: High BMI High, discussed plan: lifestyle, weight reduction, dietary and physical activity Tobacco/Smoking Status: Tobacco use Status Tobacco use date assessed 12/18/24 12/29/24 09:06 Patient Tobacco Use Status Never used Tobacco 12/29/24 09:06 Tobacco use type Cigarette 12/29/24 09:06 e-Cigarette/Vaping Use Never Used 12/29/24 09:06 PHQ-9: PHQ-9 Score PHQ-9: Total score 0 12/29/24 09:06 Depression Screening Interpretation: Negative Thrive Assessment: Date of Thrive Assessment Date Thrive assessed 12/27/24 12/29/24 09:06 Currently or been in a relationship where the following occur: No concerns reported Chest Breast/axilla inspection: normal inspection of the breasts Breast/axilla palpation: abnormal palpation of the axilla (pain at 9 o'clock right breast) Resp Effort & Inspection: normal respiratory effort Auscultation: clear to auscultation bilaterally Cardio Jugular venous distension: no JVD Rate: regular rate Rhythm: regular rhythm Heart sounds: S1 normal heart sound present and S2 normal heart sound present Extrem General: Yes full ROM Coding Level of Care Code Est Pt Level 4 (30425) Complex EM visit Add On G2211 Diagnoses Breast pain, right N64.4 Constipation K59.00 Obesity E66.9 Allergic rhinitis J30.9 Type 2 diabetes mellitus without complication, without long-term current use of insulin E11.9 Diabetes mellitus type: type 2 Diabetes mellitus termite treater helper insulin use: without penitentiary use Diabetes mellitus complication status: without complication Additional Codes PHQ-9 - 95376 - PHQ-9 Billing: Yes ([id number]) GUZMAN-7 Assessment Billing - GUZMAN-7 Assessment Tool: GUZMAN-7 Assessment [id number] ([id number]) Time Spent (min) 22 Assessment & Plan Assessment & Plan (1) Breast pain, right: Code(s): N64.4 - Mastodynia Category: Medical (2) Constipation: Code(s): K59.00 - Constipation, unspecified Category: Medical (3) Obesity: Code(s): E66.9 - Obesity, unspecified Category: Medical (4) Allergic rhinitis: Code(s): J30.9 - Allergic rhinitis, unspecified Category: Medical (5) Diabetes mellitus: Code(s): E11.9 - Type 2 diabetes mellitus without complications Category: Medical Qualifiers: Diabetes mellitus type: type 2 Diabetes mellitus penitentiary insulin use: without termite treater helper use Diabetes mellitus complication status: without complication Qualified Code(s): E11.9 - Type 2 diabetes mellitus without complications Plan Evaluation of the right breast pain involves awaiting mammography and ultrasound results. Close monitoring will continue, especially in light of a family history of breast cancer. I will reassess management options based on imaging outcomes. Management of rhinitis will continue as per current regimen, with avoidance of known triggers. Diarrhea from Metformin will be managed through dietary adjustments. Allergies to Gabapentin and Magnesium will be further evaluated as needed. Patient was informed and verbally consented to the use of an ambient scribe for clinic note documentation during this visit. I discussed with the patient the need to await imaging results from her recent mammography and ultrasound. We considered the family history of breast cancer while planning vigilant follow-up. I reassured the patient that pain resolution could indicate benign changes, but we will address any findings on imaging promptly. We reviewed her allergies, and current management for rhinitis, including trigger avoidance. I advised dietary measures to manage the diarrhea associated with Metformin. Instructed the patient to follow up with imaging reports and contact us for any new symptoms or changes. Orders: Orders US breast RT limited 12/24/24 N64.4 - Mastodynia MM tomosynthesis diagnostic RT 12/18/24 N64.4 - Mastodynia Patient Instructions: - Monitor the right breast for any new changes or symptoms. - Follow up with the clinic once mammography and ultrasound results are obtained. - Continue prescribed management for rhinitis and avoid environmental triggers. - Maintain a balanced diet to help manage diarrhea from Metformin. - Contact us immediately if there are new developments or concerns. - Schedule a follow-up appointment to discuss imaging results once available.
== END 2024-12-29 09:20 | disposition home or self-care (01) ==
PROVIDERS: Visit Provider Internal Medicine
DX: N64.4 Mastodynia (principal); E11.9 Type 2 diabetes mellitus without complications; E66.9 Obesity, unspecified; Z68.36 Body mass index [BMI] 36.0-36.9, adult; K59.00 Constipation, unspecified; J30.9 Allergic rhinitis, unspecified

== ENCOUNTER → 2024-12-29 08:54 | Outpatient (BNVA) | payer OTHER, SELFPAY | PROVIDERS: Visit Provider Internal Medicine | DX: N64.4 Mastodynia (principal); K59.00 Constipation, unspecified; E66.9 Obesity, unspecified; E11.9 Type 2 diabetes mellitus without complications | CPT/HCPCS: 96127; 99212 ==

== ENCOUNTER 2025-01-06 08:10 | Outpatient (REF) | payer OTHER, SELFPAY ==
--- NOTE | ~2025-01-06 | MM_ITS ---
EXAMINATION: MM DIAGNOSTIC DIGITAL BREAST TOMOSYNTHESIS, RIGHT Limited Right breast ultrasound. CLINICAL INFORMATION: Right breast pain upper outer quadrant. COMPARISON: Mammography: [facility] on PACS. TECHNIQUE: Digital breast tomosynthesis is performed in both the craniocaudal and mediolateral oblique views along with computer-aided detection (CAD). Synthesized 2D images are generated from the tomosynthesis. FINDINGS: The breasts are heterogeneously dense, which may obscure small masses (ACR BI-RADS breast composition Category c). Triangular marker at site of pain in the upper outer breast without underlying abnormality. There are no significant masses, abnormal calcifications, or other abnormalities. Targeted color Doppler ultrasound scanning in the area of the patient's pain from 7-11 o'clock demonstrates multiple simple and minimally complicated cysts minimal complicated cyst at 10:00 7 cm from nipple measuring 5 x 2 x 9 mm. Minimally complicated cyst at 9:00 7 cm from nipple measuring 5 x 4 x 3 mm. No other sonographic abnormality. No abnormality to account for the patient's right breast pain. MM/MM tomosynthesis diagnostic RT IMPRESSION: 2 incidental minimally complicated cysts which are benign. No other mammographic or sonographic abnormality to account for the patient's right breast pain. Recommend clinical evaluation and follow-up. ASSESSMENT: BI-RADS BI-RADS 2 - Benign Findings RECOMMENDATION: 1 year F/U Results were provided to the patient at time of visit by the technologist. This patient's information was entered into a reminder system with a target due date for their next mammogram. Electronically signed by: Chiqui Hammonds DO 01/06/2025 10:17 AM EDT
--- OUTSIDE RECORDS SUMMARY | 2025-01-06 08:23 | XMS_ITS | Clinical Summary ---
Author Organization [facility] ity Address [address] [place] [address] Care Team Providers Care Refueler Name Role Phone Unavailable Primary Care Provider [...] Smear 1999 Colorectal Cancer Screening: Colonoscopy 09/03/2022 HIV Screening 09/03/2022 COVID-19 Vaccine (2023-2 5 season) 2024 Influenza Vaccine (#1) 2024 [...] age to complete this topic Meningococcal B Vaccine Aged Out No l onger eligible based on patient's age to complete [...] Documents on File Type Date Recorded Patient Film Rental Clerk Expl anation Health Care Decision (hx) 03/08/2014 AD FOUNTAIN DIRECTIVE Health Care Decision (hx) 03/08/2014 AD FOUNTAIN DIRECTIVE Health Care Decision (hx) 03/08/2014 AD FOUNTAIN DIRECTIVE
--- OUTSIDE RECORDS SUMMARY | 2025-01-06 08:23 | XMS_ITS | Data Portability ---
Author Organization [place] - [facility], Allergy Address [address] [place] [id number] Care Team Providers Care Industrial Electrical Engineer Name Role Phone MARY CRAVEN Primary Care Provider [phone] Assessment Encounter Date Assessment Date Assessment LastModified by Organization Details LastModified Time 03/17/2024 03/17/2024 44-year-old kate tello presents for re-evaluation. Her hoarseness improved with use of omeprazole. She may continue using this. I have recommended referral to gastroenterology for further evaluation and treatment. She should also continue with her parking lot attendant and cashier as this is likely exacerbating symptoms. May follow-up here as needed. [email or web address] Not available 03/17/2024 14:17:36 Plan of Treatment Reminders Order Date Submit Date Provider Last Modified By Organization Details Last Modified Time Details Appointments None recorde d. Lab None recorde d. Referral gastroe nterolo gist referra l - Referra l for reflux. Thank you. 2023 024 [id number] 2 [facility] Gastroenterology Scheduling Department, [address] [place] [address], [id number], 4 12:19:05 Procedures None recorde d. Surgeries None recorde d. Imaging None recorde d. Medication Orders None recorde d. Patient TargetsNo targets recorded. Patient InstructionsNo instructions recorded. Reason for Referral Head Buyer Tobacco Referral for Gastroesophageal reflux disease without esophagitis Referral for reflux. Thank you. Referring Physician: Sandi Sidhu, Otolaryngology, Encounter Date: 03/17/2024 Problems Name Problem SNOMED Code Status Onset Date Resolution Date Notes Provider Name and Address Organization Details Recorded Time Gastroesop hageal reflux disease without esophagiti s 282208126 Active 2023 SANDI SIDHU PA-C [address], [place], [address] , [facility] - [facility] 4 13:57:35 Allergic rhinitis 44616255 Active 2023 SANDI SIDHU PA-C [address] [facility] [address], [place], [address] , [facility] - [facility] 4 13:57:51 Dysphagia 52462014 Active 2023 SANDI SIDHU PA-C [address], [place], [address] , [facility] - [facility] 4 13:58:06 Hoarse 57627885 Active 2023 BARBARA SARGENT MD [address] [facility],[address], [place], [address] , [facility] - [facility] 4 14:17:42 Dysphonia 04586358 Active 2023 Hoarsenes s; Note: Date Diagnosed : 11/21/2023 12:28 PM (R49.0) Not Available [facility] 4 03:25:13 Allergic rhinitis caused by pollen 62363330 Active 2023 Allergic rhinitis due to pollen; Note: Date Diagnosed : 11/21/2023 12:28 PM (J30.1) Not Available [facility] 4 03:25:13 Problem Notes None recorded. Medical Equipment None Reported. Allergies Allergen ID Allergen Name Allergen Category Reaction Reaction Severity Criticality Documentation Date Start Date Code Code System Note Provider Name and Address Organization Details Recorded Time 714077 Product containin g magnesium and/or magnesium compound (product) medicatio n hives Not available Not available 05/02/2024 29940 5005 SNOMED React ion: Hives ; Not Available [facility] 4 00:23:57 153578 metformin medicatio n diarrhea Not available Not [...] Xyzal 5 mg tablet active Medication ID: [id number] Bra nd Name: Xyzal Send Method: E-Prescrib ed Subs Allowed: subs OK Medicat ionGeneric Name: Xyzal Not Available Not Available Not Available butalbital 50 mg-acetami nophen 300 mg capsule active Medication ID: [id number] Bra nd Name: butalbital -acetamino phen Send Method: E-Prescrib ed Subs Allowed: subs OK Medicat ionGeneric Name: butalbital -acetamino phen Not Available Not Available Not Available Vitals Date Recorded Body height Body mass index (BMI) Body weight Provider Name and Address Organization Details Last Updated DateTime 03/17/2024 152.4 cm 50.6 kg/m2 952325.42 g Sarita Mo [place] - [facility] 03/17/2024 13:03:46 Social History None recorded. Functional [...] Diagnosis Note [id number] BARBARA SARGENT MD [facility] [address] [phone] 03/17/2024 12:18:22 03/17/2024 13:37:11 Gastroesophageal reflux disease without esophagitis 595256438 K21.9 Allergic rhinitis 693061 04 J30.9 Hoarse 81510049 R49.0 improved Health Concerns Section Related Observation LastModified by Organization Detai ls LastModified Time None Recorded Concern Status LastModified by Organization Details LastModified Time None Recorded Advance Directives Directive None Recorded Payers Encounter Date Sequence Insurance Name Policy Number Policy Greene Covered Member ID Greene Member ID Guarantor Name 03/17/2024 1 [facility] [employer] - HEALTH NET PLAN (MEDICAID HMO) SOCO Knuston Rk [id number] Zenia Beckman Notes Date Note Type Note Provider Name and Address Organization Details Recorded Time 03/17/2024 text/html 44-year-old female presents for reevaluation. Previously evaluated for hoarseness and thought to have GERD and postnasal drip from seasonal allergy. She sees an parking lot attendant and cashier and takes Flonase and Xyzal daily. Omeprazole was added to her daily regimen and she feels her hoarseness has improved. Plans to see her parking lot attendant and cashier in March. BARBARA JAMES MD [address] [place] [address], [phone], [facility] - [facility] 03/17/2024 14:17:57 OBGyn Episode No OBEpisode recorded.
--- OUTSIDE RECORDS SUMMARY | 2025-01-06 08:23 | XMS_ITS | Clinical Summary ---
Author Organization [facility] Address [address] [place] [address] Care Team Providers Care Ticket Printer Name Role Phone Unavailable Primary Care Provider [...] Not on file Insurance [place] MEDICAID DENTAL [facility] SAFETY [place] [address] [place] [address] DENTAL
== END 2025-01-06 08:11 | disposition home or self-care (01) ==
LOC: HO.MAMMO 08:10
PROVIDERS: PCP Internal Medicine; Visit Provider Internal Medicine
DX: N64.4 Mastodynia (principal)
CPT/HCPCS: 76642; 77061; 77065

== ENCOUNTER → 2025-01-06 08:45 | Outpatient (BNV) | payer OTHER, SELFPAY | PROVIDERS: PCP Internal Medicine; Visit Provider Internal Medicine | DX: N64.4 Mastodynia (principal) | CPT/HCPCS: 76642; 77061; 77065 ==

== ENCOUNTER → 2025-01-07 08:15 | Outpatient (AMB) | payer OTHER, SELFPAY ==
--- NOTE | 2025-01-07 08:05 | A.OFFWM_ITS ---
Intake Intake Visit Reasons: VIDEO PO LSG 09/11/24 Allergies gabapentin Allergy (Intermediate, Verified 12/29/24 09:13) pruritus magnesium Allergy (Intermediate, Verified 12/29/24 09:13) IV route caused rash, can tolerate PO environmental allergies Allergy (Unknown, Verified 12/29/24 09:13) Unknown metformin Adverse Reaction (Intermediate, Verified 12/29/24 09:13) diarrhea PFSH Medical History Cervical cancer screening Obesity, morbid, BMI 50 or higher Physical exam Well woman exam with routine gynecological exam Non-insulin dependent type 2 diabetes mellitus Diabetes Environmental allergies GERD (gastroesophageal reflux disease) Migraines Hypovitaminosis D Morbid obesity Missed period Hair loss Extreme obesity Acne Surgical History S/P laparoscopic sleeve gastrectomy History of esophagogastroduodenoscopy (EGD) (07/30/24) History of surgery History of right breast biopsy History of tubal ligation History of section History of laparoscopic cholecystectomy Family History Father Hypertension Stroke Mother Hypertension Sister No problems noted. Son No problems noted. Daughter No problems noted. Maternal Aunt Colon cancer, Onset Age: 60 Social History Household Members: Spouse Housing: Apartment Are you a primary technical healthcare consultant to a significant other at home: No Do you presently have visiting nurse or other home services: No Alcohol intake: never Comment: Gas pain Patient Tobacco Use Status: Never used Tobacco Tobacco use type: Cigarette e-Cigarette/Vaping Use: Never Used Second Hand Smoke Exposure: No service: No Current occupational status: employed Current occupational exposures/hazards: No Cognitive needs: No Hearing needs: No Vision needs: Yes Female Reproductive History Menstrual Age of Menarche: 9 Behavioral Health Assessment Weight Management Therapy Therapy Notes Details Subjective: Patient reports feeling very stressed and overwhelmed over the past 2?3 weeks. She is currently in the process of moving to a new residence, experiencing financial hardship, and providing frequent care for her two grandchildren due to her daughter?s needs. She reports feeling emotionally and physically exhausted and finds it difficult to keep up with her responsibilities. The patient also reports difficulty maintaining her self-care and routine during this transi tional period. Objective: Patient presents for a follow-up visit via Telehealth. Therapeutic work included: * Discussing current functioning, daily routine, and presenting challenges. * Addressing boundary setting and communication strategies within the household. * Supporting the development of equitable distribution of the mental load with her partner and emphasizing teamwork. * Brainstorming practical ways to incorporate daily exercise into her routine, reframing it as a core component of her lifestyle rather than an optional task. Assessment/Response: * Mental Status: Alert and oriented to person, place, and time. Mood appears anxious and overwhelmed; affect congruent with mood. Speech normal in rate and tone. Thought processes are linear and goal-directed. No signs of psychosis or cognitive impairment observed during session. * Risk Reported/Identified: Patient denies suicidal or homicidal ideation, intent, or plan. No current risk factors for self-harm identified at this time. Safety plan reviewed and remains appropriate. Patient was engaged in the session and receptive to interventions discussed. She acknowledged the importance of prioritizing self-care and was open to implementing new strategies to improve her well-being. Food/Weight/Diet Expectations of change The initial goal is to lose 10% of her weight before surgery, about 25 lbs. Ultimate weight goal: 233lbs before surgery The patient wants to become healthier, not need to use insulin or check her sugar anymore, and be more active. Initial weight: 256 lb 8 oz Most recent weight: 233Lbs Had bariatric surgery on 09/11/2024. Pre-surgery weight: 226Lbs Current weight - 09/25/2024: 212Lbs Weight as of 10/23/2024: 204 lbs Weight as of 11/21/2024: 194 Lbs Weight as of 12/12/2024: 186 lbs Weight as of 01/06/2025: 177.8Lbs . PT is implementing the following: Current meal plan: 3 shakes a day and 1 bar. Water and Gatorade. Exercise plan: Walking in a treadmill. 30 min 3-4 x at week. She is starting slow. Assessment & Plan Assessment & Plan (1) Adjustment disorder: Code(s): F43.20 - Adjustment disorder, unspecified Plan * Follow-up session scheduled for 02/04/2025 at 8:00 AM via Telehealth. * Continue working on stress management, household communication, and realistic goal-setting. * Monitor mental health status, with attention to signs of burnout or depressive symptoms. * Encourage patient to track physical activity and mood over the next month for discussion at next session. Telehealth Telehealth Telehealth Platform: Fluent Home Location of provider rendering services: practice address Location of patient: address on file Patient Identification confirmed using: Name, : Yes Telehealth method: video Patient verbally consented to treatment: Yes Patient verbally consented to billing insurance company: Yes Patient informed of any privacy concerns related to visit: Yes Minutes spent on Phone/Video with Pt.: 60 Coding Level of Care Code Established Pt Tele Psytx >53 mins (45740) Patient Type Established Diagnoses Adjustment disorder F43.20 Time Spent (min) 60
--- OUTSIDE RECORDS SUMMARY | 2025-01-07 08:21 | XMS_ITS | Clinical Summary ---
Author Organization [facility] Address [address] [place] [address] Care Team Providers Care E Commerce Developer Name Role Phone Unavailable Primary Care Provider [...] Not on file [place] D[place] [facility] SAFETY [place] [address] [place] [address] DENTAL
--- OUTSIDE RECORDS SUMMARY | 2025-01-07 08:21 | XMS_ITS | Clinical Summary ---
Author Organization [facility] ity Address [address] [place] [address] Care Team Providers Care Radio Reporter Name Role Phone Unavailable Primary Care Provider [...] Documents on File Type Date Recorded Patient Pet Care Worker Expl anation Health Care Decision (hx) 03/08/2014 AD FOUNTAIN DIRECTIVE Health Care Decision (hx) 03/08/2014 AD FOUNTAIN DIRECTIVE Health Care Decision (hx) 03/08/2014 AD FOUNTAIN DIRECTIVE
== END ==
PROVIDERS: PCP Internal Medicine; Visit Provider Counselor Mental Health
DX: F43.20 Adjustment disorder, unspecified (principal)
CPT/HCPCS: 90837

== ENCOUNTER 2025-02-02 09:15 | Outpatient (AMB) | payer OTHER, SELFPAY ==
--- NOTE | 2025-02-02 09:04 | A.OFFVIS_ITS ---
VS Expanded 02/02/25 09:09 Height 5 ft Weight 171 lb 6 oz BMI 33.5 Intake Visit Reasons: TELEPHONE PO LSG 09/11/24 Checkering Machine Adjuster Required: Yes Checkering Machine Adjuster Name: Harpal [id number] Allergies gabapentin Allergy (Intermediate, Verified 12/29/24 09:13) pruritus magnesium Allergy (Intermediate, Verified 12/29/24 09:13) IV route caused rash, can tolerate PO environmental allergies Allergy (Unknown, Verified 12/29/24 09:13) Unknown metformin Adverse Reaction (Intermediate, Verified 12/29/24 09:13) diarrhea Medication List - Last Reconciled 02/02/25 by WALLACE Saunders docusate sodium (Colace) 100 mg PO DAILY levocetirizine (Xyzal) 5 mg PO DAILY HPI Comments Details: This?is a?45?yo F who is s/p LSG 09/11/2024. Presents for 5 month post op visit. Weight at last visit on 12/08/2024 was 188 pounds with a BMI of 36.7, weight today is 171.6 pounds, representing a 16.4 pound weight loss with a BMI today of 33.5.? No complaints of nausea, emesis, abdominal pain or reflux, or constipation. She reports hair loss, wants to know if she can take biotin. Blood sugars- remains off pioglitazone. Well controlled. Vitamins- nausea has improved since last visit. Present meal plan includes: 3 protein drink 1 bar MVI Exercise routine includes: has a machine at home/does home exercises now only 3 days a week or so sometimes, recently moved, tries to do more often if she can PFSH Medical History Cervical cancer screening Obesity, morbid, BMI 50 or higher Physical exam Well woman exam with routine gynecological exam Non-insulin dependent type 2 diabetes mellitus Diabetes Environmental allergies GERD (gastroesophageal reflux disease) Migraines Hypovitaminosis D Morbid obesity Missed period Hair loss Extreme obesity Acne Surgical History S/P laparoscopic sleeve gastrectomy History of esophagogastroduodenoscopy (EGD) (07/30/24) History of surgery History of right breast biopsy History of tubal ligation History of section History of laparoscopic cholecystectomy Family History Father Hypertension Stroke Mother Hypertension Sister No problems noted. Son No problems noted. Daughter No problems noted. Maternal Aunt Colon cancer, Onset Age: 60 Social History Household Members: Spouse Housing: Apartment Are you a primary career placement services counselor to a significant other at home: No Do you presently have visiting nurse or other home services: No Alcohol intake: never Comment: Gas pain Patient Tobacco Use Status: Never used Tobacco Tobacco use type: Cigarette e-Cigarette/Vaping Use: Never Used Second Hand Smoke Exposure: No service: No Current occupational status: employed Current occupational exposures/hazards: No Cognitive needs: No Hearing needs: No Vision needs: Yes Female Reproductive History Menstrual Age of Menarche: 9 Telehealth Telehealth Telehealth Platform: Telephone Location of provider rendering services: other Location of patient: address on file Patient Identification confirmed using: Name, : Yes Telehealth method: voice only Patient verbally consented to treatment: Yes Patient verbally consented to billing insurance company: Yes Patient informed of any privacy concerns related to visit: Yes Minutes spent on Phone/Video with Pt.: 16 Assessment & Plan Assessment & Plan (1) Obesity: Code(s): E66.9 - Obesity, unspecified Category: Medical (2) S/P laparoscopic sleeve gastrectomy: Code(s): Z.84 - Bariatric surgery status Category: Surgical Plan Pt to continue weekly communication with Dr Schultz. She is trying to exercise as often as her schedule allows. Can take biotin. Will order labs in anticipation of 6mo postop visit. RTC 6w. Orders: Orders Hemoglobin A1c Today Z.84 - Bariatric surgery status Vitamin B12 and Folate Today Z.84 - Bariatric surgery status C Reactive Protein Today Z.84 - Bariatric surgery status Vitamin A Today Z.84 - Bariatric surgery status Ferritin Today Z.84 - Bariatric surgery status Insulin Today Z.84 - Bariatric surgery status Complete Blood Count Auto Diff Today Z84 - Bariatric surgery status Lipid Panel Today Z.84 - Bariatric surgery status IRON PROFILE Today Z.84 - Bariatric surgery status Comprehensive Met. Panel Today 84 - Bariatric surgery status Zinc Today Z.84 - Bariatric surgery status Vitamin B1 Today Z98.84 - Bariatric surgery status TSH reflex Free T4 Today Z98.84 - Bariatric surgery status Vitamin D 25-OH Total Today Z98.84 - Bariatric surgery status
[2025-02-02 09:09] VITALS: BMI 33.5
--- OUTSIDE RECORDS SUMMARY | 2025-02-02 10:03 | XMS_ITS | Clinical Summary ---
Author Organization [facility] Address [address] [place] [address] Care Team Providers Care Wort Extractor Name Role Phone Unavailable Primary Care Provider [...] Not on file [place] D[place] [facility] SAFETY [place] [address] [address] [place] [address] DENTAL
--- OUTSIDE RECORDS SUMMARY | 2025-02-02 10:03 | XMS_ITS | Data Portability ---
Author Organization [place] - [facility], Allergy Address [address] [place] [address] Care Team Providers Care Customer Account Manager Name Role Phone MARY CRAVEN Primary Care Provider [phone] Assessment Encounter Date Assessment Date Assessment LastModified by Organization Details LastModified Time 03/17/2024 03/17/2024 44-year-old kate tello presents for re-evaluation. Her hoarseness improved with use of omeprazole. She may continue using this. I have recommended referral to gastroenterology for further evaluation and treatment. She should also continue with her web content editor as this is likely exacerbating symptoms. May follow-up here as needed. [email or web address] Not available 03/17/2024 14:17:36 Plan of Treatment Reminders Order Date Submit Date Provider Last Modified By Organization Details Last Modified Time Details Appointments None recorde d. Lab None recorde d. Referral gastroe nterolo gist referra l - Referra l for reflux. Thank you. 2023 024 [email or web address] 2 [facility] Gastroenterology Scheduling Department, [address] [place] [address], [address], 4 12:19:05 Procedures None recorde d. Surgeries None recorde d. Imaging None recorde d. Medication Orders None recorde d. Patient TargetsNo targets recorded. Patient InstructionsNo instructions recorded. Reason for Referral Railroad Conductor Referral for Gastroesophageal reflux disease without esophagitis Referral for reflux. Thank you. Referring Physician: Sandi Sidhu, Otolaryngology, Encounter Date: 03/17/2024 Problems Name Problem SNOMED Code Status Onset Date Resolution Date Notes Provider Name and Address Organization Details Recorded Time Gastroesop hageal reflux disease without esophagiti s 374354716 Active 2023 SANDI SIDHU PA-C [address], [place], [address] , [facility] - [facility] [place] 4 13:57:35 Allergic rhinitis 07336864 Active 2023 SANDI SIDHU PA-C [address] [facility] [address], [place], [address] , [facility] - [facility] [place] 4 13:57:51 Dysphagia 79489078 Active 2023 SANDI SIDHU PA-C [address], [place], [address] , [facility] - [facility] [place] 4 13:58:06 Hoarse 39257068 Active 2023 BARBARA SARGENT MD 100 [facility],[address], [place], [address] , [facility] - [facility] [place] 4 14:17:42 Dysphonia 47603788 Active 2023 Hoarsenes s; Note: Date Diagnosed : 11/21/2023 12:28 PM (R49.0) Not Available [facility] 4 03:25:13 Allergic rhinitis caused by pollen 56414636 Active 2023 Allergic rhinitis due to pollen; Note: Date Diagnosed : 11/21/2023 12:28 PM (J30.1) Not Available [facility] 4 03:25:13 Problem Notes None recorded. Medical Equipment None Reported. Allergies Allergen ID Allergen Name Allergen Category Reaction Reaction Severity Criticality Documentation Date Start Date Code Code System Note Provider Name and Address Organization Details Recorded Time 704422 Product containin g magnesium and/or magnesium compound (product) medicatio n hives Not available Not available 05/02/2024 43286 5005 SNOMED React ion: Hives ; Not Available [facility] 4 00:23:57 536635 metformin medicatio n diarrhea Not available Not available 05/02/2024 6809 RxNorm React ion: Diarr hea; Not Available [facility] 00:[facility] Medications Name Sig Start Date Stop Date Status Note LastModified by Organization Details LastModified Time omeprazole 20 mg capsule,de layed release TAKE 1 CAPSULE EVERY MORNING ONE HOUR BEFORE MEALS NEED INS 2023 active Not Available Not Available Not Avai lable Xyzal 5 mg tablet active Medication ID: [id number] Bra nd Name: Xyzal Send Method: E-Prescrib ed Subs Allowed: subs OK Medicat ionGeneric Name: Xyzal Not Available Not Available Not Available butalbital 50 mg-acetami nophen 300 mg capsule active Medication ID: [id number] Bra nd Name: butalbital -acetamino phen Send Method: E-Prescrib ed Subs Allowed: subs OK Medicat ionGeneric Name: butalbital -acetamino phen Not Available Not Available Not Available Vitals Date Recorded Body height Body mass index (BMI) Body weight Provider Name and Address Organization Details Last Updated DateTime 03/17/2024 152.4 cm 50.6 kg/m2 914796.42 g Sarita Mo [place] - [facility] 03/17/2024 13:03:46 Social History None recorded. Functional Status None recorded. Mental Status None recorded. Family History Nothing Reported. Medical History No medical history recorded. Gynecological HistoryNo gynecological history recorded. Obstetrics History GPAL:G 0 P 0 0 0 0 Past Encounters Encounter ID Performer Location Encounter Start Date Encounter Closed Date Diagnosis/Indication Diagnosis SNOMED-CT Code Diagnosis ICD10 Code Diagnosis Note [id number] SANDI SIDHU PA-C [facility] [address] [address] 03/17/2024 12:18:22 03/17/2024 13:37:11 Gastroesophageal reflux disease without esophagitis 194792576 K21.9 Allergic rhinitis 165675 04 J30.9 Hoarse 34340593 R49.0 improved Health Concerns Section Related Observation LastModified by Organization Detai ls LastModified Time None Recorded Concern Status LastModified by Organization Details LastModified Time None Recorded Advance Directives Directive None Recorded Payers Encounter Date Sequence Insurance Name Policy Number Policy Greene Covered Member ID Greene Member ID Guarantor Name 03/17/2024 1 [facility] [employer] - HEALTH NET PLAN (MEDICAID HMO) SOCO Beckman [id number] Zenia Beckman Notes Date Note Type Note Provider Name and Address Organization Details Recorded Time 03/17/2024 text/html 44-year-old female presents for reevaluation. Previously evaluated for hoarseness and thought to have GERD and postnasal drip from seasonal allergy. She sees an web content editor and takes Flonase and Xyzal daily. Omeprazole was added to her daily regimen and she feels her hoarseness has improved. Plans to see her web content editor in March. BARBARA JAMES MD [address] [place] [address], [phone], [facility] - [facility] 03/17/2024 14:17:57 OBGyn Episode No OBEpisode recorded.
--- OUTSIDE RECORDS SUMMARY | 2025-02-02 10:03 | XMS_ITS | Clinical Summary ---
Author Organization [facility] ity Address [address] [place] [address] Care Team Providers Care Global Climate Change Analyst Name Role Phone Unavailable Primary Care Provider [...] Cervical Cancer Screening: P ap Smear 1999 COVID-19 Vaccine (2023-2 5 season) 2024 Influenza Vaccine (Season Ended) 2025 HIB Vaccines Aged Out No longer eligi [...] Documents on File Type Date Recorded Patient Grease Rack Worker Expl anation Health Care Decision (hx) 03/08/2014 AD FOUNTAIN DIRECTIVE Health Care Decision (hx) 03/08/2014 AD FOUNTAIN DIRECTIVE Health Care Decision (hx) 03/08/2014 AD FOUNTAIN DIRECTIVE
== END 2025-02-02 09:26 | disposition home or self-care (01) ==
LOC: HO.HBS 09:15
PROVIDERS: PCP Internal Medicine; Visit Provider Physician Assistant Surgical
DX: E66.9 Obesity, unspecified (principal); Z68.33 Body mass index [BMI] 33.0-33.9, adult; Z98.84 Bariatric surgery status
CPT/HCPCS: 99214; G2211

== ENCOUNTER → 2025-02-02 09:15 | Outpatient (BNVA) | payer OTHER, SELFPAY | PROVIDERS: PCP Internal Medicine; Visit Provider Physician Assistant Surgical ==

== ENCOUNTER 2025-02-04 08:21 | Outpatient (AMB) | payer OTHER, SELFPAY ==
--- NOTE | 2025-02-04 08:12 | A.OFFWM_ITS ---
Intake Intake Visit Reasons: VIDEO PO LSG 09/11/24 Allergies gabapentin Allergy (Intermediate, Verified 12/29/24 09:13) pruritus magnesium Allergy (Intermediate, Verified 12/29/24 09:13) IV route caused rash, can tolerate PO environmental allergies Allergy (Unknown, Verified 12/29/24 09:13) Unknown metformin Adverse Reaction (Intermediate, Verified 12/29/24 09:13) diarrhea PFSH Medical History Cervical cancer screening Obesity, morbid, BMI 50 or higher Physical exam Well woman exam with routine gynecological exam Non-insulin dependent type 2 diabetes mellitus Diabetes Environmental allergies GERD (gastroesophageal reflux disease) Migraines Hypovitaminosis D Morbid obesity Missed period Hair loss Extreme obesity Acne Surgical History S/P laparoscopic sleeve gastrectomy History of esophagogastroduodenoscopy (EGD) (07/30/24) History of surgery History of right breast biopsy History of tubal ligation History of section History of laparoscopic cholecystectomy Family History Father Hypertension Stroke Mother Hypertension Sister No problems noted. Son No problems noted. Daughter No problems noted. Maternal Aunt Colon cancer, Onset Age: 60 Social History Household Members: Spouse Housing: Apartment Are you a primary child care teacher to a significant other at home: No Do you presently have visiting nurse or other home services: No Alcohol intake: never Comment: Gas pain Patient Tobacco Use Status: Never used Tobacco Tobacco use type: Cigarette e-Cigarette/Vaping Use: Never Used Second Hand Smoke Exposure: No service: No Current occupational status: employed Current occupational exposures/hazards: No Cognitive needs: No Hearing needs: No Vision needs: Yes Female Reproductive History Menstrual Age of Menarche: 9 Behavioral Health Assessment Weight Management Therapy Therapy Notes Details Subjective: Patient reports feeling irritated and emotionally fatigued by the liquid diet plan, noting occasional difficulty completing the last shakes and experiencing some nausea. She also shared concerns about communication challenges with her provider and expressed feeling ready to progress to the next phase of her dietary plan. Objective: PT presents for a f/up visit via Telehealth. In today?s session, the patient was supported in expressing frustration and emotional fatigue related to the liquid diet following weight loss surgery. We explored her feelings of irritation, validating the challenges of dietary adherence. Communication difficulties with her provider were addressed through reflective listening, helping the patient articulate her needs and concerns more clearly. Psychoeducation was provided around the typical adjustment process post-surgery, and motivational interviewing techniques were used to support her readiness to transition to the next phase of her diet plan. Coping strategies, including mindfulness and stress management techniques, were reviewed to help manage discomfort and emotional distress during this period. Assessment/Response: * Mental status: sensitive, tearful, irritated. Oriented x3, alert, talkative, cooperative. * Risk reported/identified: None PT responded well to interventions. Food/Weight/Diet Expectations of change The initial goal is to lose 10% of her weight before surgery, about 25 lbs. Ultimate weight goal: 233lbs before surgery The patient wants to become healthier, not need to use insulin or check her sugar anymore, and be more active. Initial weight: 256 lb 8 oz Most recent weight: 233Lbs Had bariatric surgery on 09/11/2024. Pre-surgery weight: 226Lbs Current weight - 09/25/2024: 212Lbs Weight as of 10/23/2024: 204 lbs Weight as of 11/21/2024: 194 Lbs Weight as of 12/12/2024: 186 lbs Weight as of 01/06/2025: 177.8 Lbs Weight as of 02/03/2025: 170 Lbs Target weight: . PT is implementing the following: Current meal plan: 3 shakes a day and 1 bar. Water and Gatorade. Exercise plan: Walking in a treadmill. 30 min 3-4 x at week. She is starting slow. Assessment & Plan Assessment & Plan (1) Adjustment disorder: Code(s): F43.20 - Adjustment disorder, unspecified (2) S/P laparoscopic sleeve gastrectomy: Code(s): Z98.84 - Bariatric surgery status Plan Follow-up in 2 weeks for continued behavioral health support, focusing on challenges related to adjusting to post-operative life. Next appointment: February 18, 2022, at 8:00 AM via Telehealth. Telehealth Telehealth Telehealth Platform: [facility] Location of provider rendering services: other (Home office. [place], [place]) Location of patient: address on file Patient Identification confirmed using: Name, : Yes Patient verbally consented to treatment: Yes Patient verbally consented to billing insurance company: Yes Patient informed of any privacy concerns related to visit: Yes Minutes spent on Phone/Video with Pt.: 55 Coding Level of Care Code Established Pt Tele Psytx >53 mins (55683) Patient Type Established Diagnoses Adjustment disorder F43.20 S/P laparoscopic sleeve gastrectomy Z98.84 Time Spent (min) 55 Comment Start time: 8:05 am - end time 9:00 am
--- OUTSIDE RECORDS SUMMARY | 2025-02-04 08:32 | XMS_ITS | Clinical Summary ---
Author Organization [facility] ity Address [address] [place] [address] Care Team Providers Care Computer System Specialist Name Role Phone Unavailable Primary Care Provider [...] Documents on File Type Date Recorded Patient Cnc Applications Engineer Expl anation Health Care Decision (hx) 03/08/2014 AD FOUNTAIN DIRECTIVE Health Care Decision (hx) 03/08/2014 AD FOUNTAIN DIRECTIVE Health Care Decision (hx) 03/08/2014 AD FOUNTAIN DIRECTIVE
--- OUTSIDE RECORDS SUMMARY | 2025-02-04 08:32 | XMS_ITS | Data Portability ---
Author Organization [place] - [facility], Allergy Address [address] [place] [address] Care Team Providers Care Ambulance Driver Paramedic Name Role Phone MARY CRAVEN Primary Care Provider [phone] Assessment Encounter Date Assessment Date Assessment LastModified by Organization Details LastModified Time 03/17/2024 03/17/2024 44-year-old kate tello presents for re-evaluation. Her hoarseness improved with use of omeprazole. She may continue using this. I have recommended referral to gastroenterology for further evaluation and treatment. She should also continue with her men's locker room attendant as this is likely exacerbating symptoms. May follow-up here as needed. [email or web address] Not available 03/17/2024 14:17:36 Plan of Treatment Reminders Order Date Submit Date Provider Last Modified By Organization Details Last Modified Time Details Appointments None recorde d. Lab None recorde d. Referral gastroe nterolo gist referra l - Referra l for reflux. Thank you. 2023 024 [email or web address] 2 [facility] Gastroenterology Scheduling Department, [address] [place] [address], [address], 4 12:19:05 Procedures None recorde d. Surgeries None recorde d. Imaging None recorde d. Medication Orders None recorde d. Patient TargetsNo targets recorded. Patient InstructionsNo instructions recorded. Reason for Referral Large Animal Husbandry Technician Referral for Gastroesophageal reflux disease without esophagitis Referral for reflux. Thank you. Referring Physician: Sandi Sidhu, Otolaryngology, Encounter Date: 03/17/2024 Problems Name Problem SNOMED Code Status Onset Date Resolution Date Notes Provider Name and Address Organization Details Recorded Time Gastroesop hageal reflux disease without esophagiti s 478792132 Active 2023 SANDI SIDHU PA-C [address] [place], [place], [address] , [facility] - [facility] [place] 4 13:57:35 Allergic rhinitis 62517132 Active 2023 SANDI SIDHU PA-C [address] [facility] [place],[address], [place], [address] , [facility] - [facility] [place] 4 13:57:51 Dysphagia 44311503 Active 2023 SANDI SIDHU PA-C [address], [place], [address] , [facility] - [facility] [place] 4 13:58:06 Hoarse 87262220 Active 2023 BARBARA SARGENT MD 100 [facility],[address], [place], [address] , [facility] - [facility] 4 14:17:42 Dysphonia 47269322 Active 2023 Hoarsenes s; Note: Date Diagnosed : 11/21/2023 12:28 PM (R49.0) Not Available [facility] 4 03:25:13 Allergic rhinitis caused by pollen 90711236 Active 2023 Allergic rhinitis due to pollen; Note: Date Diagnosed : 11/21/2023 12:28 PM (J30.1) Not Available [facility] 4 03:25:13 Problem Notes None recorded. Medical Equipment None Reported. Allergies Allergen ID Allergen Name Allergen Category Reaction Reaction Severity Criticality Documentation Date Start Date Code Code System Note Provider Name and Address Organization Details Recorded Time 292834 Product containin g magnesium and/or magnesium compound (product) medicatio n hives Not available Not available 05/02/2024 53158 5005 SNOMED React ion: Hives ; Not Available [facility] 4 00:23:57 914629 metformin medicatio n diarrhea Not available Not available 05/02/2024 6809 RxNorm React ion: Diarr hea; Not Available [facility] 00:24:01 Medications Name Sig Start Date Stop Date Status Note LastModified by Organization Details LastModified Time omeprazole 20 mg capsule,de layed release TAKE 1 CAPSULE EVERY MORNING ONE HOUR BEFORE MEALS NEED INS 2023 active Not Available Not Available Not Avai lable Xyzal 5 mg tablet active Medication ID: [id number] Bra nd Name: Xyzal Send Method: E-Prescrib ed Subs Allowed: subs OK Medicat ionGeneric Name: Xyzal Not Available Not Available Not Available butalbital 50 mg-acetami nophen 300 mg capsule active Medication ID: [id number] Bra nd Name: butalbital -acetamino phen Send Method: E-Prescrib ed Subs Allowed: subs OK Medicat ionGeneric Name: butalbital -acetamino phen Not Available Not Available Not Available Vitals Date Recorded Body height Body mass index (BMI) Body weight Provider Name and Address Organization Details Last Updated DateTime 03/17/2024 152.4 cm 50.6 kg/m2 537616.42 g Sarita Mo [place] - [facility] 03/17/2024 13:03:46 Social History None recorded. [...] Note [id number] SANDI SIDHU PA-C [facility] [address] [address] 03/17/2024 12:18:22 03/17/2024 13:37:11 Gastroesophageal reflux disease without esophagitis 620367785 K21.9 Allergic rhinitis 484104 04 J30.9 Hoarse 30271828 R49.0 improved Health Concerns Section Related Observation LastModified by Organization Detai ls LastModified Time None Recorded Concern Status LastModified by Organization Details LastModified Time None Recorded Advance Directives Directive None Recorded Payers Insurance Date Sequence Insurance Name Policy Number Policy Greene Covered Member ID Greene Member ID Guarantor Name 03/18/2024 1 [facility] - HEALTH NET PLAN (MEDICAID HMO) SOCO Beckman [id number] Zenia Beckman Notes Date Note Type Note Provider Name and Address Organization Details Recorded Time 03/17/2024 text/html 44-year-old female presents for reevaluation. Previously evaluated for hoarseness and thought to have GERD and postnasal drip from seasonal allergy. She sees an men's locker room attendant and takes Flonase and Xyzal daily. Omeprazole was added to her daily regimen and she feels her hoarseness has improved. Plans to see her men's locker room attendant in March. BARBARA JAMES MD [address] [place] [address], [phone], [facility] - [facility] 03/17/2024 14:17:57 OBGyn Episode No OBEpisode recorded.
--- OUTSIDE RECORDS SUMMARY | 2025-02-04 08:32 | XMS_ITS | Clinical Summary ---
Author Organization [facility] Address [address] [place] [address] Care Team Providers Care Combination Welder Name Role Phone Unavailable Primary Care Provider [...] Not on file Insurance [place] DENT[place] [facility] SAFETY NET [place] [address] [address] DENTAL
== END 2025-02-04 09:11 | disposition home or self-care (01) ==
PROVIDERS: PCP Internal Medicine; Visit Provider Counselor Mental Health
DX: F43.20 Adjustment disorder, unspecified (principal); Z98.84 Bariatric surgery status
CPT/HCPCS: 90837

== ENCOUNTER → 2025-02-04 08:21 | Outpatient (BNVA) | payer OTHER, SELFPAY | PROVIDERS: PCP Internal Medicine; Visit Provider Counselor Mental Health ==

== ENCOUNTER 2025-02-18 08:14 | Outpatient (AMB) | payer OTHER, SELFPAY ==
--- NOTE | 2025-02-18 08:14 | A.OFFWM_ITS ---
Intake Intake Visit Reasons: VIDEO PO LSG 09/11/24 Allergies gabapentin Allergy (Intermediate, Verified 12/29/24 09:13) pruritus magnesium Allergy (Intermediate, Verified 12/29/24 09:13) IV route caused rash, can tolerate PO environmental allergies Allergy (Unknown, Verified 12/29/24 09:13) Unknown metformin Adverse Reaction (Intermediate, Verified 12/29/24 09:13) diarrhea PFSH Medical History Cervical cancer screening Obesity, morbid, BMI 50 or higher Physical exam Well woman exam with routine gynecological exam Non-insulin dependent type 2 diabetes mellitus Diabetes Environmental allergies GERD (gastroesophageal reflux disease) Migraines Hypovitaminosis D Morbid obesity Missed period Hair loss Extreme obesity Acne Surgical History S/P laparoscopic sleeve gastrectomy History of esophagogastroduodenoscopy (EGD) (07/30/24) History of surgery History of right breast biopsy History of tubal ligation History of section History of laparoscopic cholecystectomy Family History Father Hypertension Stroke Mother Hypertension Sister No problems noted. Son No problems noted. Daughter No problems noted. Maternal Aunt Colon cancer, Onset Age: 60 Social History Household Members: Spouse Housing: Apartment Are you a primary child care supervisor to a significant other at home: No Do you presently have visiting nurse or other home services: No Alcohol intake: never Comment: Gas pain Patient Tobacco Use Status: Never used Tobacco Tobacco use type: Cigarette e-Cigarette/Vaping Use: Never Used Second Hand Smoke Exposure: No service: No Current occupational status: employed Current occupational exposures/hazards: No Cognitive needs: No Hearing needs: No Vision needs: Yes Female Reproductive History Menstrual Age of Menarche: 9 Behavioral Health Assessment Weight Management Therapy Therapy Notes Details Subjective: Patient reports experiencing significant stress due to her father's recent hospitalization for a cardiac condition, in addition to her mother and being ill. She is also managing multiple ongoing life stressors. As the situation has begun to stabilize, she is working on returning to her regular routine this week. Despite the recent stress, the patient continues to experience steady weight loss and denies any concerns related to body image. She expressed readiness to begin transitioning to solid foods. Objective: PT presents for a f/up visit via Telehealth. Discussed functioning, recent life stressors and needs. Validated patient?s stress and explored impact of caregiving demands. Used CBT techniques to identify unhelpful thoughts and promote adaptive coping. Supported re-establishing routines as a means of stress reduction. Reinforced progress in weight-loss and discussed readiness and planning for transition to solid foods and advised to consult with surgeon about this. Assessment/Response: * Mental status: worried and stressed, but feeling better today. Sleeping well. Open, alert, ortiented x3. Notes tension and shoulder pain. * Risk reported/identified: None Assessment & Plan Assessment & Plan (1) Adjustment disorder: Code(s): F43.20 - Adjustment disorder, unspecified Plan * Continue working on stress management, household communication, and realistic goal-setting. * F/up in 2-3 weeks. Next shanice: 03/11/2025 at 8am. Telehealth. Telehealth Telehealth Telehealth Platform: [facility] Location of provider rendering services: other Location of patient: address on file Patient Identification confirmed using: Name, : Yes Telehealth method: video Patient verbally consented to treatment: Yes Patient verbally consented to billing insurance company: Yes Patient informed of any privacy concerns related to visit: Yes Minutes spent on Phone/Video with Pt.: 55 Coding Level of Care Code Established Pt Tele Psytx >53 mins (22993) Patient Type Established Diagnoses Adjustment disorder F43.20 Time Spent (min) 55 Comment start time: 8:05am, end time: 9:00am
== END 2025-02-18 09:29 | disposition home or self-care (01) ==
LOC: HO.HBST 08:14
PROVIDERS: PCP Internal Medicine; Visit Provider Counselor Mental Health
DX: F43.20 Adjustment disorder, unspecified (principal)
CPT/HCPCS: 90837

== ENCOUNTER 2025-02-20 07:50 | Outpatient (REF) | payer OTHER, SELFPAY ==
--- OUTSIDE RECORDS SUMMARY | 2025-02-20 07:53 | XMS_ITS | Data Portability ---
Author Organization [place] - [facility], Allergy Address [address] [place] [id number] Care Team Providers Care Prosthetic Lab Technician Name Role Phone MARY CRAVEN Primary Care Provider Assessment Encounter Date Assessment Date Assessment LastModified by Organization Details LastModified Time 03/17/2024 03/17/2024 44-year-old kate tello presents for re-evaluation. Her hoarseness improved with use of omeprazole. She may continue using this. I have recommended referral to gastroenterology for further evaluation and treatment. She should also continue with her paper reeler as this is likely exacerbating symptoms. May follow-up here as needed. [email or web address] Not available 03/17/2024 14:17:36 Plan of Treatment Reminders Order Date Submit Date Provider Last Modified By Organization Details Last Modified Time Details Appointments None recorde d. Lab None recorde d. Referral gastroe nterolo gist referra l - Referra l for reflux. Thank you. 2023 024 [email or web address] 2 [facility] Gastroenterology Scheduling Department, [address] [place] [address], [address], 4 12:19:05 Procedures None recorde d. Surgeries None recorde d. Imaging None recorde d. Medication Orders None recorde d. Patient TargetsNo targets recorded. Patient InstructionsNo instructions recorded. Reason for Referral Master At Arms Referral for Gastroesophageal reflux disease without esophagitis Referral for reflux. Thank you. Referring Physician: Sandi Sidhu, Otolaryngology, Encounter Date: 03/17/2024 Problems Name Problem SNOMED Code Status Onset Date Resolution Date Notes Provider Name and Address Organization Details Recorded Time Gastroesop hageal reflux disease without esophagiti s 186407276 Active 2023 SANDI SIDHU PA-C [address] [place], [place], [address] , [facility] - [facility] 4 13:57:35 Allergic rhinitis 89266768 Active 2023 SANDI SIDHU PA-C [address] [facility] [place], [place], [address] , [facility] - [facility] 4 13:57:51 Dysphagia 38928458 Active 2023 SANDI SIDHU PA-C [address], [place], [address] , [facility] - [facility] 4 13:58:06 Hoarse 04509219 Active 2023 BARBARA SARGENT MD [address] [facility], [place], [address] , [facility] - [facility] 4 14:17:42 Dysphonia 93936429 Active 2023 Hoarsenes s; Note: Date Diagnosed : 11/21/2023 12:28 PM (R49.0) Not Available [facility] 4 03:25:13 Allergic rhinitis caused by pollen 15908673 Active 2023 Allergic rhinitis due to pollen; Note: Date Diagnosed : 11/21/2023 12:28 PM (J30.1) Not Available [facility] 4 03:25:13 Problem Notes None recorded. Medical Equipment None Reported. Allergies Allergen ID Allergen Name Allergen Category Reaction Reaction Severity Criticality Documentation Date Start Date Code Code System Note Provider Name and Address Organization Details Recorded Time 728448 Product containin g magnesium and/or magnesium compound (product) medicatio n hives Not available Not available 05/02/2024 55151 5005 SNOMED React ion: Hives ; Not Available [facility] 4 00:23:57 950566 metformin medicatio n diarrhea Not available Not available 05/02/2024 6809 RxNorm React ion: Diarr hea; Not Available [facility] 00:24:01 Medications Name Sig Start Date Stop Date Status Note LastModified by Organization Details LastModified Time omeprazole 20 mg capsule,de layed release TAKE 1 CAPSULE EVERY MORNING ONE HOUR BEFORE MEALS NEED INS 2023 active Not Available Not Available Not Avai lable Xyzal 5 mg tablet active Medication ID: [id number] Bra nd Name: Xyzal Send Method: E-Prescrib ed Subs Allowed: subs OK Medicat ionGeneric Name: Xyzal Not Available Not Available Not Available butalbital 50 mg-acetami nophen 300 mg capsule active Medication ID: [id number] Bra nd Name: butalbital -acetamino phen Send Method: E-Prescrib ed Subs Allowed: subs OK Medicat ionGeneric Name: butalbital -acetamino phen Not Available Not Available Not Available Vitals Date Recorded Body height Body mass index (BMI) Body weight Provider Name and Address Organization Details Last Updated DateTime 03/17/2024 152.4 cm 50.6 kg/m2 887722.42 g Sarita Mo [place] - [facility] 03/17/2024 13:03:46 Social History None recorded. [...] Note 4327 SANDI SIDHU PA-C [facility] [address] [address] 03/17/2024 12:18:22 03/17/2024 13:37:11 Gastroesophageal reflux disease without esophagitis 644407355 K21.9 Allergic rhinitis 075709 04 J30.9 Hoarse 82620432 R49.0 improved Health Concerns Section Related Observation LastModified by Organization Detai ls LastModified Time None Recorded Concern Status LastModified by Organization Details LastModified Time None Recorded Advance Directives Directive None Recorded Payers Insurance Date Sequence Insurance Name Policy Number Policy Greene Covered Member ID Greene Member ID Guarantor Name 03/18/2024 1 [facility] (MEDICAID HMO) SOCO Beckman [id number] Zenia Beckman Notes Date Note Type Note Provider Name and Address Organization Details Recorded Time 03/17/2024 text/html 44-year-old female presents for reevaluation. Previously evaluated for hoarseness and thought to have GERD and postnasal drip from seasonal allergy. She sees an paper reeler and takes Flonase and Xyzal daily. Omeprazole was added to her daily regimen and she feels her hoarseness has improved. Plans to see her paper reeler in March. BARBARA JAMES MD [address] [place] [address], [phone], [facility] - [facility] 03/17/2024 14:17:57 OBGyn Episode No OBEpisode recorded.
[2025-02-20 08:55] LABS: Estimated Average Glucose 100 mg/dL; Hemoglobin A1c % 5.1 % (<6.0); Total Hemoglobin (HGBA1C) 3697.7577 umol/L
[2025-02-20 08:57] LABS: MANUAL DIFF FLAG NO
[2025-02-20 08:59] LABS: Basophils Percent Auto 0.6 % (0-2); Eosinophils Absolute Auto 0.1 X10*3/uL (0.0-0.4); Eosinophils Percent Auto 2.1 % (0-4); Hematocrit 40.7 % (37.0-47.0); Hemoglobin 13.8 g/dl (12.0-16.0); Imm Gran Abs Auto 0.01 X10*3/uL (0.00-0.03); Imm Gran Pct Auto 0.2 % (0.0-0.4); Lymphocytes Absolute Auto 1.5 X10*3/uL (1.2-4.9); Lymphocytes Percent Auto 31.1 % (20-40); Mean Corpuscular HGB Conc 33.9 g/dl (31.0-35.0); Mean Corpuscular Hemoglobin 28.3 pg (27.0-33.0); Mean Corpuscular Volume 83.6 fL (80.0-98.0); Mean Platelet Volume 10.1 fL (9.4-12.3); Monocytes Absolute Auto 0.4 X10*3/uL (0.1-1.2); Monocytes Percent Auto 8.6 % (2-11); Neutrophils Absolute Auto 2.7 x10*3/uL (2.0-8.3); Neutrophils Percent Auto 57.4 % (45-73); Platelet Count 294 X10*3/uL (160-400); Red Blood Count 4.87 X10*6/uL (4.20-5.50); Red Cell Distribution Width 15.2 % (11.0-16.0); White Blood Count 4.7 X10*3/uL (4.8-10.8)
[2025-02-20 09:37] LABS: Alanine Aminotransferase 33 U/L (0-31); Alkaline Phosphatase 85 U/L (39-117); Anion Gap 13 (12-20); Aspartate Amino Transferase 32 U/L (5-31); Bilirubin Total 0.5 mg/dL (0.0-1.0); Blood Urea Nitrogen 9 mg/dL (9-16); Calcium 9.3 mg/dL (8.4-10.2); Carbon Dioxide 27 mmol/L (22-29); Chloride 109 mmol/L (96-108); Estimated Glomerular Filt Rate > 60; Glucose Random 78 mg/dL (60-115); Potassium 4.6 mmol/L (3.3-5.1); Sodium 144 mmol/L (135-145); Total Protein 6.9 g/dL (6.5-8.0)
[2025-02-20 09:39] LABS: Alanine Aminotransferase 34 U/L (0-31); Alkaline Phosphatase 84 U/L (39-117); Anion Gap 10 (12-20); Aspartate Amino Transferase 36 U/L (5-31); Bilirubin Total 0.5 mg/dL (0.0-1.0); Blood Urea Nitrogen 9 mg/dL (9-16); C Reactive Protein 0.11 mg/dL (< or = 0.50); Calcium 9.3 mg/dL (8.4-10.2); Carbon Dioxide 26 mmol/L (22-29); Chloride 111 mmol/L (96-108); Cholesterol 147 mg/dL (<200); Estimated Glomerular Filt Rate > 60; Glucose Random 78 mg/dL (60-115); HDL Cholesterol 57 mg/dL (>40); Iron 60 mcg/dL (30-160); LDL Cholesterol Calculated 80 mg/dL (<100); Percent Iron Saturation 20 % (15-50); Potassium 4.7 mmol/L (3.3-5.1); Sodium 142 mmol/L (135-145); Total Iron Binding Capacity 302 mcg/dL (228-428); Total Protein 6.9 g/dL (6.5-8.0); Triglycerides 53 mg/dL (<150); Unsaturated Iron Binding 242 ug/dL
[2025-02-20 09:46] LABS: Ferritin 18 ng/mL (10-250); TSH reflex Free T4 1.23 uIU/mL (0.32-4.0); Vitamin D 25-OH Total 43.2 ng/mL (>30)
[2025-02-20 10:01] LABS: Folate 14.7 ng/mL (> or = 4.0); Vitamin B12 868 pg/mL (200-900)
[2025-02-20 10:57] LABS: Insulin 2 uU/mL (2-29)
[2025-02-24 09:38] LABS: Kappa Light Chain, Free Serum 25.2 mg/L (3.3-19.4); Kappa/Lambda Lt Ch Free Ratio 1.11 (0.26-1.65); Lambda Light Chain, Free Serum 22.7 mg/L (5.7-26.3)
[2025-02-24 13:58] LABS: Zinc 106 mcg/dL (60-130)
[2025-02-24 20:03] LABS: Vitamin A 32 mcg/dL (38-98)
[2025-02-26 07:14] LABS: IgA 263 mg/dL (47-310); IgG 1395 mg/dL (600-1640); IgM 148 mg/dL (50-300)
[2025-02-27 04:13] LABS: Vitamin B1 29 nmol/L (8-30)
== END 2025-02-20 07:51 | disposition home or self-care (01) ==
LOC: HO.LAB 07:50
PROVIDERS: Internal Medicine; PCP Internal Medicine; Visit Provider Physician Assistant Surgical
DX: Z98.84 Bariatric surgery status (principal); D47.2 Monoclonal gammopathy
CPT/HCPCS: 36415; 80053; 80061; 82232; 82306; 82607; 82728; 82746; 82784; 83036; 83521; 83525; 83540; 84425; 84443; 84590; 84630; 85025; 86140; 86334

== ENCOUNTER 2025-03-09 13:51 | Outpatient (AMB) | payer OTHER, SELFPAY ==
--- NOTE | 2025-03-09 13:30 | MHC.OFFVISWM ---
VS Expanded 03/09/25 13:38 Height 5 ft Weight 163 lb BMI 31.8 Intake Visit Reasons: TELEPHONE PO LSG 09/11/24 Strike Out Machine Operator Required: Yes Strike Out Machine Operator Name: Umu Hogan Information Interpreted: clinical only Allergies gabapentin Allergy (Intermediate, Verified 12/29/24 09:13) pruritus magnesium Allergy (Intermediate, Verified 12/29/24 09:13) IV route caused rash, can tolerate PO environmental allergies Allergy (Unknown, Verified 12/29/24 09:13) Unknown metformin Adverse Reaction (Intermediate, Verified 12/29/24 09:13) diarrhea Medication List - Last Reconciled 03/09/25 by WALLACE Saunders docusate sodium (Colace) 100 mg PO DAILY levocetirizine (Xyzal) 5 mg PO DAILY HPI Comments Details: This?is a?45?yo F who is s/p LSG 09/11/2024. Presents for 6mo post op visit. Weight at last visit on 02/02/2025 was 171.6 pounds with a BMI of 33.5, weight today is 163 pounds, representing a 8.6 pound weight loss with a BMI today of 31.8.? No complaints of nausea, emesis, abdominal pain or reflux, or constipation. Blood sugars- remains off pioglitazone. Well controlled. Had a difficult period of time- struggled with exercising, mom and dad were sick in hospital. She was upset by her last interaction with Dr. Santi Morales of 3rd protein shake. Present meal plan includes: 3 Orgain protein drink 1 Celebrate bar MVI Exercise routine includes: has a machine at home/does home exercises was exercising less due to family illnesses, 1-2x week for 30 min; has been trying to go every day this week [facility] Medical History Cervical cancer screening Obesity, morbid, BMI 50 or higher Physical exam Well woman exam with routine gynecological exam Non-insulin dependent type 2 diabetes mellitus Diabetes Environmental allergies GERD (gastroesophageal reflux disease) Migraines Hypovitaminosis D Morbid obesity Missed period Hair loss Extreme obesity Acne Surgical History S/P laparoscopic sleeve gastrectomy History of esophagogastroduodenoscopy (EGD) (07/30/24) History of surgery History of right breast biopsy History of tubal ligation History of section History of laparoscopic cholecystectomy Family History Father Hypertension Stroke Mother Hypertension Sister No problems noted. Son No problems noted. Daughter No problems noted. Maternal Aunt Colon cancer, Onset Age: 60 Social History Household Members: Spouse Housing: Apartment Are you a primary acute care assistant to a significant other at home: No Do you presently have visiting nurse or other home services: No Alcohol intake: never Comment: Gas pain Patient Tobacco Use Status: Never used Tobacco Tobacco use type: Cigarette e-Cigarette/Vaping Use: Never Used Second Hand Smoke Exposure: No service: No Current occupational status: employed Current occupational exposures/hazards: No Cognitive needs: No Hearing needs: No Vision needs: Yes Female Reproductive History Menstrual Age of Menarche: 9 Telehealth Telehealth Telehealth Platform: Telephone Location of provider rendering services: other Location of patient: address on file Patient Identification confirmed using: Name, : Yes Telehealth method: voice only Patient verbally consented to treatment: Yes Patient verbally consented to billing insurance company: Yes Patient informed of any privacy concerns related to visit: Yes Minutes spent on Phone/Video with Pt.: 17 Assessment & Plan Assessment & Plan (1) Obesity: Code(s): E66.9 - Obesity, unspecified Category: Medical (2) S/P laparoscopic sleeve gastrectomy: Code(s): Z98.84 - Bariatric surgery status Category: Surgical Plan Adjusted meal plan: 2 Orgain shakes, 1 shake with 1 scoop and 1 shake with 2 scoops 1 Celebrate bar 1 meal with 4f GY, CC, eggs, or soft meat Encouraged pt to text me weekly with weight measurements and any questions. She will try to increase exercise. Labs reviewed, vit A supplement ordered. RTC 3mo. Medications: New [Vitamin A 3,000 mcg] 1 cap PO DAILY 90 caps 3RF vitamin A acetate 3,000 mcg PO DAILY 90 tabs 3RF
[2025-03-09 13:38] VITALS: BMI 31.8
--- OUTSIDE RECORDS SUMMARY | 2025-03-09 15:44 | XMS_ITS | Clinical Summary ---
Author Organization [facility] ity Address [address] [place] [address] Care Team Providers Care Enterprise Engineer Name Role Phone Unavailable Primary Care [...] Documents on File Type Date Recorded Patient Referral And Information Aide Expl anation Health Care Decision (hx) 03/08/2014 AD FOUNTAIN DIRECTIVE Health Care Decision (hx) 03/08/2014 AD FOUNTAIN DIRECTIVE Health Care Decision (hx) 03/08/2014 AD FOUNTAIN DIRECTIVE
== END 2025-03-09 13:54 | disposition home or self-care (01) ==
LOC: HO.HBS 13:51
PROVIDERS: PCP Internal Medicine; Visit Provider Physician Assistant Surgical
DX: E66.9 Obesity, unspecified (principal); Z68.31 Body mass index [BMI] 31.0-31.9, adult; Z90.3 Acquired absence of stomach [part of]; Z98.84 Bariatric surgery status
CPT/HCPCS: 99214; G2211

== ENCOUNTER → 2025-03-09 13:51 | Outpatient (BNVA) | payer OTHER, SELFPAY | PROVIDERS: PCP Internal Medicine; Visit Provider Physician Assistant Surgical ==

== ENCOUNTER 2025-03-11 08:12 | Outpatient (AMB) | payer OTHER, SELFPAY ==
--- NOTE | 2025-03-11 08:03 | MHC.WMTHER ---
Intake Intake Visit Reasons: VIDEO PO LSG 09/11/24 Allergies gabapentin Allergy (Intermediate, Verified 12/29/24 09:13) pruritus magnesium Allergy (Intermediate, Verified 12/29/24 09:13) IV route caused rash, can tolerate PO environmental allergies Allergy (Unknown, Verified 12/29/24 09:13) Unknown metformin Adverse Reaction (Intermediate, Verified 12/29/24 09:13) diarrhea PFSH Medical History Cervical cancer screening Obesity, morbid, BMI 50 or higher Physical exam Well woman exam with routine gynecological exam Non-insulin dependent type 2 diabetes mellitus Diabetes Environmental allergies GERD (gastroesophageal reflux disease) Migraines Hypovitaminosis D Morbid obesity Missed period Hair loss Extreme obesity Acne Surgical History S/P laparoscopic sleeve gastrectomy History of esophagogastroduodenoscopy (EGD) (07/30/24) History of surgery History of right breast biopsy History of tubal ligation History of section History of laparoscopic cholecystectomy Family History Father Hypertension Stroke Mother Hypertension Sister No problems noted. Son No problems noted. Daughter No problems noted. Maternal Aunt Colon cancer, Onset Age: 60 Social History Household Members: Spouse Housing: Apartment Are you a primary college and career counselor to a significant other at home: No Do you presently have visiting nurse or other home services: No Alcohol intake: never Comment: Gas pain Patient Tobacco Use Status: Never used Tobacco Tobacco use type: Cigarette e-Cigarette/Vaping Use: Never Used Second Hand Smoke Exposure: No service: No Current occupational status: employed Current occupational exposures/hazards: No Cognitive needs: No Hearing needs: No Vision needs: Yes Female Reproductive History Menstrual Age of Menarche: 9 Behavioral Health Assessment Weight Management Therapy Therapy Notes Details Subjective: PT reports she has been under stress as recently her mom was hospitalized and then her got sick, Also her period has been very painful and heavy so she has not been as consistent with excercise as she wanted. On the other hand, she had a f/up shanice with PA and her shakir plan slightly changed, she was cleared for syriac yogurt, cotage chesse and chicken or fish. She was given a meal plan w/ specific instructions. Today she is feeling better. Objective: PT presents for a post-op f/up visit. . Supportive talk therapy implemented in today's session. Processed fucntioning, chllenges due to recent life stressors and how PT has been coping and adjusting her life to this. Worked from a problem solving perspective to promote resilience and easy adjustment to sudden life changed while maintining her habits and prioritizing herself (self-care, eating, sleeping etc). Assessment/Response: Mental status: WNL Risk reported/identified: None Food/Weight/Diet Expectations of change The initial goal is to lose 10% of her weight before surgery, about 25 lbs. Ultimate weight goal: 233lbs before surgery The patient wants to become healthier, not need to use insulin or check her sugar anymore, and be more active. Initial weight: 256 lb 8 oz Most recent weight: 233Lbs Had bariatric surgery on 09/11/2024. Pre-surgery weight: 226Lbs Current weight - 09/25/2024: 212Lbs Weight as of 10/23/2024: 204 lbs Weight as of 11/21/2024: 194 Lbs Weight as of 12/12/2024: 186 lbs Weight as of 01/06/2025: 177.8 Lbs Weight as of 02/03/2025: 170 Lbs Weight as of 03/09/2025: 163Lbs . PT is implementing the following: Current meal plan: 2 Orgain shakes, 1 shake with 1 scoop and 1 shake with 2 scoops, 1 Celebrate bar and 1 meal with 4f GY, CC, eggs, or soft meat Exercise plan: Treadmill. 30 min 5 days a week (225-250 akiko each day) Assessment & Plan Assessment & Plan (1) Adjustment disorder: Code(s): F43.20 - Adjustment disorder, unspecified Plan PT agreed to set up a timer at the time of her meals to avoid skipping meals and to plan fo her days. f/up in 1 month. Next shanice: 04/08/25 @9am Video. Telehealth Telehealth Telehealth Platform: [employer] Location of provider rendering services: other Location of patient: address on file Patient Identification confirmed using: Name, : Yes Telehealth method: video Patient verbally consented to treatment: Yes Patient verbally consented to billing insurance company: Yes Patient informed of any privacy concerns related to visit: Yes Minutes spent on Phone/Video with Pt.: 60 Coding Level of Care Code Established Pt Tele Psytx >53 mins (16089) Patient Type Established Diagnoses Adjustment disorder F43.20 Time Spent (min) 60
--- OUTSIDE RECORDS SUMMARY | 2025-03-11 08:18 | XMS_ITS | Clinical Summary ---
Author Organization [facility] ity Address [address] [place] [address] Care Team Providers Care Crepe Machine Operator Name Role Phone Unavailable Primary Care [...] Documents on File Type Date Recorded Patient Professional Organizer Expl anation Health Care Decision (hx) 03/08/2014 AD FOUNTAIN DIRECTIVE Health Care Decision (hx) 03/08/2014 AD FOUNTAIN DIRECTIVE Health Care Decision (hx) 03/08/2014 AD FOUNTAIN DIRECTIVE
== END 2025-03-11 09:08 | disposition home or self-care (01) ==
LOC: HO.HBST 08:12
PROVIDERS: PCP Internal Medicine; Visit Provider Counselor Mental Health
DX: F43.20 Adjustment disorder, unspecified (principal)
CPT/HCPCS: 90837

== ENCOUNTER → 2025-03-11 08:12 | Outpatient (BNVA) | payer OTHER, SELFPAY | PROVIDERS: PCP Internal Medicine; Visit Provider Counselor Mental Health ==

== ENCOUNTER 2025-04-08 09:36 | Outpatient (AMB) | payer OTHER, SELFPAY ==
--- NOTE | 2025-04-08 09:00 | A.OFFWM_ITS ---
Intake Intake Visit Reasons: VIDEO PO LSG 09/11/24 Allergies gabapentin Allergy (Intermediate, Verified 12/29/24 09:13) pruritus magnesium Allergy (Intermediate, Verified 12/29/24 09:13) IV route caused rash, can tolerate PO environmental allergies Allergy (Unknown, Verified 12/29/24 09:13) Unknown metformin Adverse Reaction (Intermediate, Verified 12/29/24 09:13) diarrhea PFSH Medical History Cervical cancer screening Obesity, morbid, BMI 50 or higher Physical exam Well woman exam with routine gynecological exam Non-insulin dependent type 2 diabetes mellitus Diabetes Environmental allergies GERD (gastroesophageal reflux disease) Migraines Hypovitaminosis D Morbid obesity Missed period Hair loss Extreme obesity Acne Surgical History S/P laparoscopic sleeve gastrectomy History of esophagogastroduodenoscopy (EGD) (07/30/24) History of surgery History of right breast biopsy History of tubal ligation History of section History of laparoscopic cholecystectomy Family History Father Hypertension Stroke Mother Hypertension Sister No problems noted. Son No problems noted. Daughter No problems noted. Maternal Aunt Colon cancer, Onset Age: 60 Social History Household Members: Spouse Housing: Apartment Are you a primary transitions rn care coordinator to a significant other at home: No Do you presently have visiting nurse or other home services: No Alcohol intake: never Comment: Gas pain Patient Tobacco Use Status: Never used Tobacco Tobacco use type: Cigarette e-Cigarette/Vaping Use: Never Used Second Hand Smoke Exposure: No service: No Current occupational status: employed Current occupational exposures/hazards: No Cognitive needs: No Hearing needs: No Vision needs: Yes Female Reproductive History Menstrual Age of Menarche: 9 Behavioral Health Assessment Weight Management Therapy Therapy Notes Details Subjective: Patient reports ongoing emotional ups and downs, primarily related to family and marital dynamics. She notes continued improvement in her eating habits after transitioning to a revised meal plan, now incorporating more solid foods, which she finds beneficial. Her new target weight goal is 150 lbs?approximately 10 lbs away. However, the patient expresses uncertainty in this area. She reports feeling uncomfortable with her body due to rapid weight loss, stating she feels ?weird? and unhappy with how she looks. She is unsure how much more weight she wants or needs to lose and is questioning what other personal or health-related goals she should set moving forward. Objective: PT presents for a behavioral health post-op F/up visit via Telehealth. Interventions focused on emotional regulation and addressing ongoing family and marital challenges. CBT techniques were used to reframe unhelpful thought patterns, while CPT strategies explored core beliefs around control and self- worth. Communication and assertiveness skills were introduced to support clearer expression of needs. Emotional regulation tools?such as mindfulness, grounding, and affect labeling?were practiced to reduce reactivity. Patient?s current functioning and stressors were also reviewed to guide individualized coping strategies. Progress in her weight-loss journey was also addressed. The therapist utilized CBT techniques to identify and challenge distorted or rigid thoughts related to self-worth and appearance. Psychoeducation was provided around the common psychological impact of rapid body changes, normalizing feelings of discomfort and disconnection. The patient was supported in exploring values-based goal setting, helping her begin to define health-related and personal goals beyond weight alone. Body neutrality and self-compassion practices were introduced to help shift focus from physical appearance to overall well-being. The therapist also guided reflection on internal versus external motivators for continued weight management, encouraging a more holistic, sustainable approach to her progress. Assessment/Response: * Mental status: Sad and confused, some emotional discomfort due to stress she is dealing with, denies functioning issues. PT was oriented x3, alert and cooperative. * Risk reported/identified: None Food/Weight/Diet Expectations of change The initial goal is to lose 10% of her weight before surgery, about 25 lbs. Ultimate weight goal: 233lbs before surgery The patient wants to become healthier, not need to use insulin or check her sugar anymore, and be more active. Initial weight: 256 lb 8 oz Most recent weight: 233Lbs Had bariatric surgery on 09/11/2024. Pre-surgery weight: 226Lbs Current weight - 09/25/2024: 212Lbs Weight as of 10/23/2024: 204 lbs Weight as of 11/21/2024: 194 Lbs Weight as of 12/12/2024: 186 lbs Weight as of 01/06/2025: 177.8 Lbs Weight as of 02/03/2025: 170 Lbs Weight as of 03/09/2025: 163Lbs Weight as of 04/06/2025: 160-162Lbs - PT feels uncertain about contining losing more. . PT is implementing the following: Current meal plan: 2 Orgain shakes, 1 shake with 1 scoop and 1 shake with 2 scoops, 1 Celebrate bar and 1 meal with 4f GY, CC, eggs, or soft meat Exercise plan: Treadmill. 30 min 5 days a week (225-250 akiko each day) Assessment & Plan Assessment & Plan (1) Adjustment disorder: Code(s): F43.20 - Adjustment disorder, unspecified Plan F/up in 2 weeks. Next shanice: 04/22/25 @9am Video. Telehealth Telehealth Telehealth Platform: [employer] Location of provider rendering services: other (Home office. [place], [place]) Location of patient: address on file Patient Identification confirmed using: Name, : Yes Telehealth method: video Patient verbally consented to treatment: Yes Patient verbally consented to billing insurance company: Yes Patient informed of any privacy concerns related to visit: Yes Minutes spent on Phone/Video with Pt.: 70 Coding Level of Care Code Established Pt Tele Psytx >53 mins (04952) Patient Type Established Diagnoses Adjustment disorder F43.20 Time Spent (min) 70
--- OUTSIDE RECORDS SUMMARY | 2025-04-08 10:05 | XMS_ITS | Data Portability ---
Author Organization [place] - [facility], Allergy Address [address] [address] Care Team Providers Care Utilization Review Rn Name Role Phone MARY CRAVEN Primary Care Provider [phone] Assessment Encounter Date Assessment Date Assessment LastModified by Organization Details LastModified Time 03/17/2024 03/17/2024 44-year-old kate tello presents for re-evaluation. Her hoarseness improved with use of omeprazole. She may continue using this. I have recommended referral to gastroenterology for further evaluation and treatment. She should also continue with her dental service technician as this is likely exacerbating symptoms. May follow-up here as needed. [email or web address] Not available 03/17/2024 14:17:36 Plan of Treatment Reminders Order Date Submit Date Provider Last Modified By Organization Details Last Modified Time Details Appointments None recorde d. Lab None recorde d. Referral gastroe nterolo gist referra l - Referra l for reflux. Thank you. 2023 024 [id number] 2 [facility] Gastroenterology Scheduling Department, [address] [place], [address], 12:19:05 Procedures None recorde d. Surgeries None recorde d. Imaging None recorde d. Medication Orders None recorde d. Patient TargetsNo targets recorded. Patient InstructionsNo instructions recorded. Reason for Referral Office Machine Service Supervisor Referral for Gastroesophageal reflux disease without esophagitis Referral for reflux. Thank you. Referring Physician: Sandi Sidhu, Otolaryngology, Encounter Date: 03/17/2024 Problems Name Problem SNOMED Code Status Onset Date Resolution Date Notes Provider Name and Address Organization Details Recorded Time Gastroesop hageal reflux disease without esophagiti s 711330517 Active 2023 SANDI SIDHU PA-C [address] [facility] [place], [place], [address] , [facility] [place] 4 13:57:35 Allergic rhinitis 70666599 Active 2023 SANDI SIDHU PA-C [address] [facility] [place], [place], [place], [address] , [place] [facility] 4 13:57:51 Dysphagia 10680644 Active 2023 SANDI SIDHU PA-C [address] [facility] [place], [place], [place], [address] , [place] [facility] 4 13:58:06 Hoarse 24733954 Active 2023 BARBARA SARGENT MD 100 [facility],[address], [place], [place], [address] , [place] [facility] [place] 4 14:17:42 Dysphonia 52802923 Active 2023 Hoarsenes s; Note: Date Diagnosed : 11/21/2023 12:28 PM (R49.0) Not Available [facility] 4 03:25:13 Allergic rhinitis caused by pollen 15749603 Active 2023 Allergic rhinitis due to pollen; Note: Date Diagnosed : 11/21/2023 12:28 PM (J30.1) Not Available [facility] 4 03:25:13 Problem Notes None recorded. Medical Equipment None Reported. Allergies Allergen ID Allergen Name Allergen Category Reaction Reaction Severity Criticality Documentation Date Start Date Code Code System Note Provider Name and Address Organization Details Recorded Time 972954 Product containin g magnesium and/or magnesium compound (product) medicatio n hives Not available Not available 05/02/2024 28099 5005 SNOMED React ion: Hives ; Not Available [facility] 4 00:23:57 949686 metformin medicatio n diarrhea Not available Not [...] Xyzal 5 mg tablet active Medication ID: [id number] Bra nd Name: Xyzal Send Method: E-Prescrib ed Subs Allowed: subs OK Medicat ionGeneric Name: Xyzal Not Available Not Available Not Available butalbital 50 mg-acetami nophen 300 mg capsule active Medication ID: [id number] Bra nd Name: butalbital -acetamino phen Send Method: E-Prescrib ed Subs Allowed: subs OK Medicat ionGeneric Name: butalbital -acetamino phen Not Available Not Available Not Available Vitals Date Recorded Body height Body mass index (BMI) Body weight Provider Name and Address Organization Details Last Updated DateTime 03/17/2024 152.4 cm 50.6 kg/m2 430513.42 g Sarita Mo [place] - [facility] 03/17/2024 13:03:46 Social History None recorded. [...] Diagnosis Note [id number] SANDI SIDHU PA-C [facility] [address] [address] 03/17/2024 12:18:22 03/17/2024 13:37:11 Gastroesophageal reflux disease without esophagitis 858194461 K21.9 Allergic rhinitis 227878 04 J30.9 Hoarse 61536814 R49.0 improved Health Concerns Section Related Observation LastModified by Organization Detai ls LastModified Time None Recorded Concern Status LastModified by Organization Details LastModified Time None Recorded Advance Directives Directive None Recorded Payers Insurance Date Sequence Insurance Name Policy Number Policy Greene Covered Member ID Greene Member ID Guarantor Name 03/18/2024 1 [facility] - HEALTH NET PLAN (MEDICAID HMO) SOCO Knutson Rk [id number] Zenia Beckman Notes Date Note Type Note Provider Name and Address Organization Details Recorded Time 03/17/2024 text/html 44-year-old female presents for reevaluation. Previously evaluated for hoarseness and thought to have GERD and postnasal drip from seasonal allergy. She sees an dental service technician and takes Flonase and Xyzal daily. Omeprazole was added to her daily regimen and she feels her hoarseness has improved. Plans to see her dental service technician in March. BARBARA JAMES MD [address] [place] [address], [phone], [facility] - [facility] 03/17/2024 14:17:57 OBGyn Episode No OBEpisode recorded.
--- OUTSIDE RECORDS SUMMARY | 2025-04-08 10:05 | XMS_ITS | Clinical Summary ---
Author Organization [facility] ity Address [address] [place] [address] Care Team Providers Care Cardiology Coordinator Name Role Phone Unavailable Primary Care Provider [...] (2023-2 5 season) 2024 Influenza Vaccine (#1) 2025 HIB Vaccines Aged Out No longer [...] 5 Years) and At-Risk Patients (6 to 49 Years) Aged Out No longer eligible b ased on patient's age to complete this topic RSV Immunization Patients Un andrew 20 months Aged Out No longer eligible b ased on patient's age to complete this topic Varicella Vaccines Aged Out No longer eligible based on patient's age to complete this topic Advance Directives Documents on File Type Date Recorded Patient Metal Fabricator Helper Expl anation Health Care Decision (hx) 03/08/2014 AD FOUNTAIN DIRECTIVE Health Care Decision (hx) 03/08/2014 AD FOUNTAIN DIRECTIVE Health Care Decision (hx) 03/08/2014 AD FOUNTAIN DIRECTIVE
--- OUTSIDE RECORDS SUMMARY | 2025-04-08 10:05 | XMS_ITS | Clinical Summary ---
Author Organization [facility] Address [address] [place] [address] Care Team Providers Care Process Development Technician Name Role Phone Unavailable Primary Care Provider [...] Not on file Insurance [place] DENT[place] [facility] SAFETY NET DENTAL [address] [address] DENTAL
== END 2025-04-08 10:14 | disposition home or self-care (01) ==
LOC: HO.HBST 09:36
PROVIDERS: PCP Internal Medicine; Visit Provider Counselor Mental Health
DX: F43.20 Adjustment disorder, unspecified (principal)
CPT/HCPCS: 90837

== ENCOUNTER 2025-04-22 09:08 | Outpatient (AMB) | payer OTHER, SELFPAY ==
--- NOTE | 2025-04-22 09:00 | A.OFFWM_ITS ---
Intake Intake Visit Reasons: VIDEO PO LSG 09/11/24 Allergies gabapentin Allergy (Intermediate, Verified 07/01/25 09:30) pruritus magnesium Allergy (Intermediate, Verified 07/01/25 09:30) IV route caused rash, can tolerate PO environmental allergies Allergy (Unknown, Verified 07/01/25 09:30) Unknown metformin Adverse Reaction (Intermediate, Verified 07/01/25 09:30) diarrhea PFSH Medical History (Updated 05/20/25 @ 08:29 by Fay Cisneros MD) Physical exam Cervical cancer screening Obesity, morbid, BMI 50 or higher Well woman exam with routine gynecological exam Non-insulin dependent type 2 diabetes mellitus Diabetes Environmental allergies GERD (gastroesophageal reflux disease) Migraines Hypovitaminosis D Morbid obesity Missed period Hair loss Extreme obesity Acne Surgical History S/P laparoscopic sleeve gastrectomy History of esophagogastroduodenoscopy (EGD) (07/30/24) History of surgery History of right breast biopsy History of tubal ligation History of section History of laparoscopic cholecystectomy Family History Father Hypertension Stroke Mother Hypertension Sister No problems noted. Son No problems noted. Daughter No problems noted. Maternal Aunt Colon cancer, Onset Age: 60 Social History Household Members: Spouse Housing: Apartment Are you a primary palliative care nurse to a significant other at home: No Do you presently have visiting nurse or other home services: No Alcohol intake: never Comment: Gas pain Patient Tobacco Use Status: Never used Tobacco Tobacco use type: Cigarette e-Cigarette/Vaping Use: Never Used Second Hand Smoke Exposure: No service: No Current occupational status: employed Current occupational exposures/hazards: No Cognitive needs: No Hearing needs: No Vision needs: Yes Female Reproductive History Menstrual Age of Menarche: 9 Behavioral Health Assessment Weight Management Therapy Therapy Notes Details Subjective: The patient reports increased organization with meal planning and preparation. She continues to experience cravings but is making healthier choices, such as incorporating more salads and alternative protein sources like shrimp. She recently attended a women?s convention, which provided a positive break. Upon returning, she had a constructive conversation with her , resulting in improved mood and a renewed focus on self-care. Objective: The patient attended a telehealth follow-up session. During the session, she reflected on recent triggers for cravings and discussed her responses to them. The session focused on cognitive restructuring and the development of new, realistic wellness goals. The patient was engaged and demonstrated insight into her behaviors and progress. Assessment/Response: * Mental status: Alert and oriented x3. Mood is described as improved and positive. Affect is congruent with mood. Thought processes are logical and coherent. No evidence of psychosis or cognitive impairment. * Risk reported/identified: None. Food/Weight/Diet Expectations of change The initial goal is to lose 10% of her weight before surgery, about 25 lbs. Ultimate weight goal: 233lbs before surgery The patient wants to become healthier, not need to use insulin or check her sugar anymore, and be more active. Initial weight: 256 lb 8 oz Most recent weight: 233Lbs Had bariatric surgery on 09/11/2024. Pre-surgery weight: 226Lbs Current weight - 09/25/2024: 212Lbs Weight as of 10/23/2024: 204 lbs Weight as of 11/21/2024: 194 Lbs Weight as of 12/12/2024: 186 lbs Weight as of 01/06/2025: 177.8 Lbs Weight as of 02/03/2025: 170 Lbs Weight as of 03/09/2025: 163Lbs Weight as of 04/06/2025: 160-162Lbs Weight as of 04/21/2025: 158Lbs . PT is implementing the following: Current meal plan: 2 Orgain shakes, 1 shake with 1 scoop and 1 shake with 2 scoops, 1 Celebrate bar and 1 meal with 4f GY, CC, eggs, or soft meat Exercise plan: Treadmill. 30 min 5 days a week (225-250 akiko each day) Assessment & Plan Assessment & Plan (1) Adjustment disorder: Code(s): F43.20 - Adjustment disorder, unspecified (2) S/P laparoscopic sleeve gastrectomy: Code(s): Z98.84 - Bariatric surgery status Plan Continue monthly behavioral health sessions to support post-operative adjustment, reinforce healthy coping strategies, and monitor progress toward wellness goals. * Next shanice: 05/18/2025 at 9am, Video Telehealth Telehealth Telehealth Platform: [employer] Location of provider rendering services: other (Home office. [place], [place]) Location of patient: address on file Patient Identification confirmed using: Name, : Yes Telehealth method: video Patient verbally consented to treatment: Yes Patient verbally consented to billing insurance company: Yes Patient informed of any privacy concerns related to visit: Yes Minutes spent on Phone/Video with Pt.: 60 Coding Level of Care Code Established Pt Tele Psytx >53 mins (34531) Patient Type Established Diagnoses Adjustment disorder F43.20 S/P laparoscopic sleeve gastrectomy Z98.84 Time Spent (min) 60
--- OUTSIDE RECORDS SUMMARY | 2025-04-22 09:38 | XMS_ITS | Clinical Summary ---
Author Organization [facility] Address [address] [place] [address] Care Team Providers Care Right Of Way Man Name Role Phone Unavailable Primary Care Provider [...] file Insurance [place] DENT[place] [facility] SAFETY [place] [address] [place] [address] DENTAL
--- OUTSIDE RECORDS SUMMARY | 2025-04-22 09:38 | XMS_ITS | Clinical Summary ---
Author Organization [facility] ity Address [address] [place] [address] Care Team Providers Care Bottom Liquor Attendant Name Role Phone Unavailable Primary Care Provider [...] 1999 COVID-19 Vaccine (2023-2 5 season) 2024 Depression Screening 10/01/2024 Influenza Vaccine (#1) 2025 HIB Vaccines Aged [...] Documents on File Type Date Recorded Patient Building Maintenance Supervisor Expl anation Health Care Decision (hx) 03/08/2014 AD FOUNTAIN DIRECTIVE Health Care Decision (hx) 03/08/2014 AD FOUNTAIN DIRECTIVE Health Care Decision (hx) 03/08/2014 AD FOUNTAIN DIRECTIVE
== END 2025-04-22 10:08 | disposition home or self-care (01) ==
LOC: HO.HBST 09:08
PROVIDERS: PCP Internal Medicine; Visit Provider Counselor Mental Health
DX: F43.20 Adjustment disorder, unspecified (principal); Z98.84 Bariatric surgery status
CPT/HCPCS: 90837

== ENCOUNTER 2025-05-18 10:00 | Outpatient (AMB) | payer OTHER, SELFPAY ==
--- NOTE | 2025-05-18 10:05 | A.OFFWM_ITS ---
Intake Intake Visit Reasons: VIDEO PO LSG 09/11/24 Allergies gabapentin Allergy (Intermediate, Verified 07/01/25 09:30) pruritus magnesium Allergy (Intermediate, Verified 07/01/25 09:30) IV route caused rash, can tolerate PO environmental allergies Allergy (Unknown, Verified 07/01/25 09:30) Unknown metformin Adverse Reaction (Intermediate, Verified 07/01/25 09:30) diarrhea PFSH Medical History (Updated 05/20/25 @ 08:29 by Fay Cisneros MD) Physical exam Cervical cancer screening Obesity, morbid, BMI 50 or higher Well woman exam with routine gynecological exam Non-insulin dependent type 2 diabetes mellitus Diabetes Environmental allergies GERD (gastroesophageal reflux disease) Migraines Hypovitaminosis D Morbid obesity Missed period Hair loss Extreme obesity Acne Surgical History S/P laparoscopic sleeve gastrectomy History of esophagogastroduodenoscopy (EGD) (07/30/24) History of surgery History of right breast biopsy History of tubal ligation History of section History of laparoscopic cholecystectomy Family History Father Hypertension Stroke Mother Hypertension Sister No problems noted. Son No problems noted. Daughter No problems noted. Maternal Aunt Colon cancer, Onset Age: 60 Social History Household Members: Spouse Housing: Apartment Are you a primary transitional care manager to a significant other at home: No Do you presently have visiting nurse or other home services: No Alcohol intake: never Comment: Gas pain Patient Tobacco Use Status: Never used Tobacco Tobacco use type: Cigarette e-Cigarette/Vaping Use: Never Used Second Hand Smoke Exposure: No service: No Current occupational status: employed Current occupational exposures/hazards: No Cognitive needs: No Hearing needs: No Vision needs: Yes Female Reproductive History Menstrual Age of Menarche: 9 Behavioral Health Assessment Weight Management Therapy Therapy Notes Details Subjective: Patient is stfa-pjfcjf-yrry surgery and reports feeling emotionally well. She has been more organized with meal preparation and consistent with her workouts. Most recent weight is 156.5 lbs. She discussed a recent negative event that disrupted a camping trip. Objective: Patient attended a follow-up visit via Telehealth. Interventions focused on reinforcing her disciplined approach to meal planning and exercise, using CBT- based strategies to help her process the recent negative event and prevent it from derailing her progress. The session included cognitive restructuring to address any unhelpful thoughts related to setbacks, and problem-solving to develop coping strategies for future challenges. Mindfulness techniques were introduced to support emotional regulation and maintain focus on her long-term goals. The importance of self-compassion and resilience in the face of unexpected stressors was emphasized. Assessment/Response: * Mental status: Patient is alert and oriented x3, mood is described as ?good,? affect is congruent, thought process is logical and organized. No evidence of psychosis or conrado. * Risk reported/identified: None. Assessment & Plan Assessment & Plan (1) Adjustment disorder: Code(s): F43.20 - Adjustment disorder, unspecified (2) S/P laparoscopic sleeve gastrectomy: Code(s): Z98.84 - Bariatric surgery status Plan Follow-up in 1 month. Next appointment scheduled for 06/17/2025 at 9:00 am via Telehealth. Telehealth Telehealth Telehealth Platform: [facility] Location of provider rendering services: other (Home office. [place], [place]) Location of patient: address on file Patient Identification confirmed using: Name, : Yes Telehealth method: video Patient verbally consented to treatment: Yes Patient verbally consented to billing insurance company: Yes Patient informed of any privacy concerns related to visit: Yes Minutes spent on Phone/Video with Pt.: 55 Coding Level of Care Code Established Pt Tele Psytx >53 mins (27007) Patient Type Established Diagnoses Adjustment disorder F43.20 S/P laparoscopic sleeve gastrectomy Z98.84 Time Spent (min) 55
--- OUTSIDE RECORDS SUMMARY | 2025-05-18 11:25 | XMS_ITS | Clinical Summary ---
Author Organization [facility] ity Address [address] [place] [address] Care Team Providers Care Visual Merchandising Specialist Name Role Phone Unavailable Primary Care [...] Documents on File Type Date Recorded Patient Mine Wirer Expl anation Health Care Decision (hx) 03/08/2014 AD FOUNTAIN DIRECTIVE Health Care Decision (hx) 03/08/2014 AD FOUNTAIN DIRECTIVE Health Care Decision (hx) 03/08/2014 AD FOUNTAIN DIRECTIVE
--- OUTSIDE RECORDS SUMMARY | 2025-05-18 11:25 | XMS_ITS | Clinical Summary ---
Author Organization [facility] Address [address] [place] [address] Care Team Providers Care Hammer Mill Operator Name Role Phone Unavailable Primary Care [...] Not on file Insurance [place] DENT[place] [facility] SAFETY NET DENTAL [address] [address] DENTAL
== END 2025-05-18 11:11 | disposition home or self-care (01) ==
LOC: HO.HBST 10:23
PROVIDERS: PCP Internal Medicine; Visit Provider Counselor Mental Health
DX: F43.20 Adjustment disorder, unspecified (principal); Z98.84 Bariatric surgery status
CPT/HCPCS: 90837

== ENCOUNTER 2025-05-20 07:28 | Outpatient (AMB) | payer OTHER, SELFPAY ==
--- OUTSIDE RECORDS SUMMARY | 2025-05-20 07:30 | XMS_ITS | Clinical Summary ---
Author Organization [facility] ity Address [address] [place] [address] Care Team Providers Care Ground Source Heat Pump Technician Name Role Phone Unavailable Primary Care [...] Documents on File Type Date Recorded Patient Credit Card Clerk Expl anation Health Care Decision (hx) 03/08/2014 AD FOUNTAIN DIRECTIVE Health Care Decision (hx) 03/08/2014 AD FOUNTAIN DIRECTIVE Health Care Decision (hx) 03/08/2014 AD FOUNTAIN DIRECTIVE
--- NOTE | 2025-05-20 07:36 | MHC.PC.OV ---
Vital Signs 05/20/25 07:37 Height 5 ft Weight 162 lb 2 oz BMI 31.7 BP 108/72 Blood Pressure Location Lt brachial Position Sitting Respiration 18 Pulse 51 Pulse Source Pulse Oximeter Temp 97.0 F Temp Source Temporal Artery Scan Pulse Oximetry (%) 98 Oxygen Delivery Method Room Air Intake Visit Reasons: annual Piano Accompanist Required: No Accompanied by: Self / Same As Patient Allergies gabapentin Allergy (Intermediate, Verified 05/20/25 07:47) pruritus magnesium Allergy (Intermediate, Verified 05/20/25 07:47) IV route caused rash, can tolerate PO environmental allergies Allergy (Unknown, Verified 05/20/25 07:47) Unknown metformin Adverse Reaction (Intermediate, Verified 05/20/25 07:47) diarrhea Medication List - Last Reconciled 05/20/25 by Fay Cisneros MD docusate sodium (Colace) 100 mg PO DAILY levocetirizine (Xyzal) 5 mg PO DAILY [Vitamin A 1 cap PO DAILY] vitamin A acetate 3,000 mcg PO DAILY Tobacco use date assessed: 05/20/25 Dental Screening Dental Screen Date: 05/20/25 Did you have a dental visit in the last 12 months?: Yes Did you have a dental problem in the last 6 months where you did not have access to dental care?: No Was dental information given to patient?: Patient has dentist HPI HPI Comments History of Present Illness Details The patient is a 45-year-old female presenting for an annual physical examination and preventative care. She has a history of diabetes mellitus, with a current hemoglobin A1c of 5.5%, indicating good glycemic control without the need for medication. Her previous A1c was 5.1%, and she has been managing her condition through lifestyle modifications, including significant weight loss of 100 pounds. The patient also has a history of fatty liver disease, with recent liver enzyme tests showing slight elevation but improvement compared to previous results. The liver enzymes are currently at 32 and 33, close to the normal range, and her cholesterol levels are well-controlled. She reports experiencing pain in the coccyx area, which is exacerbated by sitting and certain postures. The pain is attributed to loss of protective fat due to significant weight loss, and imaging of the coccyx is planned to assess the condition. The patient has allergies to gabapentin and magnesium, which cause itching and rash, respectively. She also experiences diarrhea with metformin and uses a medication for constipation as needed. Her preventative care includes a recent mammogram and a Pap smear in 2021, which was HPV negative. She is due for a tetanus vaccination, as her last one was in 2013. - Tetanus vaccination due, last administered in 2013 - Recent mammography performed - Pap smear in 2021, HPV negative - Liver enzyme monitoring due to history of fatty liver disease - Cologuard done 2022, next onse 2025. [facility] Medical History (Updated 05/20/25 @ 08:29 by Fay Cisneros MD) Physical exam Cervical cancer screening Obesity, morbid, BMI 50 or higher Well woman exam with routine gynecological exam Non-insulin dependent type 2 diabetes mellitus Diabetes Environmental allergies GERD (gastroesophageal reflux disease) Migraines Hypovitaminosis D Morbid obesity Missed period Hair loss Extreme obesity Acne Surgical History S/P laparoscopic sleeve gastrectomy History of esophagogastroduodenoscopy (EGD) (07/30/24) History of surgery History of right breast biopsy History of tubal ligation History of section History of laparoscopic cholecystectomy Family History Father Hypertension Stroke Mother Hypertension Sister No problems noted. Son No problems noted. Daughter No problems noted. Maternal Aunt Colon cancer, Onset Age: 60 Social History Household Members: Spouse Housing: Apartment Are you a primary personal care service provider to a significant other at home: No Do you presently have visiting nurse or other home services: No Alcohol intake: never Comment: Gas pain Patient Tobacco Use Status: Never used Tobacco Tobacco use type: Cigarette e-Cigarette/Vaping Use: Never Used Second Hand Smoke Exposure: No service: No Current occupational status: employed Current occupational exposures/hazards: No Cognitive needs: No Hearing needs: No Vision needs: Yes Female Reproductive History Menstrual Age of Menarche: 9 Questionnaire PHQ-9 Over the last 2 weeks, how often have you been bothered by any of the following problems? 1. Little interest or pleasure in doing things: not at all 2. Feeling down, depressed, or hopeless: not at all 3. Trouble falling or staying asleep, or sleeping too much: not at all 4. Feeling tired or having little energy: not at all 5. Poor appetite or overeating: not at all 6. Feeling bad about yourself - or that you are a failure or have let yourself or your family down: not at all 7. Trouble concentrating on things, such as reading the newspaper or watching television: not at all 8. Moving or speaking so slowly that other people could have noticed. Or the opposite - being so fidgety or restless that you have been moving around a lot more than usual: not at all 9. Thoughts that you would be better off or of hurting yourself in some way: not at all Total score: 0 Depression Screening Interpretation: Negative Depression Screening Done: Yes 20358 - PHQ-9 Billing: Yes Source: Developed by Drs. German Bell, Trena Mccoy, Elia Zimmerman and colleagues, with an educational haseeb from [employer]. Thrive Questionnaire Date Thrive assessed: 12/27/24 I am a: Patient What is your living situation today?: I have a steady place to live Within the past 12 months, did the food you bought not last and you didn't have the money to get more?: Never true Within the past 12 months, did you worry whether your food would run out before you got money to buy more?: Never true Do you have trouble paying for medicines?: No Do you have trouble getting transportation to medical appointments?: No Do you have trouble paying your heating and electricity bill?: No Do you have trouble taking care of your child, family member or friend?: No Do you have trouble with day-to-day activities such as bathing, preparing meals, shopping, managing finances, etc.?: No Are you currently unemployed and looking for a job?: No Are you interested in more education?: No Please select the resources that you would like help with: None Currently or been in a relationship where the following occur: No concerns reported THRIVE Score: 0 AUDIT C Alcohol Use Questionnaire (AUDIT-C) 1. How often do you have a drink containing alcohol?: Never 3. How often do you have six or more drinks on one occasion?: Never Total Score: 0 Score Reviewed/Action Taken: No GUZMAN-7 AMB Questionnaire GUZMAN-7 Date GUZMAN - 7 assessed: 10/14/24 Feeling nervous, anxious, or on edge: 0 = Not at all Not being able to stop or control worryin = Not at all Worrying too much about different things: 0 = Not at all Trouble relaxin = Not at all Being so restless that it is hard to sit still: 0 = Not at all Becoming easily annoyed or irritable: 0 = Not at all Feeling afraid as if something awful might happen: 0 = Not at all Total GUZMAN-7 score (0-4 normal; 5-9 mild; 10-14 moderate; 15-21 severe): 0 Source: Developed by Drs. German Bell, Trena Mccoy, Elia Zimmerman and colleagues, with an educational haseeb from [employer]. GUZMAN-7 Assessment Billing GUZMAN-7 Assessment Tool: GUZMAN-7 Assessment 12474 Review of Systems Const All systems reviewed & are unremarkable except as noted in HPI and below Card Denies chest pain at rest, Denies chest pain with activity, Denies edema, Denies irregular heart rhythm, Denies claudication, Denies dyspnea, Denies dyspnea on exertion, Denies orthopnea, Denies paroxysmal nocturnal dyspnea and Denies slow heart rate Resp Denies cough, Denies dyspnea and Denies dyspnea on exertion GI Denies abdominal pain, Denies change in bowel habits, Denies excessive flatus, Denies nausea and Denies vomiting Denies urinary incontinence, Denies urinary hesitancy and Denies urinary urgency Skin/Breast Denies rash Physical exam (Primary Care) Vital Signs: Last Vital Signs Temp 97.0 F 05/20/25 07:37 Pulse 51 05/20/25 07:37 Resp 18 05/20/25 07:37 BP 108/72 05/20/25 07:37 Pulse Ox 98 05/20/25 07:37 Oxygen Delivery Method Room Air 05/20/25 07:37 BMI result Body Mass Index 31.7 BMI Assessment/Plan discussion: High BMI High, discussed plan: lifestyle, weight reduction, dietary and physical activity Tobacco/Smoking Status: Tobacco use Status Tobacco use date assessed 05/20/25 05/20/25 07:42 Patient Tobacco Use Status Never used Tobacco 05/20/25 07:42 Tobacco use type Cigarette 05/20/25 07:42 e-Cigarette/Vaping Use Never Used 05/20/25 07:42 PHQ-9: PHQ-9 Score PHQ-9: Total score 0 05/20/25 08:30 Depression Screening Interpretation: Negative Thrive Assessment: Date of Thrive Assessment Date Thrive assessed 12/27/24 05/20/25 07:42 Currently or been in a relationship where the following occur: No concerns reported Const Orientation/consciousness: patient oriented x3 HENMT Head: Yes normal to inspection, Yes normocephalic and Yes atraumatic Ears: external ears normal Eyes General: appearance normal, both eyes and all related structures Eyelids: Yes eyelids normal Conjunctivae: conjunctivae normal Neck Neck: Yes normal visual inspection and Yes supple Resp Effort & Inspection: normal respiratory effort Auscultation: clear to auscultation bilaterally Cardio Jugular venous distension: no JVD Rate: regular rate Rhythm: regular rhythm Heart sounds: S1 normal heart sound present and S2 normal heart sound present GI Inspection: Yes normal to inspection Palpation (GI): Soft to palpation and nontender Auscultation: normal bowel sounds Skin General skin exam: no rashes or lesions noted Neuro General: patient oriented x3 and no focal motor deficits Extrem General: Yes full ROM Psych Appearance: grossly normal Results AMB Hemoglobin A1c AMB Hemoglobin A1c 5.5 % Last Edit by Sharon Navarro CMA on 05/20/25 07:51 Immunizations Boostrix Tdap 2.5 Lf unit-8 mcg-5 Lf/0.5 mL intramuscular syringe Performing Provider: Fay Cisneros MD Performing Location: [facility] Administered by: FERN Penny on 05/20/25 08:05 Dose Route Admin Location Dispensed Lot Number Expiration Date [facility] Hat Cutter 0.5 mL IM Right Deltoid 0.5 mL [id number] 07/24/27 [id number] IPXI Total Dispensed Waste 0.5 mL 0 % VIS Given Date VIS Provided VIS Publication Date 05/20/25 Single Vaccine 21 Eligibility Eligibility Date Funding Source Not [facility] Eligible 05/20/25 Private Results Reviewed Results Reviewed: Laboratory Last Values Hgb A1c (Clinic) 5.5 % (4.0-6.0) 05/20/25 07:42 Coding Level of Care Code Est Pt Level 3 (95193) Est Pt Prev Care 40-64y(79863) Diagnoses Physical exam Z00.00 Type 2 diabetes mellitus without complication, without long-term current use of insulin E11.9 Diabetes mellitus complication status: without complication Diabetes mellitus skilled nursing insulin use: without assistant terminal manager use Diabetes mellitus type: type 2 Coccyalgia M53.3 Additional Codes GUZMAN-7 Assessment Billing - GUZMAN-7 Assessment Tool: GUZMAN-7 Assessment 08202 ([id number]) PHQ-9 - 55448 - PHQ-9 Billing: Yes ([id number]) Time Spent (min) 33 Assessment & Plan Assessment & Plan (1) Physical exam: Code(s): Z00.00 - Encounter for general adult medical examination without abnormal findings Category: Medical (2) Diabetes mellitus: Code(s): E11.9 - Type 2 diabetes mellitus without complications Category: Medical Qualifiers: Diabetes mellitus complication status: without complication Diabetes mellitus assistant terminal manager insulin use: without skilled nursing use Diabetes mellitus type: type 2 Qualified Code(s): E11.9 - Type 2 diabetes mellitus without complications (3) Coccyalgia: Code(s): M53.3 - Sacrococcygeal disorders, not elsewhere classified Category: Medical Plan The patient will receive a tetanus vaccination today, as it is due since the last administration was in 2013. Continued monitoring of hemoglobin A1c is recommended to ensure diabetes remains well-controlled without medication. Liver enzymes will be re-evaluated in four months to monitor the status of fatty liver disease, given the slight elevation noted. For the coccyx pain, imaging will be conducted to assess the condition further, and the patient is advised to adjust sitting postures to alleviate discomfort. Consideration of NSAIDs like naproxen or Relafem for pain management was discussed, with caution advised due to potential side effects. Patient was informed and verbally consented to the use of an ambient scribe for clinic note documentation during this visit. I discussed with the patient the importance of receiving the tetanus vaccination today, as it is overdue. We reviewed her diabetes management, emphasizing the need for regular monitoring of her A1c levels to maintain control without medication. The slight elevation in liver enzymes was noted, and I recommended re-evaluation in four months to track any changes. For her coccyx pain, I suggested imaging to better understand the issue and advised on posture adjustments to reduce discomfort. We also discussed the use of NSAIDs like naproxen or Relafem for pain management, considering potential side effects. Orders: Orders Lipid Panel 4 Months E78.5 - Hyperlipidemia, unspecified Vitamin D 25-OH Total 4 Months E55.9 - Vitamin D deficiency, unspecified Comprehensive [place]. Panel Fast 4 Months E11.9 - Type 2 diabetes mellitus without complications TDaP Immunization Today Z23 - Encounter for immunization AMB Hemoglobin A1c Today Z13.9 - Encounter for screening, unspecified XR sacrum coccyx min 2V Today M53.3 - Sacrococcygeal disorders, not elsewhere classified Microalbumin, Random (w Creat) 4 Months R80.9 - Proteinuria, unspecified Patient Instructions: - Receive tetanus vaccination today. - Continue monitoring blood sugar levels and maintain current lifestyle modifications. - Return for liver enzyme re-evaluation in four months. - Adjust sitting posture to alleviate coccyx pain. - Consider using NSAIDs like naproxen or Relafem for pain, if necessary.
[2025-05-20 07:37] VITALS: BP 108/72; PULSE 51; RESP 18; TEMP 36.1; O2SAT 98; BMI 31.7
== END 2025-05-20 08:03 | disposition home or self-care (01) ==
LOC: HO.HMCH 07:29
PROVIDERS: PCP Internal Medicine; Visit Provider Internal Medicine
DX: Z00.00 Encounter for general adult medical examination without abnormal findings (principal); E11.9 Type 2 diabetes mellitus without complications; M53.3 Sacrococcygeal disorders, not elsewhere classified; Z23 Encounter for immunization

== ENCOUNTER → 2025-05-20 07:28 | Outpatient (BNVA) | payer OTHER, SELFPAY | PROVIDERS: PCP Internal Medicine; Visit Provider Internal Medicine | DX: Z00.00 Encounter for general adult medical examination without abnormal findings (principal); E11.9 Type 2 diabetes mellitus without complications; K76.0 Fatty (change of) liver, not elsewhere classified; M53.3 Sacrococcygeal disorders, not elsewhere classified; E78.5 Hyperlipidemia, unspecified; E55.9 Vitamin D deficiency, unspecified; R80.9 Proteinuria, unspecified; Z23 Encounter for immunization | CPT/HCPCS: 83036; 90471; 90715; 96127; 99212; 99396 ==

== ENCOUNTER 2025-06-30 07:54 | Outpatient (REF) | payer OTHER, SELFPAY ==
--- NOTE | ~2025-06-30 | MM_ITS ---
EXAMINATION: MM SCREENING DIGITAL BREAST TOMOSYNTHESIS, BILATERAL CLINICAL INFORMATION: Screening. Asymptomatic. COMPARISON: Comparison made to multiple prior, most recent prior diagnostic mammogram on January 06, 2025, and most remote November 25, 2018. TECHNIQUE: Digital breast tomosynthesis is performed in mediolateral oblique and craniocaudal views along with computer-aided detection (CAD). Synthesized 2D images are generated from the tomosynthesis. FINDINGS: BREAST COMPOSITION: The breasts are heterogeneously dense, which may obscure small masses. BILATERAL BREASTS: No significant masses, suspicious calcifications or other abnormalities are seen in either breast. MM/MM tomosynthesis screening BI IMPRESSION: BILATERAL BREASTS: Negative, no mammographic evidence of malignancy. Normal interval follow-up is recommended in 12 months. ASSESSMENT: BI-RADS: Category 1: Negative RECOMMENDATION: Routine annual mammography screening. FOLLOW-UP: 1 year F/U This examination should not preclude the clinical evaluation of a suspicious palpable abnormality. This patient's information was entered into a reminder system with a target due date for their next mammogram. Electronically signed by: Gian Allen MD 06/30/2025 08:19 PM EDT
--- OUTSIDE RECORDS SUMMARY | 2025-06-30 08:01 | XMS_ITS | Data Portability ---
Author Organization [place] - [facility], Allergy Address [address] [address] Care Team Providers Care Facetor Name Role Phone MARY CRAVEN Primary Care Provider [phone] Assessment Encounter Date Assessment Date Assessment LastModified by Organization Details LastModified Time 03/17/2024 03/17/2024 44-year-old kate tello presents for re-evaluation. Her hoarseness improved with use of omeprazole. She may continue using this. I have recommended referral to gastroenterology for further evaluation and treatment. She should also continue with her traffic supervisor as this is likely exacerbating symptoms. May follow-up here as needed. [email or web address] Not available 03/17/2024 14:17:36 Plan of Treatment Reminders Order Date Submit Date Provider Last Modified By Organization Details Last Modified Time Details Appointments None recorde d. Lab None recorde d. Referral gastroe nterolo gist referra l - Referra l for reflux. Thank you. 2023 024 [email or web address] 2 [facility] Scheduling Department, [address] [place], [address], 12:19:05 Procedures None recorde d. Surgeries None recorde d. Imaging None recorde d. Medication Orders None recorde d. Patient TargetsNo targets recorded. Patient InstructionsNo instructions recorded. Reason for Referral Post Splitter Referral for Gastroesophageal reflux disease without esophagitis Referral for reflux. Thank you. Referring Physician: Sandi Sidhu, Otolaryngology, Encounter Date: 03/17/2024 Problems Name Problem SNOMED Code Status Onset Date Resolution Date Notes Provider Name and Address Organization Details Recorded Time Dysphonia 72677202 Active 2023 Hoarsenes s; Note: Date Diagnosed : 11/21/2023 12:28 PM (R49.0) Not Available Count includes the [facility] 4 03:25:13 Allergic rhinitis caused by pollen 28588356 Active 2023 Allergic rhinitis due to pollen; Note: Date Diagnosed : 11/21/2023 12:28 PM (J30.1) Not Available Count includes the [facility] 4 03:25:13 Gastroesop hageal reflux disease without esophagiti s 229770930 Active 2023 SANDI SIDHU PA-C [address], [place], [address] , [place] - [facility] 4 13:57:35 Allergic rhinitis 27379345 Active 2023 SANDI SIDHU PA-C 100 [facility],[address], [place], [address] , [place] - [facility] 4 13:57:51 Dysphagia 59262590 Active 2023 SANDI SIDHU PA-C [address], [place], [address] , [place] - [facility] 4 13:58:06 Hoarse 85166862 Active 2023 BARBARA SARGENT MD [address] [facility],[address], [place], [address] , [place] - [facility] 4 14:17:42 Problem Notes None recorded. Medical Equipment None Reported. Allergies Allergen ID Allergen Name Allergen Category Reaction Reaction Severity Criticality Documentation Date Start Date Code Code System Note Provider Name and Address Organization Details Recorded Time 933441 Product containin g magnesium and/or magnesium compound (product) medicatio n hives Not available Not available 05/02/2024 13946 5005 SNOMED React ion: Hives ; Not Available Count includes the [facility] 4 00:23:57 890662 metformin medicatio n diarrhea Not available Not [...] Xyzal 5 mg tablet active Medication ID: [id number] Bra nd Name: Xyzal Send Method: E-Prescrib ed Subs Allowed: subs OK Medicat ionGeneric Name: Xyzal Not Available Not Available Not Available butalbital 50 mg-acetami nophen 300 mg capsule active Medication ID: [id number] Bra nd Name: butalbital -acetamino phen Send Method: E-Prescrib ed Subs Allowed: subs OK Medicat ionGeneric Name: butalbital -acetamino phen Not Available Not Available Not Available Vitals Date Recorded Body height Body mass index (BMI) Body weight Provider Name and Address Organization Details Last Updated DateTime 03/17/2024 152.4 cm 50.6 kg/m2 755282.42 g Sarita Mo [place] - [facility] 03/17/2024 13:03:46 Social History None recorded. Functional Status None recorded. Mental Status None recorded. Family History Nothing Reported. Medical History No medical history recorded. Gynecological HistoryNo gynecological history recorded. Obstetrics History GPAL:G 0 P 0 0 0 0 Past Encounters Encounter ID Performer Location Encounter Start Date Encounter Closed Date Diagnosis/Indication Diagnosis SNOMED-CT Code Diagnosis ICD10 Code Diagnosis IMO Codes Diagnosis Note [id number] SANDI SIDHU PA-C [facility] [address] [address] 03/17/2024 12:18:22 03/17/2024 13:37:11 Gastroesophageal reflux disease without esophagitis 827788598 K21.9 Allergic rhinitis 379327 04 J30.9 Hoarse 53067703 R49.0 improved Health Concerns Section Related Observation LastModified by Organization Detai ls LastModified Time None Recorded Concern Status LastModified by Organization Details LastModified Time None Recorded Advance Directives Directive None Recorded Payers Insurance Date Sequence Insurance Name Policy Number Policy Greene Covered Member ID Greene Member ID Guarantor Name 03/18/2024 1 [facility] NET PLAN (MEDICAID HMO) SOCO Knutson Rk [id number] Zenia Beckman Notes Date Note Type Note Provider Name and Address Organization Details Recorded Time 03/17/2024 text/html ROS as noted in the HPI 44-year-old female presents for reevaluation. Previously evaluated for hoarseness and thought to have GERD and postnasal drip from seasonal allergy. She sees an traffic supervisor and takes Flonase and Xyzal daily. Omeprazole was added to her daily regimen and she feels her hoarseness has improved. Plans to see her traffic supervisor in March. BARBARA JAMES MD [address] [place] [address], [place], [address], [facility] - [facility] 03/17/2024 14:17:57 OBGyn Episode No OBEpisode recorded.
--- OUTSIDE RECORDS SUMMARY | 2025-06-30 08:01 | XMS_ITS | Clinical Summary ---
Author Organization [facility] Address [address] [place] [address] Care Team Providers Care Supervisor Corduroy Cutting Name Role Phone Unavailable Primary Care Provider [...] Not on file Insurance [place] D[place] [facility] SAFETY NET [place] [place] [address] DENTAL
--- OUTSIDE RECORDS SUMMARY | 2025-06-30 08:01 | XMS_ITS | Clinical Summary ---
Author Organization [facility] ity Address [address] [place] [address] Care Team Providers Care Waste Management Specialist Name Role Phone Unavailable Primary Care [...] Cervical Cancer Screening: P ap Smear 1999 Depression Screening 10/01/2024 COVID-19 Vaccine ( - 2023-2 5 season) 2025 Influenza Vaccine (#1) 2025 HIB Vaccines Aged [...] Documents on File Type Date Recorded Patient Commercial Roofer Expl anation Health Care Decision (hx) 03/08/2014 AD FOUNTAIN DIRECTIVE Health Care Decision (hx) 03/08/2014 AD OFUNTAIN DIRECTIVE Health Care Decision (hx) 03/08/2014 AD FOUNTAIN DIRECTIVE
== END 2025-06-30 07:55 | disposition home or self-care (01) ==
LOC: HO.MAMMO 07:54
PROVIDERS: PCP Internal Medicine; Visit Provider Internal Medicine
DX: Z12.31 Encounter for screening mammogram for malignant neoplasm of breast (principal)
CPT/HCPCS: 77063; 77067

== ENCOUNTER → 2025-06-30 08:00 | Outpatient (BNV) | payer OTHER, SELFPAY | PROVIDERS: PCP Internal Medicine; Visit Provider Radiology Body Imaging | DX: Z12.31 Encounter for screening mammogram for malignant neoplasm of breast (principal) | CPT/HCPCS: 77063; 77067 ==

== ENCOUNTER 2025-07-01 09:19 | Outpatient (AMB) | payer OTHER, SELFPAY ==
--- NOTE | 2025-07-01 09:26 | A.OFFVIS_ITS ---
VS Expanded 07/01/25 09:43 BP 122/64 Blood Pressure Location Rt brachial Blood Pressure Position Sitting Pulse 59 Pulse Source Pulse Oximeter Temp 97.5 F Temperature Source Temporal Artery Scan Pulse Oximetry 100 Oxygen Delivery Method Room Air Height 5 ft Weight 155 lb 9.6 oz BMI 30.4 Body Fat % 36.0 Body Fat Mass 56.0 Fat Free Mass 99.4 Visceral Fat Rating 8.0 Body Water % 45.5 Body Water Mass 70.8 Muscle Mass/Score 94.4 Basal Metabolic Rate/Score 1,365 Intake Visit Reasons: (OV) PO LSG 09/11/24 Assembler Wire Mesh Gate Required: Yes Assembler Wire Mesh Gate Name: Harpal Watkins [id number] Allergies gabapentin Allergy (Intermediate, Verified 07/01/25 09:30) pruritus magnesium Allergy (Intermediate, Verified 07/01/25 09:30) IV route caused rash, can tolerate PO environmental allergies Allergy (Unknown, Verified 07/01/25 09:30) Unknown metformin Adverse Reaction (Intermediate, Verified 07/01/25 09:30) diarrhea Medication List - Last Reconciled 07/01/25 by WALLACE Saunders levocetirizine (Xyzal) 5 mg PO DAILY [Vitamin A 1 cap PO DAILY] HPI Comments Details: This?is a?45?yo F who is s/p LSG 09/11/2024. Presents for 9mo post op visit. Weight loss of 6.4lb since last OV in March 2025. No complaints of nausea, emesis, abdominal pain or reflux, or constipation. Blood sugars- remains off pioglitazone. Well controlled. Present meal plan includes: -given at last OV 2 Orgain shakes, 1 shake with 1 scoop and 1 shake with 2 scoops 1 Celebrate bar 1 meal with 4f GY, CC, eggs, or soft meat MVI -notes she is eating some things she thinks she shouldn't be eating, like rice or higher carbohydrate foods; has been experiencing some cravings recently -has been having a shake in AM with 1 scoop Niuean yogurt, then bar, then does not have second shake; will sometimes have an egg or meat as a second meal Exercise routine includes: has a machine at home/does home exercises was exercising less due to family illnesses, 1-2x week for 30 min; has been trying to go every day this week [facility] Medical History (Updated 05/20/25 @ 08:29 by Fay Cisneros MD) Physical exam Cervical cancer screening Obesity, morbid, BMI 50 or higher Well woman exam with routine gynecological exam Non-insulin dependent type 2 diabetes mellitus Diabetes Environmental allergies GERD (gastroesophageal reflux disease) Migraines Hypovitaminosis D Morbid obesity Missed period Hair loss Extreme obesity Acne Surgical History S/P laparoscopic sleeve gastrectomy History of esophagogastroduodenoscopy (EGD) (07/30/24) History of surgery History of right breast biopsy History of tubal ligation History of section History of laparoscopic cholecystectomy Family History Father Hypertension Stroke Mother Hypertension Sister No problems noted. Son No problems noted. Daughter No problems noted. Maternal Aunt Colon cancer, Onset Age: 60 Social History Household Members: Spouse Housing: Apartment Are you a primary home health care social worker to a significant other at home: No Do you presently have visiting nurse or other home services: No Alcohol intake: never Comment: Gas pain Patient Tobacco Use Status: Never used Tobacco Tobacco use type: Cigarette e-Cigarette/Vaping Use: Never Used Second Hand Smoke Exposure: No service: No Current occupational status: employed Current occupational exposures/hazards: No Cognitive needs: No Hearing needs: No Vision needs: Yes Female Reproductive History Menstrual Age of Menarche: 9 Assessment & Plan Assessment & Plan (1) S/P laparoscopic sleeve gastrectomy: Code(s): Z98.84 - Bariatric surgery status Category: Surgical (2) Obesity: Code(s): E66.9 - Obesity, unspecified Category: Medical Plan I suggested replacing second shake with a protein bar or Niuean yogurt cup. She seemed hesitant to try this. She is very tired of shakes. She thinks she can follow a plan with one bar or shake per day but is resistant to more than that, wants more solid food. I enocuraged her to text me weekly so we can monitor her weight on this plan. We discussed short term goal of getting BMI < 30. She is not particularly interested in reaching healthy BMI as she feels comfortable with her weight at this time. I made a list of various options of items (shakes, bars, yogurt/CC, meat/eggs) and their protein amounts with goal of 60-65g/day. Pt reports she feels comfortable using these items to meet protein goals each day. RTC 3mo.
[2025-07-01 09:43] VITALS: BP 122/64; PULSE 59; TEMP 36.4; O2SAT 100; BMI 30.4
--- OUTSIDE RECORDS SUMMARY | 2025-07-01 10:07 | XMS_ITS | Clinical Summary ---
Author Organization [facility] Address [address] [place] [address] Care Team Providers Care Objective C Developer Name Role Phone Unavailable Primary Care [...] Not on file [place] D[place] [facility] SAFETY [place] [place] [address] DENTAL
--- OUTSIDE RECORDS SUMMARY | 2025-07-01 10:07 | XMS_ITS | Clinical Summary ---
Author Organization [facility] ity Address [address] [place] [address] Care Team Providers Care Manager Gift Name Role Phone Unavailable Primary Care Provider [...] Smear 1999 Depression Screening 10/01/2024 COVID-19 Vaccine (1 - 2023-2 5 season) 2025 Influenza Vaccine (#1) 2025 RSV Immunization Adult Patie nts (1 - 1-dose 75+ series) 2053 HIB Vaccines Aged Out No longer eligi [...] Documents on File Type Date Recorded Patient Television Newscast Director Expl anation Health Care Decision (hx) 03/08/2014 AD FOUNTAIN DIRECTIVE Health Care Decision (hx) 03/08/2014 AD FOUNTAIN DIRECTIVE Health Care Decision (hx) 03/08/2014 AD FOUNTAIN DIRECTIVE
== END 2025-07-01 10:12 | disposition home or self-care (01) ==
LOC: HO.HBS 09:20
PROVIDERS: PCP Internal Medicine; Visit Provider Physician Assistant Surgical
DX: E66.9 Obesity, unspecified (principal); Z68.30 Body mass index [BMI] 30.0-30.9, adult; Z90.3 Acquired absence of stomach [part of]; Z98.84 Bariatric surgery status
CPT/HCPCS: 99213

== ENCOUNTER → 2025-07-01 09:19 | Outpatient (BNVA) | payer OTHER, SELFPAY | PROVIDERS: PCP Internal Medicine; Visit Provider Physician Assistant Surgical | DX: E66.9 Obesity, unspecified (principal); Z68.30 Body mass index [BMI] 30.0-30.9, adult; Z90.3 Acquired absence of stomach [part of] | CPT/HCPCS: 99212 ==

== ENCOUNTER 2025-07-15 14:23 | Outpatient (AMB) | payer OTHER, SELFPAY ==
--- NOTE | 2025-07-15 14:10 | MHC.WMTHER ---
Intake Intake Visit Reasons: VIDEO PO LSG 09/11/24 Allergies gabapentin Allergy (Intermediate, Verified 07/01/25 09:30) pruritus magnesium Allergy (Intermediate, Verified 07/01/25 09:30) IV route caused rash, can tolerate PO environmental allergies Allergy (Unknown, Verified 07/01/25 09:30) Unknown metformin Adverse Reaction (Intermediate, Verified 07/01/25 09:30) diarrhea PFSH Medical History (Updated 05/20/25 @ 08:29 by Fay Cisneros MD) Physical exam Cervical cancer screening Obesity, morbid, BMI 50 or higher Well woman exam with routine gynecological exam Non-insulin dependent type 2 diabetes mellitus Diabetes Environmental allergies GERD (gastroesophageal reflux disease) Migraines Hypovitaminosis D Morbid obesity Missed period Hair loss Extreme obesity Acne Surgical History S/P laparoscopic sleeve gastrectomy History of esophagogastroduodenoscopy (EGD) (07/30/24) History of surgery History of right breast biopsy History of tubal ligation History of section History of laparoscopic cholecystectomy Family History Father Hypertension Stroke Mother Hypertension Sister No problems noted. Son No problems noted. Daughter No problems noted. Maternal Aunt Colon cancer, Onset Age: 60 Social History Household Members: Spouse Housing: Apartment Are you a primary critical care physician to a significant other at home: No Do you presently have visiting nurse or other home services: No Alcohol intake: never Comment: Gas pain Patient Tobacco Use Status: Never used Tobacco Tobacco use type: Cigarette e-Cigarette/Vaping Use: Never Used Second Hand Smoke Exposure: No service: No Current occupational status: employed Current occupational exposures/hazards: No Cognitive needs: No Hearing needs: No Vision needs: Yes Female Reproductive History Menstrual Age of Menarche: 9 Behavioral Health Assessment Weight Management Therapy Therapy Notes Details Subjective: Client?s recent weight is 155 lbs and she reports feeling well at this weight. She recently saw her PA and had a positive outcome, though she expressed feeling tired of the same plan and sometimes struggles internally with her weight-loss journey. Despite these challenges, her mood has improved and her relationship with her partner is better. Objective: Session conducted via telehealth. Last seen 05/18/2025. Discussed current functioning, daily routine, progress, and ongoing challenges. Explored her goals and emphasized prioritizing healthy behaviors over focusing solely on the scale, as frustration sometimes leads to old habits. Worked on developing a disciplined, long-term post-op vision for weight management.Encouraged the client to focus on consistency with healthy routines, mindful eating, and self-compassion during setbacks. Discussed strategies to manage frustration and prevent relapse into old habits, and reinforced the importance of celebrating non-scale victories to maintain motivation. Assessment/Response: Mental status: WNL Risk reported/identified: None PT was insightful regarding challenges and progress Assessment & Plan Assessment & Plan (1) Adjustment disorder: Code(s): F43.20 - Adjustment disorder, unspecified (2) S/P laparoscopic sleeve gastrectomy: Code(s): Z98.84 - Bariatric surgery status Plan Continue monthly post-op support sessions. Telehealth Telehealth [facility]health [facility] Location of provider rendering services: practice address Location of patient: address on file Patient Identification confirmed using: Name, : Yes Telehealth method: video Patient verbally consented to treatment: Yes Patient verbally consented to billing insurance company: Yes Patient informed of any privacy concerns related to visit: Yes Minutes spent on Phone/Video with Pt.: 50 C[place] [address] Tele Psytx 45 mins Patient Type Established Diagnoses Adjustment disorder F43.20 S/P laparoscopic sleeve gastrectomy Z98.84 Time Spent (min) 50
--- OUTSIDE RECORDS SUMMARY | 2025-07-15 18:08 | XMS_ITS | Clinical Summary ---
Author Organization [facility] ity Address [address] [place] [address] Care Team Providers Care Personal Lines Account Manager Name Role Phone Unavailable Primary Care [...] Documents on File Type Date Recorded Patient Life Enrichment Director Expl anation Health Care Decision (hx) 03/08/2014 AD FOUNTAIN DIRECTIVE Health Care Decision (hx) 03/08/2014 AD FOUNTAIN DIRECTIVE Health Care Decision (hx) 03/08/2014 AD FOUNTAIN DIRECTIVE
--- OUTSIDE RECORDS SUMMARY | 2025-07-15 18:08 | XMS_ITS | Data Portability ---
Author Organization [place] - [facility], Allergy Address [address] [address] Care Team Providers Care Deep Submergence Vehicle Crewmember Name Role Phone MARY CRAVEN Primary Care Provider Assessment Encounter Date Assessment Date Assessment LastModified by Organization Details LastModified Time 03/17/2024 03/17/2024 44-year-old kate tello presents for re-evaluation. Her hoarseness improved with use of omeprazole. She may continue using this. I have recommended referral to gastroenterology for further evaluation and treatment. She should also continue with her senior benefits specialist as this is likely exacerbating symptoms. May follow-up here as needed. [email or web address] Not available 03/17/2024 14:17:36 Plan of Treatment Reminders Order Date Submit Date Provider Last Modified By Organization Details Last Modified Time Details Appointments None recorde d. Lab None recorde d. Referral gastroe nterolo gist referra l - Referra l for reflux. Thank you. 2023 024 [email or web address] 2 [facility] Gastroenterology Scheduling Department, [address] [place], [address], 12:19:05 Procedures None recorde d. Surgeries None recorde d. Imaging None recorde d. Medication Orders None recorde d. Patient TargetsNo targets recorded. Patient InstructionsNo instructions recorded. Reason for Referral Paper Guillotine Operator Referral for Gastroesophageal reflux disease without esophagitis Referral for reflux. Thank you. Referring Physician: Sandi Sidhu, Otolaryngology, Encounter Date: 03/17/2024 Problems Name Problem SNOMED Code Status Onset Date Resolution Date Notes Provider Name and Address Organization Details Recorded Time Dysphonia 49999885 Active 2023 Hoarsenes s; Note: Date Diagnosed : 11/21/2023 12:28 PM (R49.0) Not Available [facility] 4 03:25:13 Allergic rhinitis caused by pollen 45068819 Active 2023 Allergic rhinitis due to pollen; Note: Date Diagnosed : 11/21/2023 12:28 PM (J30.1) Not Available [facility] 4 03:25:13 Gastroesop hageal reflux disease without esophagiti s 063022668 Active 2023 SANDI SIDHU PA-C [address] [employer] [address] [address], [place], [address] , [place] - [facility] 4 13:57:35 Allergic rhinitis 44728836 Active 2023 SANDI SIDHU PA-C 100 [facility],[address], [place], [address] , [place] - [facility] 4 13:57:51 Dysphagia 96580328 Active 2023 SANDI SIDHU PA-C [address] [address], [place], [address] , [place] - [facility] 4 13:58:06 Hoarse 39201904 Active 2023 BARBARA SARGENT MD 100 [facility],[address], [place], [address] , [place] - [facility] 4 14:17:42 Problem Notes None recorded. Medical Equipment None Reported. Allergies Allergen ID Allergen Name Allergen Category Reaction Reaction Severity Criticality Documentation Date Start Date Code Code System Note Provider Name and Address Organization Details Recorded Time 698935 Product containin g magnesium and/or magnesium compound (product) medicatio n hives Not available Not available 05/02/2024 44588 5005 SNOMED React ion: Hives ; Not Available [facility] 4 00:23:57 154410 metformin medicatio n diarrhea Not available Not [...] Xyzal 5 mg tablet active Medication ID: [id number] Bra nd Name: Xyzal Send Method: E-Prescrib ed Subs Allowed: subs OK Medicat ionGeneric Name: Xyzal Not Available Not Available Not Available butalbital 50 mg-acetami nophen 300 mg capsule active Medication ID: [id number] Bra nd Name: butalbital -acetamino phen Send Method: E-Prescrib ed Subs Allowed: subs OK Medicat ionGeneric Name: butalbital -acetamino phen Not Available Not Available Not Available Vitals Date Recorded Body height Body mass index (BMI) Body weight Provider Name and Address Organization Details Last Updated DateTime 03/17/2024 152.4 cm 50.6 kg/m2 556647.42 g Sarita Mo [place] - [facility] 03/17/2024 13:03:46 Social History None recorded. [...] Diagnosis Note [id number] SANDI SIDHU PA-C [facility] [address] [address] 03/17/2024 12:18:22 03/17/2024 13:37:11 Gastroesophageal reflux disease without esophagitis 883362528 K21.9 Allergic rhinitis 316972 04 J30.9 Hoarse 44174721 R49.0 improved Health Concerns Section Related Observation LastModified by Organization Detai ls LastModified Time None Recorded Concern Status LastModified by Organization Details LastModified Time None Recorded Advance Directives Directive None Recorded Payers Insurance Date Sequence Insurance Name Policy Number Policy Greene Covered Member ID Greene Member ID Guarantor Name 03/18/2024 1 [facility] - HEALTH NET PLAN (MEDICAID HMO) SOCO Knutson Rk [id number] Zenia Beckman Notes Date Note Type Note Provider Name and Address Organization Details Recorded Time 03/17/2024 text/html ROS as noted in the HPI 44-year-old female presents for reevaluation. Previously evaluated for hoarseness and thought to have GERD and postnasal drip from seasonal allergy. She sees an senior benefits specialist and takes Flonase and Xyzal daily. Omeprazole was added to her daily regimen and she feels her hoarseness has improved. Plans to see her senior benefits specialist in March. BARBARA JAMES MD [address] [place] [address], [place], [address], [facility] - [facility] 03/17/2024 14:17:57 OBGyn Episode No OBEpisode recorded.
== END 2025-07-15 15:02 | disposition home or self-care (01) ==
LOC: HO.HBST 14:23
PROVIDERS: PCP Internal Medicine; Visit Provider Counselor Mental Health
DX: F43.20 Adjustment disorder, unspecified (principal); Z98.84 Bariatric surgery status
CPT/HCPCS: 90834

== ENCOUNTER 2025-09-21 07:52 | Outpatient (REF) | payer OTHER, SELFPAY ==
--- NOTE | ~2025-09-21 | XR_ITS ---
EXAMINATION: XR SACRUM AND COCCYX CLINICAL INFORMATION: M53.3 - Sacrococcygeal disorders, not elsewhere classified COMPARISON: None available. TECHNIQUE: 2 views of the sacrum and 2 views of the coccyx were obtained. FINDINGS: Mild degenerative sclerosis is noted along the SI joints, left greater than right. There are also small marginal osteophytes. No acute fracture or deformity is evident. XR/XR sacrum coccyx min 2V IMPRESSION: SI joint degenerative changes, left greater than right. Electronically signed by: Nolan Baeza MD 09/21/2025 02:55 PM EST
--- OUTSIDE RECORDS SUMMARY | 2025-09-21 07:54 | XMS_ITS | Clinical Summary ---
Author Organization [facility] ity Address [address] [place] [address] Care Team Providers Care Heat Regulator Name Role Phone Unavailable Primary Care Provider [...] Depression Screening 10/01/2024 COVID-19 Vaccine (1 - 2024-2 6 season) 2025 Influenza Vaccine (#1) 2025 RSV [...] Documents on File Type Date Recorded Patient Paper Core Machine Operator Expl anation Health Care Decision (hx) 03/08/2014 AD FOUNTAIN DIRECTIVE Health Care Decision (hx) 03/08/2014 AD FOUNTAIN DIRECTIVE Health Care Decision (hx) 03/08/2014 AD FOUNTAIN DIRECTIVE
--- OUTSIDE RECORDS SUMMARY | 2025-09-21 07:54 | XMS_ITS | Data Portability ---
Author Organization [place] - [facility], Allergy Address [address] [address] Care Team Providers Care Crew Scheduler Name Role Phone MARY CRAVEN Primary Care Provider [phone] Assessment Encounter Date Assessment Date Assessment LastModified by Organization Details LastModified Time 03/17/2024 03/17/2024 44-year-old kate tello presents for re-evaluation. Her hoarseness improved with use of omeprazole. She may continue using this. I have recommended referral to gastroenterology for further evaluation and treatment. She should also continue with her wood model builder as this is likely exacerbating symptoms. May follow-up here as needed. [email or web address] Not available 03/17/2024 14:17:36 Plan of Treatment Reminders Order Date Submit Date Provider Last Modified By Organization Details Last Modified Time Details Appointments None recorde d. Lab None recorde d. Referral gastroe nterolo gist referra l - Referra l for reflux. Thank you. 2023 024 2 [facility] Gastroenterology Scheduling Department, [address] [place], [address], 12:19:05 Procedures None recorde d. Surgeries None recorde d. Imaging None recorde d. Medication Orders None recorde d. Patient TargetsNo targets recorded. Patient InstructionsNo instructions recorded. Reason for Referral Bingo Caller Referral for Gastroesophageal reflux disease without esophagitis Referral for reflux. Thank you. Referring Physician: Sandi Sidhu, Otolaryngology, Encounter Date: 03/17/2024 Problems Name Problem SNOMED Code Status Onset Date Resolution Date Notes Provider Name and Address Organization Details Recorded Time Dysphonia 70383280 Active 2023 Hoarsenes s; Note: Date Diagnosed : 11/21/2023 12:28 PM (R49.0) Not Available [facility] 4 03:25:13 Allergic rhinitis caused by pollen 90899864 Active 2023 Allergic rhinitis due to pollen; Note: Date Diagnosed : 11/21/2023 12:28 PM (J30.1) Not Available [facility] 4 03:25:13 Gastroesop hageal reflux disease without esophagiti s 728419312 Active 2023 SANDI SIDHU PA-C [address] [employer] [place],[address], [place], [address] , [place] - [facility] 4 13:57:35 Allergic rhinitis 52826506 Active 2023 SANDI SIDHU PA-C 100 [facility],[address], [place], [address] , [place] - [facility] 4 13:57:51 Dysphagia 28986540 Active 2023 SANDI SIDHU PA-C [address] [place],[address], [place], [address] , [place] - [facility] 4 13:58:06 Hoarse 29031759 Active 2023 BARBARA SARGENT MD 100 [facility],[address], [place], [address] , [place] - [facility] 4 14:17:42 Problem Notes None recorded. Medical Equipment None Reported. Allergies Allergen ID Allergen Name Allergen Category Reaction Reaction Severity Criticality Documentation Date Start Date Code Code System Note Provider Name and Address Organization Details Recorded Time 057822 Product containin g magnesium and/or magnesium compound (product) medicatio n hives Not available Not available 05/02/2024 09120 5005 SNOMED React ion: Hives ; Not Available [facility] 4 00:23:57 406394 metformin medicatio n diarrhea Not available Not [...] Xyzal 5 mg tablet active Medication ID: [id number] Bra nd Name: Xyzal Send Method: E-Prescrib ed Subs Allowed: subs OK Medicat ionGeneric Name: Xyzal Not Available Not Available Not Available butalbital 50 mg-acetami nophen 300 mg capsule active Medication ID: [id number] Bra nd Name: butalbital -acetamino phen Send Method: E-Prescrib ed Subs Allowed: subs OK Medicat ionGeneric Name: butalbital -acetamino phen Not Available Not Available Not Available Vitals Date Recorded Body height Body mass index (BMI) Body weight Provider Name and Address Organization Details Last Updated DateTime 03/17/2024 152.4 cm 50.6 kg/m2 728847.42 g Sarita Mo [place] - [facility] 03/17/2024 13:03:46 Social History None recorded. [...] Diagnosis Note [id number] SANDI SIDHU PA-C [facility] [address] [address] 03/17/2024 12:18:22 03/17/2024 13:37:11 Gastroesophageal reflux disease without esophagitis 200491999 K21.9 Allergic rhinitis 515705 04 J30.9 Hoarse 57766505 R49.0 improved Health Concerns Section Related Observation LastModified by Organization Detai ls LastModified Time None Recorded Concern Status LastModified by Organization Details LastModified Time None Recorded Advance Directives Directive None Recorded Payers Insurance Date Sequence Insurance Name Policy Number Policy Greene Covered Member ID Greene Member ID Guarantor Name 03/18/[address] [facility] - HEALTH NET PLAN (MEDICAID HMO) SOCO Knutson Rk [id number] Zenia Beckman Notes Date Note Type Note Provider Name and Address Organization Details Recorded Time 03/17/2024 text/html ROS as noted in the HPI 44-year-old female presents for reevaluation. Previously evaluated for hoarseness and thought to have GERD and postnasal drip from seasonal allergy. She sees an wood model builder and takes Flonase and Xyzal daily. Omeprazole was added to her daily regimen and she feels her hoarseness has improved. Plans to see her wood model builder in March. BARBARA JAMES MD [address] [place] [address], [place], [address], [facility] - [facility] 03/17/2024 14:17:57 OBGyn Episode No OBEpisode recorded.
[2025-09-21 09:17] LABS: Alanine Aminotransferase 31 U/L (0-31); Albumin Level 3.9 g/dL (3.5-5.0); Alkaline Phosphatase 73 U/L (39-117); Anion Gap 10 (12-20); Aspartate Amino Transferase 27 U/L (5-31); Blood Urea Nitrogen 12 mg/dL (9-16); Calcium 9.2 mg/dL (8.4-10.2); Carbon Dioxide 28 mmol/L (22-29); Chloride 108 mmol/L (96-108); Cholesterol 150 mg/dL (<200); Estimated Glomerular Filt Rate > 60; HDL Cholesterol 65 mg/dL (>40); Potassium 4.6 mmol/L (3.3-5.1); Sodium 141 mmol/L (135-145); Total Protein 6.6 g/dL (6.5-8.0); Triglycerides 77 mg/dL (<150)
== END 2025-09-21 07:53 | disposition home or self-care (01) ==
LOC: HO.LAB 07:52
PROVIDERS: PCP Internal Medicine; Visit Provider Internal Medicine
DX: E78.5 Hyperlipidemia, unspecified (principal); E55.9 Vitamin D deficiency, unspecified; E11.9 Type 2 diabetes mellitus without complications; R80.9 Proteinuria, unspecified; M53.3 Sacrococcygeal disorders, not elsewhere classified
CPT/HCPCS: 36415; 72220; 80053; 80061; 82043; 82306; 82570

== ENCOUNTER → 2025-09-21 08:05 | Outpatient (BNV) | payer OTHER, SELFPAY | PROVIDERS: PCP Internal Medicine; Visit Provider Radiology Diagnostic Radiology | DX: M53.3 Sacrococcygeal disorders, not elsewhere classified (principal) | CPT/HCPCS: 72220 ==

== ENCOUNTER 2025-09-23 07:44 | Outpatient (AMB) | payer OTHER, SELFPAY ==
--- NOTE | 2025-09-23 07:47 | A.OFFPC_ITS ---
Vital Signs 09/23/25 07:53 Height 5 ft Weight 169 lb BMI 33.0 BP 126/66 Blood Pressure Location Lt brachial Position Sitting Respiration 18 Pulse 57 Pulse Source Pulse Oximeter Temp 97.7 F Temp Source Temporal Artery Scan Pulse Oximetry (%) 99 Oxygen Delivery Method Room Air Intake Visit Reasons: DM Operations Controller Required: No Accompanied by: Self / Same As Patient Allergies gabapentin Allergy (Intermediate, Verified 09/23/25 08:06) pruritus magnesium Allergy (Intermediate, Verified 09/23/25 08:06) IV route caused rash, can tolerate PO environmental allergies Allergy (Unknown, Verified 09/23/25 08:06) Unknown metformin Adverse Reaction (Intermediate, Verified 09/23/25 08:06) diarrhea Medication List - Last Reconciled 09/23/25 by Fay Cisneros MD levocetirizine (Xyzal) 5 mg PO DAILY [Vitamin A 1 cap PO DAILY] Tobacco use date assessed: 05/20/25 Dental Screening Dental Screen Date: 05/20/25 HPI HPI Comments History of Present Illness Details This is a 45-year-old female with diabetes mellitus type 2 are controlled with diet and GERD that has also been well controlled with diet. Denies any chest pain or shortness on breath. A1c within goal. Doing well. [facility] Medical History Physical exam Cervical cancer screening Obesity, morbid, BMI 50 or higher Well woman exam with routine gynecological exam Non-insulin dependent type 2 diabetes mellitus Diabetes Environmental allergies GERD (gastroesophageal reflux disease) Migraines Hypovitaminosis D Morbid obesity Missed period Hair loss Extreme obesity Acne Surgical History S/P laparoscopic sleeve gastrectomy History of esophagogastroduodenoscopy (EGD) (07/30/24) History of surgery History of right breast biopsy History of tubal ligation History of section History of laparoscopic cholecystectomy Family History Father Hypertension Stroke Mother Hypertension Sister No problems noted. Son No problems noted. Daughter No problems noted. Maternal Aunt Colon cancer, Onset Age: 60 Social History Household Members: Spouse Housing: Apartment Are you a primary child care giver to a significant other at home: No Do you presently have visiting nurse or other home services: No Alcohol intake: never Comment: Gas pain Patient Tobacco Use Status: Never used Tobacco Tobacco use type: Cigarette e-Cigarette/Vaping Use: Never Used Second Hand Smoke Exposure: No service: No Current occupational status: employed Current occupational exposures/hazards: No Cognitive needs: No Hearing needs: No Vision needs: Yes Female Reproductive History Menstrual Age of Menarche: 9 Questionnaire Thrive Questionnaire Date Thrive assessed: 12/27/24 I am a: Patient What is your living situation today?: I have a steady place to live Within the past 12 months, did the food you bought not last and you didn't have the money to get more?: Never true Within the past 12 months, did you worry whether your food would run out before you got money to buy more?: Never true Do you have trouble paying for medicines?: No Do you have trouble getting transportation to medical appointments?: No Do you have trouble paying your heating and electricity bill?: No Do you have trouble taking care of your child, family member or friend?: No Do you have trouble with day-to-day activities such as bathing, preparing meals, shopping, managing finances, etc.?: No Are you currently unemployed and looking for a job?: No Are you interested in more education?: No Currently or been in a relationship where the following occur: No concerns reported THRIVE Score: 0 GUZMAN-7 AMB Questionnaire GUZMAN-7 Date GUZMAN - 7 assessed: 10/14/24 Source: Developed by Drs. German Bell, Trena Mccoy, Elia Zimmerman and colleagues, with an educational haseeb from [employer]. Review of Systems Const All systems reviewed & are unremarkable except as noted in HPI and below Card Denies chest pain at rest, Denies chest pain with activity, Denies edema, Denies irregular heart rhythm, Denies claudication, Denies dyspnea, Denies dyspnea on exertion, Denies orthopnea, Denies paroxysmal nocturnal dyspnea and Denies slow heart rate Resp Denies cough, Denies dyspnea and Denies dyspnea on exertion GI Denies abdominal pain, Denies change in bowel habits, Denies excessive flatus, Denies nausea and Denies vomiting Denies urinary incontinence, Denies urinary hesitancy and Denies urinary urgency Physical exam (Primary Care) Vital Signs: Last Vital Signs Temp 97.7 F 09/23/25 07:53 Pulse 57 09/23/25 07:53 Resp 18 09/23/25 07:53 BP 126/66 09/23/25 07:53 Pulse Ox 99 09/23/25 07:53 Oxygen Delivery Method Room Air 09/23/25 07:53 BMI result Body Mass Index 33.0 BMI Assessment/Plan discussion: High BMI High, discussed plan: lifestyle, weight reduction, dietary and physical activity Tobacco/Smoking Status: Tobacco use Status Tobacco use date assessed 05/20/25 09/23/25 07:48 Patient Tobacco Use Status Never used Tobacco 09/23/25 07:48 Tobacco use type Cigarette 09/23/25 07:48 e-Cigarette/Vaping Use Never Used 09/23/25 07:48 Thrive Assessment: Date of Thrive Assessment Date Thrive assessed 12/27/24 09/23/25 07:48 Currently or been in a relationship where the following occur: No concerns reported Resp Effort & Inspection: normal respiratory effort Auscultation: clear to auscultation bilaterally Cardio Jugular venous distension: no JVD Rate: regular rate Rhythm: regular rhythm Heart sounds: S1 normal heart sound present and S2 normal heart sound present Extrem General: Yes full ROM Coding Level of Care Code Est Pt Level 3 (00529) Diagnoses Type 2 diabetes mellitus without complication, without long-term current use of insulin E11.9 Diabetes mellitus type: type 2 Diabetes mellitus terminal superintendent insulin use: without terminal superintendent use Diabetes mellitus complication status: without complication GERD (gastroesophageal reflux disease) K21.9 Time Spent (min) 19 Assessment & Plan Assessment & Plan (1) Diabetes mellitus: Code(s): E11.9 - Type 2 diabetes mellitus without complications Category: Medical Qualifiers: Diabetes mellitus type: type 2 Diabetes mellitus terminal superintendent insulin use: without penitentiary use Diabetes mellitus complication status: without complication Qualified Code(s): E11.9 - Type 2 diabetes mellitus without complications (2) GERD (gastroesophageal reflux disease): Code(s): K21.9 - Gastro-esophageal reflux disease without esophagitis Category: Medical Plan Continue low acid and low-carbohydrate diet. Orders: Orders AMB Hemoglobin A1c Today Z13.9 - Encounter for screening, unspecified
--- OUTSIDE RECORDS SUMMARY | 2025-09-23 07:47 | XMS_ITS | Data Portability ---
Author Organization [place] - [facility], Allergy Address [address] [address] Care Team Providers Care Professor Of Finance Name Role Phone MARY CRAVEN Primary Care Provider [phone] Assessment Encounter Date Assessment Date Assessment LastModified by Organization Details LastModified Time 03/17/2024 03/17/2024 44-year-old kate tello presents for re-evaluation. Her hoarseness improved with use of omeprazole. She may continue using this. I have recommended referral to gastroenterology for further evaluation and treatment. She should also continue with her nurse prn as this is likely exacerbating symptoms. May follow-up here as needed. [email or web address] Not available 03/17/2024 14:17:36 Plan of Treatment Reminders Order Date Submit Date Provider Last Modified By Organization Details Last Modified Time Details Appointments None recorde d. Lab None recorde d. Referral gastroe nterolo gist referra l - Referra l for reflux. Thank you. 2023 024 [email or web address] [id number] [facility] Scheduling [facility], [address] [place], [address], 12:19:05 Procedures None recorde d. Surgeries None recorde d. Imaging None recorde d. Medication Orders None recorde d. Patient TargetsNo targets recorded. Patient InstructionsNo instructions recorded. Reason for Referral Automated Teller Manager Referral for Gastroesophageal reflux disease without esophagitis Referral for reflux. Thank you. Referring Physician: Sandi Sidhu, Otolaryngology, Encounter Date: 03/17/2024 Problems Name Problem SNOMED Code Status Onset Date Resolution Date Notes Provider Name and Address Organization Details Recorded Time Dysphonia 53421402 Active 2023 Hoarsenes s; Note: Date Diagnosed : 11/21/2023 12:28 PM (R49.0) Not Available [facility] 4 03:25:13 Allergic rhinitis caused by pollen 00518968 Active 2023 Allergic rhinitis due to pollen; Note: Date Diagnosed : 11/21/2023 12:28 PM (J30.1) Not Available [facility] 4 03:25:13 Gastroesop hageal reflux disease without esophagiti s 280003103 Active 2023 SANDI SIDHU PA-C [address] [facility],[address], [place], [address] , [place] - [facility] 4 13:57:35 Allergic rhinitis 85326001 Active 2023 SANDI SIDHU PA-C [address] [facility],[address], [place], [address] , [place] - [facility] 4 13:57:51 Dysphagia 00702338 Active 2023 SANDI SIDHU PA-C [address] [facility],[address], [place], [address] , [place] - [facility] 4 13:58:06 Hoarse 76195225 Active 2023 BARBARA SARGENT MD [address] [facility],[address], [place], [address] , [place] - [facility] 4 14:17:42 Problem Notes None recorded. Medical Equipment None Reported. Allergies Allergen ID Allergen Name Allergen Category Reaction Reaction Severity Criticality Documentation Date Start Date Code Code System Note Provider Name and Address Organization Details Recorded Time 086435 Product containin g magnesium and/or magnesium compound (product) medicatio n hives Not available Not available 05/02/2024 [id number] SNOMED React ion: Hives ; Not Available [facility] 4 00:23:57 962489 metformin medicatio n diarrhea Not available Not [...] Xyzal 5 mg tablet active Medication ID: [id number] Bra nd Name: Xyzal Send Method: E-Prescrib ed Subs Allowed: subs OK Medicat ionGeneric Name: Xyzal Not Available Not Available Not Available butalbital 50 mg-acetami nophen 300 mg capsule active Medication ID: [id number] Bra nd Name: butalbital -acetamino phen Send Method: E-Prescrib ed Subs Allowed: subs OK Medicat ionGeneric Name: butalbital -acetamino phen Not Available Not Available Not Available Vitals Date Recorded Body height Body mass index (BMI) Body weight Provider Name and Address Organization Details Last Updated DateTime 03/17/2024 152.4 cm 50.6 kg/m2 198515.42 g Sarita Mo [place] - [facility] 03/17/2024 13:03:46 Social History None recorded. Functional [...] Diagnosis Note [id number] SANDI SIDHU PA-C [facility] [address] [address] 03/17/2024 12:18:22 03/17/2024 13:37:11 Gastroesophageal reflux disease without esophagitis 986653226 K21.9 Allergic rhinitis 655354 04 J30.9 Hoarse 78039395 R49.0 improved Health Concerns Section Related Observation LastModified by Organization Detai ls LastModified Time None Recorded Concern Status LastModified by Organization Details LastModified Time None Recorded Advance Directives Directive None Recorded Payers Insurance Date Sequence Insurance Name Policy Number Policy Greene Covered Member ID Greene Member ID Guarantor Name 03/18/2024 1 [facility] (MEDICAID HMO) SOCO Knutson Rk [id number] Zenia Beckman Notes Date Note Type Note Provider Name and Address Organization Details Recorded Time 03/17/2024 text/html ROS as noted in the HPI 44-year-old female presents for reevaluation. Previously evaluated for hoarseness and thought to have GERD and postnasal drip from seasonal allergy. She sees an nurse prn and takes Flonase and Xyzal daily. Omeprazole was added to her daily regimen and she feels her hoarseness has improved. Plans to see her nurse prn in March. BARBARA JAMES MD [address] [place] [address], [place], [address], [facility] - [facility] 03/17/2024 14:17:57 OBGyn Episode No OBEpisode recorded.
--- OUTSIDE RECORDS SUMMARY | 2025-09-23 07:47 | XMS_ITS | Clinical Summary ---
Author Organization [facility] ity Address [address] [place] [address] Care Team Providers Care Prestressed Concrete Laborer Name Role Phone Unavailable Primary Care Provider [...] Documents on File Type Date Recorded Patient Strap Sewer Expl anation Health Care Decision (hx) 03/08/2014 AD FOUNTAIN DIRECTIVE Health Care Decision (hx) 03/08/2014 AD FOUNTAIN DIRECTIVE Health Care Decision (hx) 03/08/2014 AD FOUNTAIN DIRECTIVE
[2025-09-23 07:53] VITALS: BP 126/66; PULSE 57; RESP 18; TEMP 36.5; O2SAT 99; BMI 33.0
== END 2025-09-23 08:14 | disposition home or self-care (01) ==
LOC: HO.HMCH 07:45
PROVIDERS: PCP Internal Medicine; Visit Provider Internal Medicine
DX: E11.9 Type 2 diabetes mellitus without complications (principal); K21.9 Gastro-esophageal reflux disease without esophagitis

== ENCOUNTER → 2025-09-23 07:44 | Outpatient (BNVA) | payer OTHER, SELFPAY | PROVIDERS: PCP Internal Medicine; Visit Provider Internal Medicine | DX: E11.9 Type 2 diabetes mellitus without complications (principal); K21.9 Gastro-esophageal reflux disease without esophagitis; Z79.899 Other long term (current) drug therapy | CPT/HCPCS: 99212 ==